=== PATIENT | female | born 1960 | race Caucasian/White ===

== ENCOUNTER 2016-04-24 19:28 | Emergency (ER) | payer OTHER, MEDICAID ==
[2015-12-10 14:14] VITALS: Ht 165.1 cm; Wt 90.7 kg
[~2016-04-24] VITALS: Ht 165.1 cm; Wt 90.7 kg
[~2016-04-24 19:28] MED LIST: BACL10TA GT; BISA10SU65 RC; CHLO118M PO; CHOL2000 GT; FER300L GT; FLEET RC; IBUP-1969 GT; LACTIN GT; LEVO175T7 GT; MAGN400O4 GT; MULT240L GT; OMEP40CA33 GT; POTA40LI14 PO; PRAM28.3 RC; REGL10 GT; TEMA15CA51 GT; TRAM50TA92 GT; TYL160/5 GT; VANORAL GT; XOP.63 INH
--- NOTE | 2016-04-24 19:40 | NUR ---
DR. BLANK AT BEDSIDE EXAMINING THE PT.
--- NOTE | 2016-04-24 19:40 | NUR ---
Patient to ER bed 01 to gown for evaluation. Side rails up. Report given to Ritu.
[2016-04-24 19:42] VITALS: BP 132/81; PULSE 90; RESP 17; TEMP 98.6; O2SAT 99
--- NOTE | 2016-04-24 19:55 | NUR ---
Pt. sent from snf for G tube replacement, as per ems the g tube was placed in on and started leaking this afternoon, leaking perfusly, [address], Hx of terminal ALS, respiratory failure, VENT DEPENDENT, trach in place, alert and awake.
--- NOTE | 2016-04-24 20:30 | NUR ---
Dr. contreras at bedside for g tube replacement, G- tube was replaced with a 30F, wound area cleaned, skin barrier applied, pt. tolerated well, dressing in place, no bleeding or drainage noted at this time
[2016-04-24 20:57] LABS: BASOPHILS % (AUTO) 0.2 % (0.0-2.0); EOSINOPHILS # (AUTO) 0.1 K/uL (0.0-0.4); EOSINOPHILS % (AUTO) 1.3 % (0.0-4.0); HEMATOCRIT 33.7 % (36-48); HEMOGLOBIN 11.4 g/dL (12.0-16.0); LYMPHOCYTES # (AUTO) 2.7 K/uL (1.0-5.5); LYMPHOCYTES % (AUTO) 28.3 % (20.5-51.5); MEAN CORPUSCULAR HEMOGLOBIN 30 pg (27-31); MEAN CORPUSCULAR HGB CONC 34 % (32-36); MEAN CORPUSCULAR VOLUME 90 fL (79.0-98.0); MONOCYTES # (AUTO) 0.7 K/uL (0.0-1.0); MONOCYTES % (AUTO) 7.5 % (1.7-9.3); NEUTROPHILS # (AUTO) 6.1 K/uL (1.8-7.7); NEUTROPHILS % (AUTO) 62.7 % (40.0-70.0); PLATELET COUNT (AUTO) 237 K/uL (130-430); RED BLOOD CELL COUNT(AUTO) 3.77 MIL/uL (4.2-6.2); RED CELL DISTRIBUTION WIDTH 12.4 % (9.0-15.0); WHITE BLOOD COUNT (AUTO) 9.6 K/uL (4.8-10.8)
[2016-04-24 21:09] LABS: CALCIUM 9.4 mg/dL (8.4-11.0); CREATININE 0.47 mg/dL (0.55-1.30); PROTHROMBIN TIME 10.4 SECS (9.5-12.5)
[2016-04-24] MEDS ORDERED: GASTROGRAFIN 120 ML ONE (21:10)
[2016-04-24 21:23] LABS: ALBUMIN 3.5 g/dL (3.4-4.8); TOTAL BILIRUBIN 0.6 mg/dL (0.0-1.0); TOTAL PROTEIN, SERUM 9.8 g/dL (6.4-8.3)
[2016-04-25 00:43] VITALS: BP 133/79; PULSE 122; RESP 18; TEMP 98.2; O2SAT 99
--- NOTE | 2016-04-25 00:43 | NUR ---
Patient to be transferred to [facility], transfering patient now and Report called to Nurse Gonsalves at receiving facility. [facility] ambulance service is taking patient now.
== END 2016-04-25 00:43 | disposition home or self-care (01) ==
LOC: SED 19:28
DX: K94.23 Gastrostomy malfunction (principal); Z86.79 Personal history of other diseases of the circulatory system; Z99.11 Dependence on respirator [ventilator] status; Z79.899 Other long term (current) drug therapy
CPT/HCPCS: 36415; 43760; 74240; 80053; 83605; 85025; 85610; 85730; 87040; 94640; 99285; Q9963

== ENCOUNTER 2016-05-02 08:10 | Inpatient (IN) | payer OTHER, MEDICAID ==
[2016-05-02] VITALS (11 sets, daily range): BP systolic 118–131; BP diastolic 66–79; PULSE 79–95; RESP 16–19; TEMP 97.1–97.9; O2SAT 94–98
[~2016-05-02] VITALS: Ht 160 cm; Wt 68.0 kg
[2016-05-02] MEDS ORDERED: CEFAZOLIN 1 GM IVPB PREMIX 50 ML IV ONE (09:15)
[2016-05-02 09:42] LABS: CALCIUM 9.7 mg/dL (8.4-11.0); CREATININE 0.52 mg/dL (0.55-1.30); POTASSIUM 3.9 mmol/L (3.5-5.1)
[2016-05-02 09:44] LABS: INR 0.9 (0.8-1.2); PROTHROMBIN TIME 10.3 SECS (9.5-12.5)
[2016-05-02 09:47] LABS: ALBUMIN 3.7 g/dL (3.4-4.8); TOTAL BILIRUBIN 0.6 mg/dL (0.0-1.0); TOTAL PROTEIN, SERUM 10.3 g/dL (6.4-8.3)
[2016-05-02 09:53] LABS: BASOPHILS % (AUTO) 0.1 % (0.0-2.0); EOSINOPHILS # (AUTO) 0.1 K/uL (0.0-0.4); EOSINOPHILS % (AUTO) 1.1 % (0.0-4.0); HEMATOCRIT 38.2 % (36-48); HEMOGLOBIN 12.7 g/dL (12.0-16.0); LYMPHOCYTES # (AUTO) 2.6 K/uL (1.0-5.5); LYMPHOCYTES % (AUTO) 25.5 % (20.5-51.5); MEAN CORPUSCULAR HEMOGLOBIN 30 pg (27-31); MEAN CORPUSCULAR HGB CONC 33 % (32-36); MEAN CORPUSCULAR VOLUME 91 fL (79.0-98.0); MONOCYTES # (AUTO) 0.8 K/uL (0.0-1.0); MONOCYTES % (AUTO) 7.8 % (1.7-9.3); NEUTROPHILS # (AUTO) 6.8 K/uL (1.8-7.7); NEUTROPHILS % (AUTO) 65.5 % (40.0-70.0); PLATELET COUNT (AUTO) 293 K/uL (130-430); RED BLOOD CELL COUNT(AUTO) 4.19 MIL/uL (4.2-6.2); RED CELL DISTRIBUTION WIDTH 12.4 % (9.0-15.0); WHITE BLOOD COUNT (AUTO) 10.3 K/uL (4.8-10.8)
[2016-05-02] MEDS ORDERED: VANCOMYCIN HCL 1,000 MG in NS 250 ML IV ONE (11:00)
[2016-05-02] MEDS ORDERED: DILT180C69 PO (11:24)
[2016-05-02] MEDS ORDERED: COR3.125 GT (11:24)
[2016-05-02] MEDS: D5LR 1,000 ML IV SCH ×3 (11:59→22:35)
[2016-05-02] MEDS ORDERED: LEVALBUTEROL HCL 0.63 MG/3 ML VIAL.NEB INH PRN (13:45)
[2016-05-02] MEDS ORDERED: BISACODYL 10 MG/SUPPOSITORY RC PRN (13:45)
[2016-05-02] MEDS ORDERED: ACETAMINOPHEN 650 MG/20.3 ML UDC GT PRN (13:45)
[2016-05-02] MEDS ORDERED: NA PHOS,M-B/NA PHOS,DI-BA 118 ML (FLEET ENEMA) RC PRN (13:45)
[2016-05-02] MEDS ORDERED: traMADol HCL HCL 50 MG TABLET (ULTRAM) GT PRN (13:45)
[2016-05-02] MEDS ORDERED: MILK OF MAGNESIA 30 ML UDC GT PRN (13:45)
[2016-05-02] MEDS ORDERED: ceFAZolin SODIUM 1 GM in D5W 50 ML IV SCH (14:00)
[2016-05-02] MEDS: METOCLOPRAMIDE HCL 10 MG/10 ML UDC GT SCH ×2 (14:00→21:54)
[2016-05-02] MEDS ORDERED: DILTIAZEM HCL 25 MG/5 ML VIAL IVP PRN (14:00)
[2016-05-02] MEDS ORDERED: DILTIAZEM HCL 60 MG TABLET PO ONE (14:15)
[2016-05-02] MEDS ORDERED: FAMOTIDINE PF 20 MG/2 ML VIAL IVP ONE (14:15)
[2016-05-02] MEDS: ceFAZolin SODIUM 1 GM in D5W 50 ML IV SCH ×2 (14:31→22:10)
[2016-05-02] MEDS ORDERED: GOLYTELY / COLYTE SOLUTION 4 LITERS GT ONE (18:00)
[2016-05-02] MEDS: LEVALBUTEROL HCL 0.63 MG/3 ML VIAL.NEB INH SCH (19:28)
[2016-05-02] MEDS ORDERED: DILTIAZEM HCL 180 MG CAP.SR.24H PO SCH (21:00)
[2016-05-02] MEDS ORDERED: TEMAZEPAM 15 MG CAPSULE GT PRN (21:00)
[2016-05-02] MEDS: DILTIAZEM HCL 60 MG TABLET PO SCH ×2 (21:00→22:00)
[2016-05-02] MEDS: FAMOTIDINE PF 20 MG/2 ML VIAL IVP SCH (21:54)
[2016-05-02] MEDS: BACLOFEN 10 MG TABLET GT SCH (21:55)
[2016-05-02] MEDS: CARVEDILOL 3.125 MG TABLET (COREG) GT SCH (21:55)
[2016-05-02] MEDS ORDERED: VANCOMYCIN HCL 1000 MG/VIAL IV ONE (22:08)
[2016-05-02] MEDS ORDERED: ceFAZolin SODIUM 1 GM VIAL ONE (22:09)
[2016-05-02] MEDS: VANCOMYCIN HCL 750 MG in NS 250 ML IV SCH (23:27)
[2016-05-03] VITALS (18 sets, daily range): BP systolic 106–132; BP diastolic 55–81; PULSE 66–103; RESP 18–20; TEMP 96.5–98; O2SAT 96–100
[2016-05-03] MEDS: LEVALBUTEROL HCL 0.63 MG/3 ML VIAL.NEB INH SCH ×4 (01:20→19:40)
[2016-05-03] MEDS: D5LR 1,000 ML IV SCH ×3 (05:27→21:46)
[2016-05-03] MEDS: METOCLOPRAMIDE HCL 10 MG/10 ML UDC GT SCH ×3 (05:28→21:46)
[2016-05-03] MEDS: DILTIAZEM HCL 60 MG TABLET PO SCH ×3 (06:00→22:57)
[2016-05-03 07:34] LABS: BASOPHILS % (AUTO) 0.1 % (0.0-2.0); EOSINOPHILS # (AUTO) 0.1 K/uL (0.0-0.4); EOSINOPHILS % (AUTO) 1.1 % (0.0-4.0); HEMATOCRIT 30.5 % (36-48); HEMOGLOBIN 10.6 g/dL (12.0-16.0); LYMPHOCYTES # (AUTO) 1.7 K/uL (1.0-5.5); LYMPHOCYTES % (AUTO) 23.3 % (20.5-51.5); MEAN CORPUSCULAR HEMOGLOBIN 31 pg (27-31); MEAN CORPUSCULAR HGB CONC 35 % (32-36); MEAN CORPUSCULAR VOLUME 89 fL (79.0-98.0); MONOCYTES # (AUTO) 0.6 K/uL (0.0-1.0); MONOCYTES % (AUTO) 8.5 % (1.7-9.3); NEUTROPHILS # (AUTO) 4.8 K/uL (1.8-7.7); PLATELET COUNT (AUTO) 223 K/uL (130-430); RED BLOOD CELL COUNT(AUTO) 3.42 MIL/uL (4.2-6.2); RED CELL DISTRIBUTION WIDTH 12.4 % (9.0-15.0); WHITE BLOOD COUNT (AUTO) 7.2 K/uL (4.8-10.8)
[2016-05-03] MEDS: ceFAZolin SODIUM 1 GM in D5W 50 ML IV SCH ×3 (07:46→21:50)
[2016-05-03 08:29] LABS: ANION GAP 8 (5-15); CALCIUM 8.9 mg/dL (8.4-11.0); CHLORIDE 105 mmol/L (98-107); CREATININE 0.64 mg/dL (0.55-1.30); GLUCOSE 149 mg/dL (70-99); POTASSIUM 3.3 mmol/L (3.5-5.1); SODIUM SERUM 140 mmol/L (136-145); UREA NITROGEN, BLOOD 17 mg/dL (8-21)
[2016-05-03 08:35] LABS: ALANINE AMINOTRANSFERASE 88 U/L (12-78); ASPARTATE AMINOTRANSFERASE 75 U/L (10-37); TOTAL BILIRUBIN 0.5 mg/dL (0.0-1.0); TOTAL PROTEIN, SERUM 8.3 g/dL (6.4-8.3)
[2016-05-03 08:40] LABS: PROTHROMBIN TIME 10.6 SECS (9.5-12.5)
[2016-05-03] MEDS: CARVEDILOL 3.125 MG TABLET (COREG) GT SCH ×2 (08:52→21:47)
[2016-05-03] MEDS: BACLOFEN 10 MG TABLET GT SCH ×2 (08:52→21:46)
[2016-05-03] MEDS: MULTIVITAMINS,THERAPEUTIC 5 ML UDC GT SCH (08:52)
[2016-05-03] MEDS: FAMOTIDINE PF 20 MG/2 ML VIAL IVP SCH ×2 (08:52→21:46)
[2016-05-03 09:08] LABS: IRON (SERUM) 75 mcg/dL (37-145); TOTAL IRON BIND. CAPACITY 205 ug/dL (250-450)
[2016-05-03 09:14] LABS: ACETAMINOPHEN < 1 ug/mL (1-30); GFR AFRICAN AMERICAN 123 mL/min (>90)
[2016-05-03] MEDS: VANCOMYCIN HCL 750 MG in NS 250 ML IV SCH ×2 (12:10→22:55)
[2016-05-03] MEDS ORDERED: POTASSIUM CHLORIDE 40 MEQ, LIDOCAINE JECT 2% PF 100 MG 50 MG in NS 250 ML IV ONE ×2 (13:30→18:00)
[2016-05-03] MEDS ORDERED: MENTHOL/ZINC OXIDE 113 GM OINT. TP PRN (19:00)
[2016-05-03] MEDS: MENTHOL/ZINC OXIDE 113 GM OINT. TP SCH ×2 (21:00→21:56)
[2016-05-04] VITALS (18 sets, daily range): BP systolic 102–149; BP diastolic 66–81; PULSE 7–87; RESP 17–19; TEMP 97.2–98.8; O2SAT 98–100; Ht 160 cm; Wt 68.0 kg
[2016-05-04] MEDS: D5LR 1,000 ML IV SCH ×3 (01:15→21:06)
[2016-05-04] MEDS: LEVALBUTEROL HCL 0.63 MG/3 ML VIAL.NEB INH SCH ×4 (01:36→19:48)
[2016-05-04] MEDS: DILTIAZEM HCL 60 MG TABLET PO SCH ×3 (05:26→21:09)
[2016-05-04] MEDS: METOCLOPRAMIDE HCL 10 MG/10 ML UDC GT SCH ×3 (05:29→21:07)
[2016-05-04] MEDS: ceFAZolin SODIUM 1 GM in D5W 50 ML IV SCH ×3 (05:30→21:06)
[2016-05-04 07:54] LABS: BASOPHILS % (AUTO) 0.1 % (0.0-2.0); EOSINOPHILS # (AUTO) 0.1 K/uL (0.0-0.4); EOSINOPHILS % (AUTO) 0.9 % (0.0-4.0); HEMATOCRIT 28.6 % (36-48); HEMOGLOBIN 9.7 g/dL (12.0-16.0); LYMPHOCYTES # (AUTO) 1.8 K/uL (1.0-5.5); LYMPHOCYTES % (AUTO) 22.6 % (20.5-51.5); MEAN CORPUSCULAR HEMOGLOBIN 31 pg (27-31); MEAN CORPUSCULAR HGB CONC 34 % (32-36); MEAN CORPUSCULAR VOLUME 91 fL (79.0-98.0); MONOCYTES # (AUTO) 0.5 K/uL (0.0-1.0); MONOCYTES % (AUTO) 6.2 % (1.7-9.3); NEUTROPHILS # (AUTO) 5.7 K/uL (1.8-7.7); NEUTROPHILS % (AUTO) 70.2 % (40.0-70.0); PLATELET COUNT (AUTO) 189 K/uL (130-430); RED BLOOD CELL COUNT(AUTO) 3.15 MIL/uL (4.2-6.2); RED CELL DISTRIBUTION WIDTH 12.4 % (9.0-15.0); WHITE BLOOD COUNT (AUTO) 8.1 K/uL (4.8-10.8)
[2016-05-04 08:16] LABS: ALBUMIN 2.9 g/dL (3.4-4.8); CALCIUM 8.4 mg/dL (8.4-11.0); CREATININE 0.54 mg/dL (0.55-1.30); POTASSIUM 3.3 mmol/L (3.5-5.1); TOTAL BILIRUBIN 0.4 mg/dL (0.0-1.0)
[2016-05-04] MEDS: FAMOTIDINE PF 20 MG/2 ML VIAL IVP SCH ×2 (09:00→21:07)
[2016-05-04] MEDS: MULTIVITAMINS,THERAPEUTIC 5 ML UDC GT SCH (09:00)
[2016-05-04] MEDS: CARVEDILOL 3.125 MG TABLET (COREG) GT SCH ×2 (09:00→21:08)
[2016-05-04] MEDS: BACLOFEN 10 MG TABLET GT SCH ×2 (09:00→21:08)
[2016-05-04] MEDS: MEPERIDINE HCL/PF 50 MG/ML AMP ONE ×2 (09:53→09:59)
[2016-05-04] MEDS: MIDAZOLAM HCL 5 MG/5 ML VIAL ONE ×2 (09:53→09:59)
[2016-05-04] MEDS ORDERED: MIDAZOLAM HCL 5 MG/5 ML VIAL ONE (09:54)
[2016-05-04] MEDS ORDERED: SIMETHICONE 40 MG/0.6 ML ML ONE (09:57)
[2016-05-04 10:09] LABS: HEPATITIS A AB, IgM Negative (Negative); HEPATITIS B CORE AB, IgM Negative (Negative); HEPATITIS B SURFACE AG Negative (Negative)
[2016-05-04] MEDS: VANCOMYCIN HCL 750 MG in NS 250 ML IV SCH ×2 (13:16→21:59)
[2016-05-04 15:28] LABS: ANTI NUCLEAR AB WITH REFLEX Positive (Negative)
[2016-05-04] MEDS ORDERED: POTASSIUM CHLORIDE 40 MEQ, LIDOCAINE JECT 2% PF 100 MG 50 MG in NS 250 ML IV ONE (16:00)
[2016-05-04] MEDS: MENTHOL/ZINC OXIDE 113 GM OINT. TP SCH (21:00)
[2016-05-04] MEDS: MUPIROCIN 2% TOPICAL OINTMENT 22 GM TP SCH (21:07)
[2016-05-05] VITALS (17 sets, daily range): BP systolic 100–136; BP diastolic 67–77; PULSE 61–128; RESP 17–21; TEMP 97.2–98.6; O2SAT 97–100
[2016-05-05] MEDS: LEVALBUTEROL HCL 0.63 MG/3 ML VIAL.NEB INH SCH ×4 (01:30→20:19)
[2016-05-05] MEDS: DILTIAZEM HCL 60 MG TABLET PO SCH ×2 (05:00→14:10)
[2016-05-05] MEDS: ceFAZolin SODIUM 1 GM in D5W 50 ML IV SCH ×2 (05:00→14:09)
[2016-05-05] MEDS: METOCLOPRAMIDE HCL 10 MG/10 ML UDC GT SCH ×2 (05:00→14:09)
[2016-05-05 05:06] LABS: ALPHA-1-ANTITRYPSIN, S 137 mg/dL (90-200)
[2016-05-05] MEDS: FAMOTIDINE PF 20 MG/2 ML VIAL IVP SCH (10:11)
[2016-05-05] MEDS: MUPIROCIN 2% TOPICAL OINTMENT 22 GM TP SCH (10:12)
[2016-05-05] MEDS: CARVEDILOL 3.125 MG TABLET (COREG) GT SCH (10:12)
[2016-05-05] MEDS: BACLOFEN 10 MG TABLET GT SCH (10:12)
[2016-05-05] MEDS: MULTIVITAMINS,THERAPEUTIC 5 ML UDC GT SCH (10:12)
[2016-05-05] MEDS: MENTHOL/ZINC OXIDE 113 GM OINT. TP SCH ×3 (10:13→17:04)
[2016-05-05] MEDS: VANCOMYCIN HCL 750 MG in NS 250 ML IV SCH (10:39)
[2016-05-05 13:07] LABS: AFP, TUMOR MARKER 3.2 ng/mL (0.0-8.3)
[2016-05-05 15:33] LABS: BASOPHILS % (AUTO) 0.1 % (0.0-2.0); EOSINOPHILS # (AUTO) 0.1 K/uL (0.0-0.4); EOSINOPHILS % (AUTO) 0.9 % (0.0-4.0); HEMATOCRIT 32.8 % (36-48); HEMOGLOBIN 11.1 g/dL (12.0-16.0); LYMPHOCYTES # (AUTO) 1.8 K/uL (1.0-5.5); LYMPHOCYTES % (AUTO) 26.5 % (20.5-51.5); MEAN CORPUSCULAR HEMOGLOBIN 31 pg (27-31); MEAN CORPUSCULAR HGB CONC 34 % (32-36); MEAN CORPUSCULAR VOLUME 92 fL (79.0-98.0); MONOCYTES # (AUTO) 0.5 K/uL (0.0-1.0); MONOCYTES % (AUTO) 7.1 % (1.7-9.3); NEUTROPHILS # (AUTO) 4.4 K/uL (1.8-7.7); NEUTROPHILS % (AUTO) 65.4 % (40.0-70.0); PLATELET COUNT (AUTO) 198 K/uL (130-430); RED BLOOD CELL COUNT(AUTO) 3.58 MIL/uL (4.2-6.2); RED CELL DISTRIBUTION WIDTH 12.1 % (9.0-15.0); WHITE BLOOD COUNT (AUTO) 6.8 K/uL (4.8-10.8)
[2016-05-05 15:36] LABS: CALCIUM 8.8 mg/dL (8.4-11.0); CREATININE 0.6 mg/dL (0.55-1.30); POTASSIUM 3.7 mmol/L (3.5-5.1)
[2016-05-05 15:46] LABS: ANTI-SMOOTH MUSCLE AB 37 Units (0-19)
== END 2016-05-05 20:40 | DRG 393 ==
LOC: SED 08:10 → SMU 09:09 → STU 10:54
PROVIDERS: ADMIT Internal Medicine; ATTEND Internal Medicine
PROC: 0D20XUZ Change Feeding Device in Upper Intestinal Tract, External Approach (ICD-10-PCS; principal; 2016-05-02)
PROC: 5A1945Z Respiratory Ventilation, 24-96 Consecutive Hours (ICD-10-PCS; 2016-05-02)
PROC: 0DBM8ZX Excision of Descending Colon, Via Natural or Artificial Opening Endoscopic, Diagnostic (ICD-10-PCS; 2016-05-04)
DX: K94.23 Gastrostomy malfunction (principal); G82.50 Quadriplegia, unspecified; L03.311 Cellulitis of abdominal wall; G12.21 Amyotrophic lateral sclerosis; J96.10 Chronic respiratory failure, unspecified whether with hypoxia or hypercapnia; K62.5 Hemorrhage of anus and rectum; Z99.11 Dependence on respirator [ventilator] status; Y83.3 Surgical operation with formation of external stoma as the cause of abnormal reaction of the patient, or of later complication, without mention of misadventure at the time of the procedure; I10 Essential (primary) hypertension; D64.9 Anemia, unspecified; J47.9 Bronchiectasis, uncomplicated; K80.20 Calculus of gallbladder without cholecystitis without obstruction; R13.10 Dysphagia, unspecified; D12.4 Benign neoplasm of descending colon; E03.9 Hypothyroidism, unspecified; K56.41 Fecal impaction; K64.8 Other hemorrhoids; Z86.19 Personal history of other infectious and parasitic diseases
CPT/HCPCS: 36415; 45380; 76700-TC; 80048; 80053; 80074; 82103; 82105; 82977-TC; 83516; 83540-TC; 83550-TC; 83605; 83735-TC; 85025; 85610-TC; 85730-TC; 86038; 87040-TC; 87070-TC; 87081; 87186-TC; 88305; 94003; 94640; 94760; 96365; 99285; G0480; J0690; J2175; J2250; J3370; J3480; J3490; J7030; J7042; J7050; J7060; J7120; J8597

== ENCOUNTER 2016-05-08 13:42 | Inpatient (IN) | payer OTHER, MEDICAID ==
[2016-05-08] VITALS (8 sets, daily range): BP systolic 119–136; BP diastolic 70–79; PULSE 72–84; RESP 18; TEMP 97.8–98.5; O2SAT 98–99
[~2016-05-08] VITALS: Ht 167.6 cm; Wt 68.5 kg
[~2016-05-08 13:42] MED LIST changes: +COR3.125 GT; +DILT180C69 PO
--- NOTE | 2016-05-08 13:42 | NUR ---
BROUGHT BACK TO BED #1, TRIAGED, REPORT GIVEN TO AMOS
--- NOTE | 2016-05-08 13:45 | NUR ---
Dr Moore at bedside examining patient
--- NOTE | 2016-05-08 13:46 | NUR ---
Pt brought by ambulance, Alert to voice, pain and stimuli,pt here for G-tube replacement, cap refill <3, pt has trach to vent , intact, RT at bedside.
[2016-05-08] MEDS ORDERED: fentaNYL CITRATE/PF 100 MCG/2 ML AMP ONE (14:00)
[2016-05-08] MEDS ORDERED: METOCLOPRAMIDE HCL 10 MG/2 ML VIAL ONE (14:00)
[2016-05-08] MEDS ORDERED: LR 1,000 ML IV.SOLN IV ONE (14:00)
[2016-05-08] MEDS ORDERED: ROCURONIUM BROMIDE 10 MG/ML (ZEMURON) ONE (14:00)
[2016-05-08] MEDS ORDERED: PROPOFOL 200MG/ 20ML VIAL (DIPRIVAN) IV ONE (14:00)
[2016-05-08] MEDS ORDERED: VANCOMYCIN HCL 1000 MG/VIAL IV ONE (14:00)
[2016-05-08] MEDS ORDERED: SEVOFLURANE 15 MIN GAS INH ONE (14:00)
[2016-05-08 14:15] LABS: EOSINOPHILS # (AUTO) 0.1 K/uL (0.0-0.4); EOSINOPHILS % (AUTO) 1.3 % (0.0-4.0)
[2016-05-08 14:26] LABS: BASOPHILS % (AUTO) 0.6 % (0.0-2.0); HEMATOCRIT 36.3 % (36-48); LYMPHOCYTES # (AUTO) 2.7 K/uL (1.0-5.5); LYMPHOCYTES % (AUTO) 35.5 % (20.5-51.5); MEAN CORPUSCULAR HEMOGLOBIN 30 pg (27-31); MEAN CORPUSCULAR HGB CONC 33 % (32-36); MEAN CORPUSCULAR VOLUME 91 fL (79.0-98.0); MONOCYTES # (AUTO) 0.6 K/uL (0.0-1.0); MONOCYTES % (AUTO) 7.2 % (1.7-9.3); NEUTROPHILS # (AUTO) 4.3 K/uL (1.8-7.7); NEUTROPHILS % (AUTO) 55.4 % (40.0-70.0); PLATELET COUNT (AUTO) 272 K/uL (130-430); RED BLOOD CELL COUNT(AUTO) 3.98 MIL/uL (4.2-6.2); WHITE BLOOD COUNT (AUTO) 7.7 K/uL (4.8-10.8)
[2016-05-08 14:31] LABS: PROTHROMBIN TIME 10.4 SECS (9.5-12.5)
[2016-05-08 14:33] LABS: CALCIUM 9.5 mg/dL (8.4-11.0); CREATININE 0.5 mg/dL (0.55-1.30); POTASSIUM 4.1 mmol/L (3.5-5.1)
[2016-05-08 14:38] LABS: ALBUMIN 3.6 g/dL (3.4-4.8); TOTAL BILIRUBIN 0.4 mg/dL (0.0-1.0); TOTAL PROTEIN, SERUM 9.8 g/dL (6.4-8.3)
[2016-05-08] MEDS ORDERED: LR 500 ML IV SCH (14:45)
--- NOTE | 2016-05-08 14:57 | NUR ---
ADMISSION NOTE Received patient from ER via kamila, received report from Gabriela WHITNEY. Patient admitted with diagnosis of G-Tube placement. Patient & patient's sister oriented to hospital routine, call light, toileting and safety-patient nodded her understanding.
--- NOTE | 2016-05-08 15:00 | NUR ---
Initial Note: Received patient, stable condition, alert and oriented x4 but non verbal. Visitor present. Tolerating ventilator settings well. Former Gtube site to abdomen noted, red/purple discoloration noted to salome-site, slight red/pink drainage noted, covered site with gauze for protection. Abdomen soft and non-distended. Fall, safety and aspiration precautions in place, bed in lowest position, call light with patient. Will continue to monitor.
--- NOTE | 2016-05-08 15:47 | NUR ---
CONSULT SURGICAL DISLODGEMENT OF GTUBE DR DELAROSA [phone] DR DELAROSA SPOKE WITH CHELO ASHLEY
--- NOTE | 2016-05-08 17:00 | NUR ---
Note: Patient in stable condition, tolerating ventilator settings well.
[2016-05-08] MEDS ORDERED: NA PHOS,M-B/NA PHOS,DI-BA 118 ML (FLEET ENEMA) RC PRN (18:15)
[2016-05-08] MEDS ORDERED: TEMAZEPAM 15 MG CAPSULE GT PRN (18:15)
[2016-05-08] MEDS ORDERED: MILK OF MAGNESIA 30 ML UDC GT PRN (18:15)
[2016-05-08] MEDS ORDERED: BISACODYL 10 MG/SUPPOSITORY RC PRN (18:15)
[2016-05-08] MEDS ORDERED: DILTIAZEM HCL 25 MG/5 ML VIAL IVP PRN (18:30)
--- NOTE | 2016-05-08 19:27 | NUR ---
Closing Note: Patient in stable condition, no distress noted, tolerating vent settings well. No active drainage from former gtube site. Care endorsed to night RN.
--- NOTE | 2016-05-08 19:34 | NUR ---
Initial Note Patient in bed at this time resting, respirations even and unlabored. No acute distress noted at this time. Respirations even and unlabored. Patient is tolerated vent well. Patient is alert to voice and able to make needs known and follow commands. Call light in reach, patient able to access. IV site patent with no signs or symptoms of infiltration noted at this time. Will continue to monitor.
[2016-05-08] MEDS: LEVALBUTEROL HCL 0.63 MG/3 ML VIAL.NEB INH PRN (19:37)
[2016-05-08] MEDS ORDERED: VANCOMYCIN HCL 1,000 MG in NS 250 ML IV ONE (20:00)
[2016-05-08] MEDS: D5LR 1,000 ML IV SCH (20:36)
[2016-05-08] MEDS: BACLOFEN 10 MG TABLET GT SCH (20:37)
[2016-05-08] MEDS: METOCLOPRAMIDE HCL 10 MG/10 ML UDC GT SCH (20:37)
[2016-05-08] MEDS: CARVEDILOL 3.125 MG TABLET (COREG) GT SCH (20:37)
--- NOTE | 2016-05-08 22:10 | NUR ---
RN ROUNDS/IV INSERTION Patient in bed at this time resting. Gtube dressing became soiled, cleaned and changed dressing, patient tolerated well. IV noted to be infiltrated. Restarted IV on the right forearm 22g, patient tolerated well. resumed IVF as ordered. Call light near foot, patient able to use and demonstrated proper use of call light. Fall and safety precautions in place. Will continue to monitor.
[2016-05-08] MEDS: CEFAZOLIN 1 GM IVPB PREMIX 50 ML IV SCH (22:38)
[2016-05-09] VITALS (16 sets, daily range): BP systolic 123–153; BP diastolic 77–85; PULSE 67–111; RESP 17–19; TEMP 96.7–99.5; O2SAT 99–100
--- NOTE | 2016-05-09 00:04 | NUR ---
RN ROUNDS Patient in bed at this time resting, respirations even and unlabored. Patient continues to tolerate vent settings well. No acute distress noted at this time. Fall and safety precautions in place. Will continue to monitor.
[2016-05-09] MEDS: LEVALBUTEROL HCL 0.63 MG/3 ML VIAL.NEB INH PRN ×2 (00:58→07:54)
--- NOTE | 2016-05-09 02:29 | NUR ---
RN ROUNDS Patient in bed at this time resting, respirations even and unlabored. No acute distress noted at this time. Patient continues to tolerate vent settings well. Patient in no apparent pain or discomfort at this time. Call light in reach. Patient shows proper demonstration of use. Fall and safety precautions in place. Will continue to monitor.
--- NOTE | 2016-05-09 03:40 | NUR ---
Dressing Changed Changed abdominal dressing. Noted to have mucus drainage, no foul odor. Brown discharge noted as well. Applied zguard. Patient tolerated well.
--- NOTE | 2016-05-09 03:58 | NUR ---
CONSULT: CONSULT CALLED FOR DR. COTTO I SPOKE WITH TAMEKA REASON FOR CONSULT: RF NUMBER I CALLED [phone]
[2016-05-09] MEDS: D5LR 1,000 ML IV SCH ×2 (05:00→15:38)
[2016-05-09] MEDS: CEFAZOLIN 1 GM IVPB PREMIX 50 ML IV SCH ×3 (05:58→22:12)
[2016-05-09] MEDS: METOCLOPRAMIDE HCL 10 MG/10 ML UDC GT SCH ×3 (05:58→22:00)
--- NOTE | 2016-05-09 06:38 | NUR ---
Closing Note Patient in bed at this time resting, respirations even and unlabored. No acute distress noted. Patient tolerating vent settings well. Patient able to make needs known. All due meds given, all needs met. Call light in reach. Fall and safety precautions in place. Will endorse to day shift nurse.
[2016-05-09 07:58] LABS: BASOPHILS % (AUTO) 0.2 % (0.0-2.0); EOSINOPHILS # (AUTO) 0.1 K/uL (0.0-0.4); EOSINOPHILS % (AUTO) 1.4 % (0.0-4.0); HEMOGLOBIN 11.6 g/dL (12.0-16.0); LYMPHOCYTES # (AUTO) 2.4 K/uL (1.0-5.5); LYMPHOCYTES % (AUTO) 30.7 % (20.5-51.5); MEAN CORPUSCULAR HEMOGLOBIN 31 pg (27-31); MEAN CORPUSCULAR HGB CONC 34 % (32-36); MEAN CORPUSCULAR VOLUME 90 fL (79.0-98.0); MONOCYTES # (AUTO) 0.8 K/uL (0.0-1.0); MONOCYTES % (AUTO) 10.4 % (1.7-9.3); NEUTROPHILS # (AUTO) 4.6 K/uL (1.8-7.7); NEUTROPHILS % (AUTO) 57.3 % (40.0-70.0); PLATELET COUNT (AUTO) 263 K/uL (130-430); RED BLOOD CELL COUNT(AUTO) 3.79 MIL/uL (4.2-6.2); RED CELL DISTRIBUTION WIDTH 12.3 % (9.0-15.0); WHITE BLOOD COUNT (AUTO) 7.9 K/uL (4.8-10.8)
--- NOTE | 2016-05-09 08:10 | NUR ---
TELEPHONE CONSENT Spoke with patients sister, Aan to verify consent for surgery. Ana agreed to surgery for patient and spoke with MD last night and has no further questions at this time. 2nd RN verified telephone consent.
[2016-05-09 08:23] LABS: CALCIUM 8.6 mg/dL (8.4-11.0); CREATININE 0.59 mg/dL (0.55-1.30); POTASSIUM 3.6 mmol/L (3.5-5.1)
--- NOTE | 2016-05-09 08:24 | NUR ---
AM ROUNDS Patient received, alert awake and oriented x3. VSS. Patient non verbal, able to nod to questions, uses alphabet chart to communicate and can track with eyes. Patient denies pain at this time. Respirations even and unlabored. Patient trach to vent. Ventilator settings noted. IV site patent intact and infusing fluids as ordered. Abdominal dressing noted, CDI. Bowel sounds WNL. Patient has diaper on per request of patient and family. Patient repositioned with pillow support. Heels elevated with pillow support. No further needs at this time. Safety and fall precautions in place, call light within reach. Contact precautions in place, will continue to monitor.
[2016-05-09] MEDS: BACLOFEN 10 MG TABLET GT SCH ×2 (08:29→21:00)
[2016-05-09] MEDS: VANCOMYCIN HCL 750 MG in NS 250 ML IV SCH ×2 (08:29→20:59)
[2016-05-09] MEDS: CARVEDILOL 3.125 MG TABLET (COREG) GT SCH ×2 (09:00→21:00)
[2016-05-09] MEDS: MULTIVITAMINS,THERAPEUTIC 5 ML UDC GT SCH (09:00)
--- NOTE | 2016-05-09 09:11 | NUR ---
Nutrition Update Chad Scale 15 noted. Pt admitted for dislodgement of GT. Diet: NPO BMI: 24.4 kg/m2 RD to follow per nutrition care standards.
--- NOTE | 2016-05-09 09:20 | NUR ---
Patient taken down to surgery, stable condition.
[2016-05-09] MEDS ORDERED: LR 1,000 ML IV ONE (10:27)
[2016-05-09] MEDS ORDERED: ePHEDrine sulfate 50 MG/ML VIAL IVP PRN (10:30)
[2016-05-09] MEDS ORDERED: fentaNYL CITRATE/PF 100 MCG/2 ML AMP IVP PRN (10:30)
[2016-05-09] MEDS ORDERED: NALBUPHINE HCL 10 MG/ML AMP IVP PRN (10:30)
[2016-05-09] MEDS ORDERED: ONDANSETRON HCL 4 MG/2 ML VIAL IVP PRN ×2 (10:30)
[2016-05-09] MEDS ORDERED: NALOXONE HCL 0.4 MG/ML AMP (NARCAN) IVP PRN (10:30)
[2016-05-09] MEDS ORDERED: DIPHENHYDRAMINE INJ 50 MG/ML VIAL IVP PRN (10:30)
[2016-05-09] MEDS ORDERED: fentaNYL CITRATE/PF 100 MCG/2 ML AMP ONE (10:54)
--- NOTE | 2016-05-09 12:10 | NUR ---
ROUNDS Patient returned from surgery. VSS. Patient sleeping, arousable to name and deep stimuli at this time. Abdominal dressing noted, CDI. Gtube dressing CDI. Trach to vent settings noted. No further needs. Will continue to monitor. Safety, fall, and contact precautions in place.
--- NOTE | 2016-05-09 14:09 | NUR ---
ROUNDS Patient cleaned and repositioned with pillow support. IVF infusing as ordered. Patient states she is in pain, Dr. Robertson aware and new orders noted. Oral care and suctioning provided. Thin secretions noted. No further needs at this time. Will continue to monitor. Family at bedside. Contact and safety precautions in place.
[2016-05-09] MEDS: MORPHINE 2 MG/ML INJ. SYRINGE IVP PRN ×2 (14:49→18:47)
--- NOTE | 2016-05-09 14:53 | NUR ---
Patient with facial grimacing and nods yes when asked if she is in pain. Peng scale, 8/10 as well. Administered meds as ordered.
--- NOTE | 2016-05-09 15:33 | NUR ---
MD Per Dr. Weathers, patient to remain NPO and J-tube is not to be used for access.
--- NOTE | 2016-05-09 16:34 | NUR ---
ROUNDS Patient repositioned with pillow support. IVF infusing as ordered. Patient denies pain at this time. No further needs. Safety contact and fall precautions in place. Family at bedside. Will continue to monitor.
--- NOTE | 2016-05-09 18:43 | NUR ---
CLOSING NOTE Patient repositioned with pillow support. Respirations even and unlabored. Trach to vent settings noted. Oral care provided. Patient grimacing, patient nodded when asked if she was in pain, medication given as indicated. IV site patent intact and infusing fluids as ordered. Abdominal dressing CDI. Gtube dressing CDI. Heels elevated with pillow support. No further needs at this time. Safety, contact, and fall precautions in place. Family at bedside. Will endorse to next shift.
[2016-05-09] MEDS: LEVALBUTEROL HCL 0.63 MG/3 ML VIAL.NEB INH SCH (19:39)
--- NOTE | 2016-05-09 19:46 | NUR ---
Initial PM Note Patient was received lying in bed sleeping, but easily arousable. Family members are visiting at the bedside. No acute distress noted. No facial grimacing noted. Pt is non-verbal, but able to nod head to questions asked. Pt is able to use alphabet board to communicate and can track with her eyes. Respirations are even and unlabored. Patient has Portex Cuffed Tracheostomy #7 and connected to Ventilator with Vent settings as follows: AC 17, FIO2 28% and TV 450. Pt is tolerating vent settings well. IV site in RFA is patent with IVF of D5LR infusing well at 100ml/hr. Abdominal dressing noted and it is CDI with GT clamped. Patient has diaper on per request of patient and her family. Fall and safety precautions are in place. Call light is with pt. Bed is in the lowest and locked positions. Will continue to monitor patient.
--- NOTE | 2016-05-09 21:00 | NUR ---
Rounds Pt is resting comfortably in bed and tolerating vent settings well.
--- NOTE | 2016-05-09 23:00 | NUR ---
Rounds Pt is resting comfortably in bed without any distress noted. Fall precautions are in place.
[2016-05-10] VITALS (17 sets, daily range): BP systolic 118–141; BP diastolic 66–80; PULSE 66–105; RESP 16–20; TEMP 97.1–99.6; O2SAT 98–100; Ht 167.6 cm; Wt 68.5 kg
--- NOTE | 2016-05-10 00:30 | NUR ---
Rounds Pt is resting quietly in bed. No acute distress noted. Fall precautions are in place.
[2016-05-10] MEDS: LEVALBUTEROL HCL 0.63 MG/3 ML VIAL.NEB INH SCH ×4 (01:02→19:24)
[2016-05-10] MEDS: MORPHINE 2 MG/ML INJ. SYRINGE IVP PRN ×5 (01:11→20:23)
--- NOTE | 2016-05-10 01:11 | NUR ---
Pain Medication Morphine 2mg was given IV for c/o abdominal incisional pain with relief.
--- NOTE | 2016-05-10 03:00 | NUR ---
Rounds Pt is sleeping comfortably in bed and tolerating vent settings well. IVF is infusing well in RFA.
[2016-05-10] MEDS: D5LR 1,000 ML IV SCH ×2 (04:18→17:21)
--- NOTE | 2016-05-10 05:00 | NUR ---
Rounds Pt is sleeping comfortably in bed at this time. No respiratory distress noted. Fall precautions are in place.
[2016-05-10] MEDS: CEFAZOLIN 1 GM IVPB PREMIX 50 ML IV SCH ×3 (05:46→22:34)
--- NOTE | 2016-05-10 05:46 | NUR ---
Pain Medication Morphine 2mg was given IV for c/o abdominal incisional pain with relief. Abdominal dressing remains CDI with G Tube in place and clamped.
[2016-05-10] MEDS: METOCLOPRAMIDE HCL 10 MG/10 ML UDC GT SCH ×3 (05:49→22:33)
--- NOTE | 2016-05-10 07:00 | NUR ---
Closing Note Pt is resting comfortably in bed. All pt's needs were attended to. No fall or injury noted this shift. Will endorse to day shift nurse.
[2016-05-10 07:29] LABS: BASOPHILS % (AUTO) 0.1 % (0.0-2.0); HEMATOCRIT 30.5 % (36-48); HEMOGLOBIN 10.5 g/dL (12.0-16.0); LYMPHOCYTES % (AUTO) 12.7 % (20.5-51.5); MEAN CORPUSCULAR HEMOGLOBIN 31 pg (27-31); MEAN CORPUSCULAR HGB CONC 34 % (32-36); MEAN CORPUSCULAR VOLUME 91 fL (79.0-98.0); MONOCYTES # (AUTO) 0.8 K/uL (0.0-1.0); NEUTROPHILS # (AUTO) 12.9 K/uL (1.8-7.7); NEUTROPHILS % (AUTO) 82.2 % (40.0-70.0); PLATELET COUNT (AUTO) 236 K/uL (130-430); RED BLOOD CELL COUNT(AUTO) 3.36 MIL/uL (4.2-6.2); RED CELL DISTRIBUTION WIDTH 12.3 % (9.0-15.0); WHITE BLOOD COUNT (AUTO) 15.7 K/uL (4.8-10.8)
[2016-05-10 07:37] LABS: ALBUMIN 2.7 g/dL (3.4-4.8); CALCIUM 8.4 mg/dL (8.4-11.0); CREATININE 0.63 mg/dL (0.55-1.30); TOTAL BILIRUBIN 0.7 mg/dL (0.0-1.0); TOTAL PROTEIN, SERUM 8.1 g/dL (6.4-8.3)
--- NOTE | 2016-05-10 09:20 | NUR ---
Initial notes: pt on bed sleeping on mechanical vent . no distress noted. call light within reach. report given at bedside.
[2016-05-10] MEDS: VANCOMYCIN HCL 750 MG in NS 250 ML IV SCH ×2 (09:25→20:24)
[2016-05-10] MEDS: CARVEDILOL 3.125 MG TABLET (COREG) GT SCH ×2 (09:57→20:24)
[2016-05-10] MEDS: MULTIVITAMINS,THERAPEUTIC 5 ML UDC GT SCH (09:57)
[2016-05-10] MEDS: BACLOFEN 10 MG TABLET GT SCH ×2 (09:57→20:24)
--- NOTE | 2016-05-10 09:58 | NUR ---
Robbi rounds: seen by Dr. Atil. Aj to use the gtube for feeding.
[2016-05-10] MEDS ORDERED: POTASSIUM CHLORIDE 40 MEQ, LIDOCAINE JECT 2% PF 100 MG 50 MG in NS 250 ML IV ONE (10:45)
--- NOTE | 2016-05-10 12:00 | NUR ---
rounds: pt sleeping. no distress noted.
--- NOTE | 2016-05-10 16:30 | NUR ---
Robbi rounds: seen by Dr. Barcenas with new orders.
[2016-05-10] MEDS ORDERED: POTASSIUM CHLORIDE 20 MEQ/PKT PACKET GT ONE (16:45)
--- NOTE | 2016-05-10 18:31 | NUR ---
closing notes: patine on bed awake on [facility] vent same setting. sister at bedside. changed gown and repositioned pt for comfort. call light within reach. report will be given to broadband installer.
--- NOTE | 2016-05-10 19:23 | NUR ---
Initial PM Note Patient was received lying in bed awake and non-verbal. One family member is visiting at the bedside. No acute distress noted. No facial grimacing noted. Pt is able to nod her head to questions asked. Pt is able to use alphabet board to communicate and can track with her eyes. Respirations are even and unlabored. Patient has Portex Cuffed Tracheostomy #7 and connected to Ventilator with Vent settings as follows: AC 17, FIO2 28% and TV 450. Pt is tolerating vent settings well. IV site in RFA is patent with IVF of D5LR infusing well at 50ml/hr. K Apolinar is also infusing well. No signs of infiltration noted at the IV site. Abdominal dressing noted and it is CDI with GT feeding of Isosource 1.5 infusing at 30ml/hr. Pt is tolerating GT feeding well. HOB is elevated 45 degrees to prevent aspiration. Patient has diaper on per request of patient and her family. Fall and safety precautions are in place. Call light is with pt. Bed is in the lowest and locked positions. Will continue to monitor patient.
--- NOTE | 2016-05-10 20:23 | NUR ---
Pain Medication Morphine 2mg given IV for c/o abdominal incisional pain with no relief. Pt's family requested Ultram.
[2016-05-10] MEDS: traMADol HCL HCL 50 MG TABLET (ULTRAM) GT PRN (20:49)
--- NOTE | 2016-05-10 20:49 | NUR ---
Pain Medication Ultram 50mg given per pt's and family's request via GT for c/o abdominal incisional pain with relief.
--- NOTE | 2016-05-10 22:00 | NUR ---
Rounds Pt is resting comfortably in bed and no c/o pain or discomfort. No facial grimacing noted. Pt is tolerating GT Feeding and vent settings well.
[2016-05-11] VITALS (20 sets, daily range): BP systolic 90–137; BP diastolic 56–78; PULSE 85–111; RESP 16–20; TEMP 97.6–99.7; O2SAT 95–99
--- NOTE | 2016-05-11 | NUR ---
Rounds Pt is resting quietly in bed. No acute distress noted. Pt is tolerating GTF and vent settings well. Fall precautions are in place.
[2016-05-11] MEDS: LEVALBUTEROL HCL 0.63 MG/3 ML VIAL.NEB INH SCH ×4 (01:01→19:40)
[2016-05-11] MEDS: D5LR 1,000 ML IV SCH (01:24)
--- NOTE | 2016-05-11 02:00 | NUR ---
Rounds Pt is sleeping comfortably in bed and tolerating vent settings and GTF well. IVF is infusing well in RFA. Fall precautions are in place.
[2016-05-11] MEDS: MORPHINE 2 MG/ML INJ. SYRINGE IVP PRN ×3 (03:36→22:18)
--- NOTE | 2016-05-11 03:36 | NUR ---
Pain Medication Morphine 2mg was given IV for c/o abdominal incisional pain with relief. IVF is infusing well in RFA.
[2016-05-11] MEDS: CEFAZOLIN 1 GM IVPB PREMIX 50 ML IV SCH (05:46)
[2016-05-11] MEDS: METOCLOPRAMIDE HCL 10 MG/10 ML UDC GT SCH ×3 (05:46→21:47)
[2016-05-11] MEDS: traMADol HCL HCL 50 MG TABLET (ULTRAM) GT PRN ×2 (05:47→14:49)
--- NOTE | 2016-05-11 05:47 | NUR ---
Pain Medication Ultram 50mg given via GT for c/o abdominal incisional pain with relief.
--- NOTE | 2016-05-11 06:56 | NUR ---
Closing Note Pt is resting comfortably in bed. All pt's needs were attended to. No fall or injury noted this shift. Pt is tolerating GTF and vent settings well. One family member is visiting at the bedside. Will endorse to day shift nurse.
[2016-05-11 07:21] LABS: CREATININE 0.55 mg/dL (0.55-1.30); POTASSIUM 3.4 mmol/L (3.5-5.1)
--- NOTE | 2016-05-11 07:25 | NUR ---
rn notes: patient is awake alert but non verbal. has mechanical ventilator setting of ac 17, tv 450 Fi02 28% no peep. lungs bilaterally with crackles. diminished at the bases. abdomen soft and non distended but firm. has abdominal dressing intact. no bleeding noted. has g tube with isosource 1.5 at 30cc/hr infusing on well. has iv access on the left forearm #22. with DrLr 50cc/hr infusing on well. call lights within reach. safety measures maintained. informed daughter to call for assistance.
[2016-05-11 07:27] LABS: HEMATOCRIT 28.3 % (36-48); HEMOGLOBIN 9.8 g/dL (12.0-16.0); LYMPHOCYTES # (AUTO) 2.3 K/uL (1.0-5.5); LYMPHOCYTES % (AUTO) 13.6 % (20.5-51.5); MEAN CORPUSCULAR HEMOGLOBIN 31 pg (27-31); MEAN CORPUSCULAR HGB CONC 35 % (32-36); MEAN CORPUSCULAR VOLUME 90 fL (79.0-98.0); MONOCYTES # (AUTO) 0.9 K/uL (0.0-1.0); MONOCYTES % (AUTO) 5.2 % (1.7-9.3); NEUTROPHILS # (AUTO) 13.6 K/uL (1.8-7.7); NEUTROPHILS % (AUTO) 81.2 % (40.0-70.0); PLATELET COUNT (AUTO) 217 K/uL (130-430); RED BLOOD CELL COUNT(AUTO) 3.14 MIL/uL (4.2-6.2); RED CELL DISTRIBUTION WIDTH 12.4 % (9.0-15.0); WHITE BLOOD COUNT (AUTO) 16.8 K/uL (4.8-10.8)
--- NOTE | 2016-05-11 08:30 | NUR ---
turn to sides. pillows on the sides. hob elevated. daughter is at the bedside. will continue to monitor patients status.
[2016-05-11] MEDS: BACLOFEN 10 MG TABLET GT SCH ×2 (09:19→21:47)
[2016-05-11] MEDS: VANCOMYCIN HCL 750 MG in NS 250 ML IV SCH ×2 (09:19→20:01)
[2016-05-11] MEDS: MULTIVITAMINS,THERAPEUTIC 5 ML UDC GT SCH (09:20)
[2016-05-11] MEDS: CARVEDILOL 3.125 MG TABLET (COREG) GT SCH ×2 (09:20→21:47)
--- NOTE | 2016-05-11 09:39 | NUR ---
due medication given at this time.
--- NOTE | 2016-05-11 09:42 | NUR ---
refuses scds, daugther is aware. explained the importance of scds bilaterally
--- NOTE | 2016-05-11 10:00 | NUR ---
Ora the dietitian called regarding an increased of isosource tubefeeding from 30cc to [address] Barcenas, as they agreed yesterday.
--- NOTE | 2016-05-11 10:30 | NUR ---
feeding increase to 45ml. tolerating well.
--- NOTE | 2016-05-11 12:50 | NUR ---
repositioned to sides. daughter still at the bedside. made comfortable.
[2016-05-11] MEDS ORDERED: LACTOBACILLUS RHAMNOSUS GG 1 CAP CAPSULE GT ONE (14:15)
[2016-05-11] MEDS ORDERED: POTASSIUM CHLORIDE 20 MEQ/PKT PACKET GT ONE (14:45)
[2016-05-11] MEDS: LEVOFLOXACIN 500 MG/D5W 100 ML IV SCH (14:47)
--- NOTE | 2016-05-11 15:00 | NUR ---
due medication given as ordered. levaquin iv given at this time.
--- NOTE | 2016-05-11 15:00 | NUR ---
ultram via g tube given. flushed with 50cc of water.
--- NOTE | 2016-05-11 15:21 | NUR ---
Dr Robertson came and evaluate the patient. made orders.
--- NOTE | 2016-05-11 15:22 | NUR ---
Dr Weathers came and see the patient.
--- NOTE | 2016-05-11 15:23 | NUR ---
DISCHARGE PLANNING DC order back to SNF tomorrow. Faxed referral BELLORajan [facility] [phone]. will follow up.
[2016-05-11] MEDS ORDERED: DIATR MEGLU/DIATRIZ SOD 30 ML SOLUTION PO ONE (16:57)
--- NOTE | 2016-05-11 17:30 | NUR ---
PREPARE THE PATIENT TO GO TO CT SCAN THIS AFTERNOON WITH THE RESPIRATORY NELA WHITNEY.
--- NOTE | 2016-05-11 18:00 | NUR ---
CT SCAN OF ABDOMEN/PELVES WITH GASTROGRAFIN DYE GIVEN VIA G TUBE PER DR SORTO/DR BAKER IN RADIOLOGY INSTEAD OF IV CONTRAST. PATIENT IS STABLE AT THIS TIME.
--- NOTE | 2016-05-11 18:20 | NUR ---
complained of abdominal pain. morphine 2 mg iv given as ordered. made comfortable.
--- NOTE | 2016-05-11 18:41 | NUR ---
daughter came back Julia. mom watching tv. hob of elevated.
--- NOTE | 2016-05-11 19:44 | NUR ---
paged for Dr Barcenas, dialed . s/w Wanda
--- NOTE | 2016-05-11 19:45 | NUR ---
INITIAL NOTES: PT A/O X3, ABLE TO COMMUNICATE- PT USES HER LEG TO SHOW LETTERS ON HER PAPER ; DAUGHTER AT BEDSIDE ; VITALS ARE STABLE ; ON VENT VIA TRACH AC 17, FIO2 28%,TV 450, PEEP 0 ,PT IS SAT 99% ; NO S/S OF ANY DISTRESS NOTED ; PT STATED PAIN IS TOLERABLE AT THIS TIME , PT RECEIVED PAIN MEDICATION AN HR BEFORE ; PT REFUSED TO TURN AND REPOSITION AT THIS TIME; IV ON THE R FA NOTED WITH REDNESS , WILL START NEW IV . PT IS USING DIAPER , EDUCATED PT AND DAUGHTER , BUT STILL AR IS REQUESTING FOR IT . ASSESSMENT DONE ; PT IS UNABLE TO USE HER CALL NGO ; WILL CONTINUE TO MONITOR; BED ALARM IS ON , SIDE RAILS ARE UP . Addendum: 05/12/16 at 0059 by Damion Lincoln RN SURYA. ARMS WITH SWELLING (NON PITTING )NOTED ; DRESSING TOT HE ABDOMEN IS DRY CLEAN AND INTACT ; GT SITE IS CLEAN, DRY AND INTACT . GT FLUSHED WELL ; RESIDUAL IS 5 CC ONLY .
--- NOTE | 2016-05-11 19:46 | NUR ---
CALLED BACK : DR MEDELLIN CALLED BACK , INFORMED MD THAT DR SORTO ORDERED CT ABDOMEN AND THE PRELIMINARY RESULT CAME ; MD ORDERED TO CALL DR SORTO TO GIVE THE REPORT .
--- NOTE | 2016-05-11 19:48 | NUR ---
paged for Dr Robertson, dialed . s/w Veronique, Dr Parks is on-call for Dr Robertson.
--- NOTE | 2016-05-11 20:00 | NUR ---
CALLED BACK : DR COTTO VAMPER FOR DR SORTO CALLED BACK ; INFORMED HIM THE RESULT OF THE CT SCAN , MD ORDERED GALLBLADDER US(ABDOMINAL US) IN AM .
--- NOTE | 2016-05-11 20:00 | NUR ---
NEW IV: NEW IV STARTED BY LionelN ; IV ON THE LEFT FA 22 G; GOOD BLOOD RETURN NOTED ; IV FLUSHED WELL ; DCD OLD IV , TIP OF THE IV CATH IS INTACT . DRESSING APPLIED .
--- NOTE | 2016-05-11 20:05 | NUR ---
MEDICATION: DUE VANCOMYCIN STARTED ; WILL CONTINUE TO MONITOR.
--- NOTE | 2016-05-11 20:15 | NUR ---
US DEPARTMENT CALLED: CHESKED WITH THE US DEPARTMENT HOW TO ENTER THE ORDER FOR GALLBLADDER SCAN , [employer] SAID ITS US ABDOMEN COMPLETE, PER THE TECH EXPLAINED ORDER ENTERED , WILL KEEP PT NPO AFTER MID NIGHT Addendum: 05/12/16 at 0048 by Damion Lincoln RN ULTRASOUND DEPARTMENT CALLED
--- NOTE | 2016-05-11 21:45 | NUR ---
MEDICATION: DUE MEDS CRUSHED AND GIVEN THROUGH GT ; GT FLUSHED WELL . WILL CONTINUE TO MONITOR. Addendum: 05/12/16 at 0104 by Damion Lincoln RN ALSO GIVEN PROSOURCE 1 PACKET MIXED WITH WATER .
[2016-05-11] MEDS: LACTOBACILLUS RHAMNOSUS GG 1 CAP CAPSULE GT SCH (21:46)
--- NOTE | 2016-05-11 22:20 | NUR ---
PAIN: PT C/O PAIN; MEDICATED WITH MORPHINE ORDERED ; WILL CONTINUE TO MONITOR.
[2016-05-12] VITALS (18 sets, daily range): BP systolic 104–124; BP diastolic 62–71; PULSE 80–97; RESP 16–18; TEMP 97.6–98.9; O2SAT 95–100
--- NOTE | 2016-05-12 00:05 | NUR ---
RN ROUNDS: PT IS SLEEPING, EASILY AROUSABLE ; PT REFUSED TO TURN AND REPOSITION .WILL CONTINUE TO MONITOR; PLACED PT ON NPO ; GT FLUSHED AND GT FEEDING STOPPED AND REMOVED .
[2016-05-12] MEDS: LEVALBUTEROL HCL 0.63 MG/3 ML VIAL.NEB INH SCH ×2 (01:41→19:58)
--- NOTE | 2016-05-12 02:00 | NUR ---
RN ROUNDS: PT IS SLEEPING COMFORTABLY ; NOT IN ANY DISTRESS; WILL CONTINUE TO MONITOR.
--- NOTE | 2016-05-12 04:00 | NUR ---
RN ROUNDS: PT IS SLEEPING COMFORTABLY; NOT IN ANY ACUTE DISTRESS; WILL CONTINUE TO MONITOR.
[2016-05-12] MEDS: MORPHINE 2 MG/ML INJ. SYRINGE IVP PRN ×3 (04:51→21:06)
--- NOTE | 2016-05-12 05:00 | NUR ---
SPONGE BATH: SPONGE BATH AND PERICARE GIVEN ; APPLIED Z GUARD TO PERIAREA ; PT IS USING DIAPER ;CHG BATH GIVEN ; MOUTH CARE GIVEN SUCTION PROVIDED ORALLY AND TRACHEALLY ; PT IS COMFORTABLE , NOT IN ANY DISTRESS . WILL CONTINUE TO MONITOR.
[2016-05-12] MEDS: METOCLOPRAMIDE HCL 10 MG/10 ML UDC GT SCH ×3 (06:00→21:04)
--- NOTE | 2016-05-12 06:50 | NUR ---
CLOSING NOTES: PT IS NPO FOR US ABDOMEN ; CALLED RADIOLOGY TO CHECK THE TIME AND IS IT OK TO GIVE REGLAN ; PER RADIOLOGY ,PT SHOULD BE NPO FOR 8 HRS SINCE ITS US ABDOMEN AND WILL BE DOING AROUND 8 AM ; SO REGLAN NOT GIVEN ; PT IS COMFORTABLE ; NOT IN ANY ACUTE DISTRESS; TRACH TO VENT WITH AC 17, TV 450, FIO2 28%; WILL CONTINUE TO MONITOR AND WILL ENDORSE TO NEXT SHIFT NURSE.
[2016-05-12 07:17] LABS: BASOPHILS % (AUTO) 0.1 % (0.0-2.0); EOSINOPHILS # (AUTO) 0.1 K/uL (0.0-0.4); EOSINOPHILS % (AUTO) 0.6 % (0.0-4.0); HEMATOCRIT 25.5 % (36-48); HEMOGLOBIN 8.6 g/dL (12.0-16.0); LYMPHOCYTES # (AUTO) 1.9 K/uL (1.0-5.5); LYMPHOCYTES % (AUTO) 16.4 % (20.5-51.5); MEAN CORPUSCULAR HEMOGLOBIN 31 pg (27-31); MEAN CORPUSCULAR HGB CONC 34 % (32-36); MEAN CORPUSCULAR VOLUME 91 fL (79.0-98.0); MONOCYTES # (AUTO) 0.8 K/uL (0.0-1.0); MONOCYTES % (AUTO) 7.1 % (1.7-9.3); NEUTROPHILS % (AUTO) 75.8 % (40.0-70.0); PLATELET COUNT (AUTO) 178 K/uL (130-430); RED BLOOD CELL COUNT(AUTO) 2.81 MIL/uL (4.2-6.2); RED CELL DISTRIBUTION WIDTH 12.4 % (9.0-15.0); WHITE BLOOD COUNT (AUTO) 11.8 K/uL (4.8-10.8)
[2016-05-12 07:24] LABS: CALCIUM 8.1 mg/dL (8.4-11.0); CREATININE 0.48 mg/dL (0.55-1.30); POTASSIUM 3.9 mmol/L (3.5-5.1)
--- NOTE | 2016-05-12 08:00 | NUR ---
INITIAL NOTE PT IS NPO FOR US ABDOMEN, PT IS AWAKE, ALERT, NONVERBAL BUT ABLE TO MAKE NEEDS KNOWN, NO S/S OF DISTRESS, GTUBE FEEDING HELD, IV TO LFA SALINE LOCK, VENT SETTINGS NOTED, DRESSING TO ABDOMEN CLEAN DRY AND INTACT, SAFETY MEASURES IN PLACE, BED IN LOW POSITION AND LOCKED, CALL LIGHT WITHIN REACH, WILL FOLLOW UP.
[2016-05-12] MEDS: CARVEDILOL 3.125 MG TABLET (COREG) GT SCH ×2 (09:00→21:03)
--- NOTE | 2016-05-12 09:00 | NUR ---
DR YADIEL ALLISON, TO FOLLOW UP US ABDOMEN
--- NOTE | 2016-05-12 09:21 | NUR ---
CALLED ATTENDING , DR COTTO, RE: CLARIFICATION OF ORDER FOR US OF ABD. SPOKE TO CHINYERE
[2016-05-12] MEDS: VANCOMYCIN HCL 750 MG in NS 250 ML IV SCH ×2 (09:34→21:00)
--- NOTE | 2016-05-12 10:01 | NUR ---
DISCHARGE PLANNING Called and spoke with Pablo in admitting at [facility] who will return call once referral has been reviewed. DCP will continue to follow up. Addendum: 05/12/16 at 1428 by Nimco ARSHAD Patient assigned to room 44B at [facility] SNF RN to report [phone], bed available anytime. Placed transportation packet in nurse station. Any ambulance can be arranged. Pending discharge order. Addendum: 05/12/16 at 1513 by Imer Moore RN >> Dr. Barcenas made aware via phone that the pt. has bed at [facility]. The md is " not giving the dc order yet dt pending Hida scan." TVRN
--- NOTE | 2016-05-12 10:30 | NUR ---
CHAD SCALE EVALUATION: Patient evaluated for a low Chad score of 14. Patient was awake, alert, oriented, non-verbal (nods yes and no), and received in a Katy bed with an IsoFlex JOCELIN mattress with low air-loss therapy. Patient is unable to turn independently. Skin is poor (+). Recommend reposition patient every 2 hours with pillow support and off-load pressure areas with pillows for pressure re-distribution. Elevate, off-load and float bilateral heels with pillows. Use Calmoseptine cream on buttocks and other moisture susceptible areas QID and as needed for soiling. Perform skin care and monitor skin integrity Q shift. Maintain patient on a low air-loss mattress. Skin assessment: 1) G-Tube salome-site: Moisture-associated redness, present on admission. Recommend: Cleanse sites with normal Saline. Pat dry. Apply Calmoseptine cream to moisture susceptible areas qid and as needed for soling. 2) Abdomen: Surgical incision, dressing clean, dry, and intact. Recommend: Continue to monitor site, reinforce as necessary. Await dressing orders from Dr. Weathers.
--- NOTE | 2016-05-12 10:44 | NUR ---
DR DELAROSA CALLED TO CONFIRM NEED FOR US OF ABDOMEN PER RADIOLOGIST TECH, DR DELAROSA SAID TO CANCEL ULTRASOUND AND HE WILL FOLLOW UP WITH PATIENT .
--- NOTE | 2016-05-12 10:44 | NUR ---
CALLED SURGEON , DR DELAROSA, RE: CLARIFICATION OF THE US OF THE ABDOMEN ORDER.
--- NOTE | 2016-05-12 11:15 | NUR ---
PER CHARGE NURSE, SINCE PATIENT WAS NPO FOR PROCEDURE AND PROCEDURE WAS CANCELLED, MAY NOW RESUME TUBE FEEDING AND PASS MEDICATIONS. TUBE FEEDING RESUMED.
[2016-05-12] MEDS: LACTOBACILLUS RHAMNOSUS GG 1 CAP CAPSULE GT SCH ×2 (11:47→21:03)
[2016-05-12] MEDS: BACLOFEN 10 MG TABLET GT SCH ×2 (11:47→21:01)
[2016-05-12] MEDS: MULTIVITAMINS,THERAPEUTIC 5 ML UDC GT SCH (11:49)
[2016-05-12] MEDS: POTASSIUM CHLORIDE 20 MEQ/PKT PACKET GT SCH (11:49)
--- NOTE | 2016-05-12 12:10 | NUR ---
DR DELAROSA MAKING ROUNDS
--- NOTE | 2016-05-12 12:30 | NUR ---
PT AGREED TO REPOSITIONED PT POSITIONED WITH PILLOW SUPPORT TO LOWER EXTREMITIES AND BILATERAL UPPER ARMS. PATIENT TOLERATED WELL.
[2016-05-12] MEDS: LEVOFLOXACIN 500 MG/D5W 100 ML IV SCH (13:59)
--- NOTE | 2016-05-12 14:00 | NUR ---
FAMILY AT BEDSIDE, PT REFUSED TO BE REPOSITIONED, DESPITE EDUCATION. NEEDS ATTENDED TO, WILL FOLLOW UP.
--- NOTE | 2016-05-12 14:56 | NUR ---
Nutrition F/U Admitting Diagnosis Dislodgement of GT, cellulitis of abdominal wall Past Medical History Chronic respiratory failure, bronchiectasis, ALS, HTN, dysphagia per MD notes Pertinent Medications Morphine, zofran, theragran, vancomycin HCl/NaCl IV, vancomycin per pharmacy, coreg, reglan, fleet enema, MOM, dulcolax suppository, culturelle, levofloxacin Current Diet Order Isosource 1.5 at 45 ml/hr, 50 ml free water flush Q6H via G-tube, Prosource TID Height (Feet) 5 feet Height (Inches) 6.00 inches Weight (Pounds) 151 pounds Weight (Calculated Kilograms) 68.776937 kilograms Patient Weight 68.492 kg Body Mass Index 24.37 kg/m2 (normal) [place]/Adjusted Body Weight IBW: 130 lb (68 kg); 116% of IBW Estimated Needs 5917-3529 kcal/day (25-30 kcal/kg CBW for maintenance) Grams of Protein per Day 68-82 g/day (1-1.2 g/kg CBW for surgical wound healing) Fluid Intake Goal 1.7-2 L/day (25-30 ml/kg CBW for maintenance) Pertinent Labs 05/12/16: WBC 11.8 H (improving), BG 104 H (improving), Hgb 8.6 L, Hct 25.5 L, Na 128 L, K 3.9 WNL (improved), BUN 12 WNL (improved), CRE 0.48 L 05/10/16: AST 39 H, ALP 202 HALB 2.7 L Other Subjective Data Physical Assessment: Pt was seen resting in bed with trach to mechanical vent. Pt is awake and alert, not able to speak, but can nod to answer questions. Bedscale reads 212 lb, likely inaccurate. Tube feedings seen running Isosource HN at 45 ml/hr at time of visit. Formula is not in accordance with the current order. campus recruiting intern notified RN, she is aware. Will finish feeding bag and replace with correct formula. GI Integrity: Per EMR, abdomen is soft, non-distended, and tender with hypoactive bowel sounds. No BMs today. BM x1 05/11. Tube Feeding: Current regimen with protein supplements provides 1800 kcal, 118 gm protein, and 1025 ml of free water each day. This meets 106% of the lower end of estimated calorie needs and 144% of the higher end of estimated protein needs. 5 ml residuals recorded - insignificant. Pt is tolerating the feeding. Integumentary: Chad score 14 (05/12/16), anterior abdomen incision. Plans/Procedures: CT scan 05/11 revealed possible stone in distal CBD per MD notes. Current enteral feeding regimen is appropriate and pt is meeting optimal nutritional needs. Pt is not appropriate for education. Problem, Etiology, Signs/Symptoms Inadequate nutritional intakes related to dislodgement of GT as evidenced by NPO status x2 days. Expected Outcomes or Goals 1. Meet at least 75% of estimated needs with acceptable tolerance 2. Labs trending within normal limits 3. Weight maintenance 4. Wound healing and improved skin integrity 5. Normal GI function Dietitian Recommendations * Continue Isosource 1.5 at 45 ml/hr, 50 ml free water flush Q6H via G-tube, Prosource TID per MD order Follow Up Moderate Risk: F/U in 3-5 days Addendum: 05/12/16 at [address] CORRECTIONS: Current Diet Order Isosource 1.5 at 45 ml/hr, 50 ml free water flush Q6H via G-tube, Prosource TID x3 days Pertinent Labs AST 44 WNL (improved), ALP 188 H, ALB 2.3 L Problem, Etiology, Signs/Symptoms (modified) Inadequate nutritional intakes related to dislodgement of GT as evidenced by NPO status x2 days. *resolved, pt tolerating TF RD reviewed/approved culinary internship's note. LP, RD
[2016-05-12 15:10] LABS: ALBUMIN 2.3 g/dL (3.4-4.8); BILIRUBIN,DIRECT 0.3 mg/dL (0.0-0.3); IRON (SERUM) 31 mcg/dL (37-145); TOTAL BILIRUBIN 0.6 mg/dL (0.0-1.0); TOTAL PROTEIN, SERUM 7.3 g/dL (6.4-8.3)
[2016-05-12 15:11] LABS: TOTAL IRON BIND. CAPACITY 133 ug/dL (250-450)
--- NOTE | 2016-05-12 16:00 | NUR ---
PT AGREED TO BE REPOSITIONED AND CLEANSED. PERINEAL HYGIENE PROVIDED, NO REDNESS NOTED, ZGAURD APPLIED. PT REPOSITIONED WITH PILLOW SUPPORT. TOLERATED MOVEMENT WELL.
--- NOTE | 2016-05-12 19:00 | NUR ---
PT IN BED, FAMILY AT BEDSIDE, NO S/S OF DISTRESS, PT IS COMFORTABLE, REFUSED REPOSITIONING SEVERAL TIMES THROUGH OUT SHIFT DESPITE EDUCATION, GTUBE IN PLACE AND FEEDING TOLERATED WELL, NO RESIDUAL NOTED, IV TO LFA PATENT, NO S/S OF INFILTRATION, VENT SETTING NOTED, SAFETY MEASURES AND ISOLATION PRECAUTIONS INTACT, BED IN LOW POSITION AND LOCKED, WILL GIVE REPORT TO INCOMING SHIFT.
--- NOTE | 2016-05-12 19:30 | NUR ---
initial nursing notes: Patient is awake. Patient is non-verbal but is able to make needs known by pointing on the letters printed on a piece of paper using her toes. Patient has a tracheostomy and is on a ventilator. Patient has an IV access on the left forearm. Patient has a G-tube with feeding. Patient's BUE are flaccid. Patient is incontinent of bowel and bladder.
--- NOTE | 2016-05-12 21:30 | NUR ---
nursing rounds: Patient calmly resting in bed. Patient's eyes are closed. Patient has no respiratory distress.
--- NOTE | 2016-05-12 23:30 | NUR ---
nursing rounds: Patient is watching television. Patient is being repositioned to prevent skin redness and pressure sore formation
[2016-05-13] VITALS (14 sets, daily range): BP systolic 107–135; BP diastolic 57–76; PULSE 73–108; RESP 17–20; TEMP 97.4–99.8; O2SAT 98–100
[2016-05-13] MEDS: LEVALBUTEROL HCL 0.63 MG/3 ML VIAL.NEB INH SCH ×3 (00:34→14:00)
--- NOTE | 2016-05-13 01:30 | NUR ---
nursing rounds: Patient's G-tube feeding was held starting midnight as ordered for a procedure in the morning. Patient had loose brown stool. Patient was cleaned and bed cover was changed.
--- NOTE | 2016-05-13 03:30 | NUR ---
nursing rounds: Patient had loose brown stool for the second time. Patient was cleaned and bed cover was changed.
[2016-05-13] MEDS: MORPHINE 2 MG/ML INJ. SYRINGE IVP PRN ×2 (03:45→11:45)
[2016-05-13] MEDS: METOCLOPRAMIDE HCL 10 MG/10 ML UDC GT SCH ×2 (05:21→14:00)
--- NOTE | 2016-05-13 05:30 | NUR ---
nursing rounds: Patient is asleep. Patient has no shortness of breath.
[2016-05-13 06:56] LABS: BASOPHILS % (AUTO) 0.1 % (0.0-2.0); EOSINOPHILS % (AUTO) 0.3 % (0.0-4.0); HEMOGLOBIN 9.2 g/dL (12.0-16.0); LYMPHOCYTES # (AUTO) 1.8 K/uL (1.0-5.5); LYMPHOCYTES % (AUTO) 18.3 % (20.5-51.5); MEAN CORPUSCULAR HEMOGLOBIN 31 pg (27-31); MEAN CORPUSCULAR HGB CONC 34 % (32-36); MEAN CORPUSCULAR VOLUME 92 fL (79.0-98.0); MONOCYTES # (AUTO) 0.9 K/uL (0.0-1.0); MONOCYTES % (AUTO) 9.4 % (1.7-9.3); NEUTROPHILS # (AUTO) 7.2 K/uL (1.8-7.7); NEUTROPHILS % (AUTO) 71.9 % (40.0-70.0); PLATELET COUNT (AUTO) 211 K/uL (130-430); RED BLOOD CELL COUNT(AUTO) 2.95 MIL/uL (4.2-6.2); RED CELL DISTRIBUTION WIDTH 12.1 % (9.0-15.0); WHITE BLOOD COUNT (AUTO) 9.9 K/uL (4.8-10.8)
[2016-05-13 07:16] LABS: ALBUMIN 2.3 g/dL (3.4-4.8); CALCIUM 8.4 mg/dL (8.4-11.0); CREATININE 0.55 mg/dL (0.55-1.30); POTASSIUM 3.6 mmol/L (3.5-5.1); TOTAL BILIRUBIN 0.6 mg/dL (0.0-1.0); TOTAL PROTEIN, SERUM 7.7 g/dL (6.4-8.3)
--- NOTE | 2016-05-13 07:30 | NUR ---
Initial notes: pt on bed awake and alert on mechanical vent with setting of F102 28% TV 450 Peep 0. Stable. i.V. access patent. Gtube in placed @45 ml/hr. Report given at bedside.
--- NOTE | 2016-05-13 07:32 | NUR ---
closing nursing notes: Patient is awake, alert and oriented X 4. Patient is in no acute respiratory distress. No episodes of fall and no injuries throughout the shift nurse manager. Provided nursing report to incoming morning shift nurse, Brooke Milton RN, at patient's bedside.
--- NOTE | 2016-05-13 08:30 | NUR ---
Hida Scan: Pt. remains NPO. lab staff wheeled the patient to nuclear med room for Hida Scan.
[2016-05-13] MEDS: POTASSIUM CHLORIDE 20 MEQ/PKT PACKET GT SCH (11:14)
[2016-05-13] MEDS: MULTIVITAMINS,THERAPEUTIC 5 ML UDC GT SCH (11:14)
[2016-05-13] MEDS: VANCOMYCIN HCL 750 MG in NS 250 ML IV SCH (11:14)
[2016-05-13] MEDS: BACLOFEN 10 MG TABLET GT SCH (11:16)
[2016-05-13] MEDS: LACTOBACILLUS RHAMNOSUS GG 1 CAP CAPSULE GT SCH (11:16)
[2016-05-13] MEDS: CARVEDILOL 3.125 MG TABLET (COREG) GT SCH (11:16)
--- NOTE | 2016-05-13 11:18 | NUR ---
Rounds: pt back in her room from HIDA scan. Medication given late due to NPO earlier.
--- NOTE | 2016-05-13 13:12 | NUR ---
rounds: pt on bed. no distress noted. family at bedside.
[2016-05-13] MEDS: traMADol HCL HCL 50 MG TABLET (ULTRAM) GT PRN (14:00)
[2016-05-13] MEDS: LEVOFLOXACIN 500 MG/D5W 100 ML IV SCH (14:12)
--- NOTE | 2016-05-13 15:09 | NUR ---
rounds: pt watching t.v. no distress noted.
--- NOTE | 2016-05-13 15:29 | NUR ---
DC PLANNING: DR. DELAROSA-SURGEON, RECOMMENDED CONSERVATIVE TREATMENT INSTEAD OF SURGERY CONCERNING THE RESULT OF THE HIDA SCAN. WAITING FOR DR. MEDELLIN'S EVALUATION. PATIENT IS ACCEPTED BACK TO [facility] ROOM [facility] [address] TEL# [phone] TO GIVE REPORT. ARRANGED AND PLACED TRANSPORTATION ON WILL CALL VIA [facility] TEL# . NOTIFIED FABRIZIO WHITNEY. PACKET AT THE NURSE'S STATION.
--- NOTE | 2016-05-13 17:00 | NUR ---
Robbi rounds: Informed Dr. Barcenas of the recommendation of Dr. Weathers. Discharged the pt back to [facility].
--- NOTE | 2016-05-13 18:17 | NUR ---
CALLED [facility]: TRANSFER TIME Called [phone], roosevelt Nguyen. I let her know patient is ready for transfer and she gave ETA for 1930.
--- NOTE | 2016-05-13 18:45 | NUR ---
rounds: changed patient's dressing at the abdominal incision. no bleeding. gtube in placed. Changed gown and repositioned pt. No distress noted.
--- NOTE | 2016-05-13 19:52 | NUR ---
PT TRANSFERRED Report given to CHELO Daley of [facility]. Transfer packet with Transfer Orders and Medication Reconciliation form given to EMT with report. Exitcare provided. [facility] ID band removed, replaced with ID band with pt's name and . IV catheter in placed for antibiotic treatment. Gtube inplaced. All belongings sent with patient. Patient left floor via gurney escorted by EMT in no distress.
== END 2016-05-13 20:00 | DRG 326 ==
LOC: SED 13:42 → STU 14:33
PROVIDERS: ADMIT Internal Medicine; ATTEND Internal Medicine
PROC: 5A1955Z Respiratory Ventilation, Greater than 96 Consecutive Hours (ICD-10-PCS; 2016-05-08)
PROC: 0D20XUZ Change Feeding Device in Upper Intestinal Tract, External Approach (ICD-10-PCS; 2016-05-09)
PROC: 0DN60ZZ Release Stomach, Open Approach (ICD-10-PCS; principal; 2016-05-09 09:00)
DX: K94.23 Gastrostomy malfunction (principal); G82.50 Quadriplegia, unspecified; E43 Unspecified severe protein-calorie malnutrition; L03.311 Cellulitis of abdominal wall; J96.10 Chronic respiratory failure, unspecified whether with hypoxia or hypercapnia; G12.21 Amyotrophic lateral sclerosis; Z99.11 Dependence on respirator [ventilator] status; J47.9 Bronchiectasis, uncomplicated; I10 Essential (primary) hypertension; K81.1 Chronic cholecystitis; E03.9 Hypothyroidism, unspecified; K66.0 Peritoneal adhesions (postprocedural) (postinfection); D63.8 Anemia in other chronic diseases classified elsewhere; R13.10 Dysphagia, unspecified; Z93.0 Tracheostomy status; Z68.24 Body mass index [BMI] 24.0-24.9, adult
CPT/HCPCS: 36415; 71010; 78226; 80048; 80053; 80076; 80202-TC; 83540-TC; 83550-TC; 83735-TC; 85025; 85610-TC; 85730-TC; 86886; 86900; 86901; 87070-TC; 87081; 87186-TC; 87205-TC; 88305; 93005; 94002; 94003; 94640; 94760; 99285; A9537; J0690; J1956; J2270; J2704; J2765; J3010; J3370; J3480; J7040; J7050; J7120; J8597; L8699; Q9964

== ENCOUNTER 2016-06-11 11:38 | Emergency (ER) | payer OTHER, MEDICAID ==
[~2016-06-11] VITALS: Ht 170.2 cm; Wt 72.6 kg
[2016-06-11 11:38] VITALS: BP_SYST 132
[~2016-06-11 11:38] MED LIST changes: -CHLO118M PO; -CHOL2000 GT; -FER300L GT; -IBUP-1969 GT; -OMEP40CA33 GT; -PRAM28.3 RC; -VANORAL GT
[2016-06-11] MEDS ORDERED: GASTROGRAFIN 120 ML ONE (12:01)
[2016-06-11 12:45] VITALS: BP_SYST 127
== END 2016-06-11 12:45 | disposition home or self-care (01) ==
LOC: SED 11:38
DX: Z46.59 Encounter for fitting and adjustment of other gastrointestinal appliance and device (principal); K21.9 Gastro-esophageal reflux disease without esophagitis; Z86.79 Personal history of other diseases of the circulatory system
CPT/HCPCS: 43760; 74240; 99284; Q9963

== ENCOUNTER 2016-06-28 00:24 | Emergency (ER) | payer OTHER, MEDICAID ==
[~2016-06-28] VITALS: Ht 167.6 cm; Wt 99.8 kg
[2016-06-28 00:25] VITALS: BP_SYST 118
[2016-06-28] MEDS ORDERED: GASTROGRAFIN 120 ML ONE (00:51)
[2016-06-28 01:21] VITALS: BP_SYST 115
== END 2016-06-28 01:21 | disposition home or self-care (01) ==
LOC: SED 00:24
DX: Z43.1 Encounter for attention to gastrostomy (principal); J96.10 Chronic respiratory failure, unspecified whether with hypoxia or hypercapnia; K21.9 Gastro-esophageal reflux disease without esophagitis; Z86.73 Personal history of transient ischemic attack (TIA), and cerebral infarction without residual deficits; Z99.11 Dependence on respirator [ventilator] status; Z79.899 Other long term (current) drug therapy
CPT/HCPCS: 43760; 74240; 99284; Q9963

== ENCOUNTER 2016-12-09 06:18 | Emergency (ER) | payer OTHER, MEDICAID ==
[~2016-12-09] VITALS: Ht 165.1 cm; Wt 81.6 kg
[2016-12-09 06:21] VITALS: BP_SYST 138
[2016-12-09] MEDS ORDERED: DIATR MEGLU/DIATRIZ SOD 30 ML SOLUTION PO ONE (06:46)
[2016-12-09] MEDS ORDERED: GASTROGRAFIN 120 ML ONE (08:23)
[2016-12-09 10:00] VITALS: BP_SYST 114
== END 2016-12-09 10:00 ==
LOC: SED 06:18
DX: Z43.1 Encounter for attention to gastrostomy (principal); K21.9 Gastro-esophageal reflux disease without esophagitis; Z86.73 Personal history of transient ischemic attack (TIA), and cerebral infarction without residual deficits; Z99.11 Dependence on respirator [ventilator] status; Z79.899 Other long term (current) drug therapy
CPT/HCPCS: 43760; 74000; 74240; 99284; Q9964; Q9963

== ENCOUNTER 2016-12-13 10:47 | Outpatient (CLI) | payer OTHER, MEDICAID ==
[2016-12-13] MEDS ORDERED: GASTROGRAFIN 120 ML ONE (11:05)
== END 2016-12-13 20:30 | disposition home or self-care (01) ==
LOC: SRD 10:47
PROVIDERS: ATTEND Internal Medicine
DX: Z43.1 Encounter for attention to gastrostomy (principal)
CPT/HCPCS: 74240; Q9963

== ENCOUNTER 2018-05-14 00:43 | Inpatient (IN) | payer OTHER, MEDICAID ==
[2018-05-14] VITALS (7 sets, daily range): BP systolic 91–133
[~2018-05-14] VITALS: Ht 154.9 cm; Wt 56.2 kg
[~2018-05-14 00:43] MED LIST changes: +DILT180C67 PO; -DILT180C69 PO; -MAGN400O4 GT; +MOM GT; +POTA40LI14 GT; -POTA40LI14 PO; +TEMA15CA5 GT; -TEMA15CA51 GT
--- NOTE | 2018-05-14 00:45 | NUR ---
Patient to ER bed 03 to gown for evaluation. Side rails up.
--- NOTE | 2018-05-14 00:48 | NUR ---
Patient brought to ER via ambulance from [facility] for complaint of GT displacement. Patient has hx of chronic respiratory failure and is ventilator dependent AC 17, VT 450, 3L02. Patient has a Portex [address]. Patient is unable to participate in end of life decisions making at this time. Per copy of POLST provided by facility, patient's code status is FULL CODE, paperwork completed and placed in chart. Patient's previous GT was a size 18Fr.
--- NOTE | 2018-05-14 01:02 | NUR ---
ER MD Bhakta at bedside for medical evaluation.
[2018-05-14] MEDS ORDERED: DILT30TA3 GT (01:10)
[2018-05-14] MEDS ORDERED: LEVO125T8 GT (01:11)
[2018-05-14] MEDS ORDERED: LACT1CAP7 GT (01:14)
[2018-05-14] MEDS ORDERED: MINE25OI3 GT (01:15)
[2018-05-14] MEDS ORDERED: MULT-1100 GT (01:16)
[2018-05-14] MEDS ORDERED: PANT40SU2 GT (01:17)
[2018-05-14] MEDS ORDERED: REGL10 GT (01:20)
[2018-05-14] MEDS ORDERED: XOP.63 INH (01:22)
[2018-05-14] MEDS ORDERED: TYLL650 GT (01:23)
[2018-05-14] MEDS ORDERED: CHLO473M5 MM (01:25)
--- NOTE | 2018-05-14 01:25 | NUR ---
Medication reconciliation completed with information provided by facility. Any prior medication reconciliation on file was reviewed and corrected.
--- NOTE | 2018-05-14 02:05 | NUR ---
Patient suctioned via tracheostomy and mouth. Patient tolerated well.
--- NOTE | 2018-05-14 03:00 | NUR ---
Patient's code status is FULL CODE, copy of POLST placed in chart and paperwork completed and placed in chart.
--- NOTE | 2018-05-14 03:10 | NUR ---
# 22 gauge angiocath placed to left hand. Use of asceptic technique. Opsite placed over site. Blood return noted. Flushed with 10 cc of normal saline. No evidence of infiltration noted. Patient tolerated well.
--- NOTE | 2018-05-14 04:55 | NUR ---
Patient suctioned via tracheostomy and mouth.
--- NOTE | 2018-05-14 05:19 | NUR ---
Patient will be admitted to care of Dr. Barcenas as per Dr. Nichole. Admitted to Med Surg unit. Will go to room 135. Belongings list completed. Summary report printed. Report will be given at bedside.
--- NOTE | 2018-05-14 05:48 | NUR ---
CONSULT: CONSULT CALLED FOR DR. DOLL I SPOKE WITH JENNY ZHOU REASON FOR CONSULT: GT MALFUNCTION REQUESTING CONSULT: DR. MEDELLIN YARDAGE CALLER PHONE NUMBER: [phone]
--- NOTE | 2018-05-14 06:00 | NUR ---
RT NOTES 0600 BROUGHT PT FROM ER 3 TO ROOM 100A. BAGGING PT ON 15LPM 100& BVM, WHILE ON TRANSPORT BY RT YURIY. PT WASNT ON ANY DISTRESS WHILE ON TRANSFER. PT WAS SAFE, SAT 98%. AC 17,470, 0+, 40% PORTEX 7. SPUTUM COLLECTED PER PROTOCOL AND SENT TO LAB.
--- NOTE | 2018-05-14 06:07 | NUR ---
ADMISSION NOTE Received patient from ER via gurney. Patient admitted with diagnosis of gt malfunction. Personal belongings checked and Belongings List documented. Call light within reach.
--- NOTE | 2018-05-14 07:08 | NUR ---
Opening Note patient resting in bed, awake and alert, HOB elevated, no signs of distress, she is able to respond by nodding head yes or no, no other needs at this time, safety precautions remain in place, will continue to monitor patient
--- NOTE | 2018-05-14 08:30 | NUR ---
Dr. Meyer Inserted G-tube at this time, patient tolerated well, denies pain at the site, MD stated to keep patient NPO until tomorrow, will implement and monitor
[2018-05-14] MEDS: D5NS 1,000 ML IV SCH ×3 (09:05→22:30)
--- NOTE | 2018-05-14 10:15 | NUR ---
Patient resting in bed no signs of distress, HOB elevated, safety and aspiration precautions remain in place, will continue to monitor
--- NOTE | 2018-05-14 12:44 | NUR ---
Patient Resting in bed at this time, eyes closed, breathing unlabored and symmetrical, safety and aspiration precautions remain in place, will continue to monitor
[2018-05-14] MEDS ORDERED: ACETAMINOPHEN 650 MG/20.3 ML UDC GT PRN (15:15)
[2018-05-14] MEDS ORDERED: LEVALBUTEROL HCL 0.63 MG/3 ML VIAL.NEB INH PRN (15:15)
[2018-05-14] MEDS ORDERED: IPRATROPIUM/ALBUTEROL SULFATE 3 ML AMPUL.NEB (DUONEB) INH ONE (15:15)
[2018-05-14] MEDS ORDERED: BACLOFEN 10 MG TABLET GT ONE (15:15)
--- NOTE | 2018-05-14 15:18 | NUR ---
Spoke with Amy from [facility] , stated patient is current with flu from 01/31/18. also asked about g-tube feeding, stated patient receives fibrosource 1.2 @ 50 mL/hr for 20 hrs and free water flushes 40 mL/hr x 20 hours for a total of 800 mL.
--- NOTE | 2018-05-14 15:36 | NUR ---
PULMONOLOGY CONSULT RF DR SORTO [phone] S/W [facility]
--- NOTE | 2018-05-14 15:40 | NUR ---
Wound Evaluation: Wound Consult ordered for Low Chad Score. Patient evaluated for a low Chad score of 12. Patient was awake, alert, oriented, nonverbal (secondary to tracheostomy), but attempt to communicate by mouthing words) and received in a Hammon Bed with an Isoflex JOCELIN mattress. Patient needs to be turned in bed. Skin is fair. Recommend reposition patient side to side only every 2 hours with pillow support. Elevate, off-load and float bilateral heels with pillows. Offload pressure areas with pillows for pressure re-distribution. Perform skin care and monitor skin integrity Q shift. Use Calmoseptine cream on moisture susceptible areas QID and PRN for soiling. Add an air pump to mattress and initiate low air-loss therapy. Skin assessment: 1. G-tube exit site: Moisture associated wound from G-tube drainage, present on admission. Wound has 100% red tissue. No odor, small sanguineous drainage. Periwound and surrounding tissue is erythematous. Recommend: Cleanse involved areas with mild soap and water. Apply Calmoseptine cream to involved areas. Apply calcium alginate dressing (with a slit cut into it by using a drain pad as a template) over G-tube exit site. Cover with foam dressing (with a slit cut into it by using a drain pad as a template). Perform wound care daily, and as needed for dressing soiling or dislodgment. 2. Buttocks (Gluteal Sulcus): Intertrigo associated wound, present on admission. Wound bed has 100% red tissue. No odor, no drainage. Periwound intact surrounding tissue is erythematous. Wound measures 1.0 cm x 0.2 cm. Recommend: Cleanse involved area with mild soap and water. Pat dry. Apply Calmoseptine cream to involved area. Apply hydrogel to any portion of wound not covered by Calmoseptine cream. Cover with 4 x 4 foam dressing. Perform wound care daily, and as needed for dressing soiling or dislodgment.
--- NOTE | 2018-05-14 15:50 | NUR ---
Dr. Barcenas Rounds at this time, examined patient, informed him of Dr. Meyer's g-tube insertion, orders to follow
[2018-05-14 15:51] LABS: CALCIUM 8.4 mg/dL (8.4-11.0); CREATININE 0.5 mg/dL (0.55-1.30); HEMATOCRIT 31.9 % (36-48); HEMOGLOBIN 10.7 g/dL (12.0-16.0); MEAN CORPUSCULAR HEMOGLOBIN 30 pg (27-31); MEAN CORPUSCULAR HGB CONC 34 % (32-36); MEAN CORPUSCULAR VOLUME 90 fL (79.0-98.0); POTASSIUM 3.8 mmol/L (3.5-5.1); RED BLOOD CELL COUNT(AUTO) 3.53 MIL/uL (4.2-6.2); WHITE BLOOD COUNT (AUTO) 9.2 K/uL (4.8-10.8)
[2018-05-14 15:52] LABS: BASOPHILS % (AUTO) 0.1 % (0.0-2.0); EOSINOPHILS # (AUTO) 0.1 K/uL (0.0-0.4); EOSINOPHILS % (AUTO) 0.8 % (0.0-4.0); LYMPHOCYTES # (AUTO) 4.3 K/uL (1.0-5.5); LYMPHOCYTES % (AUTO) 46.7 % (20.5-51.5); MONOCYTES # (AUTO) 0.8 K/uL (0.0-1.0); MONOCYTES % (AUTO) 8.7 % (1.7-9.3); NEUTROPHILS % (AUTO) 43.7 % (40.0-70.0); PLATELET COUNT (AUTO) 220 K/uL (130-430); RED CELL DISTRIBUTION WIDTH 13.8 % (9.0-15.0)
[2018-05-14 15:54] LABS: PROTHROMBIN TIME 10.1 SECS (9.5-12.5)
[2018-05-14] MEDS ORDERED: GASTROGRAFIN 120 ML ONE (16:11)
--- NOTE | 2018-05-14 16:37 | NUR ---
KUB performed at this time per MD orders, patient tolerated well
[2018-05-14] MEDS: PIPERACILLIN/TAZO 3.375/DEX-IS 50 ML IV SCH (18:20)
[2018-05-14] MEDS ORDERED: MENTHOL/ZINC OXIDE 113 GM OINT. TP PRN (18:30)
--- NOTE | 2018-05-14 18:30 | NUR ---
Wound Care Consult performed at this time, patient tolerated well
--- NOTE | 2018-05-14 18:59 | NUR ---
Closing Note patient resting in bed, awake and alert, HOB elevated, no signs of distress, symmetrical chest expansion, safety and aspiration precautions remain in place, will endorse to production shift supervisor nurse
[2018-05-14] MEDS ORDERED: IPRATROPIUM/ALBUTEROL SULFATE 3 ML AMPUL.NEB (DUONEB) INH SCH (19:00)
--- NOTE | 2018-05-14 19:05 | NUR ---
P.T. NOTES P.T. EVAL COMPLETED; NURSING TO DO PROM B UE/LE ONCE DAILY.
[2018-05-14] MEDS: IPRATROPIUM/ALBUTEROL SULFATE 3 ML AMPUL.NEB (DUONEB) INH PRN (19:37)
--- NOTE | 2018-05-14 20:00 | NUR ---
received patient resting in bed, awake and alert, HOB elevated, no signs of distress, symmetrical chest expansion, safety and aspiration precautions remain in place, vent setting correct, pt a no s/s of distress
[2018-05-14] MEDS: CHLORHEXIDINE GLUCONATE 15 ML/DOSE, 480 ML MM SCH (22:25)
[2018-05-14] MEDS: MINERAL OIL 30 ML UDC GT SCH (22:27)
[2018-05-14] MEDS: BACLOFEN 10 MG TABLET GT SCH (22:28)
[2018-05-14] MEDS: LACTOBACILLUS RHAMNOSUS GG 1 CAP CAPSULE GT SCH (22:28)
[2018-05-14] MEDS: METOCLOPRAMIDE HCL 10 MG/10 ML UDC GT SCH (22:29)
[2018-05-14] MEDS: CARVEDILOL 3.125 MG TABLET (COREG) GT SCH (22:29)
[2018-05-14] MEDS: DILTIAZEM HCL 30 MG TABLET GT SCH (22:32)
--- NOTE | 2018-05-15 | NUR ---
pt had frown on face neeed suctionpatient resting in bed, awake and alert, HOB elevated, symmetrical chest expansion, safety and aspiration precautions remain in place,
[2018-05-15 00:02] VITALS: BP_SYST 147
[2018-05-15] MEDS: PIPERACILLIN/TAZO 3.375/DEX-IS 50 ML IV SCH ×5 (00:45→23:04)
--- NOTE | 2018-05-15 02:00 | NUR ---
patient resting in bed, with eyes closed HOB elevated, no signs of distress, symmetrical chest expansion, safety and aspiration precautions remain in place, will endorse to manufacturing shift supervisor nurse
[2018-05-15] MEDS ORDERED: PANTOPRAZOLE GRANULES PACKET 40 MG GT SCH (06:00)
[2018-05-15] MEDS: METOCLOPRAMIDE HCL 10 MG/10 ML UDC GT SCH ×3 (06:08→21:42)
[2018-05-15] MEDS: LEVOTHYROXINE SODIUM 0.125 MG TABLET GT SCH (06:08)
--- NOTE | 2018-05-15 06:44 | NUR ---
Nutrition Update Chad Scale 12 noted. Pt admitted for GT malfunction Diet: NPO BMI: 9.4 kg/m2 RD to follow per nutrition care standards.
--- NOTE | 2018-05-15 06:47 | NUR ---
patient resting in bed, with eyes closed HOB elevated, no signs of distress, symmetrical chest expansion, safety and aspiration precautions remain in place, will give report to dayshift nurse
--- NOTE | 2018-05-15 07:38 | NUR ---
Opening Note received report from retail shift leader RN, pt resting in bed, respirations even and unlabored on mechanical ventilator, no acute distress noted, pt educated on use of call light and asked to call for assistance, pt nods head yes for understanding, call light in reach, bed in low and locked position, bed alarm on, fall and aspiration precautions in place.
[2018-05-15 08:00] VITALS: BP_SYST 118
--- NOTE | 2018-05-15 08:04 | NUR ---
MD Rounds Dr. Meyer at bedside examining pt, per MD cruz to use g-tube for medications.
[2018-05-15 08:14] LABS: ALBUMIN 2.2 g/dL (3.4-4.8); CALCIUM 8.3 mg/dL (8.4-11.0); CREATININE 0.53 mg/dL (0.55-1.30); POTASSIUM 3.2 mmol/L (3.5-5.1); THYROID STIMULATING HORMONE 4.68 uIu/mL (0.34-4.82); TOTAL BILIRUBIN 0.7 mg/dL (0.0-1.0)
[2018-05-15 08:23] LABS: HEMATOCRIT 31.7 % (36-48); HEMOGLOBIN 10.4 g/dL (12.0-16.0); MEAN CORPUSCULAR HEMOGLOBIN 30 pg (27-31); MEAN CORPUSCULAR HGB CONC 33 % (32-36); MEAN CORPUSCULAR VOLUME 92 fL (79.0-98.0); RED BLOOD CELL COUNT(AUTO) 3.44 MIL/uL (4.2-6.2); WHITE BLOOD COUNT (AUTO) 9.3 K/uL (4.8-10.8)
[2018-05-15 08:24] LABS: BASOPHILS % (AUTO) 0.3 % (0.0-2.0); EOSINOPHILS % (AUTO) 0.6 % (0.0-4.0); LYMPHOCYTES # (AUTO) 3.6 K/uL (1.0-5.5); LYMPHOCYTES % (AUTO) 38.9 % (20.5-51.5); MONOCYTES % (AUTO) 7.6 % (1.7-9.3); NEUTROPHILS # (AUTO) 4.9 K/uL (1.8-7.7); NEUTROPHILS % (AUTO) 52.6 % (40.0-70.0); PLATELET COUNT (AUTO) 213 K/uL (130-430)
[2018-05-15 08:25] LABS: EOSINOPHILS # (AUTO) 0.1 K/uL (0.0-0.4); MONOCYTES # (AUTO) 0.7 K/uL (0.0-1.0)
[2018-05-15] MEDS ORDERED: GASTROGRAFIN 120 ML ONE (08:30)
[2018-05-15] MEDS ORDERED: POTASSIUM CHLORIDE 20 MEQ TAB.PRT.SR PO SCH (09:00)
--- NOTE | 2018-05-15 09:40 | NUR ---
Oral Care late note due to meditech downtime oral care provided, pt tolerated well, no acute distress noted, pt repositioned, pts daughter at bedside, fall and aspiration precautions in place.
[2018-05-15] MEDS: BACLOFEN 10 MG TABLET GT SCH ×2 (10:03→21:46)
[2018-05-15] MEDS: LACTOBACILLUS RHAMNOSUS GG 1 CAP CAPSULE GT SCH ×3 (10:04→21:44)
[2018-05-15] MEDS: MULTIVITS,CA,MINERALS/IRON/FA 1 TABLET GT SCH (10:04)
[2018-05-15] MEDS: DILTIAZEM HCL 30 MG TABLET GT SCH ×2 (10:04→21:46)
[2018-05-15] MEDS: CARVEDILOL 3.125 MG TABLET (COREG) GT SCH ×2 (10:04→21:43)
[2018-05-15] MEDS: CHLORHEXIDINE GLUCONATE 15 ML/DOSE, 480 ML MM SCH ×2 (10:05→21:50)
--- NOTE | 2018-05-15 11:30 | NUR ---
Wound Care late not due to meditech downtime pt educated on purpose and procedure for wound care, pt nods yes for understanding, tolerated wound care well, pt denies any pain during or after wound care, pt suctioned, pt cleaned and repositioned, linen changed, fall and aspiration precautions in place.
[2018-05-15 12:45] VITALS: BP_SYST 125
--- NOTE | 2018-05-15 12:45 | NUR ---
RN Rounds pt resting in bed, no acute distress noted, respirations even and unlabored on mechanical ventilator, fall and aspiration precautions in place.
--- NOTE | 2018-05-15 14:15 | NUR ---
Dietitian Recommendations *Recommend advancing to TF if/when medically appropriate. Recommend Jevity 1.2 start rate at 30ml/hr continuous feeding w/ 200 ml FWF Q6H with Bam BID and Prosource QD. (TF and supplements provide 1144 kcal, 60 g Pro, and 1.4 L Free water per day) Please see Nutritional Assessment for details. Co-signed by: LUPIS SCHUMACHER
[2018-05-15] MEDS: D5NS 1,000 ML IV SCH ×2 (14:20→22:53)
--- NOTE | 2018-05-15 14:30 | NUR ---
Oral Care oral care provided, pt tolerated well, no acute distress noted, pt repositioned, fall and aspiration precautions in place.
[2018-05-15 15:06] VITALS: BP_SYST 104
--- NOTE | 2018-05-15 16:20 | NUR ---
Incontinent pt incontinent of bowel and bladder, pt cleaned and assisted to reposition, pt tolerated well, no acute distress noted, fall and aspiration precautions in place.
--- NOTE | 2018-05-15 17:11 | NUR ---
MD Rounds Dr. Barcenas at bedside examining pt, no acute distress noted, fall and aspiration precautions in place.
[2018-05-15] MEDS ORDERED: ONDANSETRON HCL 4 MG/2 ML VIAL IVP PRN (17:15)
--- NOTE | 2018-05-15 19:21 | NUR ---
Closing Note bedside SBAR report given to receiving RN, pt resting in bed, respirations even and unlabored on mechanical ventilator, call light in reach, bed in low and locked position, bed alarm on, fall and aspiration precautions in place, care endorsed.
--- NOTE | 2018-05-15 19:35 | NUR ---
ROUNDS PATIENT AWAKE, NON VERBAL, ON MECHANICAL VENT, VITALS STABLE, NO SIGNS OF ANY PAIN AND DISCOMFORT NOTED. ASSESSMENT DONE AND DOCUMENTED. SEE FLOWSHEET. NEEDS ATTENDED TO. SAFETY AND FALL PRECAUTION MEASURES IN PLACED. BED IN LOW AND LOCKED POSITION. CALL LIGHT PLACED WITHIN REACH.
--- NOTE | 2018-05-15 21:15 | NUR ---
MEDICATION DUE MEDICATIONS GIVEN SCHEDULED, TOLERATED WELL. WILL CONTINUE TO MONITOR.
[2018-05-15] MEDS: PANTOPRAZOLE GRANULES PACKET 40 MG GT SCH (21:41)
[2018-05-15] MEDS: POTASSIUM CHLORIDE 20 MEQ TAB.PRT.SR PO SCH (21:42)
[2018-05-15] MEDS: MINERAL OIL 30 ML UDC GT SCH (21:50)
[2018-05-15 23:25] VITALS: BP_SYST 120
--- NOTE | 2018-05-16 00:17 | NUR ---
PATIENT RESTING: Patient resting quietly. No acute distress noted. Vital signs within normal range.
--- NOTE | 2018-05-16 02:13 | NUR ---
ROUNDS PATIENT ASLEEP, NOT IN DISTRESS, VITALS STABLE. WILL CONTINUE TO MONITOR.
--- NOTE | 2018-05-16 04:13 | NUR ---
PATIENT RESTING: Patient resting quietly. No acute distress noted. Vital signs within normal range.
[2018-05-16] MEDS: METOCLOPRAMIDE HCL 10 MG/10 ML UDC GT SCH ×3 (06:20→21:59)
[2018-05-16] MEDS: LEVOTHYROXINE SODIUM 0.125 MG TABLET GT SCH (06:20)
[2018-05-16] MEDS: PIPERACILLIN/TAZO 3.375/DEX-IS 50 ML IV SCH ×3 (06:21→17:26)
--- NOTE | 2018-05-16 06:28 | NUR ---
CLOSING NOTES PATIENT AWAKE, VITALS STABLE, NO SIGNS OF ANY PAIN AND DISCOMFORT NOTED. ALL NEEDS ATTENDED TO. SAFETY AND FALL PRECAUTION MEASURES MAINTAINED. WILL ENDORSE TO INCOMING SHIFT NURSE.
[2018-05-16 06:55] LABS: HEMATOCRIT 30.7 % (36-48); HEMOGLOBIN 10.2 g/dL (12.0-16.0); MEAN CORPUSCULAR HEMOGLOBIN 30 pg (27-31); MEAN CORPUSCULAR HGB CONC 33 % (32-36); MEAN CORPUSCULAR VOLUME 92 fL (79.0-98.0); RED BLOOD CELL COUNT(AUTO) 3.34 MIL/uL (4.2-6.2); RED CELL DISTRIBUTION WIDTH 14.1 % (9.0-15.0); WHITE BLOOD COUNT (AUTO) 6.7 K/uL (4.8-10.8)
[2018-05-16 06:56] LABS: BASOPHILS % (AUTO) 0.7 % (0.0-2.0); EOSINOPHILS # (AUTO) 0.1 K/uL (0.0-0.4); EOSINOPHILS % (AUTO) 1.7 % (0.0-4.0); LYMPHOCYTES # (AUTO) 2.8 K/uL (1.0-5.5); LYMPHOCYTES % (AUTO) 41.4 % (20.5-51.5); MONOCYTES # (AUTO) 0.5 K/uL (0.0-1.0); MONOCYTES % (AUTO) 6.9 % (1.7-9.3); NEUTROPHILS # (AUTO) 3.3 K/uL (1.8-7.7); NEUTROPHILS % (AUTO) 49.3 % (40.0-70.0); PLATELET COUNT (AUTO) 212 K/uL (130-430)
[2018-05-16 07:01] LABS: CREATININE 0.49 mg/dL (0.55-1.30)
[2018-05-16 07:10] LABS: POTASSIUM 2.9 mmol/L (3.5-5.1)
--- NOTE | 2018-05-16 07:26 | NUR ---
Opening Note received report from truck driver helper RN, pt resting in bed, respirations even and unlabored on mechanical ventilator, respiratory therapist at bedside, pt educated on use of call light and asked to call for assistance, pt nods yes for understanding, call light in reach, bed in low and locked position, bed alarm on, fall and aspiration precautions in place.
--- NOTE | 2018-05-16 07:58 | NUR ---
Spoke with spoke with Dr. Barcenas, informed MD of critical lab potassium 2.9, per MD give scheduled potassium this AM, no new orders, verified with read back.
[2018-05-16 08:00] VITALS: BP_SYST 134
[2018-05-16] MEDS: DILTIAZEM HCL 30 MG TABLET GT SCH ×3 (09:00→22:00)
[2018-05-16] MEDS: LACTOBACILLUS RHAMNOSUS GG 1 CAP CAPSULE GT SCH ×4 (09:00→22:01)
[2018-05-16] MEDS: PANTOPRAZOLE GRANULES PACKET 40 MG GT SCH ×3 (09:00→22:01)
[2018-05-16] MEDS: MULTIVITS,CA,MINERALS/IRON/FA 1 TABLET GT SCH ×2 (09:00→09:13)
[2018-05-16] MEDS: BACLOFEN 10 MG TABLET GT SCH ×3 (09:00→21:59)
[2018-05-16] MEDS: POTASSIUM CHLORIDE 20 MEQ TAB.PRT.SR PO SCH ×3 (09:00→22:00)
[2018-05-16] MEDS: CARVEDILOL 3.125 MG TABLET (COREG) GT SCH ×3 (09:00→22:01)
[2018-05-16] MEDS: CHLORHEXIDINE GLUCONATE 15 ML/DOSE, 480 ML MM SCH ×2 (09:14→22:01)
[2018-05-16] MEDS: D5NS 1,000 ML IV SCH (09:43)
--- NOTE | 2018-05-16 09:44 | NUR ---
Oral Care oral care provided, pt tolerated well, no acute distress noted, pt repositioned, fall and aspiration precautions in place.
--- NOTE | 2018-05-16 10:30 | NUR ---
Unable to give AM meds/Spoke with MD spoke with Dr. Barcenas, informed him that morning GT meds were not given due to GT being occluded, MD called Dr. Meyer and notified him, per MD he will enter medication orders.
[2018-05-16] MEDS: IPRATROPIUM/ALBUTEROL SULFATE 3 ML AMPUL.NEB (DUONEB) INH PRN (11:06)
--- NOTE | 2018-05-16 11:54 | NUR ---
Oral care/Incontinent oral care provided, pt tolerated well, pt incontinent of urine, pt cleaned and linen changed, pt tolerated well, pt repositioned, tracheal and oral suctioning provided, no acute distress noted, fall and aspiration precautions in place.
[2018-05-16] MEDS ORDERED: MAGNESIUM SULFATE 50 ML IV ONE (12:00)
[2018-05-16 12:06] VITALS: BP_SYST 133
--- NOTE | 2018-05-16 12:15 | NUR ---
Wound Care pt educated on purpose and procedure for wound care, pt nods head yes for understanding, wound care completed per orders, pt tolerated well, pt denies any pain during or after wound care, no acute distress noted, fall and aspiration precautions in place.
[2018-05-16] MEDS: POTASSIUM CHLORIDE 40 MEQ in 0.45% NS 250 ML IV SCH ×2 (12:16→18:24)
[2018-05-16 12:33] LABS: TOTAL IRON BIND. CAPACITY 221 ug/dL (250-450)
--- NOTE | 2018-05-16 14:10 | NUR ---
Suctioning oral suctioning provided, pt tolerated well, no acute distress noted, fall and aspiration precautions in place.
--- NOTE | 2018-05-16 14:40 | NUR ---
non-admin GT meds unable to give GT meds due to occluded GT, Dr. Barcenas aware.
--- NOTE | 2018-05-16 15:10 | NUR ---
RT NOTES Patient asked for RT to add more pressure/air on cuff. Patient & female visitor was educated on the safety of appropriate cuff pressure must be maintained to avoid tracheal stenosis. Measured cuff pressure is [id number] and pt. is receiving appropriate tidal volume. No respiratory distress, no leak noted. Saturation is 100%. RN was also made aware of pt's request and of education provided. Addendum: 05/16/18 at 1740 by Heather Stokes RT Amended: Links added. Addendum: 05/16/18 at 1741 by Heather Stokes RT correct time is 1710
[2018-05-16 16:00] VITALS: BP_SYST 123
--- NOTE | 2018-05-16 16:17 | NUR ---
Suctioning oral suctioning provided, pt tolerated well, no acute distress noted, fall and aspiration precautions in place.
--- NOTE | 2018-05-16 16:54 | NUR ---
Spoke with GI called GI lab, informed that Dr. Meyer is in a procedure, left message to have Dr. Meyer call RN regarding pts g-tube, understanding verbalized, awaiting call back.
--- NOTE | 2018-05-16 17:31 | NUR ---
New G-tube placed Dr. Meyer at bedside, placed new g-tube, flushed per physicians orders, no acute distress noted, fall and aspiration precautions in place.
--- NOTE | 2018-05-16 19:05 | NUR ---
Closing Note bedside SBAR report given to receiving RN, pt resting in bed, family at bedside, respirations even and unlabored on mechanical ventilator, call light in reach, bed in low and locked position, bed alarm on, fall and aspiration precautions in place.
--- NOTE | 2018-05-16 19:35 | NUR ---
ROUNDS PATIENT AWAKE, NOT IN DISTRESS, ON MECHANICAL VENTILATOR, NON VERBAL, NO SIGNS OF ANY PAIN AND DISCOMFORT AT THIS TIME. ASSESSMENT DONE AND DOCUMENTED. NEEDS ATTENDED TO. TURNED AND REPOSITIONED TO PREVENT SKIN BREAKDOWN. SECRETIONS SUCTIONED. SAFETY AND FALL PRECAUTION MEASURES IN PLACED. WILL CONTINUE TO MONITOR.
[2018-05-16] MEDS ORDERED: GASTROGRAFIN 120 ML ONE (19:38)
--- NOTE | 2018-05-16 20:42 | NUR ---
paged paged for Dr Meyer, dialed . s/w Jennifer, Dr Buchanan is on-call.
--- NOTE | 2018-05-16 21:30 | NUR ---
DR. MARKELL GUILLAUME CALLED BACK WITH NEW ORDERS TO START G TUBE FEEDING WITH JEVITY 1.2 @ 20 ML/HR THEN INCREASE BY 10 ML Q 6 HR WITH A GOAL OF 60 ML/HR. OK ALSO TO USE G TUBE FOR MEDICATION. WILL CONTINUE TO MONITOR.
[2018-05-16] MEDS: MINERAL OIL 30 ML UDC GT SCH (21:59)
--- NOTE | 2018-05-16 22:30 | NUR ---
NOTES G TUBE FEEDING WITH JEVITY 1.2 STARTED @ ORDERED RATE OF 20 ML/HR, TOLERATED WELL. WILL CONTINUE TO MONITOR.
--- NOTE | 2018-05-17 00:13 | NUR ---
PATIENT RESTING: Patient resting quietly. No acute distress noted. Vital signs within normal range.
[2018-05-17 00:33] VITALS: BP_SYST 116
--- NOTE | 2018-05-17 02:12 | NUR ---
ROUNDS PATIENT ASLEEP, NO SOB NOR PAIN AND DISCOMFORT NOTED, WILL CONTINUE TO MONITOR.
[2018-05-17] MEDS: PIPERACILLIN/TAZO 3.375/DEX-IS 50 ML IV SCH ×4 (02:13→18:00)
--- NOTE | 2018-05-17 04:30 | NUR ---
NOTES JEVITY 1.2 TUBE FEEDING INCREASED BY 10 ML ORDERED, NOW AT 30 ML/HR, TOLERATED WELL. WILL CONTINUE TO MONITOR.
[2018-05-17] MEDS: LEVOTHYROXINE SODIUM 0.125 MG TABLET GT SCH (06:04)
[2018-05-17] MEDS: METOCLOPRAMIDE HCL 10 MG/10 ML UDC GT SCH ×2 (06:04→14:10)
[2018-05-17] MEDS: D5NS 1,000 ML IV SCH ×3 (06:05→17:15)
--- NOTE | 2018-05-17 06:30 | NUR ---
CLOSING NOTES PATIENT AWAKE, VITALS STABLE, ALL NEEDS ATTENDED TO. TUBE FEEDING TOLERATED WELL, NO RESIDUAL NOTED. SAFETY MEASURES MAINTAINED. SECRETIONS SUCTIONED. WILL ENDORSE TO INCOMING SHIFT NURSE.
[2018-05-17 07:41] VITALS: BP_SYST 105
--- NOTE | 2018-05-17 08:00 | NUR ---
Note Pt resting in bed with mechanical ventilating. IV in left hand intact and patent infusing IVF's, GT intact and infusing feedings at this time. No SOB/resp distress or pain/discomfort noted at this time. Pt has continuous pulse ox on right finger at this time. No needs noted. Call light within reach.
[2018-05-17] MEDS: PANTOPRAZOLE GRANULES PACKET 40 MG GT SCH (08:37)
[2018-05-17] MEDS: BACLOFEN 10 MG TABLET GT SCH (08:38)
[2018-05-17] MEDS: DILTIAZEM HCL 30 MG TABLET GT SCH (08:38)
[2018-05-17] MEDS: MULTIVITS,CA,MINERALS/IRON/FA 1 TABLET GT SCH (08:38)
[2018-05-17] MEDS: POTASSIUM CHLORIDE 20 MEQ TAB.PRT.SR PO SCH (08:39)
[2018-05-17] MEDS: LACTOBACILLUS RHAMNOSUS GG 1 CAP CAPSULE GT SCH ×2 (08:39→14:10)
[2018-05-17] MEDS: CARVEDILOL 3.125 MG TABLET (COREG) GT SCH (08:39)
[2018-05-17] MEDS: CHLORHEXIDINE GLUCONATE 15 ML/DOSE, 480 ML MM SCH (08:40)
[2018-05-17 10:18] VITALS: BP_SYST 105
--- NOTE | 2018-05-17 10:30 | NUR ---
Note Increased GT feeding by 10cc/hr, now running at 40cc/hr. Pt tolerating feedings at this time. AM medications given via GT. No needs noted. ROUGE MIXER and RN gave pt hygiene and salome care at this time as well. Pt turned q2' for comfort and promotion of circulation. Addendum: 05/17/18 at 1044 by Cristal Antunez RN Dressing change completed on GT site. Skin reddened and dry. No drainage or bleeding noted at site.
[2018-05-17 11:28] VITALS: BP_SYST 111
[2018-05-17] MEDS ORDERED: PIPE3.379 IV ×3 (13:47→13:54)
[2018-05-17] MEDS ORDERED: DOXY100T2 PO (13:52)
[2018-05-17 13:56] VITALS: BP_SYST 110
--- NOTE | 2018-05-17 14:03 | NUR ---
Nutrition F/U Admitting Diagnosis G-Tube Malfunction Reviewed Pertinent Medical/Surgical Hx Medical Record Patient Other Medical History Comment: PMH per MD note: cholecystitis, cholelithiasis, chronic respiratory failure, anemia, prot malnutrition 05/16/18 Per updated MD notes: CRF S/P trach, malfunctioning GT S/P replacement, ALS, HTN Subjective Information Pt seen sleeping in bed on vent w/ TF infusing via GT. TF seen leaking onto pillow on bed and onto the floor. Pt is currently receiving Fibersource 1.2 at 40ml/hr x 20 hrs. Per EMR, I/O: 1370/0 +1370, pt had 1 BM today, and abdomen is soft and distended w/ active bowel sounds. Per RN note, there is no drainage or bleeding from the wound at the GT site. Current Diet Order/Nutrition Support NPO w/ TF via GT Jev 1.2 40 ml/hr Patient/Significant Other Unable To Verbalize Education Provided Not Indicated Pertinent Medications Synthroid, protonix, dextrose/NaCl IV, Zofran, culturelle Pertinent Labs Na 135 L, Alb 2.2 L, Ca 8.0 L Height (Feet) 5 feet Height (Inches) 1.00 inches Weight (Pounds) 124 pounds Weight (Calculated Kilograms) 56.062290 kilograms Patient Weight 56.245 kg Body Mass Index 23.43 kg/m2 %IBW 118 [place]/Adjusted Body Weight IBW 105 lbs, 48 kg Recent Weight Change No Weight Status Overweight Gastrointestinal Symptoms None Last BM May 17, 2018 Food Allergies No Cultural/Ethnic/Anglican Belief N/A Skin Integrity Comment: Chad Scale: 14; Manufacturing Lab Technician note 05/14/18: 1. G-tube exit site: Moisture associated wound from G-tube drainage, present on admission. 2. Buttocks (Gluteal Sulcus): Intertrigo associated wound, present on admission. Per RN notes, no edema noted. Current % PO NPO Estimated Energy Expenditure (kcals/day) 0433-9911 kcal/day (30-35 kcal/kg IBW for vent) Estimated Protein Required (g/day) 48-72 g/day (1-1.5g/kg IBW for vent) Estimated Fluid Required (l/day) 1.4-1.7 L/day (25-30 ml/kg CBW for maintenance) Problem/Etiology/Signs/Symptoms Inadequate nutrient intake R/T GT malfunction AEB GT leak. Expected Outcomes/Goals -Monitor pt toleration of tube feeding as well as functionality of G tube. Dietitian Recommendations *Recommend continuing TF Jev 1.2 at 40 ml/hr with a goal of 60ml/hr w/ 200 ml FWF Q6H. Monitor/Evaluation Comment Co-signed by: Nate Lorenzo MPH, RD Follow Up Moderate Risk: F/U in 3-5 days Signed: 05/17/18 at 1403 by Sun REEDER <Co-Signature Required> Co-Signed: 05/17/18 at [address]
--- NOTE | 2018-05-17 14:07 | NUR ---
Discharge Planning: DCP faxed pt referral to [facility] (f [phone] p [phone]) pt accepted per Kitty back to [facility], transportation arranged with [facility] ) 4:30pm P/U. Patient nurse aware, pt packet taken to nurse station. Addendum: 05/17/18 at 1510 by Mony Gregory DP [facility] ) 4:30pm P/U DCP cancelled, DCP arranged transportation with [facility] ([phone]) 4:30pm P/U ACLS Addendum: 05/17/18 at 1513 by Mony Gregory [facility] ([phone]) 4:30pm p/u
--- NOTE | 2018-05-17 14:20 | NUR ---
Note Dr Barcenas came to floor and after assessment, order for discharge back to nursing facility given. Pt's discharge paperwork being prepared at this time. GT feedings being tolerated well at this time. No SOB/resp distress or pain/discomfort noted at this time. Call light within reach. No needs noted.
[2018-05-17 15:18] VITALS: BP_SYST 116
--- NOTE | 2018-05-17 16:45 | NUR ---
Note [facility] RN called back and report was finished being given to her. Questions/concerns were answered. RN requested that left hand IV be kept in for continuation of Zosyn IVPB for 7 days. Pt dressed in street clothes and there were no belongings. Pt's GT feedings were stopped and clamped for discharge to [facility]. IVF's were stopped and saline locked at this time. No needs noted. Pt was given hygiene care and bed bath again for incontinence. Call light within reach.
--- NOTE | 2018-05-17 18:10 | NUR ---
Note Called [facility] - who had stated that they would be here to pick pt up at 1730. Pt's discharge packet ready and at nurses' station. [facility] stated they are running late and will be here shortly. Pt resting in bed and no needs noted at this time. Call light within reach.
--- NOTE | 2018-05-17 19:35 | NUR ---
Note [facility] arrived on floor and report/discharge packet given to EMT. Pt stable. Pt off the floor at this time.
== END 2018-05-17 18:38 | DRG 919 ==
LOC: SED 00:43 → SMU 05:13
PROVIDERS: ADMIT Internal Medicine; ATTEND Internal Medicine
PROC: 5A1945Z Respiratory Ventilation, 24-96 Consecutive Hours (ICD-10-PCS; 2018-05-14)
PROC: 0D20XUZ Change Feeding Device in Upper Intestinal Tract, External Approach (ICD-10-PCS; principal; 2018-05-16)
DX: T85.528A Displacement of other gastrointestinal prosthetic devices, implants and grafts, initial encounter (principal); G82.50 Quadriplegia, unspecified; E43 Unspecified severe protein-calorie malnutrition; L03.311 Cellulitis of abdominal wall; K31.6 Fistula of stomach and duodenum; G12.21 Amyotrophic lateral sclerosis; J96.10 Chronic respiratory failure, unspecified whether with hypoxia or hypercapnia; K80.10 Calculus of gallbladder with chronic cholecystitis without obstruction; E87.1 Hypo-osmolality and hyponatremia; Z99.11 Dependence on respirator [ventilator] status; T85.79XA Infection and inflammatory reaction due to other internal prosthetic devices, implants and grafts, initial encounter; E03.9 Hypothyroidism, unspecified; R13.12 Dysphagia, oropharyngeal phase; E87.6 Hypokalemia; D64.9 Anemia, unspecified; I10 Essential (primary) hypertension; J47.9 Bronchiectasis, uncomplicated; K21.9 Gastro-esophageal reflux disease without esophagitis; Y83.3 Surgical operation with formation of external stoma as the cause of abnormal reaction of the patient, or of later complication, without mention of misadventure at the time of the procedure; Y92.89 Other specified places as the place of occurrence of the external cause; Z93.0 Tracheostomy status; Z79.899 Other long term (current) drug therapy; Z87.01 Personal history of pneumonia (recurrent); Z86.73 Personal history of transient ischemic attack (TIA), and cerebral infarction without residual deficits; Z68.23 Body mass index [BMI] 23.0-23.9, adult
CPT/HCPCS: 36415; 74018; 74240-TC; 80048; 80053; 80061; 82962; 83540-TC; 83550-TC; 83735-TC; 84132-TC; 84443-TC; 85025; 85610-TC; 87081; 94003; 94640; 94760; 99285; J2543; J3475; J3480; J7042; J7620; J8597; Q9963

== ENCOUNTER 2018-06-04 20:19 | Inpatient (IN) | payer OTHER, MEDICAID ==
[~2018-06-04] VITALS: Ht 160 cm; Wt 74.8 kg
[~2018-06-04 20:19] MED LIST changes: -BISA10SU65 RC; +CHLO473M5 MM; -DILT180C67 PO; +DILT30TA3 GT; +DOXY100T2 PO; -FLEET RC; +LACT1CAP7 GT; -LACTIN GT; +LEVO125T8 GT; -LEVO175T7 GT; +MINE25OI3 GT; -MOM GT; +MULT-1100 GT; -MULT240L GT; +PANT40SU2 GT; +PIPE3.379 IV; -TEMA15CA5 GT; -TRAM50TA92 GT; -TYL160/5 GT; +TYLL650 GT
[2018-06-04 20:20] VITALS: BP_SYST 128
[2018-06-04] MEDS ORDERED: NACL 0.9% 1,000 ML IV ONE (20:45)
[2018-06-04 21:24] LABS: INR 0.9 (0.8-1.2); PROTHROMBIN TIME 9.7 SECS (9.5-12.5)
[2018-06-04 21:25] LABS: CALCIUM 9.1 mg/dL (8.4-11.0); CREATININE 0.41 mg/dL (0.55-1.30); POTASSIUM 4.3 mmol/L (3.5-5.1)
[2018-06-04 21:26] LABS: ALBUMIN 2.7 g/dL (3.4-4.8); TOTAL BILIRUBIN 0.5 mg/dL (0.0-1.0)
[2018-06-04 21:40] LABS: HEMATOCRIT 33.3 % (36-48); HEMOGLOBIN 11.1 g/dL (12.0-16.0); LYMPHOCYTES % (AUTO) 44.1 % (20.5-51.5); MEAN CORPUSCULAR HEMOGLOBIN 30 pg (27-31); MEAN CORPUSCULAR HGB CONC 33 % (32-36); MEAN CORPUSCULAR VOLUME 91 fL (79.0-98.0); MONOCYTES % (AUTO) 8.7 % (1.7-9.3); NEUTROPHILS % (AUTO) 45.8 % (40.0-70.0); PLATELET COUNT (AUTO) 250 K/uL (130-430); RED BLOOD CELL COUNT(AUTO) 3.64 MIL/uL (4.2-6.2); RED CELL DISTRIBUTION WIDTH 14.3 % (9.0-15.0); WHITE BLOOD COUNT (AUTO) 8.8 K/uL (4.8-10.8)
[2018-06-04 21:41] LABS: BASOPHILS % (AUTO) 0.1 % (0.0-2.0); EOSINOPHILS # (AUTO) 0.1 K/uL (0.0-0.4); EOSINOPHILS % (AUTO) 1.3 % (0.0-4.0); LYMPHOCYTES # (AUTO) 3.9 K/uL (1.0-5.5); MONOCYTES # (AUTO) 0.8 K/uL (0.0-1.0)
[2018-06-04 22:38] LABS: BILIRUBIN,URINE NEGATIVE (NEGATIVE); BLOOD, URINE NEGATIVE (NEGATIVE); CLARITY/URINE SL CLOUDY (CLEAR); COLOR,URINE YELLOW (YELLOW); GLUCOSE,URINE NEGATIVE (NEGATIVE); KETONES,URINE TRACE (NEGATIVE); LEUKOCYTE ESTERASE ,URINE TRACE (NEGATIVE); NITRITE, URINE NEGATIVE (NEGATIVE); PH,URINE 7.5 (5.0-8.0); PROTEIN URINE TRACE (NEGATIVE)
[2018-06-04 23:08] LABS: BACTERIA,URINE MANY /HPF (None Seen); MUCUS,URINE 1+ /LPF (None Seen); RBC,URINE 0-3 /HPF (0-3); URINE AMORPHOUS URATE 3+ /HPF (None Seen)
[2018-06-04] MEDS ORDERED: LEVOFLOXACIN 500 MG/D5W 100 ML IV ONE (23:15)
[2018-06-04] MEDS ORDERED: SILV20CR13 TP (23:30)
[2018-06-05 01:09] VITALS: BP_SYST 115
[2018-06-05] MEDS ORDERED: ONDANSETRON HCL 4 MG/2 ML VIAL IVP PRN (03:45)
[2018-06-05] MEDS ORDERED: ROCURONIUM BROMIDE 10 MG/ML (ZEMURON) IV ONE (09:00)
[2018-06-05] MEDS ORDERED: SEVOFLURANE 15 MIN GAS INH ONE (09:00)
[2018-06-05] MEDS ORDERED: MIDAZOLAM HCL 5 MG/5 ML VIAL IVP ONE (09:00)
[2018-06-05] MEDS ORDERED: POTASSIUM CHLORIDE 40 MEQ PO SCH (09:00)
[2018-06-05] MEDS ORDERED: NS IRRIG SOLN 1000 ML IR ONE (09:00)
[2018-06-05] MEDS ORDERED: LR 1,000 ML IV.SOLN IV ONE (09:00)
[2018-06-05] MEDS ORDERED: PROPOFOL 200MG/ 20ML VIAL (DIPRIVAN) IV ONE (09:00)
[2018-06-05] MEDS ORDERED: CHLORHEXIDINE GLUCONATE MM SCH (09:00)
[2018-06-05] MEDS ORDERED: fentaNYL CITRATE/PF 100 MCG/2 ML AMP IVP ONE (09:00)
[2018-06-05] MEDS ORDERED: NON-FORMULARY MEDICATION (Multivitamin with Minerals (Hair, Skin and Nails) 1 EACH) GT SCH (09:00)
[2018-06-05 12:07] VITALS: BP_SYST 120
[2018-06-05] MEDS: METOCLOPRAMIDE HCL 10 MG/10 ML UDC GT SCH ×3 (14:00→21:31)
[2018-06-05] MEDS: LACTOBACILLUS RHAMNOSUS GG 1 CAP CAPSULE GT SCH ×3 (15:00→21:31)
[2018-06-05 16:25] VITALS: BP_SYST 132
[2018-06-05] MEDS: PANTOPRAZOLE GRANULES PACKET 40 MG GT SCH (17:26)
[2018-06-05] MEDS: LEVOTHYROXINE SODIUM 0.125 MG TABLET GT SCH (17:26)
[2018-06-05] MEDS: DILTIAZEM HCL 30 MG TABLET GT SCH ×2 (17:30→21:00)
[2018-06-05] MEDS: CARVEDILOL 3.125 MG TABLET (COREG) GT SCH ×2 (17:31→21:00)
[2018-06-05] MEDS: BACLOFEN 10 MG TABLET GT SCH ×2 (17:31→21:30)
[2018-06-05] MEDS: POTASSIUM CHLORIDE 20 MEQ/PKT PACKET PO SCH (17:43)
[2018-06-05] MEDS: MULTIVITS,CA,MINERALS/IRON/FA 1 TABLET PO SCH (17:43)
[2018-06-05] MEDS: CHLORHEXIDINE GLUCONATE 15 ML/DOSE, 480 ML MM SCH ×2 (17:43→21:31)
[2018-06-05 20:00] VITALS: BP_SYST 97
[2018-06-05] MEDS: MINERAL OIL 30 ML UDC GT SCH (21:31)
[2018-06-06 01:02] VITALS: BP_SYST 97
[2018-06-06] MEDS: METOCLOPRAMIDE HCL 10 MG/10 ML UDC GT SCH ×3 (05:22→21:03)
[2018-06-06 07:57] LABS: CALCIUM 8.8 mg/dL (8.4-11.0); CREATININE 0.56 mg/dL (0.55-1.30); HEMATOCRIT 32.4 % (36-48); HEMOGLOBIN 10.5 g/dL (12.0-16.0); POTASSIUM 4.1 mmol/L (3.5-5.1); RED BLOOD CELL COUNT(AUTO) 3.49 MIL/uL (4.2-6.2); WHITE BLOOD COUNT (AUTO) 7.6 K/uL (4.8-10.8)
[2018-06-06 07:58] LABS: BASOPHILS % (AUTO) 0.1 % (0.0-2.0); EOSINOPHILS # (AUTO) 0.1 K/uL (0.0-0.4); EOSINOPHILS % (AUTO) 1.1 % (0.0-4.0); LYMPHOCYTES # (AUTO) 3.6 K/uL (1.0-5.5); LYMPHOCYTES % (AUTO) 46.7 % (20.5-51.5); MEAN CORPUSCULAR HEMOGLOBIN 30 pg (27-31); MEAN CORPUSCULAR HGB CONC 33 % (32-36); MEAN CORPUSCULAR VOLUME 93 fL (79.0-98.0); MONOCYTES # (AUTO) 0.6 K/uL (0.0-1.0); MONOCYTES % (AUTO) 8.2 % (1.7-9.3); NEUTROPHILS # (AUTO) 3.3 K/uL (1.8-7.7); NEUTROPHILS % (AUTO) 43.9 % (40.0-70.0); PLATELET COUNT (AUTO) 247 K/uL (130-430); RED CELL DISTRIBUTION WIDTH 14.6 % (9.0-15.0)
[2018-06-06 08:01] VITALS: BP_SYST 116
[2018-06-06 08:13] LABS: ALBUMIN 2.5 g/dL (3.4-4.8); TOTAL BILIRUBIN 0.5 mg/dL (0.0-1.0)
[2018-06-06] MEDS: MULTIVITS,CA,MINERALS/IRON/FA 1 TABLET PO SCH (10:38)
[2018-06-06] MEDS: LEVOTHYROXINE SODIUM 0.125 MG TABLET GT SCH (10:38)
[2018-06-06] MEDS: BACLOFEN 10 MG TABLET GT SCH ×2 (10:38→20:40)
[2018-06-06] MEDS: CARVEDILOL 3.125 MG TABLET (COREG) GT SCH ×2 (10:39→20:40)
[2018-06-06] MEDS: LACTOBACILLUS RHAMNOSUS GG 1 CAP CAPSULE GT SCH ×3 (10:39→20:40)
[2018-06-06] MEDS: DILTIAZEM HCL 30 MG TABLET GT SCH ×2 (10:39→20:40)
[2018-06-06] MEDS: PANTOPRAZOLE GRANULES PACKET 40 MG GT SCH (10:40)
[2018-06-06] MEDS: POTASSIUM CHLORIDE 20 MEQ/PKT PACKET PO SCH (10:40)
[2018-06-06] MEDS: CHLORHEXIDINE GLUCONATE 15 ML/DOSE, 480 ML MM SCH ×2 (10:40→20:44)
[2018-06-06 11:03] VITALS: BP_SYST 153
[2018-06-06 12:46] LABS: HEPATITIS A AB, IgM Negative (Negative); HEPATITIS B CORE AB, IgM Negative (Negative); HEPATITIS B SURFACE AG Negative (Negative)
[2018-06-06 12:57] VITALS: BP_SYST 116
[2018-06-06 16:23] VITALS: BP_SYST 123
[2018-06-06] MEDS ORDERED: SILVER SULFADIAZINE 1%, 25 GM TOPICAL CREAM (SSD) TP ONE (17:30)
[2018-06-06 20:00] VITALS: BP_SYST 100
[2018-06-06] MEDS: cefTRIAXone 1 GM in D5W 50 ML IV SCH (20:11)
[2018-06-06] MEDS: MINERAL OIL 30 ML UDC GT SCH (20:44)
[2018-06-06] MEDS: SILVER SULFADIAZINE 1%, 25 GM TOPICAL CREAM (SSD) TP SCH (20:45)
[2018-06-06] MEDS: LEVOFLOXACIN 500 MG/D5W 100 ML IV SCH (21:03)
[2018-06-07] VITALS (15 sets, daily range): BP systolic 86–146
[2018-06-07] MEDS: METOCLOPRAMIDE HCL 10 MG/10 ML UDC GT SCH ×3 (05:23→22:32)
[2018-06-07 07:20] LABS: HEMATOCRIT 33.5 % (36-48); LYMPHOCYTES % (AUTO) 26.7 % (20.5-51.5); MEAN CORPUSCULAR HEMOGLOBIN 30 pg (27-31); MEAN CORPUSCULAR HGB CONC 33 % (32-36); MEAN CORPUSCULAR VOLUME 92 fL (79.0-98.0); NEUTROPHILS % (AUTO) 65.9 % (40.0-70.0); PLATELET COUNT (AUTO) 256 K/uL (130-430); RED BLOOD CELL COUNT(AUTO) 3.63 MIL/uL (4.2-6.2); RED CELL DISTRIBUTION WIDTH 14.5 % (9.0-15.0); WHITE BLOOD COUNT (AUTO) 9.2 K/uL (4.8-10.8)
[2018-06-07 07:21] LABS: BASOPHILS % (AUTO) 0.2 % (0.0-2.0); EOSINOPHILS # (AUTO) 0.1 K/uL (0.0-0.4); LYMPHOCYTES # (AUTO) 2.5 K/uL (1.0-5.5); MONOCYTES # (AUTO) 0.6 K/uL (0.0-1.0); MONOCYTES % (AUTO) 6.2 % (1.7-9.3); NEUTROPHILS # (AUTO) 6.1 K/uL (1.8-7.7)
[2018-06-07 07:38] LABS: CALCIUM 9.1 mg/dL (8.4-11.0); CREATININE 0.48 mg/dL (0.55-1.30); POTASSIUM 3.8 mmol/L (3.5-5.1)
[2018-06-07 07:39] LABS: ALBUMIN 2.6 g/dL (3.4-4.8); TOTAL BILIRUBIN 0.5 mg/dL (0.0-1.0)
[2018-06-07] MEDS: CARVEDILOL 3.125 MG TABLET (COREG) GT SCH ×2 (08:45→20:16)
[2018-06-07] MEDS: BACLOFEN 10 MG TABLET GT SCH ×2 (08:45→20:15)
[2018-06-07] MEDS: DILTIAZEM HCL 30 MG TABLET GT SCH ×2 (08:45→20:16)
[2018-06-07] MEDS: PANTOPRAZOLE GRANULES PACKET 40 MG GT SCH (08:46)
[2018-06-07] MEDS: POTASSIUM CHLORIDE 20 MEQ/PKT PACKET PO SCH (08:46)
[2018-06-07] MEDS: MULTIVITS,CA,MINERALS/IRON/FA 1 TABLET PO SCH (08:46)
[2018-06-07] MEDS: LEVOTHYROXINE SODIUM 0.125 MG TABLET GT SCH (08:46)
[2018-06-07] MEDS: LACTOBACILLUS RHAMNOSUS GG 1 CAP CAPSULE GT SCH ×3 (08:46→20:15)
[2018-06-07] MEDS: SILVER SULFADIAZINE 1%, 25 GM TOPICAL CREAM (SSD) TP SCH ×2 (09:00→21:00)
[2018-06-07] MEDS: CHLORHEXIDINE GLUCONATE 15 ML/DOSE, 480 ML MM SCH ×2 (09:00→21:00)
[2018-06-07] MEDS ORDERED: ONDANSETRON HCL 4 MG/2 ML VIAL IVP PRN (09:45)
[2018-06-07] MEDS ORDERED: fentaNYL CITRATE/PF 100 MCG/2 ML AMP IVP PRN ×2 (09:45)
[2018-06-07] MEDS ORDERED: ACETAMINOPHEN WITH CODEINE 12.5 ML UDC GT PRN (11:15)
[2018-06-07] MEDS: HYDROmorphone 1 MG INJ. 1 MG/ML AMPUL IVP PRN ×3 (13:32→22:46)
[2018-06-07] MEDS ORDERED: NS 250 ML IV ONE (14:30)
[2018-06-07] MEDS ORDERED: NACL 0.9% 1,000 ML IV SCH (14:30)
[2018-06-07] MEDS: ACETAMINOPHEN 650 MG/20.3 ML UDC GT PRN (15:19)
[2018-06-07] MEDS: KCL 20 mEq in D5NS 1000 mL 1,000 ML IV SCH (16:45)
[2018-06-07] MEDS: cefTRIAXone 1 GM in D5W 50 ML IV SCH (17:59)
[2018-06-07] MEDS: LEVOFLOXACIN 500 MG/D5W 100 ML IV SCH (18:48)
[2018-06-07] MEDS: MINERAL OIL 30 ML UDC GT SCH (20:51)
[2018-06-08] VITALS (30 sets, daily range): BP systolic 71–131
[2018-06-08] MEDS: KCL 20 mEq in D5NS 1000 mL 1,000 ML IV SCH ×3 (02:54→21:00)
[2018-06-08] MEDS: HYDROmorphone 1 MG INJ. 1 MG/ML AMPUL IVP PRN ×3 (02:59→23:28)
[2018-06-08] MEDS: METOCLOPRAMIDE HCL 10 MG/10 ML UDC GT SCH ×3 (05:27→21:30)
[2018-06-08 06:32] LABS: CALCIUM 7.9 mg/dL (8.4-11.0); CREATININE 0.58 mg/dL (0.55-1.30); POTASSIUM 3.9 mmol/L (3.5-5.1)
[2018-06-08 06:43] LABS: ALBUMIN 1.9 g/dL (3.4-4.8); TOTAL BILIRUBIN 0.7 mg/dL (0.0-1.0)
[2018-06-08 07:30] LABS: HEMATOCRIT 30.4 % (36-48); HEMOGLOBIN 9.7 g/dL (12.0-16.0); MEAN CORPUSCULAR HEMOGLOBIN 30 pg (27-31); MEAN CORPUSCULAR HGB CONC 32 % (32-36); MEAN CORPUSCULAR VOLUME 93 fL (79.0-98.0); PLATELET COUNT (AUTO) 391 K/uL (130-430); RED BLOOD CELL COUNT(AUTO) 3.28 MIL/uL (4.2-6.2); RED CELL DISTRIBUTION WIDTH 14.5 % (9.0-15.0); WHITE BLOOD COUNT (AUTO) 24.5 K/uL (4.8-10.8)
[2018-06-08 07:31] LABS: BASOPHILS % (AUTO) 0.1 % (0.0-2.0); LYMPHOCYTES # (AUTO) 6.2 K/uL (1.0-5.5); LYMPHOCYTES % (AUTO) 25.2 % (20.5-51.5); MONOCYTES # (AUTO) 1.4 K/uL (0.0-1.0); MONOCYTES % (AUTO) 5.8 % (1.7-9.3); NEUTROPHILS # (AUTO) 16.8 K/uL (1.8-7.7)
[2018-06-08] MEDS: SILVER SULFADIAZINE 1%, 25 GM TOPICAL CREAM (SSD) TP SCH ×2 (09:00→21:00)
[2018-06-08] MEDS: DILTIAZEM HCL 30 MG TABLET GT SCH ×2 (09:00→21:00)
[2018-06-08] MEDS: CARVEDILOL 3.125 MG TABLET (COREG) GT SCH ×2 (09:00→21:00)
[2018-06-08] MEDS: CHLORHEXIDINE GLUCONATE 15 ML/DOSE, 480 ML MM SCH ×2 (09:00→22:05)
[2018-06-08] MEDS ORDERED: NACL 0.9% 1,000 ML IV ONE ×2 (09:00→13:00)
[2018-06-08 09:44] LABS: NEUTROPHILS % (AUTO) 68.9 % (40.0-70.0)
[2018-06-08] MEDS ORDERED: PIPERACILLIN/TAZO 4.5GM/DEX-IS 100 ML IV ONE (09:45)
[2018-06-08] MEDS ORDERED: VANCOMYCIN HCL 1,750 MG in NS 500 ML IV ONE (11:00)
[2018-06-08] MEDS: POTASSIUM CHLORIDE 20 MEQ/PKT PACKET PO SCH (11:22)
[2018-06-08] MEDS: PANTOPRAZOLE GRANULES PACKET 40 MG GT SCH (11:22)
[2018-06-08] MEDS: LEVOTHYROXINE SODIUM 0.125 MG TABLET GT SCH (11:22)
[2018-06-08] MEDS: BACLOFEN 10 MG TABLET GT SCH ×2 (11:22→21:00)
[2018-06-08] MEDS: LACTOBACILLUS RHAMNOSUS GG 1 CAP CAPSULE GT SCH ×3 (11:22→21:00)
[2018-06-08] MEDS: MULTIVITS,CA,MINERALS/IRON/FA 1 TABLET PO SCH (11:22)
[2018-06-08] MEDS: LEVALBUTEROL HCL 0.63 MG/3 ML VIAL.NEB INH PRN (11:57)
[2018-06-08] MEDS ORDERED: SODIUM BICARBONATE 8.4% JECT 50 MEQ/50 ML SYRINGE ONE ×3 (12:05→12:27)
[2018-06-08] MEDS ORDERED: NOREPINEPHRINE 4 MG/4 ML VIAL IV ONE ×3 (12:06→19:50)
[2018-06-08] MEDS ORDERED: SODIUM BICARBONATE 8.4% JECT 50 MEQ/50 ML SYRINGE IVP ONE (12:15)
[2018-06-08] MEDS ORDERED: NS 500 ML IV ONE (13:30)
[2018-06-08] MEDS: PIPERACILLIN/TAZO 4.5GM/DEX-IS 100 ML IV SCH ×2 (14:00→22:04)
[2018-06-08] MEDS ORDERED: LIDOCAINE/EPI 1% 1:100000 20 ML VIAL INJ ONE (14:04)
[2018-06-08 14:15] LABS: CREATININE 1.14 mg/dL (0.55-1.30); POTASSIUM 4.5 mmol/L (3.5-5.1)
[2018-06-08 14:18] LABS: INR 1.8 (0.8-1.2); PROTHROMBIN TIME 17.8 SECS (9.5-12.5)
[2018-06-08 14:21] LABS: ALBUMIN 1.2 g/dL (3.4-4.8); TOTAL BILIRUBIN 0.9 mg/dL (0.0-1.0)
[2018-06-08 14:22] LABS: HEMATOCRIT 16.2 % (36-48); HEMOGLOBIN 5.1 g/dL (12.0-16.0); RED BLOOD CELL COUNT(AUTO) 1.72 MIL/uL (4.2-6.2)
[2018-06-08 14:23] LABS: MEAN CORPUSCULAR HEMOGLOBIN 29 pg (27-31); MEAN CORPUSCULAR HGB CONC 31 % (32-36); MEAN CORPUSCULAR VOLUME 94 fL (79.0-98.0); PLATELET COUNT (AUTO) 151 K/uL (130-430); RED CELL DISTRIBUTION WIDTH 14.4 % (9.0-15.0)
[2018-06-08 14:32] LABS: BAND % (MANUAL) 22 % (0-6); BASOPHILS % (MANUAL) 0 % (0-2); EOSINOPHILS % (MANUAL) 0 % (0-7); LYMPHOCYTES % (MANUAL) 17 % (20-46); MONOCYTES % (MANUAL) 2 % (0-11)
[2018-06-08 14:35] LABS: CALCIUM 6.8 mg/dL (8.4-11.0)
[2018-06-08] MEDS ORDERED: PHYTONADIONE 10 MG in NS 50 ML IV ONE (15:30)
[2018-06-08] MEDS ORDERED: PHYTONADIONE 10 MG/ML AMP ONE (15:37)
[2018-06-08 15:55] LABS: BILIRUBIN,URINE 1+ (NEGATIVE); BLOOD, URINE 3+ (NEGATIVE); CLARITY/URINE CLOUDY (CLEAR); COLOR,URINE YELLOW (YELLOW); GLUCOSE,URINE NEGATIVE (NEGATIVE); KETONES,URINE NEGATIVE (NEGATIVE); LEUKOCYTE ESTERASE ,URINE NEGATIVE (NEGATIVE); NITRITE, URINE NEGATIVE (NEGATIVE); PROTEIN URINE 2+ (NEGATIVE)
[2018-06-08 15:58] LABS: BACTERIA,URINE FEW /HPF (None Seen); RBC,URINE 20-50 /HPF (0-3); WBC,URINE 0-3 /HPF (0-3)
[2018-06-08] MEDS ORDERED: ONDANSETRON HCL 4 MG/2 ML VIAL IVP PRN (16:30)
[2018-06-08] MEDS ORDERED: fentaNYL CITRATE/PF 100 MCG/2 ML AMP IVP PRN ×2 (16:30)
[2018-06-08] MEDS: FLUCONAZOLE 100 mg/ NS 50 ML IV SCH (19:03)
[2018-06-08] MEDS: NOREPINEPHRINE BITARTRATE 4 MG in D5W 246 ML IV PRN (19:50)
[2018-06-08] MEDS: COLISTIMETHATE SODIUM 75 MG in NS 50 ML IV SCH (21:00)
[2018-06-08] MEDS: MINERAL OIL 30 ML UDC GT SCH (21:00)
[2018-06-08 22:07] LABS: HEMATOCRIT 31.2 % (36-48); HEMOGLOBIN 10.1 g/dL (12.0-16.0)
[2018-06-08 22:11] LABS: CREATININE 0.81 mg/dL (0.55-1.30); POTASSIUM 4.3 mmol/L (3.5-5.1)
[2018-06-08 22:14] LABS: CALCIUM 6.8 mg/dL (8.4-11.0); INR 1.3 (0.8-1.2); PROTHROMBIN TIME 13.3 SECS (9.5-12.5)
[2018-06-08] MEDS ORDERED: DIGOXIN 0.5 MG/2 ML AMP IVP ONE (22:45)
[2018-06-08] MEDS ORDERED: VANCOMYCIN HCL 1 GM/NS PREMIX 250 ML IV SCH (23:00)
[2018-06-08 23:48] LABS: BASOPHILS % (AUTO) 0.2 % (0.0-2.0); HEMATOCRIT 31.9 % (36-48); HEMOGLOBIN 10.1 g/dL (12.0-16.0); LYMPHOCYTES % (AUTO) 21.1 % (20.5-51.5); MEAN CORPUSCULAR HEMOGLOBIN 29 pg (27-31); MEAN CORPUSCULAR HGB CONC 32 % (32-36); MEAN CORPUSCULAR VOLUME 91 fL (79.0-98.0); MONOCYTES % (AUTO) 3.9 % (1.7-9.3); NEUTROPHILS % (AUTO) 74.8 % (40.0-70.0); PLATELET COUNT (AUTO) 84 K/uL (130-430); RED BLOOD CELL COUNT(AUTO) 3.51 MIL/uL (4.2-6.2); RED CELL DISTRIBUTION WIDTH 15.4 % (9.0-15.0); WHITE BLOOD COUNT (AUTO) 23.8 K/uL (4.8-10.8)
[2018-06-08 23:49] LABS: MONOCYTES # (AUTO) 0.9 K/uL (0.0-1.0); NEUTROPHILS # (AUTO) 17.8 K/uL (1.8-7.7)
[2018-06-09] VITALS (34 sets, daily range): BP systolic 96–142
[2018-06-09] MEDS: NOREPINEPHRINE BITARTRATE 4 MG in D5W 246 ML IV PRN ×3 (00:15→22:53)
[2018-06-09] MEDS ORDERED: NOREPINEPHRINE 4 MG/4 ML VIAL IV ONE ×3 (00:18→13:48)
[2018-06-09] MEDS ORDERED: DIGOXIN 0.5 MG/2 ML AMP IVP ONE (04:00)
[2018-06-09] MEDS: HYDROmorphone 1 MG INJ. 1 MG/ML AMPUL IVP PRN ×2 (04:21→22:54)
[2018-06-09] MEDS: METOCLOPRAMIDE HCL 10 MG/10 ML UDC GT SCH ×3 (06:00→22:00)
[2018-06-09] MEDS: PIPERACILLIN/TAZO 4.5GM/DEX-IS 100 ML IV SCH ×3 (06:02→22:53)
[2018-06-09 07:20] LABS: CREATININE 0.88 mg/dL (0.55-1.30); POTASSIUM 3.4 mmol/L (3.5-5.1)
[2018-06-09 07:22] LABS: INR 1.3 (0.8-1.2); PROTHROMBIN TIME 13.3 SECS (9.5-12.5)
[2018-06-09 07:32] LABS: ALBUMIN 1.5 g/dL (3.4-4.8); TOTAL BILIRUBIN 1.1 mg/dL (0.0-1.0)
[2018-06-09 07:48] LABS: CALCIUM 6.9 mg/dL (8.4-11.0)
[2018-06-09 07:56] LABS: WHITE BLOOD COUNT (AUTO) 20.5 K/uL (4.8-10.8)
[2018-06-09 07:57] LABS: HEMATOCRIT 27.4 % (36-48); MEAN CORPUSCULAR HEMOGLOBIN 30 pg (27-31); MEAN CORPUSCULAR HGB CONC 33 % (32-36); MEAN CORPUSCULAR VOLUME 90 fL (79.0-98.0); PLATELET COUNT (AUTO) 93 K/uL (130-430); RED BLOOD CELL COUNT(AUTO) 3.04 MIL/uL (4.2-6.2); RED CELL DISTRIBUTION WIDTH 15.8 % (9.0-15.0)
[2018-06-09 07:58] LABS: BASOPHILS % (AUTO) 0.2 % (0.0-2.0); LYMPHOCYTES % (AUTO) 16.4 % (20.5-51.5); MONOCYTES % (AUTO) 3.4 % (1.7-9.3)
[2018-06-09 07:59] LABS: LYMPHOCYTES # (AUTO) 3.4 K/uL (1.0-5.5); MONOCYTES # (AUTO) 0.7 K/uL (0.0-1.0); NEUTROPHILS # (AUTO) 16.4 K/uL (1.8-7.7)
[2018-06-09] MEDS: CHLORHEXIDINE GLUCONATE 15 ML/DOSE, 480 ML MM SCH ×2 (08:23→20:56)
[2018-06-09] MEDS: KCL 20 mEq in D5NS 1000 mL 1,000 ML IV SCH (08:24)
[2018-06-09] MEDS: ERGOCALCIFEROL 8000 UNITS/ML ORAL SOLUTION, 60 ML BOTTLE GT SCH (09:00)
[2018-06-09] MEDS: CARVEDILOL 3.125 MG TABLET (COREG) GT SCH ×2 (09:00→20:56)
[2018-06-09] MEDS: DILTIAZEM HCL 30 MG TABLET GT SCH ×2 (09:00→20:55)
[2018-06-09] MEDS ORDERED: DIGOXIN 0.5 MG/2 ML AMP IVP SCH (09:00)
[2018-06-09] MEDS: BACLOFEN 10 MG TABLET GT SCH ×2 (09:00→20:55)
[2018-06-09] MEDS: LACTOBACILLUS RHAMNOSUS GG 1 CAP CAPSULE GT SCH ×3 (09:08→20:55)
[2018-06-09] MEDS: COLISTIMETHATE SODIUM 75 MG in NS 50 ML IV SCH ×2 (09:08→20:55)
[2018-06-09] MEDS: LEVOTHYROXINE SODIUM 0.125 MG TABLET GT SCH (09:08)
[2018-06-09] MEDS: POTASSIUM CHLORIDE 20 MEQ/PKT PACKET GT SCH (09:09)
[2018-06-09] MEDS: PANTOPRAZOLE GRANULES PACKET 40 MG GT SCH (09:09)
[2018-06-09] MEDS: MULTIVIT-MINERALS/FERROUS GLUC 15 ML UDC GT SCH ×2 (09:15→20:57)
[2018-06-09] MEDS: FAMOTIDINE PF 20 MG/2 ML VIAL IVP SCH ×2 (10:41→20:55)
[2018-06-09] MEDS: SOD FERRIC GLUC COMPLEX/SUC 125 MG in NS 100 ML IV SCH (10:42)
[2018-06-09] MEDS ORDERED: FUROSEMIDE 40 MG/4 ML VIAL IVP ONE (12:45)
[2018-06-09] MEDS: SILVER SULFADIAZINE 1%, 25 GM TOPICAL CREAM (SSD) TP SCH ×2 (12:57→20:57)
[2018-06-09] MEDS: 0.45% NACL 1,000 ML IV SCH (12:59)
[2018-06-09] MEDS: FLUCONAZOLE 100 mg/ NS 50 ML IV SCH (16:23)
[2018-06-09] MEDS ORDERED: GASTROGRAFIN 120 ML ONE (18:00)
[2018-06-09 19:40] LABS: HEMOGLOBIN 9.5 g/dL (12.0-16.0); RED BLOOD CELL COUNT(AUTO) 3.27 MIL/uL (4.2-6.2); WHITE BLOOD COUNT (AUTO) 22.6 K/uL (4.8-10.8)
[2018-06-09 19:41] LABS: BASOPHILS % (AUTO) 0.1 % (0.0-2.0); EOSINOPHILS % (AUTO) 0.1 % (0.0-4.0); HEMATOCRIT 28.9 % (36-48); LYMPHOCYTES # (AUTO) 4.9 K/uL (1.0-5.5); LYMPHOCYTES % (AUTO) 21.8 % (20.5-51.5); MEAN CORPUSCULAR HEMOGLOBIN 29 pg (27-31); MEAN CORPUSCULAR HGB CONC 33 % (32-36); MEAN CORPUSCULAR VOLUME 89 fL (79.0-98.0); MONOCYTES # (AUTO) 0.8 K/uL (0.0-1.0); MONOCYTES % (AUTO) 3.7 % (1.7-9.3); NEUTROPHILS # (AUTO) 16.8 K/uL (1.8-7.7); NEUTROPHILS % (AUTO) 74.4 % (40.0-70.0); PLATELET COUNT (AUTO) 89 K/uL (130-430); RED CELL DISTRIBUTION WIDTH 15.8 % (9.0-15.0)
[2018-06-09] MEDS: MINERAL OIL 30 ML UDC GT SCH (20:58)
[2018-06-10] VITALS (32 sets, daily range): BP systolic 90–130
[2018-06-10] MEDS: PIPERACILLIN/TAZO 4.5GM/DEX-IS 100 ML IV SCH ×2 (05:24→13:23)
[2018-06-10] MEDS: METOCLOPRAMIDE HCL 10 MG/10 ML UDC GT SCH ×3 (05:25→22:00)
[2018-06-10] MEDS: 0.45% NACL 1,000 ML IV SCH (05:25)
[2018-06-10 07:21] LABS: HEMATOCRIT 23.3 % (36-48); HEMOGLOBIN 7.9 g/dL (12.0-16.0); MEAN CORPUSCULAR VOLUME 88 fL (79.0-98.0); RED BLOOD CELL COUNT(AUTO) 2.65 MIL/uL (4.2-6.2); WHITE BLOOD COUNT (AUTO) 17.8 K/uL (4.8-10.8)
[2018-06-10 07:22] LABS: INR 1.1 (0.8-1.2); MEAN CORPUSCULAR HEMOGLOBIN 30 pg (27-31); MEAN CORPUSCULAR HGB CONC 34 % (32-36); PLATELET COUNT (AUTO) 54 K/uL (130-430); PROTHROMBIN TIME 11.1 SECS (9.5-12.5); RED CELL DISTRIBUTION WIDTH 15.6 % (9.0-15.0)
[2018-06-10 07:23] LABS: BASOPHILS % (AUTO) 0.1 % (0.0-2.0); LYMPHOCYTES # (AUTO) 4.1 K/uL (1.0-5.5); LYMPHOCYTES % (AUTO) 23.3 % (20.5-51.5); MONOCYTES # (AUTO) 0.8 K/uL (0.0-1.0); MONOCYTES % (AUTO) 4.5 % (1.7-9.3); NEUTROPHILS # (AUTO) 12.8 K/uL (1.8-7.7)
[2018-06-10 07:26] LABS: ALBUMIN 1.4 g/dL (3.4-4.8); CALCIUM 7.5 mg/dL (8.4-11.0); CREATININE 0.68 mg/dL (0.55-1.30); TOTAL BILIRUBIN 1.4 mg/dL (0.0-1.0)
[2018-06-10 07:32] LABS: POTASSIUM 2.3 mmol/L (3.5-5.1)
[2018-06-10] MEDS: COLISTIMETHATE SODIUM 75 MG in NS 50 ML IV SCH ×2 (10:10→21:50)
[2018-06-10] MEDS: SOD FERRIC GLUC COMPLEX/SUC 125 MG in NS 100 ML IV SCH (10:10)
[2018-06-10] MEDS: CHLORHEXIDINE GLUCONATE 15 ML/DOSE, 480 ML MM SCH ×2 (10:10→22:24)
[2018-06-10] MEDS: NOREPINEPHRINE BITARTRATE 4 MG in D5W 246 ML IV PRN ×2 (10:11→23:44)
[2018-06-10] MEDS: SILVER SULFADIAZINE 1%, 25 GM TOPICAL CREAM (SSD) TP SCH ×2 (10:12→21:03)
[2018-06-10] MEDS: FAMOTIDINE PF 20 MG/2 ML VIAL IVP SCH ×2 (10:13→21:51)
[2018-06-10] MEDS: BACLOFEN 10 MG TABLET GT SCH ×2 (10:25→21:00)
[2018-06-10] MEDS: LEVOTHYROXINE SODIUM 0.125 MG TABLET GT SCH (10:25)
[2018-06-10] MEDS: PANTOPRAZOLE GRANULES PACKET 40 MG GT SCH (10:25)
[2018-06-10] MEDS: POTASSIUM CHLORIDE 20 MEQ/PKT PACKET GT SCH ×2 (10:25→21:00)
[2018-06-10] MEDS: CARVEDILOL 3.125 MG TABLET (COREG) GT SCH ×2 (10:26→21:00)
[2018-06-10] MEDS: MULTIVIT-MINERALS/FERROUS GLUC 15 ML UDC GT SCH ×2 (10:26→21:00)
[2018-06-10] MEDS: LACTOBACILLUS RHAMNOSUS GG 1 CAP CAPSULE GT SCH ×3 (10:26→21:00)
[2018-06-10] MEDS: DILTIAZEM HCL 30 MG TABLET GT SCH ×2 (10:26→21:00)
[2018-06-10] MEDS: ERGOCALCIFEROL 8000 UNITS/ML ORAL SOLUTION, 60 ML BOTTLE GT SCH (10:27)
[2018-06-10] MEDS ORDERED: FUROSEMIDE 20 MG/2 ML VIAL IVP ONE (10:30)
[2018-06-10] MEDS ORDERED: ALBUMIN HUMAN 25% 100 ML IV ONE (10:30)
[2018-06-10 12:47] LABS: HEMATOCRIT 22.5 % (36-48); HEMOGLOBIN 7.5 g/dL (12.0-16.0); RED BLOOD CELL COUNT(AUTO) 2.54 MIL/uL (4.2-6.2)
[2018-06-10 12:48] LABS: BASOPHILS % (AUTO) 0.1 % (0.0-2.0); EOSINOPHILS % (AUTO) 0.1 % (0.0-4.0); LYMPHOCYTES # (AUTO) 4.3 K/uL (1.0-5.5); LYMPHOCYTES % (AUTO) 25.3 % (20.5-51.5); MEAN CORPUSCULAR HEMOGLOBIN 30 pg (27-31); MEAN CORPUSCULAR HGB CONC 33 % (32-36); MEAN CORPUSCULAR VOLUME 89 fL (79.0-98.0); MONOCYTES % (AUTO) 5.1 % (1.7-9.3); NEUTROPHILS # (AUTO) 11.8 K/uL (1.8-7.7); NEUTROPHILS % (AUTO) 69.4 % (40.0-70.0); RED CELL DISTRIBUTION WIDTH 15.3 % (9.0-15.0)
[2018-06-10 12:49] LABS: MONOCYTES # (AUTO) 0.9 K/uL (0.0-1.0)
[2018-06-10 12:50] LABS: PLATELET COUNT (AUTO) 45 K/uL (130-430)
[2018-06-10 12:59] LABS: NEUTROPHILS % (AUTO) 72.1 % (40.0-70.0)
[2018-06-10] MEDS ORDERED: KCL 40 mEq in 100 mL (PREMIX) 100 ML IV ONE ×2 (13:30→18:00)
[2018-06-10] MEDS ORDERED: POTASSIUM CHLORIDE 20 MEQ/PKT PACKET GT ONE (14:15)
[2018-06-10] MEDS: FLUCONAZOLE 100 mg/ NS 50 ML IV SCH (14:24)
[2018-06-10] MEDS ORDERED: ALBUMIN HUMAN 25% 200 ML IV ONE (17:00)
[2018-06-10] MEDS ORDERED: HYDROCORTISONE SOD SUCC 100 MG/2 ML VIAL IVP ONE (17:00)
[2018-06-10] MEDS ORDERED: DOXYCYCLINE HYCLATE 100 MG in D5W 100 ML IV ONE (17:30)
[2018-06-10 17:38] LABS: CALCIUM 7.6 mg/dL (8.4-11.0); CREATININE 0.62 mg/dL (0.55-1.30)
[2018-06-10] MEDS: D5LR 1,000 ML IV SCH (18:06)
[2018-06-10 18:36] LABS: HEMATOCRIT 22.2 % (36-48); HEMOGLOBIN 7.4 g/dL (12.0-16.0); MEAN CORPUSCULAR HEMOGLOBIN 29 pg (27-31); MEAN CORPUSCULAR VOLUME 88 fL (79.0-98.0); RED BLOOD CELL COUNT(AUTO) 2.51 MIL/uL (4.2-6.2); WHITE BLOOD COUNT (AUTO) 15.8 K/uL (4.8-10.8)
[2018-06-10 18:37] LABS: MEAN CORPUSCULAR HGB CONC 33 % (32-36); RED CELL DISTRIBUTION WIDTH 15.5 % (9.0-15.0)
[2018-06-10 18:40] LABS: PLATELET COUNT (AUTO) 36 K/uL (130-430)
[2018-06-10 18:41] LABS: BASOPHILS % (AUTO) 0.1 % (0.0-2.0); EOSINOPHILS % (AUTO) 0.2 % (0.0-4.0); LYMPHOCYTES # (AUTO) 4.4 K/uL (1.0-5.5); LYMPHOCYTES % (AUTO) 27.6 % (20.5-51.5); MONOCYTES % (AUTO) 5.9 % (1.7-9.3); NEUTROPHILS # (AUTO) 10.5 K/uL (1.8-7.7); NEUTROPHILS % (AUTO) 66.2 % (40.0-70.0)
[2018-06-10 18:42] LABS: MONOCYTES # (AUTO) 0.9 K/uL (0.0-1.0)
[2018-06-10] MEDS ORDERED: MAGNESIUM SULFATE 4 GM in D5W 250 ML IV ONE (19:00)
[2018-06-10] MEDS: MINERAL OIL 30 ML UDC GT SCH (21:00)
[2018-06-10] MEDS: HYDROCORTISONE SOD SUCC 100 MG/2 ML VIAL IVP SCH (21:50)
[2018-06-10] MEDS: DOXYCYCLINE HYCLATE 100 MG in D5W 100 ML IV SCH (22:24)
[2018-06-11] VITALS (33 sets, daily range): BP systolic 104–136
[2018-06-11] MEDS: METOCLOPRAMIDE HCL 10 MG/10 ML UDC GT SCH ×3 (06:00→21:12)
[2018-06-11 07:38] LABS: ALBUMIN 2.6 g/dL (3.4-4.8); CALCIUM 8.2 mg/dL (8.4-11.0); CREATININE 0.52 mg/dL (0.55-1.30); HEMATOCRIT 24.5 % (36-48); HEMOGLOBIN 8.6 g/dL (12.0-16.0); MEAN CORPUSCULAR HEMOGLOBIN 31 pg (27-31); MEAN CORPUSCULAR VOLUME 98 fL (79.0-98.0); RED BLOOD CELL COUNT(AUTO) 2.79 MIL/uL (4.2-6.2); TOTAL BILIRUBIN 2.2 mg/dL (0.0-1.0); WHITE BLOOD COUNT (AUTO) 13.4 K/uL (4.8-10.8)
[2018-06-11 07:39] LABS: BASOPHILS % (AUTO) 0.4 % (0.0-2.0); EOSINOPHILS # (AUTO) 0.1 K/uL (0.0-0.4); EOSINOPHILS % (AUTO) 0.4 % (0.0-4.0); LYMPHOCYTES # (AUTO) 2.7 K/uL (1.0-5.5); LYMPHOCYTES % (AUTO) 19.9 % (20.5-51.5); MEAN CORPUSCULAR HGB CONC 35 % (32-36); MONOCYTES # (AUTO) 0.8 K/uL (0.0-1.0); MONOCYTES % (AUTO) 6.2 % (1.7-9.3); NEUTROPHILS # (AUTO) 9.8 K/uL (1.8-7.7); NEUTROPHILS % (AUTO) 73.1 % (40.0-70.0); RED CELL DISTRIBUTION WIDTH 15.3 % (9.0-15.0)
[2018-06-11 07:40] LABS: BASOPHILS # (AUTO) 0.1 K/uL (0.0-0.2)
[2018-06-11 07:41] LABS: PLATELET COUNT (AUTO) 74 K/uL (130-430)
[2018-06-11 07:51] LABS: POTASSIUM 2.7 mmol/L (3.5-5.1)
[2018-06-11] MEDS: HYDROCORTISONE SOD SUCC 100 MG/2 ML VIAL IVP SCH ×2 (08:17→21:11)
[2018-06-11] MEDS: FAMOTIDINE PF 20 MG/2 ML VIAL IVP SCH ×2 (08:17→21:12)
[2018-06-11] MEDS: DOXYCYCLINE HYCLATE 100 MG in D5W 100 ML IV SCH ×2 (08:17→21:10)
[2018-06-11] MEDS: CHLORHEXIDINE GLUCONATE 15 ML/DOSE, 480 ML MM SCH ×2 (08:18→21:13)
[2018-06-11] MEDS: SILVER SULFADIAZINE 1%, 25 GM TOPICAL CREAM (SSD) TP SCH ×2 (08:18→21:14)
[2018-06-11] MEDS ORDERED: DEXTROSE 50% JECT 50 ML DISP.SYRIN IVP PRN (08:45)
[2018-06-11] MEDS ORDERED: *TPN PER PHARMACY XX PRN (08:45)
[2018-06-11] MEDS ORDERED: KCL 40 mEq in 100 mL (PREMIX) 100 ML IV ONE (08:45)
[2018-06-11] MEDS: MULTIVIT-MINERALS/FERROUS GLUC 15 ML UDC GT SCH ×2 (09:00→21:10)
[2018-06-11] MEDS: LACTOBACILLUS RHAMNOSUS GG 1 CAP CAPSULE GT SCH ×3 (09:00→21:13)
[2018-06-11] MEDS: POTASSIUM CHLORIDE 20 MEQ/PKT PACKET GT SCH ×2 (09:00→21:11)
[2018-06-11] MEDS: CARVEDILOL 3.125 MG TABLET (COREG) GT SCH ×2 (09:00→21:12)
[2018-06-11] MEDS: PANTOPRAZOLE GRANULES PACKET 40 MG GT SCH (09:00)
[2018-06-11] MEDS: ERGOCALCIFEROL 8000 UNITS/ML ORAL SOLUTION, 60 ML BOTTLE GT SCH (09:00)
[2018-06-11] MEDS: DILTIAZEM HCL 30 MG TABLET GT SCH ×2 (09:00→21:13)
[2018-06-11] MEDS: BACLOFEN 10 MG TABLET GT SCH ×2 (09:00→21:13)
[2018-06-11] MEDS: LEVOTHYROXINE SODIUM 0.125 MG TABLET GT SCH (09:00)
[2018-06-11 09:12] LABS: PHOSPHORUS 1.7 mg/dL (2.7-4.5)
[2018-06-11] MEDS: COLISTIMETHATE SODIUM 75 MG in NS 50 ML IV SCH ×2 (09:38→21:10)
[2018-06-11] MEDS ORDERED: GASTROGRAFIN 120 ML ONE (10:04)
[2018-06-11] MEDS: SOD FERRIC GLUC COMPLEX/SUC 125 MG in NS 100 ML IV SCH (10:30)
[2018-06-11] MEDS ORDERED: K PHOS 30 MM in NS 250 ML IV ONE (12:00)
[2018-06-11] MEDS: D5LR 1,000 ML IV SCH ×2 (12:50→22:26)
[2018-06-11] MEDS ORDERED: BISACODYL 10 MG/SUPPOSITORY RC PRN (13:30)
[2018-06-11] MEDS ORDERED: BISACODYL 10 MG/SUPPOSITORY RC ONE (13:30)
[2018-06-11] MEDS ORDERED: MENTHOL/ZINC OXIDE 113 GM OINT. TP PRN (13:45)
[2018-06-11] MEDS: FLUCONAZOLE 100 mg/ NS 50 ML IV SCH (14:56)
[2018-06-11] MEDS ORDERED: [UNRECOGNIZED DRUG - OTHER] IV SCH ×8 (18:00)
[2018-06-11] MEDS ORDERED: POTASSIUM CHLORIDE IV SCH ×8 (18:00)
[2018-06-11] MEDS ORDERED: K PHOS IV SCH ×8 (18:00)
[2018-06-11] MEDS ORDERED: SODIUM ACETATE IV SCH ×8 (18:00)
[2018-06-11] MEDS ORDERED: TPN CENTRAL IV SCH ×8 (18:00)
[2018-06-11] MEDS: MINERAL OIL 30 ML UDC GT SCH (21:11)
[2018-06-11] MEDS: INSULIN REGULAR, HUMAN 100 UNITS/ML, 10 ML VIAL (novoLIN R) SUBCUT PRN (23:59)
[2018-06-12] VITALS (35 sets, daily range): BP systolic 104–131
[2018-06-12] MEDS: METOCLOPRAMIDE HCL 10 MG/10 ML UDC GT SCH ×3 (06:05→20:44)
[2018-06-12] MEDS: INSULIN REGULAR, HUMAN 100 UNITS/ML, 10 ML VIAL (novoLIN R) SUBCUT PRN ×4 (06:07→23:52)
[2018-06-12 07:41] LABS: HEMATOCRIT 26.2 % (36-48); HEMOGLOBIN 8.6 g/dL (12.0-16.0); MEAN CORPUSCULAR VOLUME 89 fL (79.0-98.0); RED BLOOD CELL COUNT(AUTO) 2.94 MIL/uL (4.2-6.2); WHITE BLOOD COUNT (AUTO) 13.8 K/uL (4.8-10.8)
[2018-06-12 07:42] LABS: BASOPHILS % (AUTO) 0.1 % (0.0-2.0); LYMPHOCYTES # (AUTO) 2.6 K/uL (1.0-5.5); LYMPHOCYTES % (AUTO) 18.9 % (20.5-51.5); MEAN CORPUSCULAR HEMOGLOBIN 29 pg (27-31); MEAN CORPUSCULAR HGB CONC 33 % (32-36); MONOCYTES # (AUTO) 1.2 K/uL (0.0-1.0); MONOCYTES % (AUTO) 8.9 % (1.7-9.3); RED CELL DISTRIBUTION WIDTH 15.1 % (9.0-15.0); RETICULOCYTE COUNT 3.2 % (0.5-1.5)
[2018-06-12 07:45] LABS: PLATELET COUNT (AUTO) 35 K/uL (130-430)
[2018-06-12 07:47] LABS: CALCIUM 7.9 mg/dL (8.4-11.0); CREATININE 0.53 mg/dL (0.55-1.30); POTASSIUM 3.6 mmol/L (3.5-5.1); PROTHROMBIN TIME 10.3 SECS (9.5-12.5)
[2018-06-12 07:57] LABS: PHOSPHORUS 2.1 mg/dL (2.7-4.5); TOTAL BILIRUBIN 1.1 mg/dL (0.0-1.0)
[2018-06-12] MEDS: SILVER SULFADIAZINE 1%, 25 GM TOPICAL CREAM (SSD) TP SCH ×2 (08:51→20:51)
[2018-06-12] MEDS: DOXYCYCLINE HYCLATE 100 MG in D5W 100 ML IV SCH ×2 (08:52→20:45)
[2018-06-12] MEDS: ERGOCALCIFEROL 8000 UNITS/ML ORAL SOLUTION, 60 ML BOTTLE GT SCH (08:53)
[2018-06-12 08:54] LABS: TOTAL IRON BIND. CAPACITY 117 ug/dL (250-450)
[2018-06-12] MEDS: POTASSIUM CHLORIDE 20 MEQ/PKT PACKET GT SCH ×2 (08:54→20:46)
[2018-06-12] MEDS: HYDROCORTISONE SOD SUCC 100 MG/2 ML VIAL IVP SCH (08:54)
[2018-06-12] MEDS: BACLOFEN 10 MG TABLET GT SCH ×2 (08:54→20:46)
[2018-06-12] MEDS: PANTOPRAZOLE GRANULES PACKET 40 MG GT SCH (08:54)
[2018-06-12] MEDS: DILTIAZEM HCL 30 MG TABLET GT SCH ×2 (08:55→20:47)
[2018-06-12] MEDS: CARVEDILOL 3.125 MG TABLET (COREG) GT SCH ×2 (08:55→20:50)
[2018-06-12] MEDS: LEVOTHYROXINE SODIUM 0.125 MG TABLET GT SCH (08:55)
[2018-06-12] MEDS: FAMOTIDINE PF 20 MG/2 ML VIAL IVP SCH (08:55)
[2018-06-12] MEDS: LACTOBACILLUS RHAMNOSUS GG 1 CAP CAPSULE GT SCH ×3 (08:56→20:46)
[2018-06-12] MEDS: CHLORHEXIDINE GLUCONATE 15 ML/DOSE, 480 ML MM SCH ×2 (08:56→20:44)
[2018-06-12] MEDS: COLISTIMETHATE SODIUM 75 MG in NS 50 ML IV SCH ×2 (09:14→20:44)
[2018-06-12] MEDS: MULTIVIT-MINERALS/FERROUS GLUC 15 ML UDC GT SCH ×2 (09:14→20:48)
[2018-06-12] MEDS ORDERED: IRON SUCROSE COMPLEX 100 MG in NS 50 ML IV ONE (10:30)
[2018-06-12] MEDS: HYDROmorphone 1 MG INJ. 1 MG/ML AMPUL IVP PRN ×2 (10:44→18:41)
[2018-06-12 11:40] LABS: NEUTROPHILS % (AUTO) 72.1 % (40.0-70.0)
[2018-06-12] MEDS: methylPREDNISolone SOD SUCC/PF 62.5 MG/ML VIAL IVP SCH ×3 (11:54→23:47)
[2018-06-12] MEDS: FLUCONAZOLE 100 mg/ NS 50 ML IV SCH (15:05)
[2018-06-12] MEDS ORDERED: POTASSIUM CHLORIDE IV SCH ×8 (18:00)
[2018-06-12] MEDS ORDERED: SODIUM ACETATE IV SCH ×8 (18:00)
[2018-06-12] MEDS ORDERED: TPN CENTRAL IV SCH ×8 (18:00)
[2018-06-12] MEDS ORDERED: K PHOS 15 MM in NS 250 ML IV ONE (18:00)
[2018-06-12] MEDS ORDERED: [UNRECOGNIZED DRUG - OTHER] IV SCH ×8 (18:00)
[2018-06-12] MEDS ORDERED: K PHOS IV SCH ×8 (18:00)
[2018-06-12] MEDS: MINERAL OIL 30 ML UDC GT SCH (20:47)
[2018-06-12] MEDS ORDERED: FAMOTIDINE 20 MG TABLET GT SCH (21:00)
[2018-06-12] MEDS: D5LR 1,000 ML IV SCH (23:47)
[2018-06-13] VITALS (28 sets, daily range): BP systolic 103–127
[2018-06-13 05:00] LABS: HEMATOCRIT 28.2 % (36-48); HEMOGLOBIN 9.3 g/dL (12.0-16.0); MEAN CORPUSCULAR HEMOGLOBIN 30 pg (27-31); MEAN CORPUSCULAR VOLUME 91 fL (79.0-98.0); RED BLOOD CELL COUNT(AUTO) 3.09 MIL/uL (4.2-6.2); WHITE BLOOD COUNT (AUTO) 19.4 K/uL (4.8-10.8)
[2018-06-13 05:01] LABS: MEAN CORPUSCULAR HGB CONC 33 % (32-36); RED CELL DISTRIBUTION WIDTH 15.4 % (9.0-15.0)
[2018-06-13] MEDS: methylPREDNISolone SOD SUCC/PF 62.5 MG/ML VIAL IVP SCH ×2 (05:11→12:22)
[2018-06-13] MEDS: METOCLOPRAMIDE HCL 10 MG/10 ML UDC GT SCH ×3 (05:12→21:44)
[2018-06-13 05:15] LABS: ALBUMIN 2.1 g/dL (3.4-4.8); CALCIUM 8.1 mg/dL (8.4-11.0); CREATININE 0.47 mg/dL (0.55-1.30); POTASSIUM 4.4 mmol/L (3.5-5.1); TOTAL BILIRUBIN 1.2 mg/dL (0.0-1.0)
[2018-06-13] MEDS: INSULIN REGULAR, HUMAN 100 UNITS/ML, 10 ML VIAL (novoLIN R) SUBCUT PRN (05:15)
[2018-06-13 05:26] LABS: ATYPICAL LYMPHOCYTES % 0 % (0-0); BAND % (MANUAL) 4 % (0-6); BASOPHILS % (MANUAL) 0 % (0-2); EOSINOPHILS % (MANUAL) 0 % (0-7); LYMPHOCYTES % (MANUAL) 21 % (20-46); METAMYELOCYTES % 0 % (0-0); MONOCYTES % (MANUAL) 2 % (0-11); MYELOCYTES % 2 % (0-0); PLATELET COUNT (AUTO) 49 K/uL (130-430)
[2018-06-13] MEDS: LEVOTHYROXINE SODIUM 0.125 MG TABLET GT SCH (09:00)
[2018-06-13] MEDS: POTASSIUM CHLORIDE 20 MEQ/PKT PACKET GT SCH ×2 (09:00→21:00)
[2018-06-13] MEDS: ERGOCALCIFEROL 8000 UNITS/ML ORAL SOLUTION, 60 ML BOTTLE GT SCH (09:00)
[2018-06-13] MEDS: BACLOFEN 10 MG TABLET GT SCH ×2 (09:00→21:00)
[2018-06-13] MEDS: SILVER SULFADIAZINE 1%, 25 GM TOPICAL CREAM (SSD) TP SCH ×2 (09:00→21:00)
[2018-06-13] MEDS: CARVEDILOL 3.125 MG TABLET (COREG) GT SCH ×2 (09:00→21:00)
[2018-06-13] MEDS: LACTOBACILLUS RHAMNOSUS GG 1 CAP CAPSULE GT SCH ×3 (09:00→21:00)
[2018-06-13] MEDS: DILTIAZEM HCL 30 MG TABLET GT SCH ×2 (09:00→21:00)
[2018-06-13] MEDS: MULTIVIT-MINERALS/FERROUS GLUC 15 ML UDC GT SCH ×2 (09:00→21:00)
[2018-06-13] MEDS: COLISTIMETHATE SODIUM 75 MG in NS 50 ML IV SCH ×2 (09:14→21:53)
[2018-06-13] MEDS: CHLORHEXIDINE GLUCONATE 15 ML/DOSE, 480 ML MM SCH ×2 (09:14→21:00)
[2018-06-13] MEDS: DOXYCYCLINE HYCLATE 100 MG in D5W 100 ML IV SCH (09:14)
[2018-06-13] MEDS ORDERED: FUROSEMIDE 20 MG/2 ML VIAL IVP ONE (09:45)
[2018-06-13 12:20] LABS: FOLATE (FOLIC ACID) >20.0 ng/mL (>3.0)
[2018-06-13] MEDS: D5LR 1,000 ML IV SCH ×2 (12:23→16:27)
[2018-06-13] MEDS ORDERED: FAMOTIDINE PF 20 MG/2 ML VIAL IVP ONE (13:15)
[2018-06-13] MEDS ORDERED: DEXTROSE 50% JECT 50 ML DISP.SYRIN IVP PRN (13:15)
[2018-06-13] MEDS ORDERED: *TPN PER PHARMACY XX PRN (13:15)
[2018-06-13 15:33] LABS: FERRITIN 24202 ng/mL (15-150)
[2018-06-13] MEDS: FLUCONAZOLE 100 mg/ NS 50 ML IV SCH (16:39)
[2018-06-13] MEDS: methylPREDNISolone SOD SUCC 40 MG/ML VIAL IVP SCH (17:42)
[2018-06-13] MEDS: MINERAL OIL 30 ML UDC GT SCH (21:00)
[2018-06-13] MEDS: DOXYCYCLINE HYCLATE 100 MG CAPSULE PO SCH (21:00)
[2018-06-13] MEDS: FAMOTIDINE PF 20 MG/2 ML VIAL IVP SCH (21:52)
[2018-06-14] VITALS (7 sets, daily range): BP systolic 112–150
[2018-06-14] MEDS: methylPREDNISolone SOD SUCC 40 MG/ML VIAL IVP SCH ×2 (00:24→05:32)
[2018-06-14] MEDS: INSULIN REGULAR, HUMAN 100 UNITS/ML, 10 ML VIAL (novoLIN R) SUBCUT PRN (00:28)
[2018-06-14] MEDS: D5LR 1,000 ML IV SCH ×2 (01:51→17:06)
[2018-06-14] MEDS: METOCLOPRAMIDE HCL 10 MG/10 ML UDC GT SCH ×3 (05:53→21:16)
[2018-06-14 06:41] LABS: ALBUMIN 1.9 g/dL (3.4-4.8); CALCIUM 8.4 mg/dL (8.4-11.0); CREATININE 0.42 mg/dL (0.55-1.30); PHOSPHORUS 4.1 mg/dL (2.7-4.5); POTASSIUM 3.4 mmol/L (3.5-5.1); TOTAL BILIRUBIN 1.3 mg/dL (0.0-1.0)
[2018-06-14 07:06] LABS: HEMATOCRIT 28.4 % (36-48); HEMOGLOBIN 9.1 g/dL (12.0-16.0); RED BLOOD CELL COUNT(AUTO) 3.07 MIL/uL (4.2-6.2); WHITE BLOOD COUNT (AUTO) 16.9 K/uL (4.8-10.8)
[2018-06-14 07:07] LABS: LYMPHOCYTES % (AUTO) 13.4 % (20.5-51.5); MEAN CORPUSCULAR HEMOGLOBIN 30 pg (27-31); MEAN CORPUSCULAR HGB CONC 32 % (32-36); MEAN CORPUSCULAR VOLUME 93 fL (79.0-98.0); PLATELET COUNT (AUTO) 76 K/uL (130-430); RED CELL DISTRIBUTION WIDTH 15.6 % (9.0-15.0)
[2018-06-14 07:08] LABS: BASOPHILS % (AUTO) 0.1 % (0.0-2.0); LYMPHOCYTES # (AUTO) 2.3 K/uL (1.0-5.5); MONOCYTES # (AUTO) 0.9 K/uL (0.0-1.0); MONOCYTES % (AUTO) 5.5 % (1.7-9.3); NEUTROPHILS # (AUTO) 13.7 K/uL (1.8-7.7)
[2018-06-14] MEDS ORDERED: MEPERIDINE HCL/PF 100 MG/ML AMP ONE (07:18)
[2018-06-14] MEDS ORDERED: MIDAZOLAM HCL 5 MG/5 ML VIAL ONE ×2 (07:19)
[2018-06-14] MEDS ORDERED: SIMETHICONE 40 MG/0.6 ML ML ONE (07:19)
[2018-06-14] MEDS: CARVEDILOL 3.125 MG TABLET (COREG) GT SCH ×2 (09:00→20:58)
[2018-06-14] MEDS: BACLOFEN 10 MG TABLET GT SCH ×2 (09:00→20:58)
[2018-06-14] MEDS: MULTIVIT-MINERALS/FERROUS GLUC 15 ML UDC GT SCH ×2 (09:00→20:58)
[2018-06-14] MEDS: SILVER SULFADIAZINE 1%, 25 GM TOPICAL CREAM (SSD) TP SCH ×2 (09:00→21:00)
[2018-06-14] MEDS: ERGOCALCIFEROL 8000 UNITS/ML ORAL SOLUTION, 60 ML BOTTLE GT SCH (09:00)
[2018-06-14] MEDS ORDERED: IRON SUCROSE COMPLEX 100 MG in NS 50 ML IV SCH ×3 (09:00→16:30)
[2018-06-14] MEDS ORDERED: POTASSIUM CHLORIDE 20 MEQ/PKT PACKET PO SCH (09:00)
[2018-06-14] MEDS: POTASSIUM CHLORIDE 20 MEQ/PKT PACKET GT SCH ×2 (09:00→20:58)
[2018-06-14] MEDS: LACTOBACILLUS RHAMNOSUS GG 1 CAP CAPSULE GT SCH ×3 (09:00→20:59)
[2018-06-14] MEDS: DOXYCYCLINE HYCLATE 100 MG CAPSULE PO SCH (09:00)
[2018-06-14] MEDS: LEVOTHYROXINE SODIUM 0.125 MG TABLET GT SCH (09:00)
[2018-06-14] MEDS: DILTIAZEM HCL 30 MG TABLET GT SCH ×2 (09:00→20:58)
[2018-06-14] MEDS: FAMOTIDINE PF 20 MG/2 ML VIAL IVP SCH ×2 (09:51→21:15)
[2018-06-14] MEDS: COLISTIMETHATE SODIUM 75 MG in NS 50 ML IV SCH ×2 (09:51→21:54)
[2018-06-14] MEDS: FUROSEMIDE 20 MG/2 ML VIAL IVP SCH ×2 (09:52→21:15)
[2018-06-14] MEDS: CHLORHEXIDINE GLUCONATE 15 ML/DOSE, 480 ML MM SCH ×2 (09:52→21:15)
[2018-06-14] MEDS ORDERED: methylPREDNISolone SOD SUCC 40 MG/ML VIAL IVP SCH (14:00)
[2018-06-14] MEDS ORDERED: MAGNESIUM SULFATE 50 ML IV ONE (14:30)
[2018-06-14] MEDS ORDERED: POTASSIUM CHLORIDE 40 MEQ in NS 250 ML IV ONE ×2 (14:30→16:15)
[2018-06-14] MEDS ORDERED: EPOETIN ALFA 4,000 UNITS/ML VIAL SUBCUT ONE (14:30)
[2018-06-14] MEDS ORDERED: DOXYCYCLINE HYCLATE 100 MG in D5W 100 ML IV ONE (16:45)
[2018-06-14] MEDS ORDERED: SODIUM ACETATE IV SCH ×7 (18:00)
[2018-06-14] MEDS ORDERED: POTASSIUM ACETATE IV SCH ×7 (18:00)
[2018-06-14] MEDS ORDERED: FAT EMULSIONS 250 ML IV SCH (18:00)
[2018-06-14] MEDS ORDERED: TPN CENTRAL IV SCH ×7 (18:00)
[2018-06-14] MEDS ORDERED: [UNRECOGNIZED DRUG - OTHER] IV SCH ×7 (18:00)
[2018-06-14] MEDS: MINERAL OIL 30 ML UDC GT SCH (20:59)
[2018-06-15 00:24] VITALS: BP_SYST 129
[2018-06-15] MEDS: INSULIN REGULAR, HUMAN 100 UNITS/ML, 10 ML VIAL (novoLIN R) SUBCUT PRN ×2 (00:52→06:51)
[2018-06-15] MEDS: METOCLOPRAMIDE HCL 10 MG/10 ML UDC GT SCH ×3 (06:00→22:00)
[2018-06-15 06:59] LABS: ALBUMIN 1.9 g/dL (3.4-4.8); CALCIUM 8.1 mg/dL (8.4-11.0); CREATININE 0.42 mg/dL (0.55-1.30); TOTAL BILIRUBIN 1.5 mg/dL (0.0-1.0)
[2018-06-15 08:00] VITALS: BP_SYST 127
[2018-06-15 08:01] LABS: POTASSIUM 2.5 mmol/L (3.5-5.1)
[2018-06-15 08:04] LABS: RED BLOOD CELL COUNT(AUTO) 3.03 MIL/uL (4.2-6.2); WHITE BLOOD COUNT (AUTO) 13.6 K/uL (4.8-10.8)
[2018-06-15 08:05] LABS: HEMATOCRIT 28.1 % (36-48); HEMOGLOBIN 9.2 g/dL (12.0-16.0); LYMPHOCYTES % (AUTO) 8.8 % (20.5-51.5); MEAN CORPUSCULAR HEMOGLOBIN 30 pg (27-31); MEAN CORPUSCULAR HGB CONC 33 % (32-36); MEAN CORPUSCULAR VOLUME 93 fL (79.0-98.0); PLATELET COUNT (AUTO) 105 K/uL (130-430); RED CELL DISTRIBUTION WIDTH 15.1 % (9.0-15.0)
[2018-06-15 08:06] LABS: BASOPHILS % (AUTO) 0.1 % (0.0-2.0); LYMPHOCYTES # (AUTO) 1.2 K/uL (1.0-5.5); MONOCYTES # (AUTO) 0.9 K/uL (0.0-1.0); MONOCYTES % (AUTO) 6.3 % (1.7-9.3); NEUTROPHILS # (AUTO) 11.5 K/uL (1.8-7.7)
[2018-06-15 08:07] LABS: NEUTROPHILS % (AUTO) 84.8 % (40.0-70.0)
[2018-06-15] MEDS: DOXYCYCLINE HYCLATE 100 MG in D5W 100 ML IV SCH ×2 (08:17→23:37)
[2018-06-15] MEDS: SILVER SULFADIAZINE 1%, 25 GM TOPICAL CREAM (SSD) TP SCH ×2 (09:00→21:00)
[2018-06-15] MEDS: DILTIAZEM HCL 30 MG TABLET GT SCH ×2 (09:00→21:00)
[2018-06-15] MEDS: BACLOFEN 10 MG TABLET GT SCH ×2 (09:00→21:00)
[2018-06-15] MEDS: LACTOBACILLUS RHAMNOSUS GG 1 CAP CAPSULE GT SCH ×3 (09:00→21:00)
[2018-06-15] MEDS: POTASSIUM CHLORIDE 20 MEQ/PKT PACKET GT SCH ×2 (09:00→21:00)
[2018-06-15] MEDS: MULTIVIT-MINERALS/FERROUS GLUC 15 ML UDC GT SCH ×2 (09:00→21:00)
[2018-06-15] MEDS ORDERED: IRON SUCROSE COMPLEX 100 MG in NS 50 ML IV SCH (09:00)
[2018-06-15] MEDS: CARVEDILOL 3.125 MG TABLET (COREG) GT SCH ×2 (09:00→21:00)
[2018-06-15] MEDS: LEVOTHYROXINE SODIUM 0.125 MG TABLET GT SCH (09:00)
[2018-06-15] MEDS: ERGOCALCIFEROL 8000 UNITS/ML ORAL SOLUTION, 60 ML BOTTLE GT SCH (09:00)
[2018-06-15 09:40] LABS: PHOSPHORUS 3.1 mg/dL (2.7-4.5)
[2018-06-15] MEDS: COLISTIMETHATE SODIUM 75 MG in NS 50 ML IV SCH ×2 (09:46→21:54)
[2018-06-15] MEDS: CHLORHEXIDINE GLUCONATE 15 ML/DOSE, 480 ML MM SCH ×2 (09:51→21:40)
[2018-06-15] MEDS: POTASSIUM CHLORIDE 40 MEQ in NS 250 ML IV SCH ×2 (10:05→14:10)
[2018-06-15] MEDS: FAMOTIDINE PF 20 MG/2 ML VIAL IVP SCH ×2 (10:05→21:40)
[2018-06-15] MEDS ORDERED: *TPN PER PHARMACY XX PRN (10:15)
[2018-06-15] MEDS ORDERED: FAT EMULSIONS 250 ML IV SCH ×2 (10:15→18:00)
[2018-06-15] MEDS: D5LR 1,000 ML IV SCH (10:37)
[2018-06-15 12:36] VITALS: BP_SYST 135
[2018-06-15] MEDS: LR 1,000 ML IV SCH (14:10)
[2018-06-15 15:16] VITALS: BP_SYST 146
[2018-06-15] MEDS ORDERED: FLUCONAZOLE 100 mg/ NS 50 ML IV SCH (15:45)
[2018-06-15] MEDS ORDERED: POTASSIUM CHLORIDE IV SCH ×8 (18:00)
[2018-06-15] MEDS ORDERED: TPN CENTRAL IV SCH ×8 (18:00)
[2018-06-15] MEDS ORDERED: SODIUM CHLORIDE IV SCH ×8 (18:00)
[2018-06-15] MEDS ORDERED: [UNRECOGNIZED DRUG - OTHER] IV SCH ×8 (18:00)
[2018-06-15 20:10] VITALS: BP_SYST 121
[2018-06-15] MEDS: MINERAL OIL 30 ML UDC GT SCH (21:00)
[2018-06-15] MEDS: FUROSEMIDE 20 MG/2 ML VIAL IVP SCH (21:40)
[2018-06-15] MEDS: LEVALBUTEROL HCL 0.63 MG/3 ML VIAL.NEB INH PRN (22:07)
[2018-06-15] MEDS ORDERED: DOXYCYCLINE HYCLATE 100 MG VIAL IV ONE (23:24)
[2018-06-16] VITALS (7 sets, daily range): BP systolic 90–138
[2018-06-16] MEDS: METOCLOPRAMIDE HCL 10 MG/10 ML UDC GT SCH ×3 (06:00→21:22)
[2018-06-16 06:35] LABS: HEMATOCRIT 32.8 % (36-48); HEMOGLOBIN 10.8 g/dL (12.0-16.0); LYMPHOCYTES % (AUTO) 14.1 % (20.5-51.5); MEAN CORPUSCULAR HEMOGLOBIN 30 pg (27-31); MEAN CORPUSCULAR HGB CONC 33 % (32-36); MEAN CORPUSCULAR VOLUME 92 fL (79.0-98.0); MONOCYTES % (AUTO) 3.8 % (1.7-9.3); NEUTROPHILS % (AUTO) 81.7 % (40.0-70.0); PLATELET COUNT (AUTO) 115 K/uL (130-430); RED BLOOD CELL COUNT(AUTO) 3.56 MIL/uL (4.2-6.2); RED CELL DISTRIBUTION WIDTH 15.1 % (9.0-15.0)
[2018-06-16 06:36] LABS: BASOPHILS % (AUTO) 0.1 % (0.0-2.0); EOSINOPHILS % (AUTO) 0.3 % (0.0-4.0); LYMPHOCYTES # (AUTO) 2.1 K/uL (1.0-5.5); MONOCYTES # (AUTO) 0.6 K/uL (0.0-1.0); NEUTROPHILS # (AUTO) 12.2 K/uL (1.8-7.7)
[2018-06-16 06:53] LABS: ALBUMIN 1.7 g/dL (3.4-4.8); CALCIUM 7.8 mg/dL (8.4-11.0); CREATININE 0.41 mg/dL (0.55-1.30); PHOSPHORUS 2.2 mg/dL (2.7-4.5); POTASSIUM 3.7 mmol/L (3.5-5.1); TOTAL BILIRUBIN 2.3 mg/dL (0.0-1.0)
[2018-06-16] MEDS ORDERED: MIDAZOLAM HCL 5 MG/5 ML VIAL ONE (07:11)
[2018-06-16] MEDS: MEPERIDINE HCL/PF 100 MG/ML AMP ONE ×2 (08:15→08:19)
[2018-06-16] MEDS: MIDAZOLAM HCL 5 MG/5 ML VIAL ONE ×2 (08:17→08:21)
[2018-06-16] MEDS: COLISTIMETHATE SODIUM 75 MG in NS 50 ML IV SCH ×2 (09:52→21:22)
[2018-06-16] MEDS: DOXYCYCLINE HYCLATE 100 MG in D5W 100 ML IV SCH ×2 (09:52→20:41)
[2018-06-16] MEDS: BACLOFEN 10 MG TABLET GT SCH ×2 (09:53→20:45)
[2018-06-16] MEDS: LEVOTHYROXINE SODIUM 0.125 MG TABLET GT SCH (09:53)
[2018-06-16] MEDS: POTASSIUM CHLORIDE 20 MEQ/PKT PACKET GT SCH ×2 (09:54→20:41)
[2018-06-16] MEDS: LACTOBACILLUS RHAMNOSUS GG 1 CAP CAPSULE GT SCH ×3 (09:55→20:46)
[2018-06-16] MEDS: DILTIAZEM HCL 30 MG TABLET GT SCH ×2 (09:55→20:45)
[2018-06-16] MEDS: CARVEDILOL 3.125 MG TABLET (COREG) GT SCH ×2 (09:56→20:44)
[2018-06-16] MEDS: FUROSEMIDE 20 MG/2 ML VIAL IVP SCH (09:57)
[2018-06-16] MEDS: CHLORHEXIDINE GLUCONATE 15 ML/DOSE, 480 ML MM SCH ×2 (10:22→20:45)
[2018-06-16] MEDS: FAMOTIDINE PF 20 MG/2 ML VIAL IVP SCH ×2 (10:27→20:41)
[2018-06-16] MEDS: ERGOCALCIFEROL 8000 UNITS/ML ORAL SOLUTION, 60 ML BOTTLE GT SCH (10:31)
[2018-06-16] MEDS: SILVER SULFADIAZINE 1%, 25 GM TOPICAL CREAM (SSD) TP SCH ×2 (10:32→21:23)
[2018-06-16] MEDS: MULTIVIT-MINERALS/FERROUS GLUC 15 ML UDC GT SCH ×2 (10:33→21:16)
[2018-06-16] MEDS ORDERED: POTASSIUM CHLORIDE IV SCH ×9 (18:00)
[2018-06-16] MEDS ORDERED: TPN CENTRAL IV SCH ×9 (18:00)
[2018-06-16] MEDS ORDERED: [UNRECOGNIZED DRUG - OTHER] IV SCH ×9 (18:00)
[2018-06-16] MEDS ORDERED: SODIUM CHLORIDE IV SCH ×9 (18:00)
[2018-06-16] MEDS: CEFTAZIDIME/AVIBACTAM 0.94 GM in NS 100 ML IV SCH (18:31)
[2018-06-16] MEDS: LR 1,000 ML IV SCH (18:32)
[2018-06-16] MEDS: MINERAL OIL 30 ML UDC GT SCH (20:44)
[2018-06-17] VITALS (16 sets, daily range): BP systolic 85–151
[2018-06-17] MEDS: CEFTAZIDIME/AVIBACTAM 0.94 GM in NS 100 ML IV SCH ×2 (05:37→17:59)
[2018-06-17] MEDS: METOCLOPRAMIDE HCL 10 MG/10 ML UDC GT SCH ×3 (05:37→23:08)
[2018-06-17] MEDS: LR 1,000 ML IV SCH ×2 (05:38→23:10)
[2018-06-17 06:34] LABS: ALBUMIN 1.6 g/dL (3.4-4.8); CREATININE 0.46 mg/dL (0.55-1.30); PHOSPHORUS 2.1 mg/dL (2.7-4.5); POTASSIUM 4.2 mmol/L (3.5-5.1); TOTAL BILIRUBIN 2.6 mg/dL (0.0-1.0)
[2018-06-17 07:40] LABS: HEMATOCRIT 29.1 % (36-48); HEMOGLOBIN 9.6 g/dL (12.0-16.0); LYMPHOCYTES % (AUTO) 15.8 % (20.5-51.5); MEAN CORPUSCULAR HEMOGLOBIN 31 pg (27-31); MEAN CORPUSCULAR HGB CONC 33 % (32-36); MEAN CORPUSCULAR VOLUME 94 fL (79.0-98.0); NEUTROPHILS % (AUTO) 80.3 % (40.0-70.0); PLATELET COUNT (AUTO) 135 K/uL (130-430); RED CELL DISTRIBUTION WIDTH 16.6 % (9.0-15.0)
[2018-06-17 07:41] LABS: BASOPHILS % (AUTO) 0.2 % (0.0-2.0); EOSINOPHILS # (AUTO) 0.1 K/uL (0.0-0.4); EOSINOPHILS % (AUTO) 0.4 % (0.0-4.0); LYMPHOCYTES # (AUTO) 2.7 K/uL (1.0-5.5); MONOCYTES # (AUTO) 0.6 K/uL (0.0-1.0); MONOCYTES % (AUTO) 3.3 % (1.7-9.3); NEUTROPHILS # (AUTO) 13.6 K/uL (1.8-7.7)
[2018-06-17] MEDS: POTASSIUM CHLORIDE 20 MEQ/PKT PACKET GT SCH ×2 (08:43→23:10)
[2018-06-17] MEDS: LACTOBACILLUS RHAMNOSUS GG 1 CAP CAPSULE GT SCH ×3 (08:43→23:08)
[2018-06-17] MEDS: BACLOFEN 10 MG TABLET GT SCH ×2 (08:43→23:07)
[2018-06-17] MEDS: LEVOTHYROXINE SODIUM 0.125 MG TABLET GT SCH (08:43)
[2018-06-17] MEDS: DILTIAZEM HCL 30 MG TABLET GT SCH ×2 (08:44→23:08)
[2018-06-17] MEDS: CARVEDILOL 3.125 MG TABLET (COREG) GT SCH ×2 (08:45→23:09)
[2018-06-17] MEDS: ERGOCALCIFEROL 8000 UNITS/ML ORAL SOLUTION, 60 ML BOTTLE GT SCH (08:45)
[2018-06-17] MEDS: MULTIVIT-MINERALS/FERROUS GLUC 15 ML UDC GT SCH ×2 (08:45→23:09)
[2018-06-17] MEDS: FAMOTIDINE PF 20 MG/2 ML VIAL IVP SCH ×2 (08:46→21:07)
[2018-06-17] MEDS: DOXYCYCLINE HYCLATE 100 MG in D5W 100 ML IV SCH (08:46)
[2018-06-17] MEDS ORDERED: NACL 0.9% 1,000 ML IV ONE (10:15)
[2018-06-17] MEDS: COLISTIMETHATE SODIUM 75 MG in NS 50 ML IV SCH (10:29)
[2018-06-17] MEDS: CHLORHEXIDINE GLUCONATE 15 ML/DOSE, 480 ML MM SCH ×2 (10:30→21:08)
[2018-06-17] MEDS: SILVER SULFADIAZINE 1%, 25 GM TOPICAL CREAM (SSD) TP SCH ×2 (10:32→21:09)
[2018-06-17] MEDS ORDERED: VANCOMYCIN HCL 1 GM/NS PREMIX 250 ML IV ONE (10:45)
[2018-06-17] MEDS: FLUCONAZOLE 100 mg/ NS 50 ML IV SCH (12:31)
[2018-06-17] MEDS ORDERED: NAPH,MB-DB/K PH,MBDB 250 MG TAB GT ONE (16:45)
[2018-06-17] MEDS: ACETAMINOPHEN 650 MG/20.3 ML UDC GT PRN (18:40)
[2018-06-17] MEDS: MINERAL OIL 30 ML UDC GT SCH (21:00)
[2018-06-17] MEDS: HEPARIN SODIUM,PORCINE 5000 UNITS/ML VIAL SUBCUT SCH (21:08)
[2018-06-17] MEDS ORDERED: IOHEXOL 100 ML IV ONE (22:15)
[2018-06-17] MEDS: NAPH,MB-DB/K PH,MBDB 250 MG TAB GT SCH (23:09)
[2018-06-18] VITALS (26 sets, daily range): BP systolic 74–108
[2018-06-18] MEDS: CEFTAZIDIME/AVIBACTAM 0.94 GM in NS 100 ML IV SCH ×2 (05:53→18:31)
[2018-06-18] MEDS: METOCLOPRAMIDE HCL 10 MG/10 ML UDC GT SCH ×3 (05:53→21:57)
[2018-06-18 07:01] LABS: ALBUMIN 1.5 g/dL (3.4-4.8); CALCIUM 7.9 mg/dL (8.4-11.0); CREATININE 0.35 mg/dL (0.55-1.30); POTASSIUM 3.7 mmol/L (3.5-5.1); TOTAL BILIRUBIN 2.7 mg/dL (0.0-1.0)
[2018-06-18 08:34] LABS: HEMATOCRIT 27.3 % (36-48); HEMOGLOBIN 8.9 g/dL (12.0-16.0); MEAN CORPUSCULAR HEMOGLOBIN 31 pg (27-31); MEAN CORPUSCULAR HGB CONC 33 % (32-36); MEAN CORPUSCULAR VOLUME 95 fL (79.0-98.0); NEUTROPHILS % (AUTO) 80.1 % (40.0-70.0); PLATELET COUNT (AUTO) 122 K/uL (130-430); RED BLOOD CELL COUNT(AUTO) 2.88 MIL/uL (4.2-6.2); RED CELL DISTRIBUTION WIDTH 19.2 % (9.0-15.0); WHITE BLOOD COUNT (AUTO) 16.9 K/uL (4.8-10.8)
[2018-06-18 08:35] LABS: BASOPHILS % (AUTO) 0.1 % (0.0-2.0); EOSINOPHILS # (AUTO) 0.1 K/uL (0.0-0.4); EOSINOPHILS % (AUTO) 0.8 % (0.0-4.0); LYMPHOCYTES # (AUTO) 2.5 K/uL (1.0-5.5); LYMPHOCYTES % (AUTO) 14.8 % (20.5-51.5); MONOCYTES # (AUTO) 0.7 K/uL (0.0-1.0); MONOCYTES % (AUTO) 4.2 % (1.7-9.3); NEUTROPHILS # (AUTO) 13.5 K/uL (1.8-7.7)
[2018-06-18] MEDS: DILTIAZEM HCL 30 MG TABLET GT SCH ×2 (09:00→20:30)
[2018-06-18] MEDS: CARVEDILOL 3.125 MG TABLET (COREG) GT SCH ×2 (09:00→20:31)
[2018-06-18] MEDS: LACTOBACILLUS RHAMNOSUS GG 1 CAP CAPSULE GT SCH ×3 (09:13→20:30)
[2018-06-18] MEDS: POTASSIUM CHLORIDE 20 MEQ/PKT PACKET GT SCH ×2 (09:13→20:29)
[2018-06-18] MEDS: NAPH,MB-DB/K PH,MBDB 250 MG TAB GT SCH ×3 (09:15→20:30)
[2018-06-18] MEDS: FAMOTIDINE PF 20 MG/2 ML VIAL IVP SCH ×2 (09:17→20:30)
[2018-06-18] MEDS: BACLOFEN 10 MG TABLET GT SCH ×2 (09:17→20:30)
[2018-06-18] MEDS: LEVOTHYROXINE SODIUM 0.125 MG TABLET GT SCH (09:17)
[2018-06-18] MEDS: MULTIVIT-MINERALS/FERROUS GLUC 15 ML UDC GT SCH ×2 (09:17→20:29)
[2018-06-18] MEDS: SILVER SULFADIAZINE 1%, 25 GM TOPICAL CREAM (SSD) TP SCH ×2 (09:18→20:31)
[2018-06-18] MEDS: ERGOCALCIFEROL 8000 UNITS/ML ORAL SOLUTION, 60 ML BOTTLE GT SCH (09:18)
[2018-06-18] MEDS: CHLORHEXIDINE GLUCONATE 15 ML/DOSE, 480 ML MM SCH ×2 (09:18→20:30)
[2018-06-18] MEDS: FLUCONAZOLE 100 mg/ NS 50 ML IV SCH (09:18)
[2018-06-18] MEDS: HEPARIN SODIUM,PORCINE 5000 UNITS/ML VIAL SUBCUT SCH ×2 (09:21→20:34)
[2018-06-18] MEDS: HYDROCORTISONE SOD SUCC 100 MG/2 ML VIAL IVP SCH ×2 (13:22→21:57)
[2018-06-18] MEDS: metroNIDAZOLE 500 mg/NS 100 ML IV SCH ×2 (17:34→21:56)
[2018-06-18] MEDS: LR 1,000 ML IV SCH (18:06)
[2018-06-18] MEDS: MINERAL OIL 30 ML UDC GT SCH (20:31)
[2018-06-19] VITALS (24 sets, daily range): BP systolic 77–117
[2018-06-19] MEDS: HYDROCORTISONE SOD SUCC 100 MG/2 ML VIAL IVP SCH ×3 (05:21→22:11)
[2018-06-19] MEDS: METOCLOPRAMIDE HCL 10 MG/10 ML UDC GT SCH ×3 (05:21→22:12)
[2018-06-19] MEDS: metroNIDAZOLE 500 mg/NS 100 ML IV SCH ×3 (05:22→23:31)
[2018-06-19] MEDS: CEFTAZIDIME/AVIBACTAM 0.94 GM in NS 100 ML IV SCH ×2 (05:42→22:07)
[2018-06-19 06:45] LABS: ALBUMIN 1.7 g/dL (3.4-4.8); CALCIUM 8.3 mg/dL (8.4-11.0); CREATININE 0.39 mg/dL (0.55-1.30); PHOSPHORUS 3.5 mg/dL (2.7-4.5); POTASSIUM 3.5 mmol/L (3.5-5.1); TOTAL BILIRUBIN 1.8 mg/dL (0.0-1.0)
[2018-06-19 06:58] LABS: PROTHROMBIN TIME 9.8 SECS (9.5-12.5)
[2018-06-19 07:21] LABS: WHITE BLOOD COUNT (AUTO) 9.1 K/uL (4.8-10.8)
[2018-06-19 07:22] LABS: HEMATOCRIT 28.3 % (36-48); HEMOGLOBIN 9.2 g/dL (12.0-16.0); LYMPHOCYTES % (AUTO) 16.2 % (20.5-51.5); MEAN CORPUSCULAR HEMOGLOBIN 31 pg (27-31); MEAN CORPUSCULAR HGB CONC 32 % (32-36); MEAN CORPUSCULAR VOLUME 94 fL (79.0-98.0); MONOCYTES % (AUTO) 4.4 % (1.7-9.3); NEUTROPHILS % (AUTO) 79.3 % (40.0-70.0); PLATELET COUNT (AUTO) 148 K/uL (130-430); RED CELL DISTRIBUTION WIDTH 17.9 % (9.0-15.0)
[2018-06-19 07:25] LABS: BASOPHILS % (AUTO) 0.1 % (0.0-2.0); LYMPHOCYTES # (AUTO) 1.5 K/uL (1.0-5.5); MONOCYTES # (AUTO) 0.4 K/uL (0.0-1.0); NEUTROPHILS # (AUTO) 7.2 K/uL (1.8-7.7)
[2018-06-19] MEDS ORDERED: ALBUMIN HUMAN 5% 250 ML IV ONE (07:45)
[2018-06-19] MEDS ORDERED: ALBUMIN HUMAN 25% 50 ML IV ONE (08:05)
[2018-06-19] MEDS: POTASSIUM CHLORIDE 20 MEQ/PKT PACKET GT SCH ×2 (08:56→22:22)
[2018-06-19] MEDS: LEVOTHYROXINE SODIUM 0.125 MG TABLET GT SCH (08:57)
[2018-06-19] MEDS: NAPH,MB-DB/K PH,MBDB 250 MG TAB GT SCH ×3 (08:57→23:32)
[2018-06-19] MEDS: LACTOBACILLUS RHAMNOSUS GG 1 CAP CAPSULE GT SCH ×3 (08:57→22:12)
[2018-06-19] MEDS: BACLOFEN 10 MG TABLET GT SCH ×2 (08:57→22:12)
[2018-06-19] MEDS: SILVER SULFADIAZINE 1%, 25 GM TOPICAL CREAM (SSD) TP SCH ×2 (08:59→22:23)
[2018-06-19] MEDS: CHLORHEXIDINE GLUCONATE 15 ML/DOSE, 480 ML MM SCH ×2 (08:59→22:22)
[2018-06-19] MEDS: FAMOTIDINE PF 20 MG/2 ML VIAL IVP SCH ×2 (08:59→22:11)
[2018-06-19] MEDS: CARVEDILOL 3.125 MG TABLET (COREG) GT SCH (09:00)
[2018-06-19] MEDS: ERGOCALCIFEROL 8000 UNITS/ML ORAL SOLUTION, 60 ML BOTTLE GT SCH (09:00)
[2018-06-19] MEDS: MULTIVIT-MINERALS/FERROUS GLUC 15 ML UDC GT SCH ×2 (09:00→22:11)
[2018-06-19] MEDS: DILTIAZEM HCL 30 MG TABLET GT SCH ×2 (09:00→22:20)
[2018-06-19] MEDS: FLUCONAZOLE 100 mg/ NS 50 ML IV SCH (09:01)
[2018-06-19] MEDS: HEPARIN SODIUM,PORCINE 5000 UNITS/ML VIAL SUBCUT SCH ×2 (09:03→22:21)
[2018-06-19] MEDS: LR 1,000 ML IV SCH (14:12)
[2018-06-19] MEDS: EPOETIN ALFA 4,000 UNITS/ML VIAL SUBCUT SCH (16:57)
[2018-06-19] MEDS: MINERAL OIL 30 ML UDC GT SCH (22:12)
[2018-06-20] VITALS (7 sets, daily range): BP systolic 99–133
[2018-06-20] MEDS: METOCLOPRAMIDE HCL 10 MG/10 ML UDC GT SCH ×3 (05:52→21:01)
[2018-06-20] MEDS: metroNIDAZOLE 500 mg/NS 100 ML IV SCH ×2 (05:52→13:29)
[2018-06-20] MEDS: HYDROCORTISONE SOD SUCC 100 MG/2 ML VIAL IVP SCH ×2 (05:52→13:29)
[2018-06-20 06:54] LABS: CALCIUM 8.1 mg/dL (8.4-11.0); CREATININE 0.4 mg/dL (0.55-1.30); POTASSIUM 3.5 mmol/L (3.5-5.1)
[2018-06-20] MEDS: CEFTAZIDIME/AVIBACTAM 0.94 GM in NS 100 ML IV SCH ×2 (06:56→17:33)
[2018-06-20 07:00] LABS: ALBUMIN 1.9 g/dL (3.4-4.8); PHOSPHORUS 3.2 mg/dL (2.7-4.5); TOTAL BILIRUBIN 1.2 mg/dL (0.0-1.0)
[2018-06-20 07:37] LABS: HEMATOCRIT 27.4 % (36-48); HEMOGLOBIN 8.9 g/dL (12.0-16.0); LYMPHOCYTES % (AUTO) 12.8 % (20.5-51.5); MEAN CORPUSCULAR HEMOGLOBIN 31 pg (27-31); MEAN CORPUSCULAR HGB CONC 33 % (32-36); MEAN CORPUSCULAR VOLUME 95 fL (79.0-98.0); NEUTROPHILS % (AUTO) 79.8 % (40.0-70.0); PLATELET COUNT (AUTO) 179 K/uL (130-430); RED BLOOD CELL COUNT(AUTO) 2.88 MIL/uL (4.2-6.2); RED CELL DISTRIBUTION WIDTH 18.7 % (9.0-15.0); WHITE BLOOD COUNT (AUTO) 8.9 K/uL (4.8-10.8)
[2018-06-20 07:38] LABS: BASOPHILS # (AUTO) 0.1 K/uL (0.0-0.2); BASOPHILS % (AUTO) 0.1 % (0.0-2.0); LYMPHOCYTES # (AUTO) 1.1 K/uL (1.0-5.5); MONOCYTES # (AUTO) 0.6 K/uL (0.0-1.0); MONOCYTES % (AUTO) 7.3 % (1.7-9.3); NEUTROPHILS # (AUTO) 7.1 K/uL (1.8-7.7)
[2018-06-20] MEDS: MULTIVIT-MINERALS/FERROUS GLUC 15 ML UDC GT SCH ×2 (09:00→20:59)
[2018-06-20] MEDS: LEVOTHYROXINE SODIUM 0.125 MG TABLET GT SCH (09:43)
[2018-06-20] MEDS: BACLOFEN 10 MG TABLET GT SCH ×2 (09:43→20:46)
[2018-06-20] MEDS: POTASSIUM CHLORIDE 20 MEQ/PKT PACKET GT SCH ×2 (09:43→20:46)
[2018-06-20] MEDS: LACTOBACILLUS RHAMNOSUS GG 1 CAP CAPSULE GT SCH ×3 (09:43→20:48)
[2018-06-20] MEDS: NAPH,MB-DB/K PH,MBDB 250 MG TAB GT SCH ×3 (09:44→20:45)
[2018-06-20] MEDS: DILTIAZEM HCL 30 MG TABLET GT SCH ×2 (09:44→20:48)
[2018-06-20] MEDS: HEPARIN SODIUM,PORCINE 5000 UNITS/ML VIAL SUBCUT SCH (09:45)
[2018-06-20] MEDS: ERGOCALCIFEROL 8000 UNITS/ML ORAL SOLUTION, 60 ML BOTTLE GT SCH (09:47)
[2018-06-20] MEDS: FLUCONAZOLE 100 mg/ NS 50 ML IV SCH (09:47)
[2018-06-20] MEDS: FAMOTIDINE PF 20 MG/2 ML VIAL IVP SCH (10:09)
[2018-06-20] MEDS: SILVER SULFADIAZINE 1%, 25 GM TOPICAL CREAM (SSD) TP SCH ×2 (10:10→20:49)
[2018-06-20] MEDS: CHLORHEXIDINE GLUCONATE 15 ML/DOSE, 480 ML MM SCH ×2 (10:10→20:48)
[2018-06-20] MEDS ORDERED: FUROSEMIDE 20 MG/2 ML VIAL IVP ONE (12:15)
[2018-06-20] MEDS: LR 1,000 ML IV SCH (17:34)
[2018-06-20] MEDS: MINERAL OIL 30 ML UDC GT SCH (20:45)
[2018-06-20] MEDS: HYDROCORTISONE 10 MG TABLET (CORTEF) GT SCH (20:45)
[2018-06-20] MEDS: FAMOTIDINE 20 MG TABLET GT SCH (20:46)
[2018-06-20] MEDS: metroNIDAZOLE 250 MG TABLET GT SCH (20:52)
[2018-06-21] MEDS: METOCLOPRAMIDE HCL 10 MG/10 ML UDC GT SCH ×3 (05:08→21:34)
[2018-06-21] MEDS: metroNIDAZOLE 250 MG TABLET GT SCH ×3 (05:08→21:34)
[2018-06-21] MEDS: CEFTAZIDIME/AVIBACTAM 0.94 GM in NS 100 ML IV SCH ×2 (05:09→19:00)
[2018-06-21 08:00] VITALS: BP_SYST 119
[2018-06-21] MEDS: DILTIAZEM HCL 30 MG TABLET GT SCH ×2 (09:32→21:38)
[2018-06-21] MEDS: BACLOFEN 10 MG TABLET GT SCH ×2 (09:32→21:31)
[2018-06-21] MEDS: LACTOBACILLUS RHAMNOSUS GG 1 CAP CAPSULE GT SCH ×3 (09:33→21:33)
[2018-06-21] MEDS: FLUCONAZOLE 200 MG TABLET (DIFLUCAN) GT SCH (09:33)
[2018-06-21] MEDS: HYDROCORTISONE 10 MG TABLET (CORTEF) GT SCH ×2 (09:33→21:33)
[2018-06-21] MEDS: FAMOTIDINE 20 MG TABLET GT SCH ×2 (09:34→21:34)
[2018-06-21] MEDS: LEVOTHYROXINE SODIUM 0.125 MG TABLET GT SCH (09:34)
[2018-06-21] MEDS: POTASSIUM CHLORIDE 20 MEQ/PKT PACKET GT SCH ×2 (09:34→21:33)
[2018-06-21] MEDS: ERGOCALCIFEROL 8000 UNITS/ML ORAL SOLUTION, 60 ML BOTTLE GT SCH (09:34)
[2018-06-21] MEDS: CHLORHEXIDINE GLUCONATE 15 ML/DOSE, 480 ML MM SCH ×2 (09:35→21:34)
[2018-06-21] MEDS: MULTIVIT-MINERALS/FERROUS GLUC 15 ML UDC GT SCH ×2 (10:29→21:31)
[2018-06-21] MEDS: NAPH,MB-DB/K PH,MBDB 250 MG TAB GT SCH ×3 (10:29→21:33)
[2018-06-21 12:22] VITALS: BP_SYST 129
[2018-06-21] MEDS: SILVER SULFADIAZINE 1%, 25 GM TOPICAL CREAM (SSD) TP SCH ×2 (14:30→21:37)
[2018-06-21 15:29] LABS: BILIRUBIN,URINE NEGATIVE (NEGATIVE); BLOOD, URINE NEGATIVE (NEGATIVE); CLARITY/URINE CLEAR (CLEAR); COLOR,URINE YELLOW (YELLOW); GLUCOSE,URINE NEGATIVE (NEGATIVE); KETONES,URINE NEGATIVE (NEGATIVE); LEUKOCYTE ESTERASE ,URINE NEGATIVE (NEGATIVE); NITRITE, URINE NEGATIVE (NEGATIVE); PROTEIN URINE NEGATIVE (NEGATIVE); UROBILINOGEN,URINE 0.2 (0.2-1.0)
[2018-06-21 16:15] VITALS: BP_SYST 126
[2018-06-21 19:00] VITALS: BP_SYST 118
[2018-06-21 20:00] VITALS: BP_SYST 118
[2018-06-21] MEDS: HEPARIN SODIUM,PORCINE 5000 UNITS/ML VIAL SUBCUT SCH (21:30)
[2018-06-21] MEDS: MINERAL OIL 30 ML UDC GT SCH (21:37)
[2018-06-21] MEDS: EPOETIN ALFA 4,000 UNITS/ML VIAL SUBCUT SCH (23:27)
[2018-06-21 23:44] VITALS: BP_SYST 124
[2018-06-22] MEDS: metroNIDAZOLE 250 MG TABLET GT SCH ×3 (05:13→22:00)
[2018-06-22] MEDS: METOCLOPRAMIDE HCL 10 MG/10 ML UDC GT SCH ×3 (05:13→22:01)
[2018-06-22] MEDS: CEFTAZIDIME/AVIBACTAM 0.94 GM in NS 100 ML IV SCH ×2 (05:14→17:47)
[2018-06-22 08:11] LABS: BASOPHILS % (AUTO) 0.1 % (0.0-2.0); EOSINOPHILS % (AUTO) 0.1 % (0.0-4.0); HEMATOCRIT 31.3 % (36-48); HEMOGLOBIN 10.1 g/dL (12.0-16.0); LYMPHOCYTES % (AUTO) 15.7 % (20.5-51.5); MEAN CORPUSCULAR HEMOGLOBIN 30 pg (27-31); MEAN CORPUSCULAR HGB CONC 32 % (32-36); MEAN CORPUSCULAR VOLUME 94 fL (79.0-98.0); MONOCYTES % (AUTO) 10.1 % (1.7-9.3); NEUTROPHILS # (AUTO) 7.7 K/uL (1.8-7.7); PLATELET COUNT (AUTO) 248 K/uL (130-430); RED BLOOD CELL COUNT(AUTO) 3.32 MIL/uL (4.2-6.2); RED CELL DISTRIBUTION WIDTH 17.8 % (9.0-15.0); WHITE BLOOD COUNT (AUTO) 10.5 K/uL (4.8-10.8)
[2018-06-22 08:12] LABS: LYMPHOCYTES # (AUTO) 1.6 K/uL (1.0-5.5); MONOCYTES # (AUTO) 1.1 K/uL (0.0-1.0)
[2018-06-22] MEDS: HYDROCORTISONE 10 MG TABLET (CORTEF) GT SCH ×2 (08:42→22:01)
[2018-06-22] MEDS: BACLOFEN 10 MG TABLET GT SCH ×2 (08:43→22:01)
[2018-06-22] MEDS: POTASSIUM CHLORIDE 20 MEQ/PKT PACKET GT SCH ×2 (08:43→22:00)
[2018-06-22] MEDS: LACTOBACILLUS RHAMNOSUS GG 1 CAP CAPSULE GT SCH ×3 (08:43→22:01)
[2018-06-22] MEDS: LEVOTHYROXINE SODIUM 0.125 MG TABLET GT SCH (08:43)
[2018-06-22] MEDS: FLUCONAZOLE 200 MG TABLET (DIFLUCAN) GT SCH (08:43)
[2018-06-22] MEDS: FAMOTIDINE 20 MG TABLET GT SCH ×2 (08:43→22:02)
[2018-06-22] MEDS: DILTIAZEM HCL 30 MG TABLET GT SCH ×2 (08:44→22:02)
[2018-06-22] MEDS: HEPARIN SODIUM,PORCINE 5000 UNITS/ML VIAL SUBCUT SCH ×2 (08:45→22:00)
[2018-06-22] MEDS: SILVER SULFADIAZINE 1%, 25 GM TOPICAL CREAM (SSD) TP SCH ×2 (08:46→22:03)
[2018-06-22] MEDS: MULTIVIT-MINERALS/FERROUS GLUC 15 ML UDC GT SCH ×2 (08:47→22:03)
[2018-06-22] MEDS: ERGOCALCIFEROL 8000 UNITS/ML ORAL SOLUTION, 60 ML BOTTLE GT SCH (08:48)
[2018-06-22] MEDS: NAPH,MB-DB/K PH,MBDB 250 MG TAB GT SCH ×3 (08:50→22:01)
[2018-06-22 13:06] VITALS: BP_SYST 108
[2018-06-22] MEDS: CHLORHEXIDINE GLUCONATE 15 ML/DOSE, 480 ML MM SCH ×2 (14:30→22:04)
[2018-06-22 16:52] VITALS: BP_SYST 112
[2018-06-22 20:58] VITALS: BP_SYST 124
[2018-06-22] MEDS: MINERAL OIL 30 ML UDC GT SCH (22:02)
[2018-06-23 00:04] VITALS: BP_SYST 125
[2018-06-23] MEDS: metroNIDAZOLE 250 MG TABLET GT SCH ×3 (05:31→21:37)
[2018-06-23] MEDS: METOCLOPRAMIDE HCL 10 MG/10 ML UDC GT SCH ×3 (05:31→21:36)
[2018-06-23] MEDS: CEFTAZIDIME/AVIBACTAM 0.94 GM in NS 100 ML IV SCH (05:32)
[2018-06-23 08:00] VITALS: BP_SYST 132
[2018-06-23 08:31] LABS: CREATININE 0.29 mg/dL (0.55-1.30); POTASSIUM 3.2 mmol/L (3.5-5.1); TOTAL BILIRUBIN 0.8 mg/dL (0.0-1.0)
[2018-06-23 08:52] VITALS: BP_SYST 125
[2018-06-23 09:04] LABS: BASOPHILS % (AUTO) 0.2 % (0.0-2.0); EOSINOPHILS % (AUTO) 0.2 % (0.0-4.0); HEMATOCRIT 29.3 % (36-48); HEMOGLOBIN 9.4 g/dL (12.0-16.0); LYMPHOCYTES % (AUTO) 19.5 % (20.5-51.5); MEAN CORPUSCULAR HEMOGLOBIN 31 pg (27-31); MEAN CORPUSCULAR HGB CONC 32 % (32-36); MEAN CORPUSCULAR VOLUME 95 fL (79.0-98.0); MONOCYTES % (AUTO) 6.1 % (1.7-9.3); PLATELET COUNT (AUTO) 248 K/uL (130-430); RED CELL DISTRIBUTION WIDTH 18.1 % (9.0-15.0); WHITE BLOOD COUNT (AUTO) 9.1 K/uL (4.8-10.8)
[2018-06-23 09:05] LABS: LYMPHOCYTES # (AUTO) 1.8 K/uL (1.0-5.5); MONOCYTES # (AUTO) 0.6 K/uL (0.0-1.0); NEUTROPHILS # (AUTO) 6.7 K/uL (1.8-7.7)
[2018-06-23] MEDS: CHLORHEXIDINE GLUCONATE 15 ML/DOSE, 480 ML MM SCH ×2 (09:55→21:42)
[2018-06-23] MEDS: SILVER SULFADIAZINE 1%, 25 GM TOPICAL CREAM (SSD) TP SCH ×2 (09:56→21:42)
[2018-06-23] MEDS: HEPARIN SODIUM,PORCINE 5000 UNITS/ML VIAL SUBCUT SCH ×2 (09:58→21:41)
[2018-06-23] MEDS: FAMOTIDINE 20 MG TABLET GT SCH ×2 (10:02→21:36)
[2018-06-23] MEDS: NAPH,MB-DB/K PH,MBDB 250 MG TAB GT SCH ×3 (10:02→21:37)
[2018-06-23] MEDS: BACLOFEN 10 MG TABLET GT SCH ×2 (10:02→21:37)
[2018-06-23] MEDS: LACTOBACILLUS RHAMNOSUS GG 1 CAP CAPSULE GT SCH ×3 (10:02→21:37)
[2018-06-23] MEDS: LEVOTHYROXINE SODIUM 0.125 MG TABLET GT SCH (10:02)
[2018-06-23] MEDS: HYDROCORTISONE 10 MG TABLET (CORTEF) GT SCH ×2 (10:03→21:36)
[2018-06-23] MEDS: DILTIAZEM HCL 30 MG TABLET GT SCH ×2 (10:03→21:37)
[2018-06-23] MEDS: ERGOCALCIFEROL 8000 UNITS/ML ORAL SOLUTION, 60 ML BOTTLE GT SCH (10:03)
[2018-06-23] MEDS: FLUCONAZOLE 200 MG TABLET (DIFLUCAN) GT SCH (10:04)
[2018-06-23] MEDS: MULTIVIT-MINERALS/FERROUS GLUC 15 ML UDC GT SCH ×2 (10:04→21:36)
[2018-06-23] MEDS: POTASSIUM CHLORIDE 20 MEQ/PKT PACKET GT SCH ×2 (10:07→21:36)
[2018-06-23 12:21] VITALS: BP_SYST 124
[2018-06-23 16:29] VITALS: BP_SYST 125
[2018-06-23 19:18] LABS: CALCIUM 8.2 mg/dL (8.4-11.0)
[2018-06-23 20:55] VITALS: BP_SYST 128
[2018-06-23] MEDS: MINERAL OIL 30 ML UDC GT SCH (21:36)
[2018-06-24 00:49] VITALS: BP_SYST 108
[2018-06-24] MEDS: metroNIDAZOLE 250 MG TABLET GT SCH (06:32)
[2018-06-24] MEDS: METOCLOPRAMIDE HCL 10 MG/10 ML UDC GT SCH ×2 (06:32→15:01)
[2018-06-24 08:05] VITALS: BP_SYST 137
[2018-06-24] MEDS: FLUCONAZOLE 200 MG TABLET (DIFLUCAN) GT SCH (09:57)
[2018-06-24] MEDS: BACLOFEN 10 MG TABLET GT SCH (09:57)
[2018-06-24] MEDS: FAMOTIDINE 20 MG TABLET GT SCH (09:57)
[2018-06-24] MEDS: LEVOTHYROXINE SODIUM 0.125 MG TABLET GT SCH (09:58)
[2018-06-24] MEDS: HYDROCORTISONE 10 MG TABLET (CORTEF) GT SCH (09:58)
[2018-06-24] MEDS: NAPH,MB-DB/K PH,MBDB 250 MG TAB GT SCH ×2 (09:58→15:01)
[2018-06-24] MEDS: LACTOBACILLUS RHAMNOSUS GG 1 CAP CAPSULE GT SCH ×2 (09:58→15:01)
[2018-06-24] MEDS: POTASSIUM CHLORIDE 20 MEQ/PKT PACKET GT SCH (09:58)
[2018-06-24] MEDS: MULTIVIT-MINERALS/FERROUS GLUC 15 ML UDC GT SCH (09:59)
[2018-06-24] MEDS: SILVER SULFADIAZINE 1%, 25 GM TOPICAL CREAM (SSD) TP SCH (10:00)
[2018-06-24] MEDS: ERGOCALCIFEROL 8000 UNITS/ML ORAL SOLUTION, 60 ML BOTTLE GT SCH (10:00)
[2018-06-24] MEDS: CHLORHEXIDINE GLUCONATE 15 ML/DOSE, 480 ML MM SCH (10:01)
[2018-06-24] MEDS: DILTIAZEM HCL 30 MG TABLET GT SCH (10:05)
[2018-06-24] MEDS: HEPARIN SODIUM,PORCINE 5000 UNITS/ML VIAL SUBCUT SCH (10:07)
[2018-06-24 12:41] VITALS: BP_SYST 147
[2018-06-24 14:21] VITALS: BP_SYST 147
== END 2018-06-24 15:55 | DRG 853 ==
LOC: SED 20:19 → STU 06-05 00:11 → SIC 06-07 11:53 → STU 06-13 18:00 → SIC 06-17 12:54 → STU 06-19 18:24 → SMU 06-22 11:33
PROVIDERS: ADMIT Internal Medicine; ATTEND Internal Medicine
PROC: 5A1955Z Respiratory Ventilation, Greater than 96 Consecutive Hours (ICD-10-PCS; principal; 2018-06-04)
PROC: 0FT44ZZ Resection of Gallbladder, Percutaneous Endoscopic Approach (ICD-10-PCS; 2018-06-08)
PROC: 30233K1 Transfusion of Nonautologous Frozen Plasma into Peripheral Vein, Percutaneous Approach (ICD-10-PCS; 2018-06-08)
PROC: 30233N1 Transfusion of Nonautologous Red Blood Cells into Peripheral Vein, Percutaneous Approach (ICD-10-PCS; 2018-06-08)
PROC: 30233R1 Transfusion of Nonautologous Platelets into Peripheral Vein, Percutaneous Approach (ICD-10-PCS; 2018-06-08)
PROC: 02HV33Z Insertion of Infusion Device into Superior Vena Cava, Percutaneous Approach (ICD-10-PCS; 2018-06-08)
PROC: B548ZZA Ultrasonography of Superior Vena Cava, Guidance (ICD-10-PCS; 2018-06-08)
PROC: 0D20XUZ Change Feeding Device in Upper Intestinal Tract, External Approach (ICD-10-PCS; 2018-06-09)
PROC: 0FC40ZZ Extirpation of Matter from Gallbladder, Open Approach (ICD-10-PCS; 2018-06-13)
PROC: 0DHA3UZ Insertion of Feeding Device into Jejunum, Percutaneous Approach (ICD-10-PCS; 2018-06-16)
DX: A41.9 Sepsis, unspecified organism (principal); G82.50 Quadriplegia, unspecified; R65.21 Severe sepsis with septic shock; J96.20 Acute and chronic respiratory failure, unspecified whether with hypoxia or hypercapnia; E43 Unspecified severe protein-calorie malnutrition; J18.9 Pneumonia, unspecified organism; D68.9 Coagulation defect, unspecified; G12.21 Amyotrophic lateral sclerosis; J98.11 Atelectasis; K31.6 Fistula of stomach and duodenum; Z99.11 Dependence on respirator [ventilator] status; K82.1 Hydrops of gallbladder; K94.23 Gastrostomy malfunction; N39.0 Urinary tract infection, site not specified; K80.12 Calculus of gallbladder with acute and chronic cholecystitis without obstruction; D62 Acute posthemorrhagic anemia; L03.311 Cellulitis of abdominal wall; B96.1 Klebsiella pneumoniae [K. pneumoniae] as the cause of diseases classified elsewhere; D69.59 Other secondary thrombocytopenia; E03.9 Hypothyroidism, unspecified; I10 Essential (primary) hypertension; K29.70 Gastritis, unspecified, without bleeding; K66.0 Peritoneal adhesions (postprocedural) (postinfection); K76.0 Fatty (change of) liver, not elsewhere classified; Z16.19 Resistance to other specified beta lactam antibiotics; R13.10 Dysphagia, unspecified; Z16.24 Resistance to multiple antibiotics; D63.8 Anemia in other chronic diseases classified elsewhere; E83.51 Hypocalcemia; E83.39 Other disorders of phosphorus metabolism; E87.6 Hypokalemia; Z79.899 Other long term (current) drug therapy; Z68.29 Body mass index [BMI] 29.0-29.9, adult
CPT/HCPCS: 36415; 36600; 43246; 71045; 74240-TC; 76700-TC; 78226; 80048; 80053; 80074; 80202-TC; 81000-TC; 81003; 82533; 82607; 82728; 82746; 82803-TC; 82962; 83051; 83540-TC; 83550-TC; 83605; 83690-TC; 83735-TC; 84100-TC; 84132-TC; 84478-TC; 84484; 84702-TC; 85007; 85018-TC; 85025; 85027; 85044-TC; 85379; 85384-TC; 85610-TC; 85730-TC; 86886; 86900; 86901; 86920; 87040-TC; 87081; 87086; 87186-TC; 88304; 93005; 93970; 94002; 94003; 94640; 94668; 94760; 96361; 96365; 99285; A5061; A9537; C1727; C1751; G0378; J0610; J0696; J0713; J0770; J0885; J1030; J1170; J1450; J1644; J1720; J1756; J1815; J1940; J1956; J2175; J2250; J2543; J2704; J2916; J2930; J3010; J3370; J3430; J3475; J3480; J3490; J7030; J7040; J7050; J7060; J7120; J7131; J7614; J8597; P9021; P9034; P9041; P9046; P9059; Q9963; Q9967

== ENCOUNTER 2018-06-24 23:34 | Inpatient (IN) | payer OTHER, MEDICAID ==
[~2018-06-24] VITALS: Ht 167.6 cm; Wt 67.3 kg
[~2018-06-24 23:34] MED LIST changes: -DOXY100T2 PO; -PIPE3.379 IV; +SILV20CR13 TP
[2018-06-24 23:36] VITALS: BP_SYST 141
[2018-06-25] VITALS (9 sets, daily range): BP systolic 100–122
[2018-06-25] MEDS ORDERED: NACL 0.9% 1,000 ML IV ONE (00:22)
[2018-06-25 01:23] LABS: BASOPHILS % (AUTO) 0.3 % (0.0-2.0); EOSINOPHILS % (AUTO) 0.6 % (0.0-4.0); HEMATOCRIT 30.6 % (36-48); HEMOGLOBIN 10.2 g/dL (12.0-16.0); LYMPHOCYTES % (AUTO) 16.3 % (20.5-51.5); MEAN CORPUSCULAR HEMOGLOBIN 31 pg (27-31); MEAN CORPUSCULAR HGB CONC 33 % (32-36); MEAN CORPUSCULAR VOLUME 94 fL (79.0-98.0); MONOCYTES % (AUTO) 4.8 % (1.7-9.3); PLATELET COUNT (AUTO) 297 K/uL (130-430); RED BLOOD CELL COUNT(AUTO) 3.27 MIL/uL (4.2-6.2); RED CELL DISTRIBUTION WIDTH 19.4 % (9.0-15.0); WHITE BLOOD COUNT (AUTO) 8.3 K/uL (4.8-10.8)
[2018-06-25 01:24] LABS: EOSINOPHILS # (AUTO) 0.1 K/uL (0.0-0.4); LYMPHOCYTES # (AUTO) 1.4 K/uL (1.0-5.5); MONOCYTES # (AUTO) 0.4 K/uL (0.0-1.0); NEUTROPHILS # (AUTO) 6.5 K/uL (1.8-7.7)
[2018-06-25 01:28] LABS: CALCIUM 8.4 mg/dL (8.4-11.0); CREATININE 0.34 mg/dL (0.55-1.30); POTASSIUM 3.7 mmol/L (3.5-5.1)
[2018-06-25 01:33] LABS: ALBUMIN 2.3 g/dL (3.4-4.8); TOTAL BILIRUBIN 0.8 mg/dL (0.0-1.0)
[2018-06-25] MEDS: D5LR 1,000 ML IV SCH ×2 (03:51→14:35)
[2018-06-25] MEDS: fentaNYL CITRATE/PF 100 MCG/2 ML AMP ONE ×3 (08:05→08:36)
[2018-06-25] MEDS: MIDAZOLAM HCL 5 MG/5 ML VIAL ONE ×3 (08:05→08:36)
[2018-06-25] MEDS ORDERED: ACETAMINOPHEN 650 MG/20.3 ML UDC GT PRN (12:15)
[2018-06-25] MEDS ORDERED: LEVALBUTEROL HCL 0.63 MG/3 ML VIAL.NEB INH PRN (12:15)
[2018-06-25] MEDS ORDERED: METOCLOPRAMIDE HCL 10 MG/10 ML UDC GT SCH (14:00)
[2018-06-25] MEDS ORDERED: LACTOBACILLUS RHAMNOSUS GG 1 CAP CAPSULE GT SCH (15:00)
[2018-06-25] MEDS ORDERED: DILTIAZEM HCL 30 MG TABLET GT SCH (21:00)
[2018-06-25] MEDS ORDERED: CHLORHEXIDINE GLUCONATE 15 ML/DOSE, 480 ML MM SCH (21:00)
[2018-06-25] MEDS ORDERED: BACLOFEN 10 MG TABLET GT SCH (21:00)
[2018-06-25] MEDS ORDERED: MINERAL OIL 30 ML UDC GT SCH (21:00)
[2018-06-26] MEDS ORDERED: SILVER SULFADIAZINE 1%, 25 GM TOPICAL CREAM (SSD) TP SCH (09:00)
[2018-06-26] MEDS ORDERED: POTASSIUM CHLORIDE 20 MEQ/PKT PACKET GT SCH (09:00)
[2018-06-26] MEDS ORDERED: LANSOPRAZOLE 30 MG CAPSULE.DR GT SCH (09:00)
[2018-06-26] MEDS ORDERED: LEVOTHYROXINE SODIUM 0.125 MG TABLET GT SCH (09:00)
[2018-06-26] MEDS ORDERED: MULTIVITS,CA,MINERALS/IRON/FA 1 TABLET GT SCH (09:00)
== END 2018-06-25 21:03 | DRG 919 ==
LOC: SED 23:34 → STU 06-25 02:38
PROVIDERS: ADMIT Internal Medicine; ATTEND Internal Medicine
PROC: 5A1935Z Respiratory Ventilation, Less than 24 Consecutive Hours (ICD-10-PCS; 2018-06-25)
PROC: 0D20XUZ Change Feeding Device in Upper Intestinal Tract, External Approach (ICD-10-PCS; principal; 2018-06-25 07:30)
DX: T85.528A Displacement of other gastrointestinal prosthetic devices, implants and grafts, initial encounter (principal); E43 Unspecified severe protein-calorie malnutrition; G82.50 Quadriplegia, unspecified; J96.10 Chronic respiratory failure, unspecified whether with hypoxia or hypercapnia; D62 Acute posthemorrhagic anemia; L03.311 Cellulitis of abdominal wall; D63.8 Anemia in other chronic diseases classified elsewhere; K21.9 Gastro-esophageal reflux disease without esophagitis; R13.10 Dysphagia, unspecified; J44.9 Chronic obstructive pulmonary disease, unspecified; E07.9 Disorder of thyroid, unspecified; Y83.3 Surgical operation with formation of external stoma as the cause of abnormal reaction of the patient, or of later complication, without mention of misadventure at the time of the procedure; Y92.89 Other specified places as the place of occurrence of the external cause; Z79.899 Other long term (current) drug therapy; Z86.73 Personal history of transient ischemic attack (TIA), and cerebral infarction without residual deficits; Z90.49 Acquired absence of other specified parts of digestive tract; Z87.440 Personal history of urinary (tract) infections; Z93.0 Tracheostomy status; Z68.23 Body mass index [BMI] 23.0-23.9, adult
CPT/HCPCS: 36415; 43246; 71045; 80053; 83690-TC; 85025; 87081; 93005; 94003; 94760; 96360; 99285; G0378; J2250; J3010; J7030; J7120; J8597

== ENCOUNTER 2018-07-13 19:12 | Inpatient (IN) | payer OTHER, MEDICAID ==
[~2018-07-13] VITALS: Ht 167.6 cm; Wt 61.2 kg
[2018-07-13 19:12] VITALS: BP_SYST 137
--- NOTE | 2018-07-13 19:12 | NUR ---
Placed in room 1 . Placed on satellite project site monitor, blood pressure machine and pulse oximeter. To gown for exam. Side rails up. Report given to
--- NOTE | 2018-07-13 19:30 | NUR ---
Pt BIBA from [facility] to ED C/O G-J tube malfunction today. No pain reported. Patient was seen multiple times for similar episodes. No associated symptoms reported. Patient has a history of ALS, and is trach dependant. Pt is Vent dependent with settings at AC 16, vT 450, Peep of 5, and Fio2 40%. Moderately tachycardic with 12 lead EKG done and Dr. Nicole aware. Otherwise VSS, No s/s of acute distress. Resting on gurney with rails up
--- NOTE | 2018-07-13 19:45 | NUR ---
Dr. Nicole bedside for pt eval
[2018-07-13 19:57] LABS: HEMATOCRIT 31.5 % (36-48); HEMOGLOBIN 10.2 g/dL (12.0-16.0); MEAN CORPUSCULAR HEMOGLOBIN 30 pg (27-31); MEAN CORPUSCULAR HGB CONC 32 % (32-36); MEAN CORPUSCULAR VOLUME 93 fL (79.0-98.0); PLATELET COUNT (AUTO) 388 K/uL (130-430); RED BLOOD CELL COUNT(AUTO) 3.38 MIL/uL (4.2-6.2); RED CELL DISTRIBUTION WIDTH 18.2 % (9.0-15.0); WHITE BLOOD COUNT (AUTO) 13.3 K/uL (4.8-10.8)
[2018-07-13] MEDS ORDERED: NS 500 ML IV ONE (20:00)
[2018-07-13 20:40] LABS: CALCIUM 9.3 mg/dL (8.4-11.0); CREATININE 0.24 mg/dL (0.55-1.30)
[2018-07-13 20:45] LABS: ALBUMIN 2.4 g/dL (3.4-4.8); POTASSIUM 4.4 mmol/L (3.5-5.1)
[2018-07-13 20:56] LABS: BAND % (MANUAL) 8 % (0-6); BASOPHILS % (MANUAL) 0 % (0-2); EOSINOPHILS % (MANUAL) 1 % (0-7); INR 0.9 (0.8-1.2); LYMPHOCYTES % (MANUAL) 48 % (20-46); MONOCYTES % (MANUAL) 5 % (0-11); PROTHROMBIN TIME 9.4 SECS (9.5-12.5)
[2018-07-13] MEDS ORDERED: PIPERACILLIN/TAZO 3.375 GM in NS 50 ML IV ONE (21:15)
--- NOTE | 2018-07-13 21:20 | NUR ---
Pt taken to Radiology for X Ray studies. Well tolerated
[2018-07-13] MEDS ORDERED: PIPERACILLIN/TAZOBACTAM 3.375 GM/VIAL (ZOSYN) IV ONE (21:29)
--- NOTE | 2018-07-13 21:35 | NUR ---
Pt back from Radiology well tolerated
[2018-07-13] MEDS ORDERED: D5LR 1,000 ML IV ONE (21:45)
--- NOTE | 2018-07-13 21:45 | NUR ---
MRSA, Sputum Cx, and follow up blood work sent
--- NOTE | 2018-07-13 21:52 | NUR ---
Patient will be admitted to care of Dr. Barcenas. Admitted to Telemetry unit. Will go to room 114. Belongings list completed. Summary report printed. Report will be given at bedside.
--- NOTE | 2018-07-13 21:52 | NUR ---
Transfer to Telemetry via ACLS protocol. Licensed nurse present. IV present no signs or symptoms of infiltration.
--- NOTE | 2018-07-13 22:30 | NUR ---
ADMISSION NOTE Received patient from ER via kamila, received report from David WHITNEY. Patient admitted with diagnosis of G/J tube Malfunction. Patient oriented to hospital routine, call light, toileting and safety-patient verbalized understanding.
--- NOTE | 2018-07-13 22:35 | NUR ---
Opening notes Patient resting comfortably in bed. Patient able to answer questions by nodding head. No signs of distress noted. Patient tolerating current vent settings. AC 16 Tidal Volume 450 ml FiO2 40 % Peep 5. Patient has low grade fever, placed ice pack on patient. IV patent and intact, no signs of infiltration noted. Turned TV on per patient request. No other needs. Call light with the patient. Safety precautions in place.
[2018-07-13 22:36] VITALS: BP_SYST 151
[2018-07-13 22:37] LABS: BILIRUBIN,URINE NEGATIVE (NEGATIVE); CLARITY/URINE CLEAR (CLEAR); COLOR,URINE YELLOW (YELLOW); GLUCOSE,URINE NEGATIVE (NEGATIVE); KETONES,URINE NEGATIVE (NEGATIVE); LEUKOCYTE ESTERASE ,URINE NEGATIVE (NEGATIVE); NITRITE, URINE NEGATIVE (NEGATIVE); PH,URINE 7.5 (5.0-8.0); PROTEIN URINE 1+ (NEGATIVE); UROBILINOGEN,URINE 0.2 (0.2-1.0)
[2018-07-13 22:39] LABS: BLOOD, URINE TRACE (NEGATIVE)
--- NOTE | 2018-07-13 23:00 | NUR ---
Photographs of wounds taken
[2018-07-13 23:03] LABS: BACTERIA,URINE FEW /HPF (None Seen); URINE AMORPHOUS PHOSPHATES 1+ /HPF (None Seen); WBC,URINE 0-3 /HPF (0-3)
--- NOTE | 2018-07-13 23:52 | NUR ---
CONSULTATION PAGED/CALLED Reason for Consultation: PNA Person Who was Notified: JENNY Consulting Physician: [employer] Technology Manager Specialty: PULMONARY Ordering Physician: VIGNESH
[2018-07-13 23:57] VITALS: BP_SYST 152
--- NOTE | 2018-07-14 | NUR ---
CONSULTATION PAGED/CALLED Reason for Consultation:J/G TUBE MALFUNCTION Person Who was Notified: JENNY Consulting Physician: (SKILLED HELPER DOCTOR-DR. ARCHULETA) [employer] M[employer] Developer Specialty: GI Ordering Physician: VIGNESH
--- NOTE | 2018-07-14 | NUR ---
Resting Patient resting in bed, watching TV. No signs of distress noted. No needs at this time. Call light with the patient. Safety precautions in place.
[2018-07-14 01:05] VITALS: BP_SYST 127
--- NOTE | 2018-07-14 02:30 | NUR ---
Sleeping No signs of distress noted. Call light with the patient. Safety precautions in place.
--- NOTE | 2018-07-14 04:11 | NUR ---
Resting No signs of distress noted. IV patent and intact, infusing fluids. Call light with the patient. Safety precautions in place.
[2018-07-14 06:12] LABS: CALCIUM 8.8 mg/dL (8.4-11.0); CREATININE 0.39 mg/dL (0.55-1.30); POTASSIUM 3.6 mmol/L (3.5-5.1)
[2018-07-14 06:23] LABS: BASOPHILS % (AUTO) 0.2 % (0.0-2.0); EOSINOPHILS # (AUTO) 0.1 K/uL (0.0-0.4); EOSINOPHILS % (AUTO) 0.5 % (0.0-4.0); HEMATOCRIT 27.5 % (36-48); LYMPHOCYTES # (AUTO) 6.3 K/uL (1.0-5.5); LYMPHOCYTES % (AUTO) 48.4 % (20.5-51.5); MEAN CORPUSCULAR HEMOGLOBIN 30 pg (27-31); MEAN CORPUSCULAR HGB CONC 33 % (32-36); MEAN CORPUSCULAR VOLUME 93 fL (79.0-98.0); MONOCYTES # (AUTO) 0.6 K/uL (0.0-1.0); MONOCYTES % (AUTO) 4.7 % (1.7-9.3); NEUTROPHILS # (AUTO) 6.1 K/uL (1.8-7.7); NEUTROPHILS % (AUTO) 46.2 % (40.0-70.0); PLATELET COUNT (AUTO) 358 K/uL (130-430); RED BLOOD CELL COUNT(AUTO) 2.96 MIL/uL (4.2-6.2); RED CELL DISTRIBUTION WIDTH 17.8 % (9.0-15.0); WHITE BLOOD COUNT (AUTO) 13.1 K/uL (4.8-10.8)
--- NOTE | 2018-07-14 06:49 | NUR ---
Closing notes Patient is asleep in bed. No signs of distress noted. Patient tolerating current vent setting. IV patent and intact infusing fluids. All needs met throughout the shift. Call light with the patient. Safety precautions in place. Will endorse care to day shift RN.
[2018-07-14 07:48] VITALS: BP_SYST 118
[2018-07-14] MEDS ORDERED: D5/0.45 NS 1,000 ML IV SCH (09:30)
--- NOTE | 2018-07-14 09:35 | NUR ---
Skin care Gtube feeding dressing removed, right/left buttock skin care given as recorded in the flow sheet, oral care given ,.repositioned.
--- NOTE | 2018-07-14 10:38 | NUR ---
Nutrition Update Chad Scale 11 noted. Pt admitted for J/G tube malfunction. Diet: NPO BMI: 21.8 kg/m2 RD to follow per nutrition care standards.
[2018-07-14 12:02] VITALS: BP_SYST 118
--- NOTE | 2018-07-14 12:40 | NUR ---
Patient repositioned by staff every 2 hours with pillow support.,Perineal care given., Addendum: 07/14/18 at 1245 by Priscilla aMrsh RN suctioned oral white thin secretion , oral care given.
[2018-07-14] MEDS ORDERED: PIPERACILLIN/TAZO 3.375/DEX-IS 50 ML IV ONE (14:00)
[2018-07-14] MEDS ORDERED: ACETAMINOPHEN 650 MG/20.3 ML UDC GT PRN (14:00)
[2018-07-14] MEDS: METOCLOPRAMIDE HCL 10 MG/10 ML UDC GT SCH ×2 (14:00→20:52)
[2018-07-14] MEDS ORDERED: FAMOTIDINE PF 20 MG/2 ML VIAL IVP ONE (14:15)
[2018-07-14] MEDS: LACTOBACILLUS RHAMNOSUS GG 1 CAP CAPSULE GT SCH ×2 (14:34→20:35)
--- NOTE | 2018-07-14 14:50 | NUR ---
Tsai catheter insertion No urine output since morning bladder distended , bladder scanning completed 526 ml in the bladder , tsai catheter ordered , explained procedure to patient and agreed ,inserted under aseptic technique, tolerates well with out resistance drain dark yellow urine , specimen sent for analysis.
[2018-07-14] MEDS: FLUCONAZOLE 200 mg/ NS 100 ML IV SCH (15:08)
[2018-07-14] MEDS: PIPERACILLIN/TAZO 3.375/DEX-IS 50 ML IV SCH (15:08)
[2018-07-14 15:12] LABS: TOTAL IRON BIND. CAPACITY 204 ug/dL (250-450)
[2018-07-14 15:23] LABS: BILIRUBIN,URINE NEGATIVE (NEGATIVE); BLOOD, URINE NEGATIVE (NEGATIVE); CLARITY/URINE CLEAR (CLEAR); COLOR,URINE YELLOW (YELLOW); GLUCOSE,URINE NEGATIVE (NEGATIVE); KETONES,URINE NEGATIVE (NEGATIVE); LEUKOCYTE ESTERASE ,URINE TRACE (NEGATIVE); NITRITE, URINE NEGATIVE (NEGATIVE); PH,URINE 7.5 (5.0-8.0); PROTEIN URINE TRACE (NEGATIVE)
[2018-07-14 15:35] LABS: BACTERIA,URINE FEW /HPF (None Seen); MUCUS,URINE None Seen /LPF (None Seen); RBC,URINE 0-3 /HPF (0-3)
--- NOTE | 2018-07-14 15:45 | NUR ---
RECEIVED PATIENT Report received from CHELO Wells. Patient made aware, will continue with the plan of care.
[2018-07-14 16:02] VITALS: BP_SYST 121
--- NOTE | 2018-07-14 16:50 | NUR ---
ROUNDS Patient is resting, awake, no s/s of acute distress. Oral suction provided, tolerating vent settings, AC 16, TV 450, FiO2 40%, PEEP 5. No respiratory distress noted. IVF infusing as ordered. Safety precautions observed, call light within reach, will continue to monitor.
--- NOTE | 2018-07-14 18:26 | NUR ---
CLOSING NOTE Patient is resting, awake, in stable condition, breathing even and unlabored, tolerating vent settings. IVF infusing as ordered. Safety precautions observed, bed low and locked, side rails up x3, call light within reach. All needs met and anticipated, will endorse plan of care.
--- NOTE | 2018-07-14 19:30 | NUR ---
OPENING NOTE RECEIVED CARE OF PT. PT IS RESTING IN BED, NO S/S OF ACUTE DISTRESS, PT IS TOLERATING VENT SETTINGS AT AC 16, TV 450, FIO2 40%, PEEP 5. LOCKWOOD CATHETER IS INTACT AND DRAINING WELL TO GRAVITY. IVF ARE INFUSING AT ORDERED RATE WITH NO SIGN OF INFILTRATION AT IV SITE. SAFETY PRECAUTIONS ARE IN PLACE. WILL CONTINUE TO MONITOR.
[2018-07-14] MEDS: ACETYLCYSTEINE 20% 4 ML VIAL (RT) INH SCH (19:43)
[2018-07-14] MEDS: LEVALBUTEROL HCL 0.63 MG/3 ML VIAL.NEB INH PRN (19:44)
[2018-07-14 20:00] VITALS: BP_SYST 137
[2018-07-14] MEDS: BACLOFEN 10 MG TABLET GT SCH (20:34)
[2018-07-14] MEDS: D5LR 1,000 ML IV SCH (20:34)
[2018-07-14] MEDS: MINERAL OIL 30 ML UDC GT SCH (20:35)
[2018-07-14] MEDS: SILVER SULFADIAZINE 1%, 25 GM TOPICAL CREAM (SSD) TP SCH (20:43)
[2018-07-14] MEDS: CHLORHEXIDINE GLUCONATE 15 ML/DOSE, 480 ML MM SCH (20:43)
[2018-07-14] MEDS: FAMOTIDINE PF 20 MG/2 ML VIAL IVP SCH (20:43)
--- NOTE | 2018-07-14 20:43 | NUR ---
SCHEDULED MED PASS SCHEDULED MEDICATIONS ADMINISTERED. MEDICATIONS AND POTENTIAL SIDE EFFECTS EXPLAINED. GTUBE MEDS HELD DUE TO PT'S NPO STATUS. NO S/S OF ACUTE DISTRESS. BREATHING IS UNLABORED TO VENT SETTINGS. SAFETY MAINTAINED. WILL CONTINUE TO MONITOR.
[2018-07-14] MEDS ORDERED: DILTIAZEM HCL 30 MG TABLET GT SCH (21:00)
[2018-07-14] MEDS ORDERED: CARVEDILOL 3.125 MG TABLET (COREG) GT SCH (21:00)
--- NOTE | 2018-07-14 23:04 | NUR ---
SUCTION/ORAL CARE PROVIDED SUCTIONING FOR PT PER REQUEST. THIN WHITE SECRETIONS NOTED. ORAL CARE ALSO PROVIDED. PT REPOSITIONED FOR COMFORT. NO S/S OF ACUTE DISTRESS. SAFETY MAINTAINED. WILL MONITOR.
[2018-07-15 00:13] VITALS: BP_SYST 159
--- NOTE | 2018-07-15 01:12 | NUR ---
COUGH/SUCTION PT HAVING INEFFECTIVE COUGH. ORAL AND TRACHEAL SUCTION PROVIDED. THIN WHITE SECRETIONS NOTED. PT NOW AWAKE AND RESTING IN BED, WATCHING TELEVISION. NO S/S OF ACUTE DISTRESS. PT IS TOLERATING VENT SETTINGS WELL. IVF INFUSING AT ORDERED RATE, NO SIGN OF INFILTRATION AT IV SITE. LOCKWOOD CATHETER IS DRAINING TO GRAVITY. SAFETY MAINTAINED. WILL MONITOR.
--- NOTE | 2018-07-15 02:37 | NUR ---
REPOSITIONED/SUCTIONED PT REPOSITIONED IN BED FOR COMFORT. PILLOW SUPPORT PROVIDED. PT GIVEN ORAL AND TRACHEAL SUCTION UPON REQUEST. RT AT BEDSIDE PERFORMING TRACH CARE. NO S/S OF ACUTE DISTRESS. PT BREATHING IS UNLABORED TO TRACH SETTINGS. SAFETY MAINTAINED. WILL MONITOR.
[2018-07-15] MEDS: PIPERACILLIN/TAZO 3.375/DEX-IS 50 ML IV SCH ×4 (04:59→23:22)
[2018-07-15] MEDS: D5LR 1,000 ML IV SCH ×3 (04:59→23:23)
[2018-07-15] MEDS: METOCLOPRAMIDE HCL 10 MG/10 ML UDC GT SCH ×3 (04:59→22:02)
--- NOTE | 2018-07-15 05:00 | NUR ---
SCHEDULED ZOSYN PT GIVEN SCHEDULED ZOSYN. MEDICATION ACTION AND POTENTIAL SIDE EFFECTS EXPLAINED. PT RESTING IN BED WITH NO S/S OF ACUTE DISTRESS. BREATHING IS UNLABORED TO VENT SETTINGS. SAFETY PRECAUTIONS IN PLACE. WILL MONITOR.
[2018-07-15] MEDS: LEVOTHYROXINE SODIUM 0.125 MG TABLET GT SCH (06:04)
--- NOTE | 2018-07-15 06:20 | NUR ---
CLOSING NOTE PT RESTING IN BED WATCHING TELEVISION. BREATHING IS UNLABORED TO VENT SETTINGS: AC 16, FIO2 40%, TV 450, PEEP 5. TRACHEAL AND ORAL SUCTION PERFORMED PER PT PREFERENCE. LOCKWOOD CATHETER IS INTACT AND DRAINING WELL TO GRAVITY. PT SHOWS NO S/S OF ACUTE DISTRESS. IVF INFUSING AT ORDERED RATE, NO SIGN OF INFILTRATION AT IV SITE. SAFETY MAINTAINED. ALL NEEDS MET DURING SHIFT. WILL CONTINUE TO MONITOR AND PROVIDE CARE UNTIL PT CARE IS ENDORSED TO DAY SHIFT RN.
[2018-07-15 06:35] LABS: PROTHROMBIN TIME 9.9 SECS (9.5-12.5)
[2018-07-15 06:52] LABS: BASOPHILS % (AUTO) 0.2 % (0.0-2.0); EOSINOPHILS % (AUTO) 0.3 % (0.0-4.0); HEMATOCRIT 31.7 % (36-48); HEMOGLOBIN 10.1 g/dL (12.0-16.0); LYMPHOCYTES % (AUTO) 36.6 % (20.5-51.5); MEAN CORPUSCULAR HEMOGLOBIN 30 pg (27-31); MEAN CORPUSCULAR HGB CONC 32 % (32-36); MEAN CORPUSCULAR VOLUME 93 fL (79.0-98.0); MONOCYTES # (AUTO) 0.7 K/uL (0.0-1.0); MONOCYTES % (AUTO) 4.1 % (1.7-9.3); NEUTROPHILS # (AUTO) 9.6 K/uL (1.8-7.7); PLATELET COUNT (AUTO) 377 K/uL (130-430); RED CELL DISTRIBUTION WIDTH 17.7 % (9.0-15.0); WHITE BLOOD COUNT (AUTO) 16.4 K/uL (4.8-10.8)
[2018-07-15 07:06] LABS: ALBUMIN 2.4 g/dL (3.4-4.8); CALCIUM 8.9 mg/dL (8.4-11.0); CREATININE 0.44 mg/dL (0.55-1.30); POTASSIUM 3.2 mmol/L (3.5-5.1); TOTAL BILIRUBIN 1.2 mg/dL (0.0-1.0)
[2018-07-15] MEDS: ACETYLCYSTEINE 20% 4 ML VIAL (RT) INH SCH ×4 (07:46→19:44)
[2018-07-15] MEDS: LEVALBUTEROL HCL 0.63 MG/3 ML VIAL.NEB INH PRN ×4 (07:46→19:44)
[2018-07-15 08:00] VITALS: BP_SYST 126
--- NOTE | 2018-07-15 08:00 | NUR ---
initial notes rec patient awake alert with ivf infusing well on the r hand. no ifniltration oted. bed to the lowest position and diamond saw operator ails up and locked. resp easy unlabored. pt on a mechanical ventilator. suctioned and with small amount of whitish phlegm.. turned repositioned for comfort.
[2018-07-15 08:51] LABS: NEUTROPHILS % (AUTO) 58.8 % (40.0-70.0)
[2018-07-15] MEDS: LACTOBACILLUS RHAMNOSUS GG 1 CAP CAPSULE GT SCH ×3 (09:00→22:00)
[2018-07-15] MEDS: MULTIVITS,CA,MINERALS/IRON/FA 1 TABLET GT SCH (09:00)
[2018-07-15] MEDS ORDERED: SILVER SULFADIAZINE 1%, 25 GM TOPICAL CREAM (SSD) TP SCH (09:00)
[2018-07-15] MEDS: BACLOFEN 10 MG TABLET GT SCH ×2 (09:00→21:59)
[2018-07-15] MEDS: LANSOPRAZOLE 30 MG CAPSULE.DR GT SCH (09:00)
[2018-07-15] MEDS ORDERED: POTASSIUM CHLORIDE 20 MEQ/PKT PACKET GT SCH (09:00)
[2018-07-15] MEDS ORDERED: POTASSIUM CHLORIDE 40 MEQ in 0.45% NS 250 ML IV ONE (09:30)
--- NOTE | 2018-07-15 10:00 | NUR ---
rounds seen by dr kerr and with order. turned repositioned for comfort.
[2018-07-15 12:18] VITALS: BP_SYST 149
[2018-07-15] MEDS: FAMOTIDINE PF 20 MG/2 ML VIAL IVP SCH ×2 (12:46→22:02)
[2018-07-15] MEDS: CHLORHEXIDINE GLUCONATE 15 ML/DOSE, 480 ML MM SCH ×2 (12:48→22:02)
--- NOTE | 2018-07-15 13:03 | NUR ---
Dietitian Recommendations *If/when medically appropriate, recommend Jevity 1.2 at 50ml/hr (goal rate x 24 hrs), Bam BID, FWF 150ml Q6H via JT. (EN regimen will provide additional 1600 kcal, 72 gm protein and 1568ml free water daily, which meets 103% of upper end of estimated calories and 81% of upper end of estimated protein needs) Please see Nutritional Assessment for details. ASSISTED, RD
--- NOTE | 2018-07-15 14:41 | NUR ---
DC Planning: Per CHELO Wells : the new peg placement is scheduled at 3-3:30 pm.
[2018-07-15] MEDS: FLUCONAZOLE 200 mg/ NS 100 ML IV SCH (14:56)
[2018-07-15] MEDS ORDERED: fentaNYL CITRATE/PF 100 MCG/2 ML AMP ONE (15:07)
[2018-07-15] MEDS ORDERED: SIMETHICONE 40 MG/0.6 ML ML ONE (15:21)
[2018-07-15] MEDS ORDERED: BENZOCAINE 20% 0.5mL UD SPRAY MM ONE (15:21)
[2018-07-15 16:02] VITALS: BP_SYST 129
[2018-07-15] MEDS: MIDAZOLAM HCL 5 MG/5 ML VIAL ONE ×2 (16:41→16:43)
--- NOTE | 2018-07-15 17:00 | NUR ---
Wound Evaluation: Wound Consult ordered for Low Chad Score. Patient evaluated for a low Chad score of 9. Patient was awake, alert, oriented, nonverbal (secondary to tracheostomy), but communicates by mouthing words) and received in a Alfredito Bed with an Isoflex JOCELIN mattress with low air loss therapy initiated. Patient needs to be turned in bed. Skin is fair. Recommend reposition patient side to side only every 2 hours with pillow support. Elevate, offload and float bilateral heels with one pillow lengthwise under each extremity at all times. Offload pressure areas with pillows for pressure re-distribution. Perform skin care and monitor skin integrity Q shift. Use Calmoseptine cream on moisture susceptible areas QID and PRN for soiling. Skin assessment: 1. Left Buttock: Wound, present on admission. Wound bed has 100% red tissue. No odor, no drainage. Periwound intact. Surrounding tissue has blanchable erythema, scar tissue, and dark discolored skin. Measures 0.7 cm x 0.6 cm. 2. Left Buttock: Wound, present on admission. Wound bed has 100% pink tissue. No odor, no drainage. Periwound intact. Surrounding tissue has blanchable erythema, scar tissue, and dark discolored skin. Measures 0.4 cm x 0.5 cm. Recommend: Cleanse involved area with mild soap and water. Pat dry. Apply Calmoseptine cream to involved area. Apply hydrogel to any portion of wound not covered by Calmoseptine cream. Cover with Sacral foam dressing. Perform skin tear care daily, and as needed for dressing soiling or dislodgment. 3. Bilateral Heels: Blanchable erythema, present on admission. Recommend: Elevate, offload and float bilateral heels with one pillow lengthwise under each extremity at all times.
[2018-07-15] MEDS: SILVER SULFADIAZINE 1%, 25 GM TOPICAL CREAM (SSD) TP SCH ×2 (17:34→22:02)
[2018-07-15] MEDS ORDERED: GASTROGRAFIN 120 ML ONE (17:45)
--- NOTE | 2018-07-15 19:20 | NUR ---
OPENING NOTE RECEIVED CARE OF PT AND BEDSIDE REPORT. PT AAOX4, RESTING IN BED WITH FAMILY AT BEDSIDE. PT TOLERATING VENT SETTINGS WELL. VENT SETTINGS FOLLOWS: AC 16, TV 450, FIO2: 40%, PEEP 5. IVF INFUSING AT ORDERED RATE. IV POTASSIUM RUNNING AT ORDERED RATE. NO SIGN OF INFILTRATION AT IV SITE. LOCKWOOD CATHETER IS INTACT AND DRAINING WELL TO GRAVITY. NO S/S OF ACUTE DISTRESS. SAFETY PRECAUTIONS IN PLACE. WILL MONITOR.
[2018-07-15 20:00] VITALS: BP_SYST 138
--- NOTE | 2018-07-15 20:05 | NUR ---
CLEANED/COMPLETE LINEN CHANGE PT CLEANED AND PROVIDED COMPLETE LINEN AND GOWN CHANGE. PT TOLERATED WELL. PT'S FAMILY IS AT BEDSIDE. PT TOLERATING VENT SETTINGS WELL. NO S/S OF ACUTE DISTRESS. SAFETY MAINTAINED. WILL MONITOR.
--- NOTE | 2018-07-15 20:28 | NUR ---
SPOKE TO DR. MEDELLIN REGARDING PT'S SUSTAINED HIGH HEART RATE. NEW ORDERS RECEIVED. WILL CARRY OUT.
[2018-07-15] MEDS ORDERED: METOPROLOL TARTRATE 50 MG TABLET GT SCH (21:00)
--- NOTE | 2018-07-15 21:50 | NUR ---
SPOKE TO DR. DOLL TO REPORT THE RESULTS OF THE UPPER GI SERIES. DR. DOLL STATED TO START JEVITY 1.2 THROUGH JTUBE AT 10 CC PER HOUR AND INCREASE 10 CC EVERY TWO HOURS, NOT TO EXCEED 40 CC/HR TONIGHT. DR. DOLL STATED IT IS OKAY TO GIVE MEDICATIONS THROUGH THE GTUBE. WILL CARRY OUT.
[2018-07-15] MEDS: MINERAL OIL 30 ML UDC GT SCH (21:59)
[2018-07-15] MEDS: POTASSIUM CHLORIDE 20 MEQ/PKT PACKET GT SCH (22:02)
--- NOTE | 2018-07-15 22:02 | NUR ---
SCHEDULED MEDICATION PASS SCHEDULED MEDICATIONS ADMINISTERED. 0 CC RESIDUAL NOTED. GTUBE IS PATENT AND FLUSHING WELL. MEDICATION ACTIONS AND POTENTIAL SIDE EFFECTS EXPLAINED TO PT. PT SHOWING NO S/S OF ACUTE DISTRESS. PT IS TOLERATING VENT SETTINGS WELL. SAFETY MAINTAINED. WILL MONITOR.
--- NOTE | 2018-07-15 23:10 | NUR ---
CLEANED/LINEN CHANGE/SUCTIONED PT CLEANED AND PROVIDED COMPLETE LINEN AND GOWN CHANGE. PT GIVEN TRACHEAL AND ORAL SUCTIONING PER REQUEST. GTUBE DRESSING CHANGED DUE TO SOILING. PT'S DRESSING FOR WOUNDS ON THE BUTTOCKS ALSO CHANGED DUE TO SOILING. PT REPOSITIONED FOR COMFORT. SAFETY PRECAUTIONS ARE IN PLACE. WILL MONITOR.
[2018-07-16] VITALS: BP_SYST 132
[2018-07-16 01:00] VITALS: BP_SYST 136
--- NOTE | 2018-07-16 01:15 | NUR ---
SLEEPING PT RESTING IN BED WITH EYES CLOSED. VISIBLE SYMMETRICAL RISE AND FALL OF CHEST, BREATHING IS UNLABORED TO VENT SETTINGS. IVF INFUSING AT ORDERED RATE. TUBE FEEDING IS RUNNING ORDERED. NO S/S OF DISTRESS. SAFETY AND ASPIRATION PRECAUTIONS MAINTAINED. WILL MONITOR.
--- NOTE | 2018-07-16 03:05 | NUR ---
COUGHING/SUCTION/ORAL CARE PT COUGHING, ORAL AND TRACHEAL SUCTIONING PROVIDED. THIN WHITE SECRETIONS NOTED. ORAL CARE PERFORMED. NO S/S OF DISTRESS. SAFETY AND ASPIRATION PRECAUTIONS IN PLACE. WILL MONITRO.
[2018-07-16] MEDS: PIPERACILLIN/TAZO 3.375/DEX-IS 50 ML IV SCH ×4 (05:01→23:44)
[2018-07-16] MEDS: METOCLOPRAMIDE HCL 10 MG/10 ML UDC GT SCH ×3 (05:01→22:37)
--- NOTE | 2018-07-16 05:01 | NUR ---
SCHEDULED REGLAN AND WARNER PT GIVEN SCHEDULED MEDICATIONS. MEDICATIONS AND POTENTIAL SIDE EFFECTS EXPLAINED. PT TOLERATED WELL. NO S/S OF DISTRESS. WILL MONITOR.
--- NOTE | 2018-07-16 05:19 | NUR ---
Consultation Paged Reason for Consultation: Leukocytosis Was consult called: Y Consulting Physician: Dr. Fontenot Saturation Diver Ordering Physician: Dr. Barcensa
[2018-07-16] MEDS: MENTHOL/ZINC OXIDE 113 GM OINT. TP PRN (05:21)
--- NOTE | 2018-07-16 05:42 | NUR ---
CLEANED/WOUND CARE/LINEN CHANGE PT CLEANED AND PROVIDED WITH LINEN CHANGE. WOUND CARE GIVEN. PT'S WOUNDS CLEANED WITH SOAP AND WATER. PATTED DRY. CALMOSEPTINE APPLIED. HYDROGEL ALSO APPLIED. SACRAL FOAM DRESSING APPLIED. PT TOLERATED WELL. PILLOW SUPPORT UNDER HEELS. SKIN CARE PROVIDED. PT REPOSITIONED. ORAL AND TRACHEAL SUCTION PROVIDED PER PT REQUEST. BREATHING IS UNLABORED TO VENT SETTINGS. NO S/S OF DISTRESS. SAFETY AND ASPIRATION PRECAUTIONS MAINTAINED. WILL MONITOR.
[2018-07-16] MEDS: LEVOTHYROXINE SODIUM 0.125 MG TABLET GT SCH (05:55)
--- NOTE | 2018-07-16 06:25 | NUR ---
CLOSING NOTE PT RESTING IN BED, TOLERATING VENT SETTINGS WELL. VENT SETTINGS FOLLOWS: AC 16, TV 450, FIO2 40%, PEEP 5. LOCKWOOD CATHETER IS INTACT AND DRAINING WELL TO GRAVITY. GTUBE DRESSING HAS BEEN CHANGED AND IS CLEAN, DRY, AND INTACT. IVF ARE INFUSING AT ORDERED RATE, NO SIGN OF INFILTRATION AT IV SITE. ORAL CARE PERFORMED. GTUBE AND JTUBE ARE PATENT AND FLUSHING WELL. TUBE FEEDING IS RUNNING AT ORDERED RATE. 0 RESIDUAL NOTED UPON ASPIRATION. PT DENIES PAIN OR DISCOMFORT AT THIS TIME. ALL NEEDS MET DURING SHIFT. SAFETY AND ASPIRATION PRECAUTIONS IN PLACE. WILL CONTINUE TO MONITOR AND PROVIDE CARE UNTIL PT CARE IS ENDORSED TO DAY SHIFT RN.
[2018-07-16 06:49] LABS: BASOPHILS # (AUTO) 0.1 K/uL (0.0-0.2); BASOPHILS % (AUTO) 0.5 % (0.0-2.0); EOSINOPHILS % (AUTO) 0.3 % (0.0-4.0); HEMATOCRIT 28.5 % (36-48); HEMOGLOBIN 9.2 g/dL (12.0-16.0); LYMPHOCYTES # (AUTO) 7.1 K/uL (1.0-5.5); LYMPHOCYTES % (AUTO) 44.4 % (20.5-51.5); MEAN CORPUSCULAR HEMOGLOBIN 30 pg (27-31); MEAN CORPUSCULAR HGB CONC 32 % (32-36); MEAN CORPUSCULAR VOLUME 94 fL (79.0-98.0); MONOCYTES % (AUTO) 6.3 % (1.7-9.3); NEUTROPHILS # (AUTO) 7.7 K/uL (1.8-7.7); NEUTROPHILS % (AUTO) 48.5 % (40.0-70.0); PLATELET COUNT (AUTO) 341 K/uL (130-430); RED BLOOD CELL COUNT(AUTO) 3.03 MIL/uL (4.2-6.2); RED CELL DISTRIBUTION WIDTH 18.2 % (9.0-15.0); WHITE BLOOD COUNT (AUTO) 15.9 K/uL (4.8-10.8)
[2018-07-16 07:10] LABS: ALBUMIN 2.1 g/dL (3.4-4.8); CALCIUM 8.8 mg/dL (8.4-11.0); CREATININE 0.53 mg/dL (0.55-1.30); POTASSIUM 3.4 mmol/L (3.5-5.1); TOTAL BILIRUBIN 0.8 mg/dL (0.0-1.0)
--- NOTE | 2018-07-16 07:29 | NUR ---
Nutrition Note Nutrition Consult received for Buttocks Wounds, Chad Score 9 on 07/15/18 4774. Pt was seen by RD yesterday. Please refer to Nutrition Assessment 07/15/[address] to continue to follow as per nutrition care standards.
[2018-07-16] MEDS: LEVALBUTEROL HCL 0.63 MG/3 ML VIAL.NEB INH PRN ×4 (07:30→19:32)
--- NOTE | 2018-07-16 07:30 | NUR ---
OPENING NOTE: RECEIVED REPORT FROM NIGHT NURSE. PATIENT IS RESTING COMFORTABLY IN BED. NO S/S OF DISTRESS OR SOB. PATIENT IS AWAKE AND ALERT. PATIENT IS NONVERBAL BUT IS ABLE TO NOD. IVF INFUSING. SCD'S IN PLACE. TUBE-FEEDING INFUSING AT RATE OF 40CC/HR. PATIENT TOLERATING WELL. PATIENT ON MECHANICAL VENTILATOR. CALL LIGHT IN REACH, BED IN LOWEST POSITION, AND WILL CONTINUE TO MONITOR.
[2018-07-16] MEDS: ACETYLCYSTEINE 20% 4 ML VIAL (RT) INH SCH ×4 (07:31→19:32)
[2018-07-16 08:00] VITALS: BP_SYST 120
[2018-07-16] MEDS: FAMOTIDINE PF 20 MG/2 ML VIAL IVP SCH ×2 (08:57→22:36)
[2018-07-16] MEDS: LACTOBACILLUS RHAMNOSUS GG 1 CAP CAPSULE GT SCH ×3 (08:57→22:42)
[2018-07-16] MEDS: LANSOPRAZOLE 30 MG CAPSULE.DR GT SCH (08:57)
[2018-07-16] MEDS: POTASSIUM CHLORIDE 20 MEQ/PKT PACKET GT SCH ×2 (08:57→22:38)
[2018-07-16] MEDS: MULTIVITS,CA,MINERALS/IRON/FA 1 TABLET GT SCH (08:57)
[2018-07-16] MEDS: BACLOFEN 10 MG TABLET GT SCH ×2 (08:57→22:37)
[2018-07-16] MEDS: METOPROLOL TARTRATE 50 MG TABLET GT SCH ×2 (08:58→22:36)
[2018-07-16] MEDS: CHLORHEXIDINE GLUCONATE 15 ML/DOSE, 480 ML MM SCH ×2 (08:58→22:38)
[2018-07-16] MEDS: SILVER SULFADIAZINE 1%, 25 GM TOPICAL CREAM (SSD) TP SCH ×2 (08:58→22:39)
[2018-07-16] MEDS: D5LR 1,000 ML IV SCH ×2 (10:30→20:01)
--- NOTE | 2018-07-16 11:09 | NUR ---
NEW IV STARTED ON LEFT FOREARM #22. IVF RECONNECTED AND INFUSING.
[2018-07-16 11:38] VITALS: BP_SYST 125
--- NOTE | 2018-07-16 14:00 | NUR ---
RN ROUNDS PATIENT IS RESTING COMFORTABLY IN BED. NO S/S OF DISTRESS OR SOB. PATIENT IS SLEEPING COMFORTABLY. PATIENT REPOSITIONED. CALL LIGHT IN REACH, BED IN LOWEST POSITION ,AND WILL CONTINUE TO MONITOR.
[2018-07-16] MEDS: FLUCONAZOLE 200 mg/ NS 100 ML IV SCH (14:36)
[2018-07-16 15:08] VITALS: BP_SYST 126
--- NOTE | 2018-07-16 18:16 | NUR ---
CLOSING NOTE: PATIENT IS RESTING COMFORTABLY IN BED. NO S/S OF DISTRESS OR SOB. PATIENT IS AWAKE AND ALERT. TUBE-FEEDING RUNNING AT RATE OF 50 CC/HR. IVPB ANTIBIOTIC CURRENTLY INFUSING. PATIENT ON VENTILATOR, NO CHANGE TO SETTINGS. PATIENT PLACED ON CONTACT ISOLATION. ALL NEEDS MET DURING SHIFT. CALL LIGHT IN REACH, BED IN LOWEST POSITION, AND WILL GIVE REPORT TO NIGHT NURSE.
[2018-07-16] MEDS ORDERED: COLISTIMETHATE SODIUM 150 MG VIAL INH ONE (19:30)
[2018-07-16 19:45] VITALS: BP_SYST 122
--- NOTE | 2018-07-16 20:00 | NUR ---
INITIAL NOTES: PATIENT IN BED AWAKE ,NON VERBAL, BLINKS EYES AND NOD HEAD TO ANSWER QUESTIONS.ON VENTILATOR DEPENDENT. SEE ASSESSMENT FOR MORE DETAILS. ORAL AND SUCTIONING ,TURNED TO SIDES. NO BM THIS TIME. LOCKWOOD DRAINING WELL.
--- NOTE | 2018-07-16 22:20 | NUR ---
ALL MEDS GIVEN.
[2018-07-16] MEDS: MINERAL OIL 30 ML UDC GT SCH (22:37)
--- NOTE | 2018-07-16 22:45 | NUR ---
BOWEL MOVEMENT: HAS LARGE VERY LOOSE STOOL. SKIN CARE AND ORAL CARE DONE.
[2018-07-17] VITALS (7 sets, daily range): BP systolic 106–140
--- NOTE | 2018-07-17 00:30 | NUR ---
TURNED TO SIDES. ORAL SUCTIONING AND CARE DONE.
--- NOTE | 2018-07-17 05:05 | NUR ---
BOWEL MOVEMENT: HAD SEMI WATERY STOOL. SKIN AND ORAL CARE DONE.
[2018-07-17] MEDS: PIPERACILLIN/TAZO 3.375/DEX-IS 50 ML IV SCH ×4 (05:56→23:37)
[2018-07-17] MEDS: D5LR 1,000 ML IV SCH ×2 (05:56→18:02)
[2018-07-17] MEDS: LEVOTHYROXINE SODIUM 0.125 MG TABLET GT SCH (05:57)
[2018-07-17] MEDS: METOCLOPRAMIDE HCL 10 MG/10 ML UDC GT SCH ×3 (05:59→20:44)
--- NOTE | 2018-07-17 06:45 | NUR ---
CLOSING: ALL NEEDS WERE DONE. NO ACUTE CARDIOPULMONARY DISTRESS . ON SAME VENT SETTINGS. CALL LIGHT WITHIN REACH. SAFETY MEASURES WERE IMPLEMENTED. WILL ENDORSE CARE TO AM RN.
[2018-07-17] MEDS: COLISTIMETHATE SODIUM 150 MG VIAL INH SCH ×2 (07:00→19:00)
[2018-07-17] MEDS: ACETYLCYSTEINE 20% 4 ML VIAL (RT) INH SCH ×4 (07:24→19:59)
[2018-07-17] MEDS: LEVALBUTEROL HCL 0.63 MG/3 ML VIAL.NEB INH PRN ×4 (07:24→19:59)
--- NOTE | 2018-07-17 07:42 | NUR ---
OPENING NOTE Patient resting in the bed comfortable. No acute distress. Trach intact to vent. Denied of pain at this time. HOB elevated. GT/JT intact, patent. On Jevity 1.2 at 50ml/hr. Skin warm and dry to touch. IV intact to LFA, no redness, no swelling, no drainage. On D6 LR at 100ml/hr, infusing well. F/C intact, drain gravity with yellow urine. On contact isolation. Safety measure maintained. Bed locked in low position, side rails up. Call light within reached. Will continue to monitor.
--- NOTE | 2018-07-17 09:38 | NUR ---
SEEN AND EXAMINED BY KURTIS CARSON.
[2018-07-17] MEDS: POTASSIUM CHLORIDE 20 MEQ/PKT PACKET GT SCH ×2 (09:50→20:22)
[2018-07-17] MEDS: LANSOPRAZOLE 30 MG CAPSULE.DR GT SCH (09:51)
[2018-07-17] MEDS: LACTOBACILLUS RHAMNOSUS GG 1 CAP CAPSULE GT SCH ×3 (09:51→21:35)
[2018-07-17] MEDS: BACLOFEN 10 MG TABLET GT SCH ×2 (09:51→20:22)
[2018-07-17] MEDS: MULTIVITS,CA,MINERALS/IRON/FA 1 TABLET GT SCH (09:51)
[2018-07-17] MEDS: FAMOTIDINE PF 20 MG/2 ML VIAL IVP SCH ×2 (09:55→20:28)
[2018-07-17] MEDS: METOPROLOL TARTRATE 50 MG TABLET GT SCH ×2 (09:55→20:29)
[2018-07-17] MEDS: CHLORHEXIDINE GLUCONATE 15 ML/DOSE, 480 ML MM SCH ×2 (09:56→20:29)
[2018-07-17] MEDS: SILVER SULFADIAZINE 1%, 25 GM TOPICAL CREAM (SSD) TP SCH ×2 (09:56→20:30)
--- NOTE | 2018-07-17 10:30 | NUR ---
Discharge Planning: DCP faxed pt referral to [facility] (f [phone] p [phone]) DCP to follow up. Addendum: 07/17/18 at 1216 by Mony Gregory [facility] (f [phone] p [phone]) lm for DCP pt will go back to room 43. DCP made nurse aware.
--- NOTE | 2018-07-17 11:55 | NUR ---
SEEN AND EXAMINED BY MAUREEN ZARATE.
--- NOTE | 2018-07-17 14:10 | NUR ---
TURNED AND REPOSITIONED Patient no acute distress. Trach intact to vent. IV intact, IVF infusing well. G-tube intact. F/C intact, drain gravity. Safety measure maintained. Call light within reached. Continue to monitor.
[2018-07-17] MEDS: FLUCONAZOLE 200 mg/ NS 100 ML IV SCH (14:38)
[2018-07-17] MEDS: MENTHOL/ZINC OXIDE 113 GM OINT. TP PRN (15:07)
--- NOTE | 2018-07-17 15:20 | NUR ---
LEFT AND RIGHT BUTTOCK WOUND DRESSING CHANGED Wound care done to left and right wound dressing. Procedure tolerated well. No acute distress. Trach intact to vent. F/C intact, drain gravity. SCD in placed. Safety measure maintained. Call light within reached. Continue to monitor.
--- NOTE | 2018-07-17 18:51 | NUR ---
CLOSING NOTE Patient resting in the bed comfortable. No acute distress. Trach intact to vent. HOB elevated. GT/JT intact, patent. On Jevity 1.2 at 50ml/hr, tolerated well. No N/V or s/s of aspiration noted. Skin warm and dry to touch. IV intact to LFA, no redness, no swelling, no drainage. On D5 LR at 100ml/hr, infusing well. F/C intact, drain gravity with yellow urine. On contact isolation. SCD in placed. All needs met. Hourly rounding during shift. Safety measure maintained. Bed locked in low position, side rails up, bed alarm on. Call light within reached. Will endorse to night nurse.
[2018-07-17] MEDS: MINERAL OIL 30 ML UDC GT SCH (20:28)
--- NOTE | 2018-07-17 20:30 | NUR ---
RN Note No residual noted. Due meds given via GT. Flushed free water. No leaking on GT site, will continue to monitor. Oral care done. Repositioned. Heels off bed. Skin care done. No sputum suctioned via trach. Dry Cough noted. Kept clean, dry and comfortable. Patient wants her pulse ox removed from her finger. Educated patient that we are checking her Oxygen in a monitor and it has to stay in her finger, patient understood.
--- NOTE | 2018-07-17 22:30 | NUR ---
RN Note Awake and alert, watching TV, coughs occasionally but not congested. Repositioned. Kept warm and comfortable.
--- NOTE | 2018-07-18 00:40 | NUR ---
RN Note Arousable. No SOB or grimacing noted. Repositioned. Vent settings checked. Oral care done. Not congested. Kept warm and comfortable.
[2018-07-18 01:52] VITALS: BP_SYST 118
[2018-07-18] MEDS: D5LR 1,000 ML IV SCH ×3 (03:05→16:53)
--- NOTE | 2018-07-18 03:30 | NUR ---
RN Note Patient awake and alert. Suctioned mouth. Had loose brown stool. Incontinence and skin care provided. Barrier cream applied. Changed linens and gown. Repositioned. Heels off bed. No residual noted. Flushed free water. Kept clean, dry and comfortable.
[2018-07-18] MEDS: LEVOTHYROXINE SODIUM 0.125 MG TABLET GT SCH (05:12)
[2018-07-18] MEDS: METOCLOPRAMIDE HCL 10 MG/10 ML UDC GT SCH ×3 (05:12→21:03)
[2018-07-18] MEDS: PIPERACILLIN/TAZO 3.375/DEX-IS 50 ML IV SCH ×4 (05:12→23:37)
--- NOTE | 2018-07-18 06:28 | NUR ---
End Note Afebrile. VS stable. No complain of pain, SOB or n/v throughout the night. Vent settings checked. Not congested. Suctioned mouth for saliva and oral care done. GT moderately leaking, changed GT dressing and applied cream as ordered. Had loose BM. Barrier cream applied. GT and IVF infusing. No residual noted all night and water flushes given. Dressing on buttocks CDI. Repositioned. SCDs. Care and monitoring provided per protocol. Call light within reach. Bed alarm on and at lowest position at all times. Needs attended. Kept clean, dry and comfortable. NSR on monitor.
[2018-07-18] MEDS: ACETYLCYSTEINE 20% 4 ML VIAL (RT) INH SCH ×2 (07:00→15:37)
[2018-07-18 08:00] VITALS: BP_SYST 124
--- NOTE | 2018-07-18 08:00 | NUR ---
Opening Note Report received from [facility] shift nurse. Aspiration and contact precautions are in place. Patient is able to open her eyes only. Trach is to vent with the following setting: AC 16, TV 450, FiO 40%, peep 5. G-tube and J-tube continue to drain around the insertion site. Campbell cath is draining cloudy, yellow urine. IV is on the LFA g running D5LR@100. Call light is within reach and bed is in low position. Will continue to monitor.
[2018-07-18] MEDS: LANSOPRAZOLE 30 MG CAPSULE.DR GT SCH (09:47)
[2018-07-18] MEDS: MULTIVITS,CA,MINERALS/IRON/FA 1 TABLET GT SCH (09:47)
[2018-07-18] MEDS: BACLOFEN 10 MG TABLET GT SCH ×2 (09:47→20:57)
[2018-07-18] MEDS: LACTOBACILLUS RHAMNOSUS GG 1 CAP CAPSULE GT SCH ×3 (09:47→20:57)
[2018-07-18] MEDS: FAMOTIDINE PF 20 MG/2 ML VIAL IVP SCH ×2 (09:47→20:58)
[2018-07-18] MEDS: POTASSIUM CHLORIDE 20 MEQ/PKT PACKET GT SCH ×2 (09:47→20:57)
[2018-07-18] MEDS: CHLORHEXIDINE GLUCONATE 15 ML/DOSE, 480 ML MM SCH ×2 (09:48→20:59)
[2018-07-18] MEDS: METOPROLOL TARTRATE 50 MG TABLET GT SCH ×2 (09:48→20:58)
[2018-07-18] MEDS: SILVER SULFADIAZINE 1%, 25 GM TOPICAL CREAM (SSD) TP SCH ×2 (09:49→20:59)
--- NOTE | 2018-07-18 10:00 | NUR ---
RN Note Placed patient on a low-airloss mattress.
--- NOTE | 2018-07-18 10:15 | NUR ---
Rounds Patient was cleaned and turned tolerated well.
[2018-07-18 12:40] VITALS: BP_SYST 126
--- NOTE | 2018-07-18 12:42 | NUR ---
Rounds patient is currently resting in bed. No current change in condition,
--- NOTE | 2018-07-18 13:05 | NUR ---
Nutrition F/U RD reviewed EMR including physician notes, nursing notes, pertinent labs/meds, care trends, and care activity. Pt seen resting in bed w/ TF infusing as per MD order. Current TF order: Jevity 1.2 at 50 ml/hr, Bam BID, Free Water Flush: 150 Q6h via JT. Per RN, pt has been tolerating TF well, no residuals, and no s/s of intolerance. RD inquired about Bam modular -- RN stated she is aware of order and would administer. Bedscale wt taken: 132 lb -- wt appears stable when compared to admission wt. NEW ESTIMATED NUTRITIONAL NEEDS Estimated Caloric Needs: 8172-4899 kcal/day (30-35 kcal/kg Adj IBW for wound healing) Estimated Protein Needs: 52-78 gm/day (1-1.2 gm/kg Adj IBW for wound healing) Estimated Fluid Needs: 1.6-1.8 L/day (1 ml/kcal/day for wound healing) Current TF regimen is adequate/appropriate. Current TF regimen reflect's RD recommendation from Nutrition Assessment competed 07/15/18. Nutrition prescription provides 1600 kcal/day, 72 gm protein/day, and 1568 ml free water/day. This meets 103% of lower end of estimated caloric needs and 92% of upper end of estimated protein needs. RD to follow-up moderate risk in 3-5 days.
--- NOTE | 2018-07-18 13:46 | NUR ---
DC Planning: transfer pt back to [place] [facility] is pending GT reevaluation. Per RN Haylee, GT is still leaking. She will notify as well (bond underwriter for dr Barcenas).
--- NOTE | 2018-07-18 14:20 | NUR ---
RN Note Tube feeding changed. No residuals at the moment.
[2018-07-18] MEDS: FLUCONAZOLE 200 mg/ NS 100 ML IV SCH (14:36)
[2018-07-18] MEDS: LEVALBUTEROL HCL 0.63 MG/3 ML VIAL.NEB INH PRN ×2 (15:38→15:40)
[2018-07-18 16:44] VITALS: BP_SYST 114
--- NOTE | 2018-07-18 16:45 | NUR ---
Wound Care Changed cleansed sacral wound with NS, z-gaurd applied, covered with foam dressing. Patient tolerated well.
[2018-07-18] MEDS ORDERED: DOCUSATE SODIUM 100 MG CAPSULE PO PRN (17:15)
[2018-07-18] MEDS ORDERED: MILK OF MAGNESIA 30 ML UDC PO PRN (17:15)
[2018-07-18] MEDS ORDERED: HYDROcodone/ACETAMIN 5-325 MG TAB (NORCO/ VICODIN) PO PRN (17:15)
--- NOTE | 2018-07-18 18:50 | NUR ---
Closing Note Patient is on aspiration and isolation seizure precautions. Trach is to vent with the following setting: AC 16, TV 450, Fio2 40%, peep 5. IV is on the LFA 22g running D5LR@100. Campbell cath is draining cloudy, yellow urine. G and J tube is in place running Jevity 1.2 @50. Bed is locked and in the lowest position. Will endorse care to the oncoming nurse.
--- NOTE | 2018-07-18 19:55 | NUR ---
Initial note: Received report from remy RN. Patient is resting in bed, not showing any acute distress. On [id number] with settings of AC 16, TV 450, FiO2 40%, PEEP 5.0. IV site to left forearm receiving fluids well. GJ-tube in place. J-tube receiving tubefeeding as ordered, G-tube for medications and water flushes is clamped. Dressing covering insertion site is clean, dry, intact. Campbell catheter draining well to gravity. Call light with patient. Safety, fall precautions in place. Will continue with plan of care.
[2018-07-18 20:45] VITALS: BP_SYST 130
[2018-07-18] MEDS: MINERAL OIL 30 ML UDC GT SCH (20:57)
--- NOTE | 2018-07-18 21:05 | NUR ---
Med pass: Medications administered via G-tube. 5 ML gastric residual prior to administration. Patient tolerated well, dressing covering GJ-tube insertion site remains clean, dry, intact. Will continue monitoring.
--- NOTE | 2018-07-18 23:25 | NUR ---
Endorsement of care: Care endorsed to CHELO Mckeon.
--- NOTE | 2018-07-18 23:30 | NUR ---
report given by nurse Piper for continuity of care.
--- NOTE | 2018-07-18 23:45 | NUR ---
NOTES: checked pt. awake, non verbal on trach with portex # 7 vent settings FIO2 40% TV 450 Peep 5 and AC rate 16. pt. was drooling orally, suctioned via mouth and trach with thick secretions. oral care done and moistened mouth and lips. pt. extremities flaccid . IV on left forearm, appears slightly reddened, but still patent, IVF infusing @ 100 cc/hr. G-J tube feeding with Jevity 1.2, checked site pretty saturated, appears leaking, nurse Feliz said it has been leaking as endorsed, dressing changed and kept dry. tsai cath to OSD. observed contact isolation for MDRO urine. opens eyes when name called, seems to understand a little bit when you tell her something.
[2018-07-19 00:20] VITALS: BP_SYST 139
--- NOTE | 2018-07-19 02:13 | NUR ---
NOTES: pt. pretty awake, been coughing, lots of mucus orally, been drooling , noted bit her tongue , slight bleeding. oral care done.
--- NOTE | 2018-07-19 03:30 | NUR ---
NOTES: complete am and salome care done, had a big brownish stool. kept clean and dry. sacral foam dressing intact. repositioned . oral care and suctioned orally and via trach. RT to follow for trach care. condition guarded. cardiac pattern on sinus rhythm.
[2018-07-19] MEDS: D5LR 1,000 ML IV SCH ×2 (06:01→17:26)
[2018-07-19] MEDS: METOCLOPRAMIDE HCL 10 MG/10 ML UDC GT SCH (06:03)
[2018-07-19] MEDS: LEVOTHYROXINE SODIUM 0.125 MG TABLET GT SCH (06:03)
[2018-07-19] MEDS: PIPERACILLIN/TAZO 3.375/DEX-IS 50 ML IV SCH ×3 (06:04→17:27)
[2018-07-19] MEDS: COLISTIMETHATE SODIUM 150 MG VIAL INH SCH ×4 (06:23→19:00)
[2018-07-19 06:53] LABS: BASOPHILS % (AUTO) 0.3 % (0.0-2.0); EOSINOPHILS # (AUTO) 0.1 K/uL (0.0-0.4); EOSINOPHILS % (AUTO) 1.1 % (0.0-4.0); HEMOGLOBIN 9.3 g/dL (12.0-16.0); LYMPHOCYTES # (AUTO) 5.2 K/uL (1.0-5.5); LYMPHOCYTES % (AUTO) 43.9 % (20.5-51.5); MEAN CORPUSCULAR HEMOGLOBIN 30 pg (27-31); MEAN CORPUSCULAR HGB CONC 32 % (32-36); MEAN CORPUSCULAR VOLUME 93 fL (79.0-98.0); MONOCYTES % (AUTO) 8.3 % (1.7-9.3); NEUTROPHILS # (AUTO) 5.5 K/uL (1.8-7.7); NEUTROPHILS % (AUTO) 46.4 % (40.0-70.0); PLATELET COUNT (AUTO) 244 K/uL (130-430); RED BLOOD CELL COUNT(AUTO) 3.12 MIL/uL (4.2-6.2); RED CELL DISTRIBUTION WIDTH 17.5 % (9.0-15.0); WHITE BLOOD COUNT (AUTO) 11.9 K/uL (4.8-10.8)
[2018-07-19] MEDS: ACETYLCYSTEINE 20% 4 ML VIAL (RT) INH SCH ×4 (07:09→20:44)
[2018-07-19] MEDS: LEVALBUTEROL HCL 0.63 MG/3 ML VIAL.NEB INH PRN ×3 (07:10→20:43)
[2018-07-19 07:25] LABS: CALCIUM 8.6 mg/dL (8.4-11.0); CREATININE 0.42 mg/dL (0.55-1.30); POTASSIUM 3.8 mmol/L (3.5-5.1)
--- NOTE | 2018-07-19 07:50 | NUR ---
Opening note Patient resting in bed at this time, Non verbal, opens eyes to name, NO SOB, No facial grimacing. Lung sounds clear, Trach site intact, no drainage noted. Oral care provided. G/J tube in place, dressing changed as ordered, Jevity 1.2 infusing as ordered, tolerating well, no residual noted, no aspiration noted. Bowel sounds hypoactive. IV site on Left forearm, patent, and infusing as ordered. No edema noted, Campbell catheter in place, draining yellow urine with sediments. SCD in place. On contact isolation,aspiration, and fall precautions, reinforced. Bed kept in lowest position, bed alarm on, HOB kept elevated, 3 side rails up.
[2018-07-19 08:00] VITALS: BP_SYST 124
--- NOTE | 2018-07-19 08:30 | NUR ---
GT site care: GT dressing is saturated with light yellow fluid, site and skin surrounding with minimal redness, cleansed with normal saline, silvadene cream applied onto the skin, dry drain sponge applied, covered with abdominal pad.
[2018-07-19] MEDS: MULTIVITS,CA,MINERALS/IRON/FA 1 TABLET GT SCH (09:55)
[2018-07-19] MEDS: LACTOBACILLUS RHAMNOSUS GG 1 CAP CAPSULE GT SCH ×3 (09:55→21:35)
[2018-07-19] MEDS: POTASSIUM CHLORIDE 20 MEQ/PKT PACKET GT SCH ×2 (09:56→21:34)
[2018-07-19] MEDS: BACLOFEN 10 MG TABLET GT SCH ×2 (09:56→21:35)
[2018-07-19] MEDS: FAMOTIDINE PF 20 MG/2 ML VIAL IVP SCH ×2 (09:56→21:35)
[2018-07-19] MEDS: METOPROLOL TARTRATE 50 MG TABLET GT SCH ×2 (09:57→21:51)
[2018-07-19] MEDS: SILVER SULFADIAZINE 1%, 25 GM TOPICAL CREAM (SSD) TP SCH ×2 (09:58→21:36)
[2018-07-19] MEDS: CHLORHEXIDINE GLUCONATE 15 ML/DOSE, 480 ML MM SCH ×2 (09:58→21:35)
[2018-07-19] MEDS ORDERED: LANSOPRAZOLE 30 MG CAPSULE.DR GT ONE (10:15)
[2018-07-19] MEDS ORDERED: METOCLOPRAMIDE HCL 10 MG/2 ML VIAL IVP SCH (10:30)
--- NOTE | 2018-07-19 10:30 | NUR ---
MD rounds: Dr. Beard is aware that GT site is still leaking.
[2018-07-19] MEDS ORDERED: METOCLOPRAMIDE HCL 10 MG/2 ML VIAL IVP ONE (10:45)
--- NOTE | 2018-07-19 12:30 | NUR ---
Rn rounds Patient resting in bed at this time, GT leaking, dressing changed, and abdominal pad applied. Antibiotics given as ordered. IV site intact. Patient turned and repositioned, skin care provided, oral care provided. Patient resting comfortably at this time.
[2018-07-19 12:36] VITALS: BP_SYST 136
--- NOTE | 2018-07-19 14:00 | NUR ---
IV START: Started gauge 22 on the left hand, blood return noted on first attempt. Secured with clear dressing and tape. Removed old IV on the left forearm, no bleeding noted. Covered with 2x2 dressing.
[2018-07-19] MEDS: FLUCONAZOLE 200 mg/ NS 100 ML IV SCH (14:44)
[2018-07-19] MEDS: MENTHOL/ZINC OXIDE 113 GM OINT. TP PRN (15:14)
[2018-07-19 16:39] VITALS: BP_SYST 133
[2018-07-19] MEDS: METOCLOPRAMIDE HCL 10 MG/2 ML VIAL IVP SCH (17:27)
--- NOTE | 2018-07-19 18:09 | NUR ---
Closing note Patient resting in bed at this time, visitor at bedside, NO SOB, No facial grimacing. Lung sounds clear, Trach site intact, no drainage noted. Oral care provided. G/J tube in place, dressing changed and reinforced, skin care provided. Patient turned and repositioned, IV site on Left hand, patent, and infusing fluids and antibiotics as ordered. Campbell catheter in place, draining yellow urine with sediments. SCD in place. On contact isolation,aspiration, and fall precautions, reinforced. Bed kept in lowest position, bed alarm on, HOB kept elevated, 3 side rails up. Educated visitor on isolation precautions, visitor verbalized understanding and returned demonstration. All needs met at this time.
--- NOTE | 2018-07-19 19:47 | NUR ---
INITIAL NOTE AT INITIAL ASSESSMENT, PATIENT IS RESTING IN BED, STABLE, NO SIGNS OF RESPIRATORY DISTRESS. PATIENT SHAKES HER HEAD "NO" WHEN ASKED IF SHE IS EXPERIENCING PAIN. PLAN OF CARE FOR THE EVENING IS COMMUNICATED TO THE PATIENT. BED IS LOCKED, ALARMED, AND AT THE LOWEST LEVEL. FALL, SAFETY, AND ISOLATION PRECAUTIONS WILL BE IN PLACE THROUGHOUT THE SHIFT. PATIENT WILL BE TURNED [id number] THROUGHOUT THE SHIFT.
[2018-07-19 19:49] VITALS: BP_SYST 109
[2018-07-19] MEDS: MINERAL OIL 30 ML UDC GT SCH (21:35)
--- NOTE | 2018-07-19 21:45 | NUR ---
NOTE WATER FLUSH GIVEN AT THIS TIME. PATIENT IS RESTING IN BED, STABLE, NO SIGNS OF RESPIRATORY DISTRESS. CALL LIGHT IS WITHIN REACH. BED IS LOCKED, ALARMED, AND AT THE LOWEST LEVEL.
--- NOTE | 2018-07-19 23:43 | NUR ---
NOTE PATIENT IS SLEEPING, STABLE, NO SIGNS OF RESPIRATORY DISTRESS. CALL LIGHT IS WITHIN REACH. BED IS LOCKED, ALARMED, AND AT THE LOWEST LEVEL.
--- NOTE | 2018-07-20 00:45 | NUR ---
NOTE SCHEDULED MEDICATION GIVEN AT THIS TIME. ORAL CARE PROVIDED. PATIENT IS SLEEPING, STABLE, NO SIGNS OF RESPIRATORY DISTRESS. CALL LIGHT IS WITHIN REACH. BED IS LOCKED, ALARMED, AND AT THE LOWEST LEVEL.
[2018-07-20] MEDS: PIPERACILLIN/TAZO 3.375/DEX-IS 50 ML IV SCH ×5 (00:50→23:35)
[2018-07-20] MEDS: METOCLOPRAMIDE HCL 10 MG/2 ML VIAL IVP SCH ×5 (00:51→23:36)
[2018-07-20 01:57] VITALS: BP_SYST 124
--- NOTE | 2018-07-20 02:41 | NUR ---
NOTE PATIENT IS SLEEPING, STABLE, NO SIGNS OF RESPIRATORY DISTRESS. CALL LIGHT IS WITHIN REACH. BED IS LOCKED, ALARMED, AND AT THE LOWEST LEVEL.
--- NOTE | 2018-07-20 03:56 | NUR ---
NOTE PATIENT IS SLEEPING, STABLE, NO SIGNS OF RESPIRATORY DISTRESS. CALL LIGHT IS WITHIN REACH. BED IS LOCKED, ALARMED, AND AT THE LOWEST LEVEL.
--- NOTE | 2018-07-20 05:19 | NUR ---
ORAL CARE PROVIDED ORAL CARE PROVIDED AT THIS TIME. PATIENT IS RESTING IN BED, STABLE, NO SIGNS OF RESPIRATORY DISTRESS. BED IS LOCKED, ALARMED, AND AT THE LOWEST LEVEL.
[2018-07-20] MEDS: D5LR 1,000 ML IV SCH ×3 (05:38→23:41)
[2018-07-20] MEDS: LEVOTHYROXINE SODIUM 0.125 MG TABLET GT SCH (06:36)
--- NOTE | 2018-07-20 06:50 | NUR ---
CLOSING NOTE J-G TUBE HAD SOME LEAKAGE DURING THE SHIFT, DRESSING NEEDED TO BE CHANGED TWICE FOR SOILAGE. AT THIS TIME, PATIENT IS RESTING IN BED, STABLE, NO SIGNS OF RESPIRATORY DISTRESS. CALL LIGHT IS WITHIN REACH. BED IS LOCKED, ALARMED, AND AT THE LOWEST LEVEL. FALL, SAFETY, AND ISOLATION PRECAUTIONS HAVE BEEN IN PLACE THROUGHOUT THE SHIFT. WILL CONTINUE TO MONITOR UNTIL SHIFT REPORT IS GIVEN AT BEDSIDE TO AM NURSE.
[2018-07-20] MEDS: COLISTIMETHATE SODIUM 150 MG VIAL INH SCH ×2 (07:00→20:36)
--- NOTE | 2018-07-20 07:30 | NUR ---
AM ROUNDS: BEDSIDE REPORT GIVEN BY NIGHT NURSE LAMAR.ON CONTACT ISOLATION FOR MDRO IN SPUTUM. J-TUBE FEEDS ON GOING. LOCKWOOD IN SITU. VENT DEPENDENT,NO DISTRESS . PARALYZED UPPER EXTREMITIES.BED LOCKED AT LOWEST POSITION. BED ALARM ON. CONTINUE TO MONITOR.
[2018-07-20 08:05] VITALS: BP_SYST 112
[2018-07-20] MEDS: LEVALBUTEROL HCL 0.63 MG/3 ML VIAL.NEB INH PRN ×4 (08:26→20:08)
[2018-07-20] MEDS: ACETYLCYSTEINE 20% 4 ML VIAL (RT) INH SCH ×4 (08:26→20:08)
[2018-07-20] MEDS ORDERED: LANSOPRAZOLE 30 MG CAPSULE.DR GT SCH (09:00)
[2018-07-20] MEDS: LACTOBACILLUS RHAMNOSUS GG 1 CAP CAPSULE GT SCH ×3 (09:13→23:44)
[2018-07-20] MEDS: BACLOFEN 10 MG TABLET GT SCH ×2 (09:14→23:37)
[2018-07-20] MEDS: MULTIVITS,CA,MINERALS/IRON/FA 1 TABLET GT SCH (09:14)
[2018-07-20] MEDS: FAMOTIDINE PF 20 MG/2 ML VIAL IVP SCH ×2 (09:14→23:36)
[2018-07-20] MEDS: LANSOPRAZOLE 30 MG CAPSULE.DR GT SCH (09:14)
[2018-07-20] MEDS: METOPROLOL TARTRATE 50 MG TABLET GT SCH ×2 (09:14→23:44)
[2018-07-20] MEDS: SILVER SULFADIAZINE 1%, 25 GM TOPICAL CREAM (SSD) TP SCH ×2 (09:15→23:36)
[2018-07-20] MEDS: CHLORHEXIDINE GLUCONATE 15 ML/DOSE, 480 ML MM SCH ×2 (09:15→23:37)
--- NOTE | 2018-07-20 09:15 | NUR ---
G TUBE/CRUSHED MEDS: NO RESIDUALS PRIOR TO GIVING MEDS.DUE CRUSHED MEDS GIVEN.FLUSHED WITH WATER AFTER GIVING MEDS. NO PROBLEM.
[2018-07-20] MEDS: POTASSIUM CHLORIDE 20 MEQ/PKT PACKET GT SCH ×2 (09:16→23:37)
[2018-07-20 11:15] VITALS: BP_SYST 125
[2018-07-20 12:02] VITALS: BP_SYST 125
--- NOTE | 2018-07-20 12:30 | NUR ---
RN ROUNDS: NO DISTRESS. WITH SAME VENT SETTINGS. CONTINUE TO MONITOR.
[2018-07-20] MEDS: FLUCONAZOLE 200 mg/ NS 100 ML IV SCH (14:08)
--- NOTE | 2018-07-20 15:00 | NUR ---
TUBE SITES: CLEANSE WITH NS TUBE SITE,APPLIED SILVADENE CREAM ORDERED THEN COVERED WITH FREDERIC DRESSING.
[2018-07-20 16:02] VITALS: BP_SYST 138
--- NOTE | 2018-07-20 18:28 | NUR ---
END OF SHIFT: TUBE FEEDS ON GOING. LOCKWOOD IN SITU. WITH SAME VENT SETTINGS,GOOD SATURATION. WITH BILATERAL SCD'S ON LE.BED LOCKED AT LOWEST POSITION. CONDITION GUARDED.
[2018-07-20 19:47] VITALS: BP_SYST 130
--- NOTE | 2018-07-20 19:47 | NUR ---
INITIAL NOTE AT INITIAL ASSESSMENT, PATIENT IS RESTING IN BED, STABLE, NO SIGNS OF RESPIRATORY DISTRESS. PATIENT SHAKES HER HEAD "NO" WHEN ASKED IF SHE IS COMFORTABLE, PATIENT IS REPOSITIONED IMMEDIATELY AND NODS HER HEAD "YES" WHEN ASKED IF SHE IS COMFORTABLE. PLAN OF CARE FOR THE EVENING IS COMMUNICATED TO THE PATIENT. BED IS LOCKED, ALARMED, AND AT THE LOWEST LEVEL. FALL, SAFETY, AND ISOLATION PRECAUTIONS WILL BE IN PLACE THROUGHOUT THE SHIFT. PATIENT WILL BE TURNED [id number] THROUGHOUT THE SHIFT.
--- NOTE | 2018-07-20 21:45 | NUR ---
NOTE ORAL CARE PROVIDED AT THIS TIME. PATIENT IS RESTING IN BED, STABLE, NO SIGNS OF RESPIRATORY DISTRESS. BED IS LOCKED, ALARMED, AND AT THE LOWEST LEVEL.
[2018-07-20] MEDS: MINERAL OIL 30 ML UDC GT SCH (23:37)
--- NOTE | 2018-07-20 23:42 | NUR ---
NOTE PATIENT IS SLEEPING, STABLE, NO SIGNS OF RESPIRATORY DISTRESS. BED IS LOCKED, ALARMED, AND AT THE LOWEST LEVEL.
[2018-07-21 00:47] VITALS: BP_SYST 136
--- NOTE | 2018-07-21 01:40 | NUR ---
ORAL CARE PROVIDED ORAL CARE PROVIDED AT THIS TIME. PATIENT TOLERATED WELL. PATIENT IS REPOSITIONED FOR COMFORT, SHE IS STABLE, NO SIGNS OF RESPIRATORY DISTRESS. BED IS LOCKED, ALARMED, AND AT THE LOWEST LEVEL.
--- NOTE | 2018-07-21 03:35 | NUR ---
NOTE PATIENT IS SLEEPING, STABLE, NO SIGNS OF RESPIRATORY DISTRESS. BED IS LOCKED, ALARMED, AND AT THE LOWEST LEVEL.
--- NOTE | 2018-07-21 05:20 | NUR ---
HYGIENE CARE HYGIENE CARE PROVIDED AT THIS TIME, PATIENT IS CLEANED AND PROVIDED FRESH LINEN. PATIENT TOLERATED WELL. PATIENT IS REPOSITIONED FOR COMFORT. SHE IS STABLE, NO SIGNS OF RESPIRATORY DISTRESS. BED IS LOCKED, ALARMED, AND AT THE LOWEST LEVEL.
[2018-07-21] MEDS: METOCLOPRAMIDE HCL 10 MG/2 ML VIAL IVP SCH ×4 (05:42→23:39)
[2018-07-21] MEDS: PIPERACILLIN/TAZO 3.375/DEX-IS 50 ML IV SCH ×4 (05:42→23:38)
[2018-07-21] MEDS: LEVOTHYROXINE SODIUM 0.125 MG TABLET GT SCH (06:01)
--- NOTE | 2018-07-21 06:25 | NUR ---
CLOSING NOTE J-G TUBE MINIMAL LEAKAGE DURING THE SHIFT, DRESSING NEEDED TO BE CHANGED ONLY ONCE FOR SOILAGE. AT THIS TIME, PATIENT IS RESTING IN BED, STABLE, NO SIGNS OF RESPIRATORY DISTRESS. CALL LIGHT IS WITHIN REACH. BED IS LOCKED, ALARMED, AND AT THE LOWEST LEVEL. FALL, SAFETY, AND ISOLATION PRECAUTIONS HAVE BEEN IN PLACE THROUGHOUT THE SHIFT. PATIENT HAS BEEN TURNED [id number] THROUGHOUT THE SHIFT. WILL CONTINUE TO MONITOR UNTIL SHIFT REPORT IS GIVEN AT BEDSIDE TO AM NURSE.
--- NOTE | 2018-07-21 07:19 | NUR ---
AM ROUNDS: PATIENT SLEEPING DURING ROUNDS. CHRONIC TRACH VENT. BEDSIDE REPORT GIVEN BY NIGHT NURSE LAMAR. TUBE FEEDS ON GOING. LOCKWOOD IN SITU. BED LOCKED AT LOWEST POSITION. CONTINUE TO MONITOR.
[2018-07-21] MEDS: COLISTIMETHATE SODIUM 150 MG VIAL INH SCH ×2 (07:49→20:22)
[2018-07-21] MEDS: LEVALBUTEROL HCL 0.63 MG/3 ML VIAL.NEB INH PRN ×4 (07:49→20:08)
[2018-07-21] MEDS: ACETYLCYSTEINE 20% 4 ML VIAL (RT) INH SCH ×4 (07:50→20:08)
--- NOTE | 2018-07-21 09:35 | NUR ---
MEDS/G-TUBE: NO RESIDUALS PRIOR TO GIVING MEDS.DUE PO CRUSHED MEDS GIVEN.FLUSHED WITH WATER.STILL WITH MODERATE AMOUNT OF LEAKAGE NOTED.
[2018-07-21] MEDS: LACTOBACILLUS RHAMNOSUS GG 1 CAP CAPSULE GT SCH ×3 (09:37→21:39)
[2018-07-21] MEDS: LANSOPRAZOLE 30 MG CAPSULE.DR GT SCH (09:37)
[2018-07-21] MEDS: POTASSIUM CHLORIDE 20 MEQ/PKT PACKET GT SCH ×2 (09:37→21:40)
[2018-07-21] MEDS: FAMOTIDINE PF 20 MG/2 ML VIAL IVP SCH ×2 (09:38→21:40)
[2018-07-21] MEDS: METOPROLOL TARTRATE 50 MG TABLET GT SCH ×2 (09:47→21:40)
[2018-07-21] MEDS: BACLOFEN 10 MG TABLET GT SCH ×2 (09:47→21:39)
[2018-07-21] MEDS: MULTIVITS,CA,MINERALS/IRON/FA 1 TABLET GT SCH (09:47)
[2018-07-21] MEDS: CHLORHEXIDINE GLUCONATE 15 ML/DOSE, 480 ML MM SCH ×2 (09:48→21:42)
[2018-07-21] MEDS: SILVER SULFADIAZINE 1%, 25 GM TOPICAL CREAM (SSD) TP SCH ×2 (09:49→21:41)
[2018-07-21 10:18] VITALS: BP_SYST 137
[2018-07-21 11:20] VITALS: BP_SYST 136
--- NOTE | 2018-07-21 11:30 | NUR ---
RN ROUNDS: CONDITION STABLE. WITH SAME VENT SETTINGS. WITH GOOD SATURATION.
[2018-07-21 12:02] VITALS: BP_SYST 136
--- NOTE | 2018-07-21 14:35 | NUR ---
G-TUBE SITE CARE: CLEANSE WITH NS G-TUBE SITE,PAT DRY. APPLIED SILVADENE CREAM TO SITE AND BARRIER CREAM TO MARIA INES WOUND AREA.FREDERIC DRESSING TO G-TUBE SITE.CHANGED DRESSING PRN FOR SOILAGE.
[2018-07-21] MEDS: D5LR 1,000 ML IV SCH (15:19)
[2018-07-21 16:02] VITALS: BP_SYST 140
[2018-07-21] MEDS ORDERED: NACL 0.9% 1,000 ML IV SCH (16:15)
--- NOTE | 2018-07-21 16:32 | NUR ---
WOUND CARE: CLEANSE NS BUTTOCKS AREA,PAT DRY,APPLIED SILVADENE CREAM TO WOUND BED,BARRIER CREAM APPLIED TO MARIA INES WOUND AREA,COVERED WITH SACRAL OPTI FOAM GENTLE. Addendum: 07/21/18 at 1635 by Vita Pringle RN CORRECTED ABOVE NOTES: APPLIED HYDROGEL TO WOUND BED AND BARRIER CREAM TO MARIA INES WOUND AREA.COVERED WITH SACRAL OPTI FOAM GENTLE.
--- NOTE | 2018-07-21 18:45 | NUR ---
Closing Notes: Patient with same vent settings,tolerated well. With good oxygen saturation. J-g tube still leaking -Gi md aware.Campbell in situ.Bilateral scd's on lower extremities. Bed locked at lowest position. Bed alarm on. Condition guarded.
--- NOTE | 2018-07-21 20:00 | NUR ---
Initial note: Received report from remy RN. Patient is awake in bed watching TV. Tolerating [id number] with settings of AC 16, TV 450, FiO2 40%, PEEP 5.0. IV site to right hand receiving fluids well. GJ-tube in place. J-tube receiving tubefeeding as ordered, G-tube for medications and water flushes is clamped. Dressing covering insertion site is clean, dry, intact. Campbell catheter draining well to gravity. Safety and fall precautions in place. Call light is with patient, will continue with plan of care.
[2018-07-21 20:59] VITALS: BP_SYST 134
--- NOTE | 2018-07-21 21:03 | NUR ---
Dr. Temple: Spoke with Dr. Temple over phone to clarify order put in by today for Zosyn 3.375 GM Q6; order had stop date of 07/22/18 at 00:00, and MD's progress note says to continue with Zosyn for another 7 days. Received order to change stop date and time to 07/28/18 at 12:00. Order verified by read-back, RN will input order.
[2018-07-21] MEDS: MINERAL OIL 30 ML UDC GT SCH (21:40)
--- NOTE | 2018-07-21 22:05 | NUR ---
GJ-tube dressing: Dressing at insertion site of GJ-tube is moderately saturated with yellow drainage. Dressing change and site care performed at this time, patient tolerated well. Will continue to monitor.
--- NOTE | 2018-07-22 01:25 | NUR ---
Rounds: Patient is resting in bed, no distress. Respirations are even and unlabored on trach to vent. IV fluids infusing well. GJ-tube dressing is clean, dry, intact. Call light with patient, will continue monitoring.
[2018-07-22 01:56] VITALS: BP_SYST 123
--- NOTE | 2018-07-22 03:46 | NUR ---
Rounds: Patient is sleeping, no distress. Tolerating trach to vent. Call light with patient. Safety, fall precautions in place. Will continue to monitor.
[2018-07-22] MEDS ORDERED: PIPERACILLIN/TAZOBACTAM 3.375 GM/VIAL (ZOSYN) IV ONE (04:36)
[2018-07-22] MEDS: METOCLOPRAMIDE HCL 10 MG/2 ML VIAL IVP SCH ×2 (05:42→11:59)
[2018-07-22] MEDS: PIPERACILLIN/TAZO 3.375/DEX-IS 50 ML IV SCH ×2 (05:42→11:59)
--- NOTE | 2018-07-22 06:03 | NUR ---
Closing note: Patient is watching TV in bed, no distress. Tolerating trach to vent. GJ-tube still leaking a moderate amount of yellow drainage from insertion site, dressing change done at this time. Campbell catheter draining to gravity. All needs met. Will endorse to remy WHITNEY.
[2018-07-22] MEDS: LEVOTHYROXINE SODIUM 0.125 MG TABLET GT SCH (06:06)
[2018-07-22 06:39] LABS: BASOPHILS % (AUTO) 0.3 % (0.0-2.0); EOSINOPHILS # (AUTO) 0.2 K/uL (0.0-0.4); EOSINOPHILS % (AUTO) 2.2 % (0.0-4.0); HEMOGLOBIN 9.8 g/dL (12.0-16.0); LYMPHOCYTES # (AUTO) 4.4 K/uL (1.0-5.5); MEAN CORPUSCULAR HEMOGLOBIN 30 pg (27-31); MEAN CORPUSCULAR HGB CONC 33 % (32-36); MEAN CORPUSCULAR VOLUME 93 fL (79.0-98.0); MONOCYTES # (AUTO) 0.7 K/uL (0.0-1.0); MONOCYTES % (AUTO) 6.4 % (1.7-9.3); NEUTROPHILS # (AUTO) 5.7 K/uL (1.8-7.7); NEUTROPHILS % (AUTO) 51.1 % (40.0-70.0); PLATELET COUNT (AUTO) 319 K/uL (130-430); RED BLOOD CELL COUNT(AUTO) 3.22 MIL/uL (4.2-6.2); RED CELL DISTRIBUTION WIDTH 17.3 % (9.0-15.0); WHITE BLOOD COUNT (AUTO) 11.1 K/uL (4.8-10.8)
[2018-07-22 06:56] LABS: CALCIUM 8.8 mg/dL (8.4-11.0); CREATININE 0.52 mg/dL (0.55-1.30); POTASSIUM 3.8 mmol/L (3.5-5.1)
[2018-07-22 07:07] LABS: TOTAL BILIRUBIN 0.5 mg/dL (0.0-1.0)
[2018-07-22 07:34] VITALS: BP_SYST 112
[2018-07-22] MEDS: COLISTIMETHATE SODIUM 150 MG VIAL INH SCH (07:44)
[2018-07-22] MEDS: LEVALBUTEROL HCL 0.63 MG/3 ML VIAL.NEB INH PRN (07:45)
[2018-07-22] MEDS: ACETYLCYSTEINE 20% 4 ML VIAL (RT) INH SCH (07:45)
--- NOTE | 2018-07-22 08:00 | NUR ---
Note Pt resting in bed with HOB at 45'. No SOB/resp distress or pain/discomfort noted at this time. Pt on mechanical ventilator at this time. Tele unit attached and intact. GT feedings infusing well - dressing CDI at this time. IV in left hand intact and patent infusing IVF's well. Campbell catheter intact and draining well. Pt maintained with contact precautions for MDRO in sputum. No needs noted. Call light within reach.
[2018-07-22] MEDS: POTASSIUM CHLORIDE 20 MEQ/PKT PACKET GT SCH (08:56)
[2018-07-22] MEDS: LANSOPRAZOLE 30 MG CAPSULE.DR GT SCH (08:56)
[2018-07-22] MEDS: LACTOBACILLUS RHAMNOSUS GG 1 CAP CAPSULE GT SCH (08:56)
[2018-07-22] MEDS: BACLOFEN 10 MG TABLET GT SCH (08:57)
[2018-07-22] MEDS: FAMOTIDINE PF 20 MG/2 ML VIAL IVP SCH (08:57)
[2018-07-22] MEDS: MULTIVITS,CA,MINERALS/IRON/FA 1 TABLET GT SCH (08:57)
[2018-07-22] MEDS: METOPROLOL TARTRATE 50 MG TABLET GT SCH (08:57)
[2018-07-22] MEDS: MENTHOL/ZINC OXIDE 113 GM OINT. TP PRN (08:58)
[2018-07-22] MEDS: CHLORHEXIDINE GLUCONATE 15 ML/DOSE, 480 ML MM SCH (08:59)
[2018-07-22] MEDS: SILVER SULFADIAZINE 1%, 25 GM TOPICAL CREAM (SSD) TP SCH (08:59)
--- NOTE | 2018-07-22 10:54 | NUR ---
Discharge Planning: DCP faxed pt referral to return to [facility] ([phone] p [phone]) DCP to follow up Addendum: 07/22/18 at 1133 by Mony Gregory DP [facility] ([phone] p [phone]) accepted pt back to [facility] a private room. DCP made nurse aware. Addendum: 07/22/18 at 1238 by Mony Gregory DP DCP arranged transportation with [facility] ([phone]) 3:00pm P/U, [facility] ([phone] p [phone]) [facility]. Nurse made aware packet taken to nurse station.
[2018-07-22 11:35] VITALS: BP_SYST 132
--- NOTE | 2018-07-22 11:59 | NUR ---
DC PLANNING Order to dc back to [facility], per [facility] sweet pickled fruit maker @ 3pm. Called & notified sister, Ana ph [phone], agreeable w dc back to [facility] today @ 3pm.
--- NOTE | 2018-07-22 12:00 | NUR ---
Note Pt was seen and assessed by Dr Robertson and Dr Beard this am. Dr Barcenas was called and order for discharge to [facility] received. Pt was given hygiene and bed bath at this time. New dressing on GT site was applied as well at this time. Pt resting at this time. No needs noted. Call light within reach.
[2018-07-22] MEDS ORDERED: PIPE3.379 IV (12:45)
[2018-07-22 13:33] VITALS: BP_SYST 110
--- NOTE | 2018-07-22 15:00 | NUR ---
Note Pt's tele unit was dc'd and returned to compliance monitor. Left IVF's were saline locked and IV was Kerlix wrapped for [facility] RN's request. Campbell catheter was dc'd and adult brief applied. GT feedings were stopped and GT/JT tubing was clamped for transfer. Dressing cleaned and changed on sacrum and GT site. Stone gown and sheet applied at this time. Discharge packet ready at nurses' station. Report was given to Aline WHITNEY at 1330 - from [facility]. No needs noted. Pt had no belongings with him. No SOB/resp distress or pain/discomfort noted at this time. Pt was checked on q1' and PRN all shift for needs and care. Call light within reach.
--- NOTE | 2018-07-22 15:30 | NUR ---
NOTE [facility] EMT on the floor via [place]. Report given and discharge packet given to [facility] EMT to give staff at [facility] for continuation of care. Pt stable.
== END 2018-07-22 15:30 | DRG 393 ==
LOC: SED 19:12 → STU 21:39
PROVIDERS: ADMIT Internal Medicine; ATTEND Internal Medicine
PROC: 5A1955Z Respiratory Ventilation, Greater than 96 Consecutive Hours (ICD-10-PCS; 2018-07-14)
PROC: 0D2DXUZ Change Feeding Device in Lower Intestinal Tract, External Approach (ICD-10-PCS; principal; 2018-07-15 15:30)
DX: K94.13 Enterostomy malfunction (principal); J15.1 Pneumonia due to Pseudomonas; E43 Unspecified severe protein-calorie malnutrition; J15.6 Pneumonia due to other Gram-negative bacteria; K94.23 Gastrostomy malfunction; J96.10 Chronic respiratory failure, unspecified whether with hypoxia or hypercapnia; G12.21 Amyotrophic lateral sclerosis; Z99.11 Dependence on respirator [ventilator] status; L03.311 Cellulitis of abdominal wall; G93.40 Encephalopathy, unspecified; E03.9 Hypothyroidism, unspecified; I10 Essential (primary) hypertension; K21.9 Gastro-esophageal reflux disease without esophagitis; K31.84 Gastroparesis; Z16.24 Resistance to multiple antibiotics; R33.9 Retention of urine, unspecified; D63.8 Anemia in other chronic diseases classified elsewhere; Y83.3 Surgical operation with formation of external stoma as the cause of abnormal reaction of the patient, or of later complication, without mention of misadventure at the time of the procedure; Y92.89 Other specified places as the place of occurrence of the external cause; Z87.440 Personal history of urinary (tract) infections; Z90.49 Acquired absence of other specified parts of digestive tract; Z93.0 Tracheostomy status; Z78.9 Other specified health status; Z68.21 Body mass index [BMI] 21.0-21.9, adult; Z86.73 Personal history of transient ischemic attack (TIA), and cerebral infarction without residual deficits; Z79.899 Other long term (current) drug therapy
CPT/HCPCS: 36415; 43760; 71045; 74021; 74240-TC; 80048; 80053; 81000-TC; 83540-TC; 83550-TC; 83605; 83615-TC; 84484; 85007; 85025; 85027; 85610-TC; 85730-TC; 87040-TC; 87070-TC; 87081; 87086; 87186-TC; 87205-TC; 87230-TC; 93005; 94003; 94640; 94760; 96361; 96365; 99285; G0378; J0770; J1450; J2250; J2543; J2765; J3010; J3480; J3490; J7030; J7060; J7120; J7608; J7614; J8597; Q9963

== ENCOUNTER 2018-08-05 09:20 | Inpatient (IN) | payer OTHER, MEDICAID ==
[~2018-08-05] VITALS: Ht 162.6 cm; Wt 60.8 kg
[~2018-08-05 09:20] MED LIST changes: +PIPE3.379 IV
[2018-08-05 09:30] VITALS: BP_SYST 124
[2018-08-05 09:52] LABS: BASOPHILS % (AUTO) 0.3 % (0.0-2.0); EOSINOPHILS # (AUTO) 0.2 K/uL (0.0-0.4); EOSINOPHILS % (AUTO) 1.5 % (0.0-4.0); HEMATOCRIT 36.2 % (36-48); HEMOGLOBIN 11.8 g/dL (12.0-16.0); LYMPHOCYTES # (AUTO) 5.5 K/uL (1.0-5.5); LYMPHOCYTES % (AUTO) 49.7 % (20.5-51.5); MEAN CORPUSCULAR HEMOGLOBIN 30 pg (27-31); MEAN CORPUSCULAR HGB CONC 33 % (32-36); MEAN CORPUSCULAR VOLUME 93 fL (79.0-98.0); MONOCYTES # (AUTO) 0.7 K/uL (0.0-1.0); MONOCYTES % (AUTO) 6.4 % (1.7-9.3); NEUTROPHILS # (AUTO) 4.7 K/uL (1.8-7.7); NEUTROPHILS % (AUTO) 42.1 % (40.0-70.0); PLATELET COUNT (AUTO) 348 K/uL (130-430); RED BLOOD CELL COUNT(AUTO) 3.89 MIL/uL (4.2-6.2); WHITE BLOOD COUNT (AUTO) 11.1 K/uL (4.8-10.8)
[2018-08-05] MEDS ORDERED: ZINC220T GT (10:03)
[2018-08-05] MEDS ORDERED: LACT1CAP7 GT (10:03)
[2018-08-05] MEDS ORDERED: ASCO500T20 GT (10:03)
[2018-08-05 10:05] LABS: CALCIUM 9.8 mg/dL (8.4-11.0); CREATININE 0.42 mg/dL (0.55-1.30); POTASSIUM 4.3 mmol/L (3.5-5.1)
[2018-08-05 10:11] LABS: ALBUMIN 2.8 g/dL (3.4-4.8); TOTAL BILIRUBIN 0.4 mg/dL (0.0-1.0)
[2018-08-05] MEDS ORDERED: NACL 0.9% 1,000 ML IV ONE (11:00)
[2018-08-05 12:20] VITALS: BP_SYST 117
[2018-08-05] MEDS: D5LR 1,000 ML IV SCH ×2 (12:36→22:38)
[2018-08-05 12:53] VITALS: BP_SYST 117
[2018-08-05 16:45] VITALS: BP_SYST 115
[2018-08-05] MEDS ORDERED: ACETAMINOPHEN 650 MG/20.3 ML UDC GT PRN (19:00)
[2018-08-05 20:00] VITALS: BP_SYST 122
[2018-08-05] MEDS: MINERAL OIL 30 ML UDC GT SCH (21:00)
[2018-08-05] MEDS: LACTOBACILLUS RHAMNOSUS GG 1 CAP CAPSULE GT SCH (21:00)
[2018-08-05] MEDS: DILTIAZEM HCL 30 MG TABLET GT SCH (21:00)
[2018-08-05] MEDS: BACLOFEN 10 MG TABLET GT SCH (21:00)
[2018-08-05] MEDS: ASCORBIC ACID 500 MG TABLET PO SCH (21:00)
[2018-08-05] MEDS: METOCLOPRAMIDE HCL 10 MG/10 ML UDC GT SCH (22:00)
[2018-08-06 00:48] VITALS: BP_SYST 123
[2018-08-06 05:42] LABS: PROTHROMBIN TIME 10.1 SECS (9.5-12.5)
[2018-08-06] MEDS: METOCLOPRAMIDE HCL 10 MG/10 ML UDC GT SCH ×3 (06:00→21:56)
[2018-08-06 06:10] LABS: BASOPHILS % (AUTO) 0.2 % (0.0-2.0); EOSINOPHILS # (AUTO) 0.1 K/uL (0.0-0.4); EOSINOPHILS % (AUTO) 1.4 % (0.0-4.0); HEMATOCRIT 32.3 % (36-48); HEMOGLOBIN 10.7 g/dL (12.0-16.0); LYMPHOCYTES # (AUTO) 5.2 K/uL (1.0-5.5); LYMPHOCYTES % (AUTO) 55.7 % (20.5-51.5); MEAN CORPUSCULAR HEMOGLOBIN 31 pg (27-31); MEAN CORPUSCULAR HGB CONC 33 % (32-36); MEAN CORPUSCULAR VOLUME 94 fL (79.0-98.0); MONOCYTES # (AUTO) 0.7 K/uL (0.0-1.0); NEUTROPHILS # (AUTO) 3.3 K/uL (1.8-7.7); PLATELET COUNT (AUTO) 288 K/uL (130-430); RED BLOOD CELL COUNT(AUTO) 3.45 MIL/uL (4.2-6.2); WHITE BLOOD COUNT (AUTO) 9.3 K/uL (4.8-10.8)
[2018-08-06 06:25] LABS: CALCIUM 9.3 mg/dL (8.4-11.0); CREATININE 0.42 mg/dL (0.55-1.30); POTASSIUM 3.8 mmol/L (3.5-5.1)
[2018-08-06] MEDS ORDERED: MIDAZOLAM HCL 5 MG/5 ML VIAL ONE (07:09)
[2018-08-06] MEDS ORDERED: MEPERIDINE HCL/PF 25 MG/ML DISP.SYRIN ONE ×2 (07:10)
[2018-08-06 08:50] VITALS: BP_SYST 120
[2018-08-06] MEDS: ASCORBIC ACID 500 MG TABLET PO SCH ×2 (09:00→21:47)
[2018-08-06] MEDS: MULTIVIT-MINERALS/FERROUS GLUC 15 ML UDC GT SCH (09:00)
[2018-08-06] MEDS: BACLOFEN 10 MG TABLET GT SCH ×2 (09:00→21:47)
[2018-08-06] MEDS: DILTIAZEM HCL 30 MG TABLET GT SCH ×2 (09:00→21:48)
[2018-08-06] MEDS: POTASSIUM CHLORIDE 20 MEQ/PKT PACKET GT SCH (09:00)
[2018-08-06] MEDS: LANSOPRAZOLE 30 MG CAPSULE.DR GT SCH (09:00)
[2018-08-06] MEDS: LEVOTHYROXINE SODIUM 0.125 MG TABLET GT SCH (09:00)
[2018-08-06] MEDS: LACTOBACILLUS RHAMNOSUS GG 1 CAP CAPSULE GT SCH ×3 (09:00→21:47)
[2018-08-06 09:46] LABS: NEUTROPHILS % (AUTO) 35.7 % (40.0-70.0)
[2018-08-06] MEDS: SILVER SULFADIAZINE 1%, 25 GM TOPICAL CREAM (SSD) TP SCH (10:56)
[2018-08-06] MEDS: D5LR 1,000 ML IV SCH ×2 (10:56→17:30)
[2018-08-06 12:34] VITALS: BP_SYST 145
[2018-08-06 16:59] VITALS: BP_SYST 139
[2018-08-06 20:00] VITALS: BP_SYST 127
[2018-08-06] MEDS: MINERAL OIL 30 ML UDC GT SCH (21:00)
[2018-08-07] MEDS: D5LR 1,000 ML IV SCH ×2 (01:03→11:33)
[2018-08-07 02:41] VITALS: BP_SYST 125
[2018-08-07] MEDS: METOCLOPRAMIDE HCL 10 MG/10 ML UDC GT SCH ×2 (06:00→21:21)
[2018-08-07 08:30] VITALS: BP_SYST 133
[2018-08-07] MEDS ORDERED: MIDAZOLAM HCL 5 MG/5 ML VIAL ONE (12:14)
[2018-08-07] MEDS ORDERED: MEPERIDINE HCL/PF 100 MG/ML AMP ONE (12:14)
[2018-08-07] MEDS ORDERED: SIMETHICONE 40 MG/0.6 ML ML ONE (12:15)
[2018-08-07] MEDS: SILVER SULFADIAZINE 1%, 25 GM TOPICAL CREAM (SSD) TP SCH (12:36)
[2018-08-07 12:50] VITALS: BP_SYST 134
[2018-08-07] MEDS ORDERED: GASTROGRAFIN 120 ML ONE (16:10)
[2018-08-07 17:48] VITALS: BP_SYST 130
[2018-08-07 20:00] VITALS: BP_SYST 136
[2018-08-07] MEDS: MINERAL OIL 30 ML UDC GT SCH ×2 (21:00→21:19)
[2018-08-07] MEDS: ASCORBIC ACID 500 MG TABLET PO SCH (21:19)
[2018-08-07] MEDS: LACTOBACILLUS RHAMNOSUS GG 1 CAP CAPSULE GT SCH (21:19)
[2018-08-07] MEDS: DILTIAZEM HCL 30 MG TABLET GT SCH (21:20)
[2018-08-07] MEDS: BACLOFEN 10 MG TABLET GT SCH (21:20)
[2018-08-08 01:23] VITALS: BP_SYST 126
[2018-08-08] MEDS: D5LR 1,000 ML IV SCH (02:16)
[2018-08-08] MEDS: METOCLOPRAMIDE HCL 10 MG/10 ML UDC GT SCH ×2 (05:50→14:00)
[2018-08-08 06:33] LABS: BASOPHILS % (AUTO) 0.2 % (0.0-2.0); EOSINOPHILS # (AUTO) 0.2 K/uL (0.0-0.4); HEMATOCRIT 31.6 % (36-48); HEMOGLOBIN 10.5 g/dL (12.0-16.0); LYMPHOCYTES # (AUTO) 4.1 K/uL (1.0-5.5); LYMPHOCYTES % (AUTO) 52.2 % (20.5-51.5); MEAN CORPUSCULAR HEMOGLOBIN 31 pg (27-31); MEAN CORPUSCULAR HGB CONC 33 % (32-36); MEAN CORPUSCULAR VOLUME 93 fL (79.0-98.0); MONOCYTES # (AUTO) 0.6 K/uL (0.0-1.0); MONOCYTES % (AUTO) 8.1 % (1.7-9.3); NEUTROPHILS % (AUTO) 37.5 % (40.0-70.0); PLATELET COUNT (AUTO) 280 K/uL (130-430); RED CELL DISTRIBUTION WIDTH 16.3 % (9.0-15.0); WHITE BLOOD COUNT (AUTO) 7.9 K/uL (4.8-10.8)
[2018-08-08 06:41] LABS: CALCIUM 8.9 mg/dL (8.4-11.0); CREATININE 0.4 mg/dL (0.55-1.30); POTASSIUM 3.1 mmol/L (3.5-5.1)
[2018-08-08 08:00] VITALS: BP_SYST 120
[2018-08-08] MEDS ORDERED: POTASSIUM CHLORIDE 20 MEQ/PKT PACKET PO ONE (09:00)
[2018-08-08] MEDS: MULTIVIT-MINERALS/FERROUS GLUC 15 ML UDC GT SCH ×2 (10:29→10:34)
[2018-08-08] MEDS: LANSOPRAZOLE 30 MG CAPSULE.DR GT SCH ×2 (10:30→10:33)
[2018-08-08] MEDS: POTASSIUM CHLORIDE 20 MEQ/PKT PACKET GT SCH ×2 (10:30→10:34)
[2018-08-08] MEDS: LEVOTHYROXINE SODIUM 0.125 MG TABLET GT SCH ×2 (10:31→10:33)
[2018-08-08] MEDS: ASCORBIC ACID 500 MG TABLET PO SCH (10:33)
[2018-08-08] MEDS: BACLOFEN 10 MG TABLET GT SCH (10:33)
[2018-08-08] MEDS: LACTOBACILLUS RHAMNOSUS GG 1 CAP CAPSULE GT SCH ×2 (10:33→15:00)
[2018-08-08] MEDS: DILTIAZEM HCL 30 MG TABLET GT SCH (10:34)
[2018-08-08] MEDS: SILVER SULFADIAZINE 1%, 25 GM TOPICAL CREAM (SSD) TP SCH (11:16)
[2018-08-08 12:00] VITALS: BP_SYST 130
[2018-08-08 14:20] VITALS: BP_SYST 121
[2018-08-08 16:00] VITALS: BP_SYST 131
== END 2018-08-08 20:00 | DRG 393 ==
LOC: SED 09:20 → STU 11:00
PROVIDERS: ADMIT Internal Medicine; ATTEND Internal Medicine
PROC: 5A1945Z Respiratory Ventilation, 24-96 Consecutive Hours (ICD-10-PCS; 2018-08-05)
PROC: 0DJ08ZZ Inspection of Upper Intestinal Tract, Via Natural or Artificial Opening Endoscopic (ICD-10-PCS; principal; 2018-08-06 09:35)
PROC: 0D2DXUZ Change Feeding Device in Lower Intestinal Tract, External Approach (ICD-10-PCS; 2018-08-07)
DX: K94.13 Enterostomy malfunction (principal); E43 Unspecified severe protein-calorie malnutrition; J96.10 Chronic respiratory failure, unspecified whether with hypoxia or hypercapnia; Z99.11 Dependence on respirator [ventilator] status; G12.21 Amyotrophic lateral sclerosis; L03.311 Cellulitis of abdominal wall; K56.7 Ileus, unspecified; K29.70 Gastritis, unspecified, without bleeding; Y83.8 Other surgical procedures as the cause of abnormal reaction of the patient, or of later complication, without mention of misadventure at the time of the procedure; Y73.8 Miscellaneous gastroenterology and urology devices associated with adverse incidents, not elsewhere classified; K21.9 Gastro-esophageal reflux disease without esophagitis; D63.8 Anemia in other chronic diseases classified elsewhere; J47.9 Bronchiectasis, uncomplicated; E87.6 Hypokalemia; E03.9 Hypothyroidism, unspecified; I10 Essential (primary) hypertension; K31.84 Gastroparesis; K94.29 Other complications of gastrostomy; R13.10 Dysphagia, unspecified; Z87.440 Personal history of urinary (tract) infections; Z91.041 Radiographic dye allergy status; Y92.89 Other specified places as the place of occurrence of the external cause; Z79.899 Other long term (current) drug therapy; Z86.73 Personal history of transient ischemic attack (TIA), and cerebral infarction without residual deficits; Z90.49 Acquired absence of other specified parts of digestive tract; Z68.23 Body mass index [BMI] 23.0-23.9, adult
CPT/HCPCS: 36415; 43235; 43760; 71045; 74240-TC; 80048; 80053; 82550-TC; 85025; 85610-TC; 85730-TC; 87070-TC; 87081; 87186-TC; 87205-TC; 93005; 94002; 94003; 94640; 94760; 96360; 99285; G0378; J2175; J2250; J7030; J7120; J8597; L8699; Q9963

== ENCOUNTER 2018-10-08 20:45 | Inpatient (IN) | payer OTHER, MEDICAID ==
[~2018-10-08] VITALS: Ht 162.6 cm; Wt 59.0 kg
[~2018-10-08 20:45] MED LIST changes: +ASCO500T20 GT; -CHLO473M5 MM; -PIPE3.379 IV; -XOP.63 INH; +ZINC220T GT
[2018-10-08 20:56] VITALS: BP_SYST 117
[2018-10-08] MEDS ORDERED: DOCU-144 GT (22:44)
[2018-10-08] MEDS ORDERED: OMEP20CA10 GT (22:50)
[2018-10-08] MEDS ORDERED: XOP.63 INH ×2 (22:56→22:59)
[2018-10-08] MEDS ORDERED: CHLO237L3 TP (23:05)
[2018-10-08] MEDS ORDERED: GASTROGRAFIN 120 ML ONE (23:24)
[2018-10-09] MEDS ORDERED: cefTRIAXone 1 GM IVPB PREMIX 50 ML IV ONE (00:30)
[2018-10-09 02:35] VITALS: BP_SYST 143
[2018-10-09 03:48] LABS: BASOPHILS % (AUTO) 0.2 % (0.0-2.0); EOSINOPHILS # (AUTO) 0.1 K/uL (0.0-0.4); EOSINOPHILS % (AUTO) 1.2 % (0.0-4.0); HEMATOCRIT 33.1 % (36-48); HEMOGLOBIN 11.2 g/dL (12.0-16.0); LYMPHOCYTES # (AUTO) 3.4 K/uL (1.0-5.5); LYMPHOCYTES % (AUTO) 40.6 % (20.5-51.5); MEAN CORPUSCULAR HEMOGLOBIN 31 pg (27-31); MEAN CORPUSCULAR HGB CONC 34 % (32-36); MEAN CORPUSCULAR VOLUME 92 fL (79.0-98.0); MONOCYTES # (AUTO) 0.5 K/uL (0.0-1.0); MONOCYTES % (AUTO) 6.5 % (1.7-9.3); NEUTROPHILS # (AUTO) 4.3 K/uL (1.8-7.7); NEUTROPHILS % (AUTO) 51.5 % (40.0-70.0); PLATELET COUNT (AUTO) 244 K/uL (130-430); RED BLOOD CELL COUNT(AUTO) 3.61 MIL/uL (4.2-6.2); RED CELL DISTRIBUTION WIDTH 14.9 % (9.0-15.0); WHITE BLOOD COUNT (AUTO) 8.4 K/uL (4.8-10.8)
[2018-10-09] MEDS ORDERED: D5LR 1,000 ML IV ONE (04:00)
[2018-10-09 04:08] LABS: ALBUMIN 2.7 g/dL (3.4-4.8); CALCIUM 9.3 mg/dL (8.4-11.0); CREATININE 0.44 mg/dL (0.55-1.30); POTASSIUM 3.9 mmol/L (3.5-5.1); TOTAL BILIRUBIN 0.6 mg/dL (0.0-1.0)
[2018-10-09 04:49] VITALS: BP_SYST 143
[2018-10-09 08:00] VITALS: BP_SYST 108
[2018-10-09] MEDS ORDERED: LEVALBUTEROL HCL 0.63 MG/3 ML VIAL.NEB INH SCH (13:00)
[2018-10-09] MEDS ORDERED: LIPASE/PROTEASE/AMYLASE 1 CAP PO ONE (13:00)
[2018-10-09 13:01] VITALS: BP_SYST 102
[2018-10-09] MEDS: IPRATROPIUM BROM 0.5 MG/2.5 ML VIAL.NEB (ATROVENT) INH SCH ×2 (13:18→20:02)
[2018-10-09] MEDS: LIPASE/PROTEASE/AMYLASE 1 CAP GT ONE ×2 (13:45→13:47)
[2018-10-09] MEDS ORDERED: GASTROGRAFIN 120 ML ONE (15:33)
[2018-10-09 16:11] VITALS: BP_SYST 117
[2018-10-09] MEDS ORDERED: ACETAMINOPHEN 650 MG/20.3 ML UDC GT PRN (16:15)
[2018-10-09] MEDS ORDERED: MENTHOL/ZINC OXIDE 113 GM OINT. TP PRN (16:15)
[2018-10-09] MEDS ORDERED: LEVALBUTEROL HCL 0.63 MG/3 ML VIAL.NEB INH PRN (16:15)
[2018-10-09] MEDS: D5LR 1,000 ML IV SCH (16:20)
[2018-10-09] MEDS ORDERED: LIPASE/PROTEASE/AMYLASE 1 CAP PO SCH (18:00)
[2018-10-09] MEDS: LIPASE/PROTEASE/AMYLASE 1 CAP GT SCH (18:41)
[2018-10-09] MEDS: CHLORHEXIDINE GLUCONATE 15 ML/DOSE, 480 ML MM SCH (18:43)
[2018-10-09] MEDS: LEVALBUTEROL HCL 0.63 MG/3 ML VIAL.NEB INH SCH (20:02)
[2018-10-09 21:30] VITALS: BP_SYST 118
[2018-10-09] MEDS: LACTOBACILLUS RHAMNOSUS GG 1 CAP CAPSULE GT SCH (23:00)
[2018-10-09] MEDS: DILTIAZEM HCL 30 MG TABLET GT SCH (23:01)
[2018-10-09] MEDS: ASCORBIC ACID 500 MG TABLET GT SCH (23:02)
[2018-10-09] MEDS: CARVEDILOL 3.125 MG TABLET (COREG) GT SCH (23:02)
[2018-10-09] MEDS: BACLOFEN 10 MG TABLET GT SCH (23:02)
[2018-10-10 00:34] VITALS: BP_SYST 104
[2018-10-10] MEDS: IPRATROPIUM BROM 0.5 MG/2.5 ML VIAL.NEB (ATROVENT) INH SCH ×4 (01:09→20:05)
[2018-10-10] MEDS: LEVALBUTEROL HCL 0.63 MG/3 ML VIAL.NEB INH SCH ×4 (01:09→20:05)
[2018-10-10] MEDS: D5LR 1,000 ML IV SCH ×2 (04:50→14:53)
[2018-10-10] MEDS: LEVOTHYROXINE SODIUM 0.125 MG TABLET GT SCH (06:08)
[2018-10-10 08:00] VITALS: BP_SYST 113
[2018-10-10] MEDS: LIPASE/PROTEASE/AMYLASE 1 CAP GT SCH ×3 (09:30→17:34)
[2018-10-10] MEDS: ASCORBIC ACID 500 MG TABLET GT SCH ×2 (09:34→20:55)
[2018-10-10] MEDS: BACLOFEN 10 MG TABLET GT SCH ×2 (09:34→20:55)
[2018-10-10] MEDS: OMEPRAZOLE Non-Formulary 20 MG CAPSULE.DR GT SCH (09:34)
[2018-10-10] MEDS: POTASSIUM CHLORIDE 20 MEQ/PKT PACKET GT SCH (09:34)
[2018-10-10] MEDS: LACTOBACILLUS RHAMNOSUS GG 1 CAP CAPSULE GT SCH ×3 (09:34→20:55)
[2018-10-10] MEDS: DILTIAZEM HCL 30 MG TABLET GT SCH ×2 (09:34→20:55)
[2018-10-10] MEDS: CARVEDILOL 3.125 MG TABLET (COREG) GT SCH ×2 (09:35→20:54)
[2018-10-10] MEDS: MULTIVIT-MINERALS/FERROUS GLUC 15 ML UDC GT SCH (09:40)
[2018-10-10] MEDS ORDERED: SILVER SULFADIAZINE 1%, 25 GM TOPICAL CREAM (SSD) TP ONE (12:15)
[2018-10-10 12:20] LABS: BASOPHILS % (AUTO) 0.1 % (0.0-2.0); EOSINOPHILS # (AUTO) 0.1 K/uL (0.0-0.4); EOSINOPHILS % (AUTO) 1.8 % (0.0-4.0); HEMATOCRIT 32.7 % (36-48); HEMOGLOBIN 10.9 g/dL (12.0-16.0); LYMPHOCYTES # (AUTO) 3.2 K/uL (1.0-5.5); LYMPHOCYTES % (AUTO) 40.5 % (20.5-51.5); MEAN CORPUSCULAR HEMOGLOBIN 31 pg (27-31); MEAN CORPUSCULAR HGB CONC 33 % (32-36); MEAN CORPUSCULAR VOLUME 92 fL (79.0-98.0); MONOCYTES # (AUTO) 0.6 K/uL (0.0-1.0); MONOCYTES % (AUTO) 7.2 % (1.7-9.3); NEUTROPHILS % (AUTO) 50.4 % (40.0-70.0); PLATELET COUNT (AUTO) 212 K/uL (130-430); RED BLOOD CELL COUNT(AUTO) 3.54 MIL/uL (4.2-6.2); RED CELL DISTRIBUTION WIDTH 15.1 % (9.0-15.0)
[2018-10-10 12:35] VITALS: BP_SYST 92
[2018-10-10 12:36] LABS: CALCIUM 8.9 mg/dL (8.4-11.0); CREATININE 0.42 mg/dL (0.55-1.30); POTASSIUM 4.5 mmol/L (3.5-5.1)
[2018-10-10 12:40] LABS: ALBUMIN 2.3 g/dL (3.4-4.8); TOTAL BILIRUBIN 0.4 mg/dL (0.0-1.0)
[2018-10-10 17:23] VITALS: BP_SYST 113
[2018-10-10] MEDS: CHLORHEXIDINE GLUCONATE 15 ML/DOSE, 480 ML MM SCH (17:34)
[2018-10-10] MEDS ORDERED: DIATR MEGLU/DIATRIZ SOD 30 ML SOLUTION PO ONE (18:29)
[2018-10-10 20:00] VITALS: BP_SYST 138
[2018-10-10] MEDS: SILVER SULFADIAZINE 1%, 25 GM TOPICAL CREAM (SSD) TP SCH (21:00)
[2018-10-11 00:34] VITALS: BP_SYST 109
[2018-10-11] MEDS: D5LR 1,000 ML IV SCH ×3 (00:53→23:38)
[2018-10-11] MEDS: LEVALBUTEROL HCL 0.63 MG/3 ML VIAL.NEB INH SCH ×4 (01:39→20:10)
[2018-10-11] MEDS: IPRATROPIUM BROM 0.5 MG/2.5 ML VIAL.NEB (ATROVENT) INH SCH ×4 (01:40→20:10)
[2018-10-11] MEDS: LEVOTHYROXINE SODIUM 0.125 MG TABLET GT SCH (06:04)
[2018-10-11] MEDS: LIPASE/PROTEASE/AMYLASE 1 CAP GT SCH ×3 (08:12→16:59)
[2018-10-11 08:15] VITALS: BP_SYST 119
[2018-10-11] MEDS: MULTIVIT-MINERALS/FERROUS GLUC 15 ML UDC GT SCH (09:46)
[2018-10-11] MEDS: LACTOBACILLUS RHAMNOSUS GG 1 CAP CAPSULE GT SCH ×3 (09:46→20:51)
[2018-10-11] MEDS: POTASSIUM CHLORIDE 20 MEQ/PKT PACKET GT SCH (09:46)
[2018-10-11] MEDS: BACLOFEN 10 MG TABLET GT SCH ×2 (09:47→20:52)
[2018-10-11] MEDS: ASCORBIC ACID 500 MG TABLET GT SCH ×2 (09:47→20:53)
[2018-10-11] MEDS: OMEPRAZOLE Non-Formulary 20 MG CAPSULE.DR GT SCH (09:47)
[2018-10-11] MEDS: DILTIAZEM HCL 30 MG TABLET GT SCH ×2 (09:50→20:55)
[2018-10-11] MEDS: CARVEDILOL 3.125 MG TABLET (COREG) GT SCH ×2 (09:50→20:53)
[2018-10-11 12:41] VITALS: BP_SYST 109
[2018-10-11] MEDS: CHLORHEXIDINE GLUCONATE 15 ML/DOSE, 480 ML MM SCH (17:01)
[2018-10-11 17:30] VITALS: BP_SYST 137
[2018-10-11 20:00] VITALS: BP_SYST 132
[2018-10-11] MEDS: SILVER SULFADIAZINE 1%, 25 GM TOPICAL CREAM (SSD) TP SCH (23:43)
[2018-10-12 00:20] VITALS: BP_SYST 101
[2018-10-12] MEDS: LEVALBUTEROL HCL 0.63 MG/3 ML VIAL.NEB INH SCH ×4 (02:00→20:32)
[2018-10-12] MEDS: IPRATROPIUM BROM 0.5 MG/2.5 ML VIAL.NEB (ATROVENT) INH SCH ×4 (02:01→20:32)
[2018-10-12] MEDS: D5LR 1,000 ML IV SCH (04:05)
[2018-10-12] MEDS: LEVOTHYROXINE SODIUM 0.15 MG TABLET GT SCH (06:10)
[2018-10-12 08:30] VITALS: BP_SYST 112
[2018-10-12] MEDS: LACTOBACILLUS RHAMNOSUS GG 1 CAP CAPSULE GT SCH ×3 (09:06→20:29)
[2018-10-12] MEDS: ASCORBIC ACID 500 MG TABLET GT SCH ×2 (09:06→20:29)
[2018-10-12] MEDS: POTASSIUM CHLORIDE 20 MEQ/PKT PACKET GT SCH (09:06)
[2018-10-12] MEDS: MULTIVIT-MINERALS/FERROUS GLUC 15 ML UDC GT SCH (09:06)
[2018-10-12] MEDS: LIPASE/PROTEASE/AMYLASE 1 CAP GT SCH ×3 (09:06→18:25)
[2018-10-12] MEDS: OMEPRAZOLE Non-Formulary 20 MG CAPSULE.DR GT SCH (09:06)
[2018-10-12] MEDS: BACLOFEN 10 MG TABLET GT SCH ×2 (09:06→20:30)
[2018-10-12] MEDS: CARVEDILOL 3.125 MG TABLET (COREG) GT SCH ×2 (09:09→20:31)
[2018-10-12] MEDS: DILTIAZEM HCL 30 MG TABLET GT SCH ×2 (09:20→20:30)
[2018-10-12 11:55] VITALS: BP_SYST 114
[2018-10-12 12:01] VITALS: BP_SYST 114
[2018-10-12 15:48] VITALS: BP_SYST 120
[2018-10-12] MEDS: CHLORHEXIDINE GLUCONATE 15 ML/DOSE, 480 ML MM SCH (18:24)
[2018-10-12] MEDS: SILVER SULFADIAZINE 1%, 25 GM TOPICAL CREAM (SSD) TP SCH ×2 (18:25→22:56)
[2018-10-13 00:16] VITALS: BP_SYST 116
[2018-10-13] MEDS: IPRATROPIUM BROM 0.5 MG/2.5 ML VIAL.NEB (ATROVENT) INH SCH ×4 (01:53→19:39)
[2018-10-13] MEDS: LEVALBUTEROL HCL 0.63 MG/3 ML VIAL.NEB INH SCH ×4 (01:53→19:39)
[2018-10-13] MEDS: POTASSIUM CHLORIDE 20 MEQ/PKT PACKET GT SCH (08:23)
[2018-10-13] MEDS: ASCORBIC ACID 500 MG TABLET GT SCH ×2 (08:24→20:35)
[2018-10-13] MEDS: LACTOBACILLUS RHAMNOSUS GG 1 CAP CAPSULE GT SCH ×3 (08:24→20:37)
[2018-10-13] MEDS: BACLOFEN 10 MG TABLET GT SCH ×2 (08:24→20:36)
[2018-10-13] MEDS: DILTIAZEM HCL 30 MG TABLET GT SCH ×2 (08:25→20:36)
[2018-10-13] MEDS: LIPASE/PROTEASE/AMYLASE 1 CAP GT SCH ×3 (08:26→17:21)
[2018-10-13] MEDS: MULTIVIT-MINERALS/FERROUS GLUC 15 ML UDC GT SCH (08:26)
[2018-10-13] MEDS: SILVER SULFADIAZINE 1%, 25 GM TOPICAL CREAM (SSD) TP SCH ×2 (08:27→21:00)
[2018-10-13] MEDS: CARVEDILOL 3.125 MG TABLET (COREG) GT SCH ×2 (08:33→20:37)
[2018-10-13] MEDS: OMEPRAZOLE Non-Formulary 20 MG CAPSULE.DR GT SCH (08:33)
[2018-10-13] MEDS: LEVOTHYROXINE SODIUM 0.15 MG TABLET GT SCH (08:34)
[2018-10-13 08:50] VITALS: BP_SYST 111
[2018-10-13 13:11] VITALS: BP_SYST 109
[2018-10-13] MEDS ORDERED: DEXTROSE 50% JECT 50 ML DISP.SYRIN IVP PRN (13:45)
[2018-10-13] MEDS ORDERED: *TPN PER PHARMACY XX PRN (13:45)
[2018-10-13 15:05] LABS: PROTHROMBIN TIME 9.8 SECS (9.5-12.5)
[2018-10-13 17:00] VITALS: BP_SYST 141
[2018-10-13] MEDS: CHLORHEXIDINE GLUCONATE 15 ML/DOSE, 480 ML MM SCH (17:21)
[2018-10-14 00:33] VITALS: BP_SYST 131
[2018-10-14] MEDS: IPRATROPIUM BROM 0.5 MG/2.5 ML VIAL.NEB (ATROVENT) INH SCH ×4 (01:14→19:31)
[2018-10-14] MEDS: LEVALBUTEROL HCL 0.63 MG/3 ML VIAL.NEB INH SCH ×4 (01:15→19:31)
[2018-10-14] MEDS: LEVOTHYROXINE SODIUM 0.15 MG TABLET GT SCH (06:07)
[2018-10-14 06:18] LABS: ALBUMIN 2.5 g/dL (3.4-4.8); CALCIUM 8.8 mg/dL (8.4-11.0); CREATININE 0.45 mg/dL (0.55-1.30); PHOSPHORUS 3.9 mg/dL (2.7-4.5); POTASSIUM 4.4 mmol/L (3.5-5.1); TOTAL BILIRUBIN 0.4 mg/dL (0.0-1.0)
[2018-10-14 08:04] VITALS: BP_SYST 135
[2018-10-14] MEDS: LIPASE/PROTEASE/AMYLASE 1 CAP GT SCH ×3 (08:13→17:39)
[2018-10-14] MEDS: ASCORBIC ACID 500 MG TABLET GT SCH ×2 (08:13→21:00)
[2018-10-14] MEDS: LACTOBACILLUS RHAMNOSUS GG 1 CAP CAPSULE GT SCH ×3 (08:13→21:00)
[2018-10-14] MEDS: CARVEDILOL 3.125 MG TABLET (COREG) GT SCH ×2 (08:13→21:00)
[2018-10-14] MEDS: MULTIVIT-MINERALS/FERROUS GLUC 15 ML UDC GT SCH (08:14)
[2018-10-14] MEDS: DILTIAZEM HCL 30 MG TABLET GT SCH ×2 (08:14→21:00)
[2018-10-14] MEDS: POTASSIUM CHLORIDE 20 MEQ/PKT PACKET GT SCH (08:14)
[2018-10-14] MEDS: SILVER SULFADIAZINE 1%, 25 GM TOPICAL CREAM (SSD) TP SCH ×2 (08:15→22:19)
[2018-10-14] MEDS: BACLOFEN 10 MG TABLET GT SCH ×2 (08:19→21:00)
[2018-10-14] MEDS: OMEPRAZOLE Non-Formulary 20 MG CAPSULE.DR GT SCH (09:00)
[2018-10-14] MEDS ORDERED: NACL 0.9% 1,000 ML IV SCH (10:30)
[2018-10-14 12:25] VITALS: BP_SYST 101
[2018-10-14 16:28] VITALS: BP_SYST 104
[2018-10-14] MEDS: CHLORHEXIDINE GLUCONATE 15 ML/DOSE, 480 ML MM SCH (17:39)
[2018-10-14] MEDS: FAT EMULSIONS 250 ML IV SCH (17:40)
[2018-10-14] MEDS ORDERED: MVI IV SCH ×7 (18:00)
[2018-10-14] MEDS ORDERED: SODIUM ACETATE IV SCH ×7 (18:00)
[2018-10-14] MEDS ORDERED: [UNRECOGNIZED DRUG - OTHER] IV SCH ×7 (18:00)
[2018-10-14] MEDS ORDERED: POTASSIUM CHLORIDE IV SCH ×7 (18:00)
[2018-10-14] MEDS ORDERED: TPN PERIPHERAL IV SCH ×7 (18:00)
[2018-10-15] MEDS: IPRATROPIUM BROM 0.5 MG/2.5 ML VIAL.NEB (ATROVENT) INH SCH ×4 (01:10→21:22)
[2018-10-15] MEDS: LEVALBUTEROL HCL 0.63 MG/3 ML VIAL.NEB INH SCH ×4 (01:11→21:22)
[2018-10-15 01:57] VITALS: BP_SYST 115
[2018-10-15] MEDS: LEVOTHYROXINE SODIUM 0.15 MG TABLET GT SCH (05:57)
[2018-10-15] MEDS: FAT EMULSIONS 250 ML IV SCH ×2 (05:57→17:50)
[2018-10-15] MEDS: LIPASE/PROTEASE/AMYLASE 1 CAP GT SCH ×3 (08:00→17:46)
[2018-10-15 08:23] VITALS: BP_SYST 129
[2018-10-15] MEDS: BACLOFEN 10 MG TABLET GT SCH ×2 (08:24→20:42)
[2018-10-15] MEDS: LACTOBACILLUS RHAMNOSUS GG 1 CAP CAPSULE GT SCH ×3 (08:24→20:42)
[2018-10-15] MEDS: CARVEDILOL 3.125 MG TABLET (COREG) GT SCH ×2 (08:24→20:42)
[2018-10-15] MEDS: DILTIAZEM HCL 30 MG TABLET GT SCH ×2 (08:24→20:42)
[2018-10-15] MEDS: OMEPRAZOLE Non-Formulary 20 MG CAPSULE.DR GT SCH (08:24)
[2018-10-15] MEDS: ASCORBIC ACID 500 MG TABLET GT SCH ×2 (08:24→20:42)
[2018-10-15] MEDS: SILVER SULFADIAZINE 1%, 25 GM TOPICAL CREAM (SSD) TP SCH ×2 (08:30→20:44)
[2018-10-15 09:38] LABS: BILIRUBIN,URINE NEGATIVE (NEGATIVE); BLOOD, URINE NEGATIVE (NEGATIVE); CLARITY/URINE CLEAR (CLEAR); COLOR,URINE YELLOW (YELLOW); GLUCOSE,URINE NEGATIVE (NEGATIVE); KETONES,URINE NEGATIVE (NEGATIVE); LEUKOCYTE ESTERASE ,URINE NEGATIVE (NEGATIVE); NITRITE, URINE NEGATIVE (NEGATIVE); PROTEIN URINE NEGATIVE (NEGATIVE)
[2018-10-15 10:00] LABS: ALBUMIN 2.5 g/dL (3.4-4.8); CALCIUM 8.8 mg/dL (8.4-11.0); CREATININE 0.46 mg/dL (0.55-1.30); PHOSPHORUS 3.7 mg/dL (2.7-4.5); POTASSIUM 3.7 mmol/L (3.5-5.1); TOTAL BILIRUBIN 0.4 mg/dL (0.0-1.0)
[2018-10-15 12:43] VITALS: BP_SYST 121
[2018-10-15 16:10] VITALS: BP_SYST 129
[2018-10-15 17:40] VITALS: BP_SYST 129
[2018-10-15] MEDS: CHLORHEXIDINE GLUCONATE 15 ML/DOSE, 480 ML MM SCH (17:49)
[2018-10-15] MEDS ORDERED: POTASSIUM ACETATE IV SCH ×7 (18:00)
[2018-10-15] MEDS ORDERED: MVI IV SCH ×7 (18:00)
[2018-10-15] MEDS ORDERED: SODIUM CHLORIDE IV SCH ×7 (18:00)
[2018-10-15] MEDS ORDERED: [UNRECOGNIZED DRUG - OTHER] IV SCH ×7 (18:00)
[2018-10-15] MEDS ORDERED: TPN PERIPHERAL IV SCH ×7 (18:00)
[2018-10-15 20:00] VITALS: BP_SYST 126
[2018-10-16] VITALS (7 sets, daily range): BP systolic 108–183
[2018-10-16] MEDS: LEVALBUTEROL HCL 0.63 MG/3 ML VIAL.NEB INH SCH ×4 (01:02→19:00)
[2018-10-16] MEDS: IPRATROPIUM BROM 0.5 MG/2.5 ML VIAL.NEB (ATROVENT) INH SCH ×4 (01:02→19:00)
[2018-10-16 06:04] LABS: ALBUMIN 2.5 g/dL (3.4-4.8); CALCIUM 8.6 mg/dL (8.4-11.0); CREATININE 0.51 mg/dL (0.55-1.30); PHOSPHORUS 3.1 mg/dL (2.7-4.5); POTASSIUM 3.9 mmol/L (3.5-5.1); TOTAL BILIRUBIN 0.5 mg/dL (0.0-1.0)
[2018-10-16] MEDS: LEVOTHYROXINE SODIUM 0.15 MG TABLET GT SCH (06:27)
[2018-10-16] MEDS: FAT EMULSIONS 250 ML IV SCH ×2 (06:27→20:00)
[2018-10-16 06:33] LABS: BASOPHILS % (AUTO) 0.3 % (0.0-2.0); EOSINOPHILS # (AUTO) 0.2 K/uL (0.0-0.4); EOSINOPHILS % (AUTO) 1.3 % (0.0-4.0); HEMOGLOBIN 11.2 g/dL (12.0-16.0); LYMPHOCYTES # (AUTO) 4.1 K/uL (1.0-5.5); LYMPHOCYTES % (AUTO) 30.8 % (20.5-51.5); MEAN CORPUSCULAR HEMOGLOBIN 31 pg (27-31); MEAN CORPUSCULAR HGB CONC 34 % (32-36); MEAN CORPUSCULAR VOLUME 91 fL (79.0-98.0); MONOCYTES # (AUTO) 0.8 K/uL (0.0-1.0); MONOCYTES % (AUTO) 5.9 % (1.7-9.3); NEUTROPHILS # (AUTO) 8.1 K/uL (1.8-7.7); NEUTROPHILS % (AUTO) 61.7 % (40.0-70.0); PLATELET COUNT (AUTO) 266 K/uL (130-430); RED BLOOD CELL COUNT(AUTO) 3.61 MIL/uL (4.2-6.2); RED CELL DISTRIBUTION WIDTH 14.2 % (9.0-15.0); WHITE BLOOD COUNT (AUTO) 13.1 K/uL (4.8-10.8)
[2018-10-16] MEDS: LIPASE/PROTEASE/AMYLASE 1 CAP GT SCH ×3 (08:00→17:58)
[2018-10-16] MEDS: DILTIAZEM HCL 30 MG TABLET GT SCH ×2 (08:47→21:00)
[2018-10-16] MEDS: BACLOFEN 10 MG TABLET GT SCH ×2 (08:47→21:00)
[2018-10-16] MEDS: LACTOBACILLUS RHAMNOSUS GG 1 CAP CAPSULE GT SCH ×3 (08:47→21:00)
[2018-10-16] MEDS: OMEPRAZOLE Non-Formulary 20 MG CAPSULE.DR GT SCH (08:47)
[2018-10-16] MEDS: ASCORBIC ACID 500 MG TABLET GT SCH ×2 (08:47→21:00)
[2018-10-16] MEDS: CARVEDILOL 3.125 MG TABLET (COREG) GT SCH ×2 (08:47→21:00)
[2018-10-16] MEDS: SILVER SULFADIAZINE 1%, 25 GM TOPICAL CREAM (SSD) TP SCH ×2 (09:15→22:20)
[2018-10-16] MEDS ORDERED: MIDAZOLAM HCL 5 MG/5 ML VIAL IVP ONE (09:45)
[2018-10-16] MEDS ORDERED: NORMAL SALINE 10 ML VIAL IVP ONE (09:45)
[2018-10-16] MEDS ORDERED: ROCURONIUM BROMIDE 10 MG/ML (ZEMURON) IV ONE (09:45)
[2018-10-16] MEDS ORDERED: fentaNYL CITRATE 250 MCG/5 ML AMP IV ONE (09:45)
[2018-10-16] MEDS ORDERED: BUPIVACAINE LIPOSOME/PF 266 MG/20 ML VIAL INFIL ONE ×2 (09:45→11:47)
[2018-10-16] MEDS ORDERED: SEVOFLURANE 15 MIN GAS INH ONE (09:45)
[2018-10-16] MEDS ORDERED: LR 1,000 ML IV.SOLN IV ONE (09:45)
[2018-10-16] MEDS ORDERED: NS IRRIG SOLN 1000 ML IR ONE (09:45)
[2018-10-16] MEDS ORDERED: LR 1,000 ML IV SCH (12:15)
[2018-10-16] MEDS ORDERED: METOCLOPRAMIDE HCL 10 MG/2 ML VIAL IVP PRN (12:15)
[2018-10-16] MEDS ORDERED: MORPHINE 4 MG/ML INJ. SYRINGE IVP PRN ×3 (12:15)
[2018-10-16] MEDS ORDERED: MORPHINE 4 MG/ML INJ. SYRINGE ONE (13:15)
[2018-10-16] MEDS: INSULIN REGULAR, HUMAN 100 UNITS/ML, 10 ML VIAL (humuLIN R) SUBCUT PRN ×2 (15:25→22:41)
[2018-10-16] MEDS ORDERED: [UNRECOGNIZED DRUG - OTHER] IV SCH ×9 (18:00)
[2018-10-16] MEDS ORDERED: POTASSIUM ACETATE IV SCH ×9 (18:00)
[2018-10-16] MEDS ORDERED: SODIUM CHLORIDE IV SCH ×9 (18:00)
[2018-10-16] MEDS ORDERED: TPN PERIPHERAL IV SCH ×9 (18:00)
[2018-10-16] MEDS: CHLORHEXIDINE GLUCONATE 15 ML/DOSE, 480 ML MM SCH (18:14)
[2018-10-16] MEDS: DIPHENHYDRAMINE INJ 50 MG/ML VIAL IVP SCH (22:42)
[2018-10-16] MEDS: MORPHINE 4 MG/ML INJ. SYRINGE IVP SCH (22:44)
[2018-10-17] MEDS: IPRATROPIUM BROM 0.5 MG/2.5 ML VIAL.NEB (ATROVENT) INH SCH ×4 (01:00→19:00)
[2018-10-17] MEDS: LEVALBUTEROL HCL 0.63 MG/3 ML VIAL.NEB INH SCH ×4 (01:00→19:00)
[2018-10-17 01:03] VITALS: BP_SYST 120
[2018-10-17] MEDS: MORPHINE 4 MG/ML INJ. SYRINGE IVP SCH ×6 (02:23→20:59)
[2018-10-17] MEDS: DIPHENHYDRAMINE INJ 50 MG/ML VIAL IVP SCH ×6 (02:23→20:58)
[2018-10-17] MEDS: FAT EMULSIONS 250 ML IV SCH ×2 (02:33→15:05)
[2018-10-17] MEDS: LEVOTHYROXINE SODIUM 0.15 MG TABLET GT SCH (06:30)
[2018-10-17 06:58] LABS: CALCIUM 8.3 mg/dL (8.4-11.0); CREATININE 0.51 mg/dL (0.55-1.30); PHOSPHORUS 2.5 mg/dL (2.7-4.5); POTASSIUM 3.3 mmol/L (3.5-5.1); TOTAL BILIRUBIN 0.6 mg/dL (0.0-1.0)
[2018-10-17] MEDS: LIPASE/PROTEASE/AMYLASE 1 CAP GT SCH ×3 (08:00→17:38)
[2018-10-17 08:12] VITALS: BP_SYST 109
[2018-10-17] MEDS: LACTOBACILLUS RHAMNOSUS GG 1 CAP CAPSULE GT SCH ×3 (08:17→21:00)
[2018-10-17] MEDS: DILTIAZEM HCL 30 MG TABLET GT SCH ×2 (08:17→21:00)
[2018-10-17] MEDS: CARVEDILOL 3.125 MG TABLET (COREG) GT SCH ×2 (08:17→21:00)
[2018-10-17] MEDS: BACLOFEN 10 MG TABLET GT SCH ×2 (08:17→21:00)
[2018-10-17] MEDS: ASCORBIC ACID 500 MG TABLET GT SCH ×2 (08:18→21:00)
[2018-10-17] MEDS: OMEPRAZOLE Non-Formulary 20 MG CAPSULE.DR GT SCH (08:18)
[2018-10-17] MEDS: INSULIN REGULAR, HUMAN 100 UNITS/ML, 10 ML VIAL (humuLIN R) SUBCUT PRN (08:23)
[2018-10-17] MEDS: SILVER SULFADIAZINE 1%, 25 GM TOPICAL CREAM (SSD) TP SCH ×2 (09:00→21:02)
[2018-10-17] MEDS ORDERED: K PHOS 15 MM in NS 250 ML IV ONE (10:30)
[2018-10-17 11:54] VITALS: BP_SYST 109
[2018-10-17] MEDS ORDERED: MORPHINE 4 MG/ML INJ. SYRINGE IVP ONE (12:15)
[2018-10-17] MEDS ORDERED: PIPERACILLIN/TAZO 3.375/DEX-IS 50 ML IV ONE (12:45)
[2018-10-17] MEDS ORDERED: MORPHINE 2 MG/ML INJ. SYRINGE IVP ONE (15:45)
[2018-10-17 16:05] VITALS: BP_SYST 116
[2018-10-17] MEDS: CHLORHEXIDINE GLUCONATE 15 ML/DOSE, 480 ML MM SCH (17:36)
[2018-10-17] MEDS: PIPERACILLIN/TAZO 3.375/DEX-IS 50 ML IV SCH ×2 (17:36→23:58)
[2018-10-17] MEDS ORDERED: SODIUM CHLORIDE IV SCH ×10 (18:00)
[2018-10-17] MEDS ORDERED: TPN PERIPHERAL IV SCH ×10 (18:00)
[2018-10-17] MEDS ORDERED: [UNRECOGNIZED DRUG - OTHER] IV SCH ×10 (18:00)
[2018-10-17] MEDS ORDERED: POTASSIUM ACETATE IV SCH ×10 (18:00)
[2018-10-17 19:05] VITALS: BP_SYST 127
[2018-10-18] VITALS (7 sets, daily range): BP systolic 98–111
[2018-10-18] MEDS: IPRATROPIUM BROM 0.5 MG/2.5 ML VIAL.NEB (ATROVENT) INH SCH ×4 (01:06→20:22)
[2018-10-18] MEDS: LEVALBUTEROL HCL 0.63 MG/3 ML VIAL.NEB INH SCH ×4 (01:06→20:22)
[2018-10-18] MEDS: INSULIN REGULAR, HUMAN 100 UNITS/ML, 10 ML VIAL (humuLIN R) SUBCUT PRN (02:35)
[2018-10-18] MEDS: FAT EMULSIONS 250 ML IV SCH ×2 (03:25→15:30)
[2018-10-18] MEDS: DIPHENHYDRAMINE INJ 50 MG/ML VIAL IVP SCH ×8 (03:26→23:09)
[2018-10-18] MEDS: MORPHINE 4 MG/ML INJ. SYRINGE IVP SCH ×8 (03:26→23:14)
[2018-10-18 04:59] LABS: ALBUMIN 1.7 g/dL (3.4-4.8); CALCIUM 7.8 mg/dL (8.4-11.0); CREATININE 0.43 mg/dL (0.55-1.30); POTASSIUM 3.2 mmol/L (3.5-5.1); TOTAL BILIRUBIN 0.8 mg/dL (0.0-1.0)
[2018-10-18] MEDS: LEVOTHYROXINE SODIUM 0.15 MG TABLET GT SCH (05:24)
[2018-10-18 06:16] LABS: BASOPHILS % (AUTO) 0.1 % (0.0-2.0); EOSINOPHILS # (AUTO) 0.1 K/uL (0.0-0.4); EOSINOPHILS % (AUTO) 0.6 % (0.0-4.0); HEMATOCRIT 28.3 % (36-48); HEMOGLOBIN 9.5 g/dL (12.0-16.0); LYMPHOCYTES # (AUTO) 2.4 K/uL (1.0-5.5); MEAN CORPUSCULAR HEMOGLOBIN 31 pg (27-31); MEAN CORPUSCULAR HGB CONC 34 % (32-36); MEAN CORPUSCULAR VOLUME 92 fL (79.0-98.0); MONOCYTES # (AUTO) 0.7 K/uL (0.0-1.0); MONOCYTES % (AUTO) 5.7 % (1.7-9.3); NEUTROPHILS # (AUTO) 9.5 K/uL (1.8-7.7); NEUTROPHILS % (AUTO) 74.6 % (40.0-70.0); PLATELET COUNT (AUTO) 214 K/uL (130-430); RED BLOOD CELL COUNT(AUTO) 3.08 MIL/uL (4.2-6.2); RED CELL DISTRIBUTION WIDTH 14.4 % (9.0-15.0); WHITE BLOOD COUNT (AUTO) 12.8 K/uL (4.8-10.8)
[2018-10-18] MEDS: PIPERACILLIN/TAZO 3.375/DEX-IS 50 ML IV SCH ×4 (06:20→23:25)
[2018-10-18] MEDS: LIPASE/PROTEASE/AMYLASE 1 CAP GT SCH ×3 (08:00→17:37)
[2018-10-18] MEDS: CARVEDILOL 3.125 MG TABLET (COREG) GT SCH ×2 (09:00→23:16)
[2018-10-18] MEDS: LACTOBACILLUS RHAMNOSUS GG 1 CAP CAPSULE GT SCH ×3 (09:00→23:14)
[2018-10-18] MEDS: DILTIAZEM HCL 30 MG TABLET GT SCH ×2 (09:00→23:15)
[2018-10-18] MEDS: BACLOFEN 10 MG TABLET GT SCH ×2 (09:00→23:14)
[2018-10-18] MEDS: ASCORBIC ACID 500 MG TABLET GT SCH ×2 (09:00→23:14)
[2018-10-18] MEDS: OMEPRAZOLE Non-Formulary 20 MG CAPSULE.DR GT SCH (09:00)
[2018-10-18] MEDS ORDERED: NACL 0.9% 1,000 ML IV SCH (10:00)
[2018-10-18] MEDS ORDERED: K PHOS 30 MM in NS 250 ML IV ONE (10:00)
[2018-10-18] MEDS ORDERED: MAGNESIUM SULFATE 4 GM in D5W 250 ML IV ONE (10:00)
[2018-10-18] MEDS: SILVER SULFADIAZINE 1%, 25 GM TOPICAL CREAM (SSD) TP SCH ×2 (11:34→23:25)
[2018-10-18] MEDS ORDERED: METOCLOPRAMIDE HCL 10 MG/2 ML VIAL IVP ONE (14:00)
[2018-10-18] MEDS: METOCLOPRAMIDE HCL 10 MG/2 ML VIAL IVP SCH ×2 (17:40→23:24)
[2018-10-18] MEDS: CHLORHEXIDINE GLUCONATE 15 ML/DOSE, 480 ML MM SCH (17:41)
[2018-10-18] MEDS ORDERED: POTASSIUM ACETATE IV SCH ×10 (18:00)
[2018-10-18] MEDS ORDERED: FAT EMULSIONS 250 ML IV SCH (18:00)
[2018-10-18] MEDS ORDERED: [UNRECOGNIZED DRUG - OTHER] IV SCH ×10 (18:00)
[2018-10-18] MEDS ORDERED: SODIUM CHLORIDE IV SCH ×10 (18:00)
[2018-10-18] MEDS ORDERED: TPN PERIPHERAL IV SCH ×10 (18:00)
[2018-10-19 00:39] VITALS: BP_SYST 119
[2018-10-19] MEDS: MORPHINE 4 MG/ML INJ. SYRINGE IVP SCH ×6 (02:56→17:19)
[2018-10-19] MEDS: DIPHENHYDRAMINE INJ 50 MG/ML VIAL IVP SCH ×7 (02:56→20:00)
[2018-10-19] MEDS: METOCLOPRAMIDE HCL 10 MG/2 ML VIAL IVP SCH ×3 (05:54→17:19)
[2018-10-19] MEDS: LEVOTHYROXINE SODIUM 0.15 MG TABLET GT SCH (05:54)
[2018-10-19] MEDS: PIPERACILLIN/TAZO 3.375/DEX-IS 50 ML IV SCH ×3 (05:57→17:19)
[2018-10-19] MEDS: INSULIN REGULAR, HUMAN 100 UNITS/ML, 10 ML VIAL (humuLIN R) SUBCUT PRN (07:03)
[2018-10-19 07:19] LABS: ALBUMIN 1.5 g/dL (3.4-4.8); CALCIUM 7.3 mg/dL (8.4-11.0); CREATININE 0.47 mg/dL (0.55-1.30); PHOSPHORUS 2.3 mg/dL (2.7-4.5); POTASSIUM 3.5 mmol/L (3.5-5.1); TOTAL BILIRUBIN 0.6 mg/dL (0.0-1.0)
[2018-10-19 07:26] LABS: BASOPHILS % (AUTO) 0.2 % (0.0-2.0); EOSINOPHILS # (AUTO) 0.2 K/uL (0.0-0.4); EOSINOPHILS % (AUTO) 1.8 % (0.0-4.0); HEMATOCRIT 25.4 % (36-48); HEMOGLOBIN 8.6 g/dL (12.0-16.0); LYMPHOCYTES # (AUTO) 2.2 K/uL (1.0-5.5); LYMPHOCYTES % (AUTO) 25.3 % (20.5-51.5); MEAN CORPUSCULAR HEMOGLOBIN 31 pg (27-31); MEAN CORPUSCULAR HGB CONC 34 % (32-36); MEAN CORPUSCULAR VOLUME 92 fL (79.0-98.0); MONOCYTES # (AUTO) 0.6 K/uL (0.0-1.0); MONOCYTES % (AUTO) 7.2 % (1.7-9.3); NEUTROPHILS # (AUTO) 5.7 K/uL (1.8-7.7); NEUTROPHILS % (AUTO) 65.5 % (40.0-70.0); PLATELET COUNT (AUTO) 188 K/uL (130-430); RED BLOOD CELL COUNT(AUTO) 2.78 MIL/uL (4.2-6.2); RED CELL DISTRIBUTION WIDTH 14.4 % (9.0-15.0); WHITE BLOOD COUNT (AUTO) 8.8 K/uL (4.8-10.8)
[2018-10-19] MEDS: IPRATROPIUM BROM 0.5 MG/2.5 ML VIAL.NEB (ATROVENT) INH SCH ×3 (07:52→20:07)
[2018-10-19] MEDS: LEVALBUTEROL HCL 0.63 MG/3 ML VIAL.NEB INH SCH ×3 (07:53→20:07)
[2018-10-19 08:00] VITALS: BP_SYST 112
[2018-10-19] MEDS: LACTOBACILLUS RHAMNOSUS GG 1 CAP CAPSULE GT SCH ×3 (09:28→20:58)
[2018-10-19] MEDS: ASCORBIC ACID 500 MG TABLET GT SCH ×2 (09:28→20:59)
[2018-10-19] MEDS: LIPASE/PROTEASE/AMYLASE 1 CAP GT SCH ×3 (09:28→17:20)
[2018-10-19] MEDS: BACLOFEN 10 MG TABLET GT SCH ×2 (09:28→20:59)
[2018-10-19] MEDS: DILTIAZEM HCL 30 MG TABLET GT SCH ×2 (09:29→20:59)
[2018-10-19] MEDS: LANSOPRAZOLE 30 MG CAPSULE.DR GT SCH (09:29)
[2018-10-19] MEDS: CARVEDILOL 3.125 MG TABLET (COREG) GT SCH ×2 (09:29→21:00)
[2018-10-19] MEDS: SILVER SULFADIAZINE 1%, 25 GM TOPICAL CREAM (SSD) TP SCH ×2 (09:30→21:00)
[2018-10-19] MEDS ORDERED: TPN PERIPHERAL IV SCH ×20 (10:00→10:03)
[2018-10-19] MEDS ORDERED: SODIUM CHLORIDE IV SCH ×20 (10:00→10:03)
[2018-10-19] MEDS ORDERED: [UNRECOGNIZED DRUG - OTHER] IV SCH ×20 (10:00→10:03)
[2018-10-19] MEDS ORDERED: POTASSIUM ACETATE IV SCH ×20 (10:00→10:03)
[2018-10-19 11:47] VITALS: BP_SYST 109
[2018-10-19] MEDS ORDERED: MORPHINE 2 MG/ML INJ. SYRINGE IVP PRN (13:00)
[2018-10-19 15:11] VITALS: BP_SYST 119
[2018-10-19] MEDS: CHLORHEXIDINE GLUCONATE 15 ML/DOSE, 480 ML MM SCH (17:20)
[2018-10-19 20:00] VITALS: BP_SYST 104
[2018-10-20] MEDS: DIPHENHYDRAMINE INJ 50 MG/ML VIAL IVP SCH ×6 (00:11→14:00)
[2018-10-20] MEDS: MORPHINE 4 MG/ML INJ. SYRINGE IVP SCH ×3 (00:12→11:49)
[2018-10-20] MEDS: LEVALBUTEROL HCL 0.63 MG/3 ML VIAL.NEB INH SCH ×3 (00:42→14:03)
[2018-10-20] MEDS: IPRATROPIUM BROM 0.5 MG/2.5 ML VIAL.NEB (ATROVENT) INH SCH ×3 (00:42→14:03)
[2018-10-20] MEDS: PIPERACILLIN/TAZO 3.375/DEX-IS 50 ML IV SCH ×3 (00:58→11:47)
[2018-10-20] MEDS: METOCLOPRAMIDE HCL 10 MG/2 ML VIAL IVP SCH ×3 (00:58→11:48)
[2018-10-20 01:58] VITALS: BP_SYST 108
[2018-10-20] MEDS: LEVOTHYROXINE SODIUM 0.15 MG TABLET GT SCH (06:48)
[2018-10-20 07:09] LABS: BASOPHILS % (AUTO) 0.2 % (0.0-2.0); EOSINOPHILS # (AUTO) 0.2 K/uL (0.0-0.4); HEMATOCRIT 28.5 % (36-48); HEMOGLOBIN 9.5 g/dL (12.0-16.0); LYMPHOCYTES # (AUTO) 3.2 K/uL (1.0-5.5); LYMPHOCYTES % (AUTO) 30.4 % (20.5-51.5); MEAN CORPUSCULAR HEMOGLOBIN 31 pg (27-31); MEAN CORPUSCULAR HGB CONC 33 % (32-36); MEAN CORPUSCULAR VOLUME 92 fL (79.0-98.0); MONOCYTES % (AUTO) 9.2 % (1.7-9.3); NEUTROPHILS # (AUTO) 6.1 K/uL (1.8-7.7); NEUTROPHILS % (AUTO) 58.2 % (40.0-70.0); PLATELET COUNT (AUTO) 213 K/uL (130-430); RED BLOOD CELL COUNT(AUTO) 3.11 MIL/uL (4.2-6.2); WHITE BLOOD COUNT (AUTO) 10.4 K/uL (4.8-10.8)
[2018-10-20 07:40] LABS: ALBUMIN 1.7 g/dL (3.4-4.8); CALCIUM 8.3 mg/dL (8.4-11.0); CREATININE 0.43 mg/dL (0.55-1.30); PHOSPHORUS 2.3 mg/dL (2.7-4.5); POTASSIUM 4.1 mmol/L (3.5-5.1); TOTAL BILIRUBIN 0.9 mg/dL (0.0-1.0)
[2018-10-20 08:00] VITALS: BP_SYST 102
[2018-10-20] MEDS: ASCORBIC ACID 500 MG TABLET GT SCH (08:08)
[2018-10-20] MEDS: BACLOFEN 10 MG TABLET GT SCH (08:08)
[2018-10-20] MEDS: LACTOBACILLUS RHAMNOSUS GG 1 CAP CAPSULE GT SCH ×2 (08:08→14:29)
[2018-10-20] MEDS: LANSOPRAZOLE 30 MG CAPSULE.DR GT SCH (08:08)
[2018-10-20] MEDS: CARVEDILOL 3.125 MG TABLET (COREG) GT SCH (08:09)
[2018-10-20] MEDS: LIPASE/PROTEASE/AMYLASE 1 CAP GT SCH ×2 (08:09→11:48)
[2018-10-20] MEDS: SILVER SULFADIAZINE 1%, 25 GM TOPICAL CREAM (SSD) TP SCH (08:09)
[2018-10-20] MEDS: DILTIAZEM HCL 30 MG TABLET GT SCH (08:09)
[2018-10-20 13:11] VITALS: BP_SYST 112
[2018-10-20 13:59] VITALS: BP_SYST 112
== END 2018-10-20 15:20 | DRG 356 ==
LOC: SED 20:45 → STU 10-09 02:04
PROVIDERS: ADMIT Internal Medicine; ATTEND Internal Medicine
PROC: 5A1955Z Respiratory Ventilation, Greater than 96 Consecutive Hours (ICD-10-PCS; principal; 2018-10-09)
PROC: 0D20XUZ Change Feeding Device in Upper Intestinal Tract, External Approach (ICD-10-PCS; 2018-10-09)
PROC: 0D20XUZ Change Feeding Device in Upper Intestinal Tract, External Approach (ICD-10-PCS; 2018-10-10)
PROC: 02HV33Z Insertion of Infusion Device into Superior Vena Cava, Percutaneous Approach (ICD-10-PCS; 2018-10-13)
PROC: B548ZZA Ultrasonography of Superior Vena Cava, Guidance (ICD-10-PCS; 2018-10-13)
PROC: 0WBF0ZZ Excision of Abdominal Wall, Open Approach (ICD-10-PCS; 2018-10-16)
PROC: 0DHA3UZ Insertion of Feeding Device into Jejunum, Percutaneous Approach (ICD-10-PCS; 2018-10-16)
DX: K94.23 Gastrostomy malfunction (principal); E43 Unspecified severe protein-calorie malnutrition; J18.9 Pneumonia, unspecified organism; E87.1 Hypo-osmolality and hyponatremia; G12.21 Amyotrophic lateral sclerosis; J44.0 Chronic obstructive pulmonary disease with (acute) lower respiratory infection; J96.10 Chronic respiratory failure, unspecified whether with hypoxia or hypercapnia; K31.6 Fistula of stomach and duodenum; K80.10 Calculus of gallbladder with chronic cholecystitis without obstruction; L03.311 Cellulitis of abdominal wall; Z99.11 Dependence on respirator [ventilator] status; K56.7 Ileus, unspecified; K94.13 Enterostomy malfunction; Y83.8 Other surgical procedures as the cause of abnormal reaction of the patient, or of later complication, without mention of misadventure at the time of the procedure; Y73.8 Miscellaneous gastroenterology and urology devices associated with adverse incidents, not elsewhere classified; E03.9 Hypothyroidism, unspecified; I10 Essential (primary) hypertension; D63.8 Anemia in other chronic diseases classified elsewhere; R13.10 Dysphagia, unspecified; R16.0 Hepatomegaly, not elsewhere classified; Z91.041 Radiographic dye allergy status; Z79.899 Other long term (current) drug therapy; Z93.0 Tracheostomy status; Y92.89 Other specified places as the place of occurrence of the external cause
CPT/HCPCS: 36415; 71045; 74018; 74240-TC; 76700-TC; 80048; 80053; 81003; 82105; 82962; 83735-TC; 84100-TC; 84443-TC; 84478-TC; 85025; 85610-TC; 85730-TC; 86886; 86900; 86901; 87081; 88304; 88305; 93005; 94003; 94640; 94760; 96365; 99285; C1751; C1769; C9290; G0378; J0696; J1200; J1815; J2250; J2270; J2543; J2765; J3010; J3475; J3480; J7030; J7050; J7060; J7120; J7131; J7614; Q9963; Q9964

== ENCOUNTER 2018-12-03 13:52 | Inpatient (IN) | payer OTHER, MEDICAID ==
[~2018-12-03] VITALS: Ht 160 cm; Wt 55.8 kg
[~2018-12-03 13:52] MED LIST changes: +CHLO237L3 TP; +DOCU-144 GT; -MINE25OI3 GT; +OMEP20CA11 GT; -PANT40SU2 GT; -REGL10 GT; -SILV20CR13 TP; +XOP.63 INH; -ZINC220T GT
--- NOTE | 2018-12-03 13:52 | NUR ---
ER Dr. Chirinos at bedside examining patient.
--- NOTE | 2018-12-03 13:52 | NUR ---
Placed in room 01 . Placed on cardiac monitor technician, blood pressure machine and pulse oximeter. To gown for exam. Side rails up. Report given to Ayan WHITNEY.
--- NOTE | 2018-12-03 13:53 | NUR ---
Pt is here from [facility] for J tube placement, vent dependent : TV 450, R 14, peep 5 40 % O2 setting. Per pt, J tube fell, no tubing present. VSS, no acute distress noted.
[2018-12-03 13:58] VITALS: BP_SYST 115
[2018-12-03] MEDS ORDERED: VANCOMYCIN HCL 1,000 MG in NS 250 ML IV ONE (14:45)
[2018-12-03] MEDS ORDERED: PIPERACILLIN/TAZO 3.375 GM in NS 50 ML IV ONE (14:45)
[2018-12-03 15:05] LABS: BASOPHILS % (AUTO) 0.3 % (0.0-2.0); EOSINOPHILS # (AUTO) 0.1 K/uL (0.0-0.4); EOSINOPHILS % (AUTO) 1.2 % (0.0-4.0); HEMATOCRIT 34.5 % (36-48); HEMOGLOBIN 11.5 g/dL (12.0-16.0); LYMPHOCYTES # (AUTO) 3.7 K/uL (1.0-5.5); LYMPHOCYTES % (AUTO) 31.1 % (20.5-51.5); MEAN CORPUSCULAR HEMOGLOBIN 31 pg (27-31); MEAN CORPUSCULAR HGB CONC 33 % (32-36); MEAN CORPUSCULAR VOLUME 94 fL (79.0-98.0); MONOCYTES # (AUTO) 0.7 K/uL (0.0-1.0); MONOCYTES % (AUTO) 5.6 % (1.7-9.3); NEUTROPHILS # (AUTO) 7.4 K/uL (1.8-7.7); NEUTROPHILS % (AUTO) 61.8 % (40.0-70.0); PLATELET COUNT (AUTO) 269 K/uL (130-430); RED BLOOD CELL COUNT(AUTO) 3.68 MIL/uL (4.2-6.2); RED CELL DISTRIBUTION WIDTH 15.2 % (9.0-15.0)
[2018-12-03 15:20] LABS: CALCIUM 9.2 mg/dL (8.4-11.0); CREATININE 0.38 mg/dL (0.55-1.30)
[2018-12-03 15:25] LABS: PROTHROMBIN TIME 9.9 SECS (9.5-12.5)
[2018-12-03] MEDS ORDERED: VANCOMYCIN HCL 1000 MG/VIAL IV ONE ×2 (15:53→16:42)
[2018-12-03] MEDS ORDERED: PIPERACILLIN/TAZOBACTAM 3.375 GM/VIAL (ZOSYN) IV ONE (15:53)
--- NOTE | 2018-12-03 16:30 | NUR ---
Dr. Barcenas is at pt's bedside for assessment.
--- NOTE | 2018-12-03 16:40 | NUR ---
Pt is repositioned to her right side.
[2018-12-03] MEDS ORDERED: LEVALBUTEROL HCL 0.63 MG/3 ML VIAL.NEB INH PRN (17:00)
--- NOTE | 2018-12-03 17:26 | NUR ---
Pt has rroon 101, but no RN available at moment, pt will remain in ED for now. VSS, Vancomycin per ER order is still infusing. Will continue to monitor.
[2018-12-03] MEDS ORDERED: CHLORHEXIDINE GLUCONATE TP SCH (18:00)
--- NOTE | 2018-12-03 18:40 | NUR ---
Pt is turned to left side, bed uribe placed for urine sample.
[2018-12-03] MEDS: D5NS 1,000 ML IV SCH (18:50)
--- NOTE | 2018-12-03 19:01 | NUR ---
Pt resting in bed comfortably, D5NS infusing per MD order, no inflitration, no redness, or swelling noted to IV site.
[2018-12-03 19:03] LABS: BILIRUBIN,URINE 1+ (NEGATIVE); BLOOD, URINE 2+ (NEGATIVE); CLARITY/URINE SL CLOUDY (CLEAR); COLOR,URINE YELLOW (YELLOW); GLUCOSE,URINE NEGATIVE (NEGATIVE); KETONES,URINE NEGATIVE (NEGATIVE); LEUKOCYTE ESTERASE ,URINE 2+ (NEGATIVE); NITRITE, URINE POSITIVE (NEGATIVE); PROTEIN URINE NEGATIVE (NEGATIVE)
--- NOTE | 2018-12-03 19:10 | NUR ---
RT was called to inform she has breathing txt order.
--- NOTE | 2018-12-03 19:14 | NUR ---
Pt is transferred to room 101 A, no acute distress noted. Addendum: 12/03/18 at 1935 by ERWIN Pt is also transferred with RT and ventilator, 2 RNS to telemetry room 101 A.
--- NOTE | 2018-12-03 19:15 | NUR ---
MRSA swab performed to nares.
[2018-12-03 19:20] LABS: BACTERIA,URINE MANY /HPF (None Seen); MUCUS,URINE 1+ /LPF (None Seen); WBC,URINE 20-50 /HPF (0-3)
--- NOTE | 2018-12-03 19:23 | NUR ---
ADMISSION: The patient, LEXUS JAIMES, 58 y/o, F admitted by JOSEF MEDELLIN MD, with the diagnosis of j tube dislodgement and PNEUMONIA to room 101 A , PLACED PT ON ISOLATION PER [facility] DOCUMENTS, TELE MONITOR AND PULSE OX INPLACE, RT AT BEDSIDE ADJUSTING THE VENT SETTINGS
[2018-12-03 19:48] VITALS: BP_SYST 106
[2018-12-03] MEDS: LEVALBUTEROL HCL 0.63 MG/3 ML VIAL.NEB INH SCH (19:51)
--- NOTE | 2018-12-03 20:00 | NUR ---
hs care/ wound pictures ADMISSION CARE DONE. PICTURES TAKEN OF LEFT BUTTOCK WOUND/SURYA GROIN/PERINEAL REDNESS AND OLD GT STOMA. IVF INFUSING ORDERED WITH IV LINE INTACT. VITAL SIGNS STABLE.
[2018-12-03] MEDS: CEFEPIME 1 GM in D5W 50 ML IV SCH (20:43)
[2018-12-03] MEDS: DILTIAZEM HCL 30 MG TABLET GT SCH (21:00)
[2018-12-03] MEDS: ASCORBIC ACID 500 MG TABLET GT SCH (21:00)
[2018-12-03] MEDS: LACTOBACILLUS RHAMNOSUS GG 1 CAP CAPSULE GT SCH (21:00)
[2018-12-03] MEDS: BACLOFEN 10 MG TABLET GT SCH (21:00)
[2018-12-03] MEDS: metroNIDAZOLE 500 mg/NS 100 ML IV SCH (21:27)
--- NOTE | 2018-12-03 21:47 | NUR ---
ATB PATIENT STARTED ON CEFEPIME AND FLAGYL ANTIBIOTIC ORDERED.
--- NOTE | 2018-12-03 23:00 | NUR ---
ROUNDS PATIENT AWAKE WATCHING TV. SUCTIONED VIA TRACH WITH PRODUCTIVE SPUTUM PALE YELLOW IN COLOR. TOLERATING VENT SETTINGS.
[2018-12-04] MEDS: LEVALBUTEROL HCL 0.63 MG/3 ML VIAL.NEB INH SCH ×4 (00:53→19:05)
--- NOTE | 2018-12-04 00:55 | NUR ---
ROUNDS PATIENT RESTING. NO DISTRESS NOTED. VITAL SIGNS STABLE.
--- NOTE | 2018-12-04 00:55 | NUR ---
CONSULT: CONSULT CALLED FOR DR. LOPEZ I SPOKE WITH JENNY ZHOU REASON FOR CONSULT: PNA REQUESTING CONSULT: DR. MEDELLIN QUALITY ASSURANCE REPRESENTATIVE PHONE NUMBER: [phone]
--- NOTE | 2018-12-04 00:57 | NUR ---
CONSULT: CONSULT CALLED FOR DR. SORTO I SPOKE WITH JENNY ZHUO REASON FOR CONSULT: RF REQUESTING CONSULT: DR. MEDELLIN SKIVER COUNTER PHONE NUMBER: [phone]
--- NOTE | 2018-12-04 00:59 | NUR ---
CONSULT: CONSULT CALLED FOR DR. FLEMING I SPOKE WITH PIA ZHOU REASON FOR CONSULT: JT DISLODGMENT REQUESTING CONSULT: DR. MEDELLIN WHITE WASHER PHONE NUMBER: [phone]
[2018-12-04 01:10] VITALS: BP_SYST 99
[2018-12-04 01:13] VITALS: BP_SYST 95
--- NOTE | 2018-12-04 03:08 | NUR ---
ROUNDS PATIENT AWAKE WATCHING TV. NO DISTRESS NOTED.
--- NOTE | 2018-12-04 05:29 | NUR ---
NOTES INCONTINENCE CARE DONE. PATIENT CHUX CHANGED.
--- NOTE | 2018-12-04 06:25 | NUR ---
CLOSING NOTES PATIENT RESTING IN BED. CURRENT VENT SETTINGS TOLERATED. PATIENT NEEDS ATTENDED. NO CHANGE IN CONDITION.
[2018-12-04 06:27] LABS: BASOPHILS % (AUTO) 0.2 % (0.0-2.0); EOSINOPHILS # (AUTO) 0.1 K/uL (0.0-0.4); EOSINOPHILS % (AUTO) 1.4 % (0.0-4.0); HEMATOCRIT 30.4 % (36-48); HEMOGLOBIN 10.3 g/dL (12.0-16.0); LYMPHOCYTES # (AUTO) 1.9 K/uL (1.0-5.5); LYMPHOCYTES % (AUTO) 26.2 % (20.5-51.5); MEAN CORPUSCULAR HEMOGLOBIN 32 pg (27-31); MEAN CORPUSCULAR HGB CONC 34 % (32-36); MEAN CORPUSCULAR VOLUME 94 fL (79.0-98.0); MONOCYTES # (AUTO) 0.5 K/uL (0.0-1.0); MONOCYTES % (AUTO) 6.6 % (1.7-9.3); NEUTROPHILS # (AUTO) 4.8 K/uL (1.8-7.7); NEUTROPHILS % (AUTO) 65.6 % (40.0-70.0); PLATELET COUNT (AUTO) 226 K/uL (130-430); RED BLOOD CELL COUNT(AUTO) 3.22 MIL/uL (4.2-6.2); RED CELL DISTRIBUTION WIDTH 14.5 % (9.0-15.0)
[2018-12-04] MEDS: LEVOTHYROXINE SODIUM 0.125 MG TABLET GT SCH (07:00)
[2018-12-04] MEDS: LANSOPRAZOLE 30 MG CAPSULE.DR GT SCH (07:00)
[2018-12-04 07:13] LABS: ALBUMIN 2.5 g/dL (3.4-4.8); CALCIUM 8.6 mg/dL (8.4-11.0); CREATININE 0.44 mg/dL (0.55-1.30); FREE T4 (FREE THYROXINE) 2.3 ng/dl (0.8-1.5); PHOSPHORUS 3.7 mg/dL (2.7-4.5); POTASSIUM 3.7 mmol/L (3.5-5.1); THYROID STIMULATING HORMONE 27.38 uIu/mL (0.36-3.74); TOTAL BILIRUBIN 0.6 mg/dL (0.0-1.0)
--- NOTE | 2018-12-04 07:15 | NUR ---
sbar report received from xuane nurse. patient awake and alert x 2. non verbal, just nod. breathing even and unlabored. has productive cough clear thin thru suctioning the mouth and via the trach. has mechanical ventilator of ac 14, tv 450 and fi02 of 50%. lungs bilaterally with crackles and diminished at the bases. has iv access on the left wrist #20. with D5NS at 80cc/hr infusing on well. bilateral arms edematous plus 1-2 non pitting. has g tube old site. bed low position, alarmed and locked. call lights within reach. will continue to monitor patients status.
[2018-12-04 07:30] LABS: WHITE BLOOD COUNT (AUTO) 7.3 K/uL (4.8-10.8)
[2018-12-04 08:00] VITALS: BP_SYST 135
[2018-12-04] MEDS: BACLOFEN 10 MG TABLET GT SCH ×2 (09:00→20:43)
[2018-12-04] MEDS: DILTIAZEM HCL 30 MG TABLET GT SCH ×2 (09:00→20:43)
[2018-12-04] MEDS: ASCORBIC ACID 500 MG TABLET GT SCH ×2 (09:00→20:43)
[2018-12-04] MEDS: LACTOBACILLUS RHAMNOSUS GG 1 CAP CAPSULE GT SCH ×2 (09:00→20:43)
--- NOTE | 2018-12-04 09:00 | NUR ---
due medication given via iv for antibiotics.
[2018-12-04] MEDS: CEFEPIME 1 GM in D5W 50 ML IV SCH ×2 (09:07→20:34)
[2018-12-04] MEDS: D5NS 1,000 ML IV SCH ×2 (09:07→21:49)
--- NOTE | 2018-12-04 09:45 | NUR ---
Nutrition Update Chad Scale 13 noted. Pt admitted for gastrostomy-jejunostomy tube dislodgement, pneumonia. Diet: N/A BMI: 21.7 kg/m2 RD to follow per nutrition care standards.
--- NOTE | 2018-12-04 10:52 | NUR ---
TURN TO SIDES. CONSTANTLY SUCTIONING THE PATIENT. MADE COMFORTABLE. HOB ELEVATED.
--- NOTE | 2018-12-04 10:53 | NUR ---
awaiting for dr carrasquillo to come. for order
[2018-12-04 11:21] VITALS: BP_SYST 135
[2018-12-04] MEDS: metroNIDAZOLE 500 mg/NS 100 ML IV SCH ×2 (11:30→21:50)
--- NOTE | 2018-12-04 12:00 | NUR ---
turn to sides and repositioned.
--- NOTE | 2018-12-04 14:37 | NUR ---
WOUND EVALUATION: Wound Consult received from []. Thank you, [], for the consult. Patient received in a Alfredito Bed with a mattress, awake, alert, and oriented. Patient is unable to turn independently. Chad Score is a []. Past Medical History: Recent Labs: Intrinsic factors that delay wound healing: Extrinsic factors that delay wound healing: Decreased mobility. Microbiology:. Patient was awake, alert, oriented, nonverbal (secondary to tracheostomy), but communicates by mouthing words) and received in a Alfredito Bed with an Isoflex JOCELIN mattress with low air loss therapy initiated. Patient needs to be turned in bed. Skin is fair. Recommend reposition patient side to side only every 2 hours with pillow support. Elevate, offload and float bilateral heels with one pillow lengthwise under each extremity at all times. Offload pressure areas with pillows for pressure re-distribution. Perform skin care and monitor skin integrity Q shift. Use Calmoseptine cream on moisture susceptible areas QID and PRN for soiling. 58-year-old Female with a history of dysphagia and respiratory failure, on vent, brought in by EMS for evaluation of J-tube placement today. Per EMS, patient's J-tube fell out at 0900 today. no sob. no vomiting. no fv. no cough. no other change of behavior. pt can nod her head for communication. In the ER , she is also found to have HCAP and pleural effusion on CXR. Past Medical History CHRONIC RESP FAILURE RECENT HCAP /MDRO H/O CHOLELITHIASIS AND ACUTE CHOLECYSTITIS S/P LAP MIKA ON 06/07/18 ALS W /QP DYSPHAGIA ON JT FEEDING BRONCHIECTASIS ANEMIA OF CHRONIC ILLNESS SEVER PROTEIN MALNUTRITION H/O COMPLICATED UTI W /MDRO CHRONIC CELLULITIS OF ABDOMINAL WALL RESECTION OF G-C FISTULA AND JT PLACEMENT ON 10/16/18 Past Surgical History: Cholecystectomy, Other (EXP LAP) Skin assessment: 1. Left Buttock: Wound, present on admission. Wound bed has 100% red tissue. No odor, no drainage. Periwound intact. Surrounding tissue has blanchable erythema, scar tissue, and dark discolored skin. Measures 0.7 cm x 0.6 cm. 2. 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 Wound, present on admission. Wound bed has 100% pink tissue. No odor, no drainage. Periwound intact. Surrounding tissue has blanchable erythema, scar tissue, and dark discolored skin. Measures 0.4 cm x 0.5 cm. Recommend: Cleanse involved area with mild soap and water. Pat dry. Apply Calmoseptine cream to involved area. Apply hydrogel to any portion of wound not covered by Calmoseptine cream. Cover with Sacral foam dressing. Perform skin tear care daily, and as needed for dressing soiling or dislodgment. 3. Bilateral Heels: Blanchable erythema, present on admission. Recommend: Elevate, offload and float bilateral heels with one pillow lengthwise under each extremity at all times. Wound Assessment: [], present on admission. Wound bed is []. No odor, no drainage. salome-wound intact. Measures []. Recommend: Cleanse wound with normal saline. Place moisture barrier cream onto salome-wound. Cover with foam dressing. Perform wound care daily, and as needed for dressing soiling or dislodgement.
--- NOTE | 2018-12-04 14:38 | NUR ---
WOUND EVALUATION: Late note for 1438 secondary to patient care. Wound Consult received from Dr. Barcenas. Thank you, Dr. Barcenas, for the consult. Patient was awake, alert, oriented, nonverbal (secondary to tracheostomy), but communicates by mouthing words) and received in a [place] Bed with an Isoflex JOCELIN mattress with low air loss therapy initiated. Patient is unable to turn in bed independently. Chad Score is a 13. Past Medical History: Dysphagia, Chronic Respiratory Failure, ventilator dependent, recent Healthcare Associated Pneumonia/MDRO, Cholelithiasis, Acute Cholecystitis, Laparoscopic Cholecystectomy on 06/07/18, ALS, Bronchiectasis, Anemia of Chronic Illness, Severe Protein Malnutrition, history of complicated UTI with MDRO, Chronic Cellulitis of the Abdominal Wall, Resection of Gastro-Cutaneous Fistula with Jejunostomy Tube placement on 10/16/18. Recent Labs: WBC 7.3, RBC 3.22, hemoglobin 10.3, hematocrit 30.4, BUN 14, creatinine 0.44, glucose 107, alkaline phosphatase 432, albumin 2.5. PTT 25.6. Microbiology: Blood culture results 2 in progress. Urine culture results in progress. MRSA screen results in progress. Endotracheal Sputum culture results in progress. Intrinsic factors that delay wound healing: Chronic Respiratory Failure, Anemia of Chronic Illness, Severe Protein Malnutrition, Hypoalbuminemia. Extrinsic factors that delay wound healing: Immobility. Skin assessment: 1. Left Buttock: Reopened scar tissue from a wound of prior unknown etiology, present on admission. Wound bed has 100% dark red tissue. No odor, no drainage. Periwound intact. Surrounding tissue has scar tissue and dark discolored skin. Measures 0.7 cm x 0.4 cm. Recommend: Cleanse involved area with normal Saline. Pat dry. Apply Calmoseptine cream to involved area. Apply hydrogel to any portion of site not covered by Calmoseptine cream. Cover with Sacral foam dressing. Perform site care daily, and as needed for dressing soiling or dislodgment. 2. 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 Wound bed has 80% red tissue, 10% dark discolored tissue, 10% black scab. No odor, scant sanguineous drainage. Periwound intact. Surrounding tissue has blanchable erythema, scar tissue, and dark discolored skin. Measures 0.5 cm x 0.4 cm x 0.3 cm. Recommend: Cleanse involved area with mild soap and water. Pat dry. Apply SurePrep to salome-wound. Apply Hydrogel to site. Cover with foam dressing. Perform site care daily, and as needed for dressing soiling or dislodgment. Plan: Per Dr. Barcenas, Keep site moist until new J-Tube can be inserted. 3. Bilateral Heels: Blanchable erythema, present on admission. Recommend: Elevate, offload and float bilateral heels with one pillow lengthwise under each extremity at all times. 4. Philtrum, Bilateral Angles of the Mouth, and Bilateral Upper Lip Areas: Moisture associated erythema and dry skin, present on admission. Recommend: Cleanse involved areas with normal Saline. Pat dry. Apply Hydraguard Barrier Cream to erythematous and dry skin areas on the Philtrum, Bilateral Angles of the Mouth, and Bilateral Upper Lip Areas BID. Recommend: Recommend reposition patient side to side only every 2 hours with pillow support. Elevate, offload and float bilateral heels with one pillow lengthwise under each extremity at all times. Offload pressure areas with pillows for pressure re-distribution. Perform skin care and monitor skin integrity Q shift. Use Calmoseptine cream on moisture susceptible areas QID and PRN for soiling. Maintain patient on a low air-loss mattress.
--- NOTE | 2018-12-04 15:01 | NUR ---
patient suctioned on the mouth and trach too. made comfortable.hob elevated. mouth care done.
[2018-12-04 15:59] VITALS: BP_SYST 151
[2018-12-04] MEDS ORDERED: DEXTROSE 50% JECT 50 ML DISP.SYRIN IVP PRN (16:00)
[2018-12-04] MEDS ORDERED: *PPN PER PHARMACY XX PRN (16:00)
--- NOTE | 2018-12-04 16:26 | NUR ---
FOLLOW UP CONS. SPOKE TO THE EXCHANGE FROM OFFICE.
--- NOTE | 2018-12-04 17:00 | NUR ---
dressing changed left abdomen and buttocks area.
--- NOTE | 2018-12-04 17:30 | NUR ---
tsai catheter #16 inserted with slight resistance, but successful. output clear maira urine.
--- NOTE | 2018-12-04 18:50 | NUR ---
consent signed via telephone daughter Ana agreed to have midline picc
--- NOTE | 2018-12-04 18:57 | NUR ---
patient quite and resting. no changed of status for now.
--- NOTE | 2018-12-04 19:15 | NUR ---
please follow up Nathan picc line nurse to be called, so that he can start the procedure.
--- NOTE | 2018-12-04 19:22 | NUR ---
endorsed to incoming nurse Vivian WHITNEY
--- NOTE | 2018-12-04 19:43 | NUR ---
Called and spoke with Nathan PICC line nurse regarding PICC line placement. Per nurse he will be here in 2 hours.
[2018-12-04 20:40] VITALS: BP_SYST 126
--- NOTE | 2018-12-04 20:40 | NUR ---
Opening notes Pt alert, awake, vent-dependent. AC 14, TV 450, Peep 5, FiO2 50% saturating at 100%. Oral/suction care provided. HOB maintained elevated. IVF infusing at ordered rate on L wrist 20G clear and patent. L. abd dressing C/D/I. Campbell cath draining to gravity with clear dark yellow urine. Pt on KNIGHT. Chai SCDs in place. Contact isolation in place. To monitor.
--- NOTE | 2018-12-04 21:55 | NUR ---
Nathan RN PICC line nurse at bedside for Midline placement.
--- NOTE | 2018-12-04 22:24 | NUR ---
Midline placement finished Per PICC nurse, anival iniguez to use. Dressing c/d/i. To monitor.
[2018-12-05 00:13] VITALS: BP_SYST 120
[2018-12-05] MEDS: LEVALBUTEROL HCL 0.63 MG/3 ML VIAL.NEB INH SCH ×4 (01:14→19:40)
--- NOTE | 2018-12-05 02:45 | NUR ---
Rounds Pt asleep, no s/s distress noted. No change in vent settings. IVF infusing at ordered rate L. wrist no s/s infiltration. Campbell cath draining to gravity. To monitor.
--- NOTE | 2018-12-05 05:15 | NUR ---
Rounds Pt awake, oral care and suction provided noted with small thin beige secretion. HOB maintained elevated. Lip care provided. Call light within reach. Pt HR 125. To monitor.
--- NOTE | 2018-12-05 06:15 | NUR ---
Closing notes Pt alert, awake, [facility] LYRIC Midline double lumen, dressing C/D/I. IVF infusing at ordered rate L. wrist 20G clear and patent. Campbell catheter draining to gravity with good urine output. Abd dressing intact. Pt had a mod amount of soft stool, pericare provided with PEST CONTROL SPECIALIST assist and Z guard applied to periarea. Pt on KNIGHT and neena heels floated on pillow and repositioned. Contact isolation maintained. Bed low, locked, siderails up. To endorse to AM nurse.
[2018-12-05] MEDS: D5NS 1,000 ML IV SCH (06:30)
[2018-12-05] MEDS: LANSOPRAZOLE 30 MG CAPSULE.DR GT SCH (06:49)
[2018-12-05] MEDS: LEVOTHYROXINE SODIUM 0.125 MG TABLET GT SCH (06:49)
--- NOTE | 2018-12-05 07:10 | NUR ---
sbar report received at the bedside. patient alert awake but non verbal. breathing even and unlabored. lungs bilaterally with crackles. on mechanical ventilator ac 14, fio2 of 40% and tv of 450 and peep of 5. has picc midline left upper arm 2 lumen. and has iv access on the left forearm #20. with iv fluids on infusing on well. bed low position, alarmed and locked. call lights within reach. has tsai catheter in placed draining well. hourly rounding needed.
[2018-12-05 07:46] LABS: BASOPHILS % (AUTO) 0.1 % (0.0-2.0); EOSINOPHILS % (AUTO) 0.3 % (0.0-4.0); HEMATOCRIT 32.5 % (36-48); HEMOGLOBIN 10.7 g/dL (12.0-16.0); LYMPHOCYTES # (AUTO) 1.9 K/uL (1.0-5.5); LYMPHOCYTES % (AUTO) 16.1 % (20.5-51.5); MEAN CORPUSCULAR HEMOGLOBIN 31 pg (27-31); MEAN CORPUSCULAR HGB CONC 33 % (32-36); MEAN CORPUSCULAR VOLUME 94 fL (79.0-98.0); MONOCYTES # (AUTO) 0.5 K/uL (0.0-1.0); MONOCYTES % (AUTO) 4.1 % (1.7-9.3); NEUTROPHILS # (AUTO) 9.2 K/uL (1.8-7.7); NEUTROPHILS % (AUTO) 79.4 % (40.0-70.0); PLATELET COUNT (AUTO) 223 K/uL (130-430); RED BLOOD CELL COUNT(AUTO) 3.46 MIL/uL (4.2-6.2); RED CELL DISTRIBUTION WIDTH 14.9 % (9.0-15.0); WHITE BLOOD COUNT (AUTO) 11.6 K/uL (4.8-10.8)
[2018-12-05 07:53] VITALS: BP_SYST 120
[2018-12-05 08:31] LABS: CALCIUM 7.8 mg/dL (8.4-11.0); CREATININE 0.45 mg/dL (0.55-1.30); POTASSIUM 3.4 mmol/L (3.5-5.1); TOTAL BILIRUBIN 0.7 mg/dL (0.0-1.0)
[2018-12-05 08:32] LABS: ALBUMIN 2.5 g/dL (3.4-4.8); PHOSPHORUS 2.8 mg/dL (2.7-4.5)
[2018-12-05] MEDS: LACTOBACILLUS RHAMNOSUS GG 1 CAP CAPSULE GT SCH ×2 (09:00→21:00)
[2018-12-05] MEDS: ASCORBIC ACID 500 MG TABLET GT SCH ×2 (09:00→21:00)
[2018-12-05] MEDS: BACLOFEN 10 MG TABLET GT SCH ×2 (09:00→21:00)
[2018-12-05] MEDS: DILTIAZEM HCL 30 MG TABLET GT SCH (09:00)
--- NOTE | 2018-12-05 09:00 | NUR ---
iv antibiotic due given.
--- NOTE | 2018-12-05 09:18 | NUR ---
PAGED PAGED JOSEF GREENE AT [phone] SPOKE WITH CHADWICK.
--- NOTE | 2018-12-05 09:22 | NUR ---
dr carrasquillo called for orders a cardio consult for hr 125
[2018-12-05] MEDS: metroNIDAZOLE 500 mg/NS 100 ML IV SCH ×2 (09:32→21:24)
[2018-12-05] MEDS ORDERED: KCL 40 mEq in 100 mL (PREMIX) 100 ML IV ONE (10:00)
[2018-12-05] MEDS ORDERED: DILTIAZEM HCL 25 MG/5 ML VIAL IVP ONE (10:00)
--- NOTE | 2018-12-05 10:00 | NUR ---
dr carrasquillo called back and made orders. for k rider 40 meq iv in 250ml bag gave now. and cardizem 10 mg iv x 1 now.
[2018-12-05] MEDS ORDERED: POTASSIUM CHLORIDE 40 MEQ in NS 250 ML IV ONE (10:15)
[2018-12-05] MEDS: CEFEPIME 1 GM in D5W 50 ML IV SCH ×2 (10:39→21:24)
[2018-12-05] MEDS ORDERED: ENOXAPARIN SODIUM 40 MG/0.4 ML SYRINGE SUBCUT ONE (12:30)
[2018-12-05] MEDS ORDERED: LEVOTHYROXINE SODIUM 0.1 MG VIAL IVP ONE (12:45)
--- NOTE | 2018-12-05 13:18 | NUR ---
dr Yeager called regarding the status of the patient for possible surgery. and please asked dr Barcenas to call him. ok to give lovenox subcutaneously.
[2018-12-05] MEDS: D5LR 1,000 ML IV SCH (13:30)
[2018-12-05 13:32] VITALS: BP_SYST 135
[2018-12-05] MEDS: VANCOMYCIN HCL 750 MG in NS 250 ML IV SCH ×2 (14:02→22:34)
--- NOTE | 2018-12-05 14:29 | NUR ---
dr carrasquillo called for orders and to call dr merrill cell phone for the status of the patient.
[2018-12-05] MEDS: DILTIAZEM HCL 125 MG in D5W 100 ML IV SCH (14:57)
--- NOTE | 2018-12-05 14:57 | NUR ---
Cardizem 5 mg iv started at this time. with the heart rate of 126 tachy.
[2018-12-05] MEDS ORDERED: DILTIAZEM HCL 25 MG/5 ML VIAL IVP SCH (15:00)
--- NOTE | 2018-12-05 15:10 | NUR ---
Dietitian Recommendations * Recommend continuing PPN D20%, AA8.5% at 42 ml/hr, IL20% at 10 ml/hr via GT Provides: 994 kcal/day, 43 gm protein/day, 1248 ml free water/day, and GIR: 1.25 gm CHO/kg/min Meets: 59% of lower end of estimated caloric needs and 61% of lower end of estimated protein needs LP, RD Please refer to Nutrition Assessment for details. Addendum: 12/05/18 at [address] Amended: Links added. Addendum: 12/05/18 at [address] CORRECTION: Dietitian Recommendations * Recommend continuing PPN D20%, AA8.5% at 42 ml/hr, IL20% at 10 ml/hr via peripheral line Provides: 994 kcal/day, 43 gm protein/day, 1248 ml free water/day, and GIR: 1.25 gm CHO/kg/min Meets: 59% of lower end of estimated caloric needs and 61% of lower end of estimated protein needs LP, RD Please refer to Nutrition Assessment for details.
--- NOTE | 2018-12-05 16:00 | NUR ---
Elaine charge nurse insert new iv access on the left wrist #22.
[2018-12-05 17:02] VITALS: BP_SYST 104
--- NOTE | 2018-12-05 17:30 | NUR ---
latest bs 128mg/dl. no coverage given.
[2018-12-05] MEDS: FAT EMULSIONS 250 ML IV SCH (17:43)
--- NOTE | 2018-12-05 17:43 | NUR ---
lipids at 10cc/hr infusing on well and tpn at 42cc/hr infusing.
[2018-12-05] MEDS ORDERED: [UNRECOGNIZED DRUG - OTHER] IV SCH ×8 (18:00)
[2018-12-05] MEDS ORDERED: POTASSIUM CHLORIDE IV SCH ×8 (18:00)
[2018-12-05] MEDS ORDERED: TPN PERIPHERAL IV SCH ×8 (18:00)
[2018-12-05] MEDS ORDERED: MAGNESIUM SULFATE IV SCH ×8 (18:00)
--- NOTE | 2018-12-05 18:30 | NUR ---
repositioned to sides. with pillows on it. oral propylaxis done.
--- NOTE | 2018-12-05 19:00 | NUR ---
dr merrill came and evaluate the patient.
--- NOTE | 2018-12-05 19:25 | NUR ---
sbar report given to Ghazal WHITNEY.
[2018-12-05 20:00] VITALS: BP_SYST 100
--- NOTE | 2018-12-05 20:05 | NUR ---
PM SHIFT ASSESSMENT Received patient lying in bed, aox1, trach with vent settings of AC 14, Fio2 40%, TV 450 and peep of 5. No distress noted, no facial grimacing noted for pain, vital signs stable. Left upper midline in place, no signs of infiltration noted, TPN infusing at 42 ml/hr and lipids at 10 ml/hr, IVF infusing IV line to right wrist. Patient on cardizem drip at 5 ml/hr, HR 95 to 100. Campbell catheter secure and to gravity, draining yellow urine, patient repositioned with pillow support, fall and isolation precautions in place, will closely monitor.
--- NOTE | 2018-12-05 21:45 | NUR ---
RN ROUNDS/MED PASS Patient awake, no sob noted, due antibiotics administered, iv line to right wrist intact and patent, no signs of infiltration noted, family at bedside, updated them on patient's status, all questions answered.
--- NOTE | 2018-12-05 22:49 | NUR ---
RN ROUNDS Patient awake, in no distress, due antibiotics administered to right wrist iv line, blood sugar check this pm of 129, no insulin coverage needed, patient had a bm, incontinence care provided, z guard applied to buttocks and sacral dressing applied. Patient repositioned and turned with pillow support.
[2018-12-05 23:54] VITALS: BP_SYST 106
[2018-12-06] VITALS (13 sets, daily range): BP systolic 83–134
--- NOTE | 2018-12-06 00:10 | NUR ---
RN ROUNDS Patient asleep, respirations even and unlabored, vital signs stable, IVF and TPN infusing, patient repositioned and turned with pillow support. Safety measures in place, will monitor.
--- NOTE | 2018-12-06 00:55 | NUR ---
PAGED PAGING DR. FERMIN REGARDING CRITICAL LAB RESULTS
[2018-12-06] MEDS: D5LR 1,000 ML IV SCH ×3 (01:17→23:29)
--- NOTE | 2018-12-06 02:25 | NUR ---
RN ROUNDS Patient continues to sleep, respirations even and unlabored, IVF and TPN infusing, patient repositioned and turned with pillow support. Safety measures in place, will monitor.
--- NOTE | 2018-12-06 04:13 | NUR ---
RN ROUNDS Patient awake, respirations even and unlabored, no facial grimacing noted for pain, blood sugar check this am of 142, no insulin coverage needed, repositioned and turned with pillow support. Isolation and safety measures in place, will monitor.
[2018-12-06] MEDS: VANCOMYCIN HCL 750 MG in NS 250 ML IV SCH (05:23)
[2018-12-06] MEDS: LANSOPRAZOLE 30 MG CAPSULE.DR GT SCH (05:23)
--- NOTE | 2018-12-06 06:04 | NUR ---
RN ROUNDS Patient resting quietly, in no distress, remains on vent, no facial grimacing noted for pain, due antibiotics administered, IV line to right wrist intact and patent, no signs of infiltration, left upper midline intact and patent, TPN and lipids infusing, patient repositioned and turned with pillow support. Isolation and safety measures maintained throughout the shift, will continue to monitor until report given to am nurse.
--- NOTE | 2018-12-06 07:15 | NUR ---
sbar report received at the bedside. patient alert awake but non verbal. just nod blink both eyes for a response. no acute distress noted. no pain noted. still on mechanical ventilator ac 14, fio2 40%, tv 450 and peep of 5. breathing even and unlabored. lungs bilaterally crackles. abdomen soft and non distended but firm. still old scar on the abdomen. with midline picc on the left upper arm bed low position, alarmed and locked. call lights within reach. tsai catheter in placed draining clear yellow urine. has bilateral scds on. both feet on pillows. hourly rounding.
[2018-12-06] MEDS: LEVALBUTEROL HCL 0.63 MG/3 ML VIAL.NEB INH SCH ×3 (07:29→20:18)
[2018-12-06 08:21] LABS: BASOPHILS % (AUTO) 0.1 % (0.0-2.0); EOSINOPHILS # (AUTO) 0.1 K/uL (0.0-0.4); EOSINOPHILS % (AUTO) 0.6 % (0.0-4.0); HEMATOCRIT 30.1 % (36-48); HEMOGLOBIN 10.1 g/dL (12.0-16.0); LYMPHOCYTES # (AUTO) 2.8 K/uL (1.0-5.5); LYMPHOCYTES % (AUTO) 26.9 % (20.5-51.5); MEAN CORPUSCULAR HEMOGLOBIN 32 pg (27-31); MEAN CORPUSCULAR HGB CONC 34 % (32-36); MEAN CORPUSCULAR VOLUME 94 fL (79.0-98.0); MONOCYTES # (AUTO) 0.7 K/uL (0.0-1.0); MONOCYTES % (AUTO) 6.5 % (1.7-9.3); NEUTROPHILS # (AUTO) 6.9 K/uL (1.8-7.7); NEUTROPHILS % (AUTO) 65.9 % (40.0-70.0); PLATELET COUNT (AUTO) 212 K/uL (130-430); RED CELL DISTRIBUTION WIDTH 14.9 % (9.0-15.0); WHITE BLOOD COUNT (AUTO) 10.5 K/uL (4.8-10.8)
[2018-12-06 08:43] LABS: ALBUMIN 2.2 g/dL (3.4-4.8); CALCIUM 7.9 mg/dL (8.4-11.0); CREATININE 0.43 mg/dL (0.55-1.30); PHOSPHORUS 1.6 mg/dL (2.7-4.5); TOTAL BILIRUBIN 0.5 mg/dL (0.0-1.0)
[2018-12-06] MEDS: BACLOFEN 10 MG TABLET GT SCH ×2 (09:00→22:20)
[2018-12-06] MEDS ORDERED: ENOXAPARIN SODIUM 40 MG/0.4 ML SYRINGE SUBCUT SCH (09:00)
[2018-12-06] MEDS: ASCORBIC ACID 500 MG TABLET GT SCH ×2 (09:00→22:21)
[2018-12-06] MEDS: metroNIDAZOLE 500 mg/NS 100 ML IV SCH ×2 (09:00→22:21)
[2018-12-06] MEDS: LACTOBACILLUS RHAMNOSUS GG 1 CAP CAPSULE GT SCH ×2 (09:00→22:21)
--- NOTE | 2018-12-06 09:00 | NUR ---
iv antibiotic given at this time.
[2018-12-06] MEDS: CEFEPIME 1 GM in D5W 50 ML IV SCH (09:36)
[2018-12-06] MEDS: LEVOTHYROXINE SODIUM 0.1 MG VIAL IVP SCH (09:36)
--- NOTE | 2018-12-06 09:36 | NUR ---
maxipime iv antibiotic hanged at this time.
--- NOTE | 2018-12-06 09:56 | NUR ---
PAGED PAGED JOSEF GREENE AT [phone] SPOKE WITH AKIL.
--- NOTE | 2018-12-06 10:00 | NUR ---
turn to sides with pillows. both feet elevated with pillows.
[2018-12-06] MEDS ORDERED: K PHOS 30 MM in NS 250 ML IV ONE (11:00)
--- NOTE | 2018-12-06 12:30 | NUR ---
repositioned to sides with pillows. suction x 2 thru mouth and trach. oral care done.
[2018-12-06] MEDS ORDERED: PIPERACILLIN/TAZO 3.375/DEX-IS 50 ML IV ONE (14:00)
--- NOTE | 2018-12-06 15:00 | NUR ---
vancomycin iv given as this time.
[2018-12-06] MEDS: VANCOMYCIN HCL 1,000 MG in NS 250 ML IV SCH ×2 (15:13→23:28)
--- NOTE | 2018-12-06 15:15 | NUR ---
has a new skin tear noted left wrist. cleanse normal saline and place optifoam dressing on it.
--- NOTE | 2018-12-06 15:30 | NUR ---
patient was vegetable picker by Christina WHITNEY and OR crew with Jillian Respiratory therapist at this time.
[2018-12-06] MEDS ORDERED: BUPIVACAINE LIPOSOME/PF 266 MG/20 ML VIAL INFIL ONE (15:47)
[2018-12-06] MEDS ORDERED: LR 1,000 ML IV SCH (16:27)
[2018-12-06] MEDS ORDERED: MEPERIDINE HCL/PF 25 MG/ML DISP.SYRIN IVP PRN (16:30)
[2018-12-06] MEDS ORDERED: HYDROmorphone 2 MG/ML VIAL IVP PRN ×2 (16:30)
--- NOTE | 2018-12-06 17:14 | NUR ---
patient still in operating room.
--- NOTE | 2018-12-06 17:41 | NUR ---
Zelalem clinical secretary notify Catherine WHITNEY, that patient will be going to ICU unit.
[2018-12-06] MEDS ORDERED: POTASSIUM CHLORIDE IV SCH ×8 (18:00)
[2018-12-06] MEDS ORDERED: [UNRECOGNIZED DRUG - OTHER] IV SCH ×8 (18:00)
[2018-12-06] MEDS ORDERED: MAGNESIUM SULFATE IV SCH ×8 (18:00)
[2018-12-06] MEDS ORDERED: TPN PERIPHERAL IV SCH ×8 (18:00)
[2018-12-06] MEDS ORDERED: ONDANSETRON HCL 4 MG/2 ML VIAL ONE (18:20)
[2018-12-06] MEDS ORDERED: KETOROLAC TROMETHAMINE 30 MG VIAL ONE (18:20)
[2018-12-06] MEDS ORDERED: SEVOFLURANE 15 MIN GAS INH ONE (18:20)
[2018-12-06] MEDS ORDERED: NS IRRIG SOLN 1000 ML IR ONE (18:20)
[2018-12-06] MEDS: DILTIAZEM HCL 125 MG in D5W 100 ML IV SCH ×2 (18:20→19:22)
[2018-12-06] MEDS ORDERED: ROCURONIUM BROMIDE 10 MG/ML (ZEMURON) ONE (18:20)
[2018-12-06] MEDS ORDERED: LR 1,000 ML IV.SOLN IV ONE (18:20)
[2018-12-06] MEDS ORDERED: PROPOFOL 200MG/ 20ML VIAL (DIPRIVAN) IV ONE (18:20)
[2018-12-06] MEDS ORDERED: DEXAMETHASONE SOD PHOSPHATE 4 MG/ML VIAL ONE (18:20)
[2018-12-06] MEDS ORDERED: fentaNYL CITRATE 250 MCG/5 ML AMP ONE (18:20)
[2018-12-06] MEDS ORDERED: MIDAZOLAM HCL 5 MG/ML VIAL (VERSED) IV ONE (18:20)
--- NOTE | 2018-12-06 18:39 | NUR ---
Elaine charge nurse informed jim hernandez that patient will go to ICU unit
--- NOTE | 2018-12-06 18:39 | NUR ---
all medication brought to ICU Sapna
--- NOTE | 2018-12-06 18:50 | NUR ---
Received patient from PACU Carissa WHITNEY with ventilator via trach AC 14 TV 450 Peep 5 Fio2 40% Oral care done CHG bath done with bilateral SCD done With left arm PICC line intact with biopatch With ongoing TPN 43ml/hr, LR at 80 ml/hr and cardizem drip at 5mg/hr with tsai catheter to gravity drainage with clear yellow output with securement device with left buttock wound with foam dressing in place with skin mositure barrier cream to perisacral/groin excoriation Contact isolation done Dr Fontenot was paged regarding CArbapenemn Resistant Organism at 1850 that was reported by lab to Sapna WHITNEY at 1840 Report given at the bedside to Jeffry WHITNEY
[2018-12-06] MEDS: PIPERACILLIN/TAZO 3.375/DEX-IS 50 ML IV SCH (18:56)
[2018-12-06] MEDS: INSULIN REGULAR, HUMAN 100 UNITS/ML, 10 ML VIAL (humuLIN R) SUBCUT PRN ×3 (19:00→23:53)
--- NOTE | 2018-12-06 20:00 | NUR ---
PT.ASSESSED.PT.PRESENTS ADMINISTRATION;CARDIZEM-DRIP:ADMINISTERED @5MG/HR. PT.PRESET HX;ALS;PT.PRESENTS FLACCID/PARAPLEGIA;X4 EXTREMITIES.PT.PRESENTS VENTILATOR:SETTINGS;TV;450,FIO-2%=40%,A/C:12,PEEP;5.PT.PRESENT LOCKWOOD CATHETER INTACT;PATENT.URINE CONTENT PRESENT.PT.PRESENTS LT.BICEPT;MID-LINE;TPN INFUSING:@43ML/HR.IV FLUIDS;LR INFUSING@80ML/HR.PT.PRESENTS ISOLATION; CONTACT:ESBL;U/CX,MANAGER APPLICATION;SPUTUM.PT.ASSESSED FOR CLEANLINESS.PT.REPOSITIONED.CALL LIGHT/TELEPHONE PLACED W/IN REACH OF THE PT. Addendum: 12/07/18 at 0752 by Jeffry Valiente RN abdomen dsg assessed;intact;absent drainage.
[2018-12-06] MEDS: FAT EMULSIONS 250 ML IV SCH (22:09)
[2018-12-06] MEDS: ACETAMINOPHEN 650 MG/20.3 ML UDC GT PRN (22:54)
--- NOTE | 2018-12-06 23:30 | NUR ---
b/p remained low value.cardizem-drip stopped:b/p VALUE;88/53.to continue to monitor.
[2018-12-07] VITALS (37 sets, daily range): BP systolic 82–155
--- NOTE | 2018-12-07 | NUR ---
PT.ASSESSED.VENT ASSESSED;PT.TOLERATING VENT SETTINGS.I HAVE ATTENDED TO THE ORAL/TRACH CARE.I HAVE ATTENDED TO THE ORAL/TRACH SUCTION.B/P REMAINS LOW VALUES.TO CONTINUE TO MONITOR.TPN/LIPIDS.INFUSING.VIA THE MIDLINE:LT.BICEPT;INTACT;PATENT.IV FLUIDS INFUSING.G/J-TUBE;DSG ASSESSED;INTACT;ABSENT DRAINAGE.LOCKWOOD CATHETER ASSESSED;INTACT;PATENT;URINE CONTENT PRESENT.PT.ASSESSED FOR CLEANLINESS.PT.REPOSITIONED.CALL LIGHT/TELEPHONE PLACED W/IN REACH OF THE PT.
[2018-12-07] MEDS: LEVALBUTEROL HCL 0.63 MG/3 ML VIAL.NEB INH SCH ×4 (01:45→19:40)
--- NOTE | 2018-12-07 04:00 | NUR ---
pt.assessed.awaiting the return paged per .b/p values remains low;hypotensive. pt.asymtomatic.vent setings assessed.pt tolerating the vent settings.i have attended to the oral trach care.i have attended to the oral /trach suction.mid-line assessed;intact;patent: tpn/lipids infusing.iv fluids infusing.abdomen dsg intact;absent drainage.tsai catheter intact;patent:urine content present.pt.assessed for cleanliness.pt.repositioned.[facility] placed w/in the reach of the pt.
[2018-12-07] MEDS ORDERED: NOREPINEPHRINE BITARTRATE 4 MG in NS 246 ML IV PRN (04:28)
--- NOTE | 2018-12-07 04:28 | NUR ---
DR VIGNESH Barcenas notified regarding low systolic BP (70's), orders received. 1. Start pt on Levophed drip to maintain SBP greater than 90. 2. Cardizem drip has been turned off since 2299, for SBP less than 100.
[2018-12-07] MEDS ORDERED: NOREPINEPHRINE 4 MG/4 ML VIAL IV ONE (04:45)
--- NOTE | 2018-12-07 04:45 | NUR ---
returned page.re;b/p values;hypotension. had ordered levophed-drip;b/p. the levophed -drip initiate administration:@5mcq/min.to continue to monitor the b/p values.
[2018-12-07] MEDS: PIPERACILLIN/TAZO 3.375/DEX-IS 50 ML IV SCH ×5 (05:22→23:30)
[2018-12-07] MEDS: ACETAMINOPHEN 650 MG/20.3 ML UDC GT PRN (05:25)
[2018-12-07] MEDS: INSULIN REGULAR, HUMAN 100 UNITS/ML, 10 ML VIAL (humuLIN R) SUBCUT PRN ×4 (05:28→21:34)
--- NOTE | 2018-12-07 05:30 | NUR ---
the levophed-drip rate has been increased:7mcq/min.b/p values had remained low. to continue to monitor the b/p status.
[2018-12-07 05:46] LABS: BASOPHILS % (AUTO) 0.1 % (0.0-2.0); LYMPHOCYTES # (AUTO) 2.4 K/uL (1.0-5.5); LYMPHOCYTES % (AUTO) 9.7 % (20.5-51.5); MEAN CORPUSCULAR HEMOGLOBIN 31 pg (27-31); MEAN CORPUSCULAR HGB CONC 32 % (32-36); MEAN CORPUSCULAR VOLUME 95 fL (79.0-98.0); MONOCYTES # (AUTO) 0.9 K/uL (0.0-1.0); MONOCYTES % (AUTO) 3.5 % (1.7-9.3); NEUTROPHILS # (AUTO) 21.6 K/uL (1.8-7.7); NEUTROPHILS % (AUTO) 86.7 % (40.0-70.0); PLATELET COUNT (AUTO) 339 K/uL (130-430); RED BLOOD CELL COUNT(AUTO) 2.16 MIL/uL (4.2-6.2); RED CELL DISTRIBUTION WIDTH 14.9 % (9.0-15.0); WHITE BLOOD COUNT (AUTO) 24.9 K/uL (4.8-10.8)
[2018-12-07 05:53] LABS: HEMATOCRIT 20.6 % (36-48); HEMOGLOBIN 6.6 g/dL (12.0-16.0)
[2018-12-07] MEDS: VANCOMYCIN HCL 1,000 MG in NS 250 ML IV SCH ×3 (06:00→23:29)
[2018-12-07] MEDS: LANSOPRAZOLE 30 MG CAPSULE.DR GT SCH (06:00)
--- NOTE | 2018-12-07 06:02 | NUR ---
DR LONNIE Yeager notified regarding AM H/H of 6.6 & 20.6. Orders received. 1. Hold Lovenox 2. Give 2 units of PRBC now.
--- NOTE | 2018-12-07 06:30 | NUR ---
pt.assessed.b/p presents values w/in normal limits.levophed-drip infusing@7mcq/min. dental lab technician conveyed th h/h:low values;ramila;rn/chg has conveyed to dweayne raya the h/h level. has ordered:2-units/prbc's.consent has been provided per family: 12/06/18.
[2018-12-07 06:46] LABS: ALBUMIN 1.6 g/dL (3.4-4.8); CALCIUM 7.1 mg/dL (8.4-11.0); CREATININE 0.68 mg/dL (0.55-1.30); PHOSPHORUS 2.8 mg/dL (2.7-4.5); POTASSIUM 3.6 mmol/L (3.5-5.1); TOTAL BILIRUBIN 0.5 mg/dL (0.0-1.0)
--- NOTE | 2018-12-07 07:50 | NUR ---
AM ASSESSMENT. PT AWAKE, ON TRACH VENT, ON AC MODE, SECURITIES ANALYST SINUS TACHYCARDIA, LEVOPHED DRIP AT 7 MCG/MIN, TPN AT 44 ML PER HR, LIPIDS AT 10 ML PER HR, IVF D5LR AT 60 ML PER HR. MIDLINE INTACT IN LEFT UPPER ARM, IV IN RIGHT WRIST PATENT, LOCKWOOD CATHETER DRAINING AMBERISH COLOR, PUS NOTED FROM BETWEEN HER THIGHS, PERINEAL HYGIENE PROVIDED USING LUKE WARM WATER MIXED WITH SOAP FOR CLEANING, RINSED AND CAREFULLY PAT TO DRY THE GENITAL AREA.
[2018-12-07] MEDS: ASCORBIC ACID 500 MG TABLET GT SCH ×2 (08:38→21:00)
[2018-12-07] MEDS: BACLOFEN 10 MG TABLET GT SCH ×2 (08:38→21:00)
[2018-12-07] MEDS: LACTOBACILLUS RHAMNOSUS GG 1 CAP CAPSULE GT SCH ×2 (08:38→21:00)
[2018-12-07] MEDS: metroNIDAZOLE 500 mg/NS 100 ML IV SCH ×2 (08:50→21:22)
[2018-12-07] MEDS: LEVOTHYROXINE SODIUM 0.1 MG VIAL IVP SCH (08:51)
[2018-12-07] MEDS: COLISTIMETHATE SODIUM 75 MG in NS 50 ML IV SCH ×2 (09:41→21:23)
--- NOTE | 2018-12-07 10:00 | NUR ---
NURSING. TURNED AND REPOSITIONED PATIENT Q2H, MODERATE AMOUNT OF BILE COLOR DRAINAGE SQUEEZED OUT FROM THE SIDE OF HER MOUTH WHILE SUCTIONING, GENTLE ORAL CARE DONE. CLEAN SHEETS PROVIDED. HEAD OF BED ELEVATED AT ALL TIMES AT 35-40 DEGREE ANGLE TO PREVENT ASPIRATION.
--- NOTE | 2018-12-07 11:22 | NUR ---
BT INITIATION: Consent signed per sister Ana agreeing to administration of blood. Blood has been typed and crossmatched. Blood sent from blood bank. Information on unit of blood checked against patient wristband at bedside by two nurses. All information matches. Patient or responsible green party informed of potential complications associated with blood transfusion. Informed of possible transfusion reaction symptoms. Aware of need to notify nurse at once of itching, shortness of breath, flushing, feeling of impending doom, or other symptoms not previously present. Vital signs taken within 5 minutes prior to initiation of transfusion. RN will remain with patient for first 15 minutes of transfusion at which time vital signs will be re-assessed.
--- NOTE | 2018-12-07 13:06 | NUR ---
FAMILY. ONE OF PT'S SISTERS CAME IN TO VISIT, JOÃO, UPDATE GIVEN ON HER STATUS.
--- NOTE | 2018-12-07 14:30 | NUR ---
B.T. TRANSFUSION COMPLETED, AFEBRILE, NO ADVERSE REACTION NOTED AFTER TRANSFUSION. PT'S SISTER SPEAKING TO HER, GIVING A BIG SMILE, FAMILY HELPED IN TURNING PATIENT TO HER SIDE.
--- NOTE | 2018-12-07 15:22 | NUR ---
TRANSFUSION. HUNG 2ND UNIT PACKED RBC, VITAL SIGNS PRIOR TO TRANSFUSION AND AFTER 15 MINUTES OF TRANSFUSION TAKEN AND RECORDED.
--- NOTE | 2018-12-07 17:05 | NUR ---
Nutrition Follow Up RD reviewed pt's current EMR including diet Hx, physician notes, nursing notes, pertinent labs/m,eds/procedures, care trends and care activity. Current parental nutrition: PPN D20%, AA8.5% at 42ml/hr with IL 20% at 20ml/hr via peripheral line Provides 994kcal/day, 43gPro/day, 1248ml free water/day. GIR: 1.25g CCHO/kg/min Meets: 59% of lower end of est. caloric needs and 61% of lower end of est. protein needs Subjective information: Pt w/ vent resting in bed, PPN observed running at bedside. Anthropometrics verified. No family at bedside. Estimated Energy Expenditure (kcals/day) 3495-6211 kcal/day (30-35 kcal/kg CBW for wound healing) Estimated Protein Required (g/day) 70-84 gm/day (1.25-1.5 gm/kg CBW for wound healing) Estimated Fluid Required (l/day) 1.7-2 L/day (1 ml/kcal/day for wound healing) Problem/Etiology/Signs/Symptoms Increased nutritional needs related to metabolic demands as evidenced by estimated nutritional requirements for wound healing. *ongoing Expected Outcomes/Goals - Monitor tolerance of nutrition support w/ goal of pt meeting at least 50% of estimated nutritional needs, labs trending WNL, normal GI function, and skin integrity/wt maintenance Dietitian Recommendations * Recommend continuing PPN D20%, AA8.5% at 42 ml/hr, IL20% at 10 ml/hr via peripheral line Follow Up High Risk: F/U in 2-3days LT, RD
--- NOTE | 2018-12-07 17:12 | NUR ---
Dietitian Recommendations * Recommend continuing PPN D20%, AA8.5% at 42 ml/hr, IL20% at 10 ml/hr via peripheral line Please see Nutrition Follow Up for further details. LT, RD
--- NOTE | 2018-12-07 17:50 | NUR ---
B.T. TRANSFUSION COMPLETED WITHOUT ADVERSE REACTION. AFEBRILE, PT COMFORTABLE.
[2018-12-07] MEDS: FAT EMULSIONS 250 ML IV SCH (17:52)
[2018-12-07] MEDS ORDERED: TPN PERIPHERAL IV SCH ×10 (18:00)
[2018-12-07] MEDS ORDERED: POTASSIUM CHLORIDE IV SCH ×10 (18:00)
[2018-12-07] MEDS ORDERED: [UNRECOGNIZED DRUG - OTHER] IV SCH ×10 (18:00)
[2018-12-07] MEDS ORDERED: MAGNESIUM SULFATE IV SCH ×10 (18:00)
[2018-12-07 20:16] LABS: BASOPHILS % (AUTO) 0.1 % (0.0-2.0); HEMATOCRIT 25.7 % (36-48); HEMOGLOBIN 8.7 g/dL (12.0-16.0); LYMPHOCYTES # (AUTO) 2.9 K/uL (1.0-5.5); LYMPHOCYTES % (AUTO) 16.8 % (20.5-51.5); MEAN CORPUSCULAR HEMOGLOBIN 30 pg (27-31); MEAN CORPUSCULAR HGB CONC 34 % (32-36); MONOCYTES # (AUTO) 2.2 K/uL (0.0-1.0); MONOCYTES % (AUTO) 13.2 % (1.7-9.3); NEUTROPHILS # (AUTO) 11.9 K/uL (1.8-7.7); NEUTROPHILS % (AUTO) 69.9 % (40.0-70.0); PLATELET COUNT (AUTO) 196 K/uL (130-430); RED BLOOD CELL COUNT(AUTO) 2.88 MIL/uL (4.2-6.2); RED CELL DISTRIBUTION WIDTH 15.5 % (9.0-15.0)
[2018-12-07 20:20] LABS: MEAN CORPUSCULAR VOLUME 89 fL (79.0-98.0)
[2018-12-07] MEDS: D5LR 1,000 ML IV SCH (21:32)
--- NOTE | 2018-12-07 21:45 | NUR ---
BSG BLOOD SUGAR GLUCOSE 176 mg dl , two units Regular insulin administer per sliding scale , patient awake .
[2018-12-08] VITALS (31 sets, daily range): BP systolic 124–181
--- NOTE | 2018-12-08 | NUR ---
VANCOMYCIN 1000 MG IVPB administer as ordered no adverse Reaction noted skin Rash free dry also warm .
--- NOTE | 2018-12-08 00:50 | NUR ---
TRACH SUCTION UP RIGHT POSITION MINIMAL VENTILATOR ALARMING suction semi - thick sputum gag & cough Reflex noted chest movement shallow also symmetrical tolerated .
--- NOTE | 2018-12-08 00:55 | NUR ---
COLISTIN 75 MG IVPB administer as ordered no adverse Reaction noted skin dry warm / .
[2018-12-08] MEDS: LEVALBUTEROL HCL 0.63 MG/3 ML VIAL.NEB INH SCH ×4 (01:17→19:43)
--- NOTE | 2018-12-08 04:04 | NUR ---
ABDOMINAL BINDER APPLIED INPLACE PATIENT TOLERATING .
--- NOTE | 2018-12-08 04:05 | NUR ---
CHG bed bath implemented patient tolerated / .
[2018-12-08] MEDS: VANCOMYCIN HCL 1,000 MG in NS 250 ML IV SCH ×2 (06:19→15:11)
[2018-12-08] MEDS: PIPERACILLIN/TAZO 3.375/DEX-IS 50 ML IV SCH ×3 (06:19→18:29)
[2018-12-08] MEDS: LANSOPRAZOLE 30 MG CAPSULE.DR GT SCH (06:19)
[2018-12-08 06:36] LABS: EOSINOPHILS % (AUTO) 0.2 % (0.0-4.0); HEMATOCRIT 23.6 % (36-48); HEMOGLOBIN 8.1 g/dL (12.0-16.0); LYMPHOCYTES # (AUTO) 1.9 K/uL (1.0-5.5); LYMPHOCYTES % (AUTO) 13.4 % (20.5-51.5); MEAN CORPUSCULAR HEMOGLOBIN 30 pg (27-31); MEAN CORPUSCULAR HGB CONC 34 % (32-36); MEAN CORPUSCULAR VOLUME 88 fL (79.0-98.0); MONOCYTES # (AUTO) 1.1 K/uL (0.0-1.0); MONOCYTES % (AUTO) 7.8 % (1.7-9.3); NEUTROPHILS # (AUTO) 11.1 K/uL (1.8-7.7); NEUTROPHILS % (AUTO) 78.6 % (40.0-70.0); PLATELET COUNT (AUTO) 225 K/uL (130-430); RED BLOOD CELL COUNT(AUTO) 2.67 MIL/uL (4.2-6.2); RED CELL DISTRIBUTION WIDTH 15.9 % (9.0-15.0); WHITE BLOOD COUNT (AUTO) 14.1 K/uL (4.8-10.8)
[2018-12-08 07:07] LABS: ALBUMIN 1.7 g/dL (3.4-4.8); CALCIUM 7.5 mg/dL (8.4-11.0); CREATININE 0.59 mg/dL (0.55-1.30); PHOSPHORUS 1.3 mg/dL (2.7-4.5); TOTAL BILIRUBIN 0.8 mg/dL (0.0-1.0)
[2018-12-08 07:20] LABS: POTASSIUM 2.9 mmol/L (3.5-5.1)
[2018-12-08 07:21] LABS: TOTAL IRON BIND. CAPACITY 129 ug/dL (250-450)
--- NOTE | 2018-12-08 07:30 | NUR ---
Received pt alert, oriented and able to make needs known. VSS. ST on monitor, rate 125. Pt has green emesis all over her gown and bed. Pt states she has been throwing up. Mouth suctioned. Denies pain. #7 portex trach to vent and comfortable on AC 14/450/40%/p5. No secretions from trach suctioned at this time. Pt remains NPO. ABd tender with abd binder in place. Dressing clean and intact underneath. Jtube port clamped. Left upper arm PICC line in place with TPN at 43cc/hr and lipids at 10 cc/hr and IVF at 60 cc/hr. Extremties edematous. Campbell in place with maira urine in bag. Pt has SCD's in place. Isolation maintained for EXTENSION EDUCATOR/MDRO. Sputum and urine. Will continue to monitor.
[2018-12-08] MEDS: metroNIDAZOLE 500 mg/NS 100 ML IV SCH (08:39)
[2018-12-08] MEDS: LEVOTHYROXINE SODIUM 0.1 MG VIAL IVP SCH (08:39)
[2018-12-08] MEDS: ASCORBIC ACID 500 MG TABLET GT SCH ×2 (09:00→21:00)
[2018-12-08] MEDS: CYANOCOBALAMIN 1000 mCg TABLET GT SCH (09:00)
[2018-12-08] MEDS: LACTOBACILLUS RHAMNOSUS GG 1 CAP CAPSULE GT SCH ×2 (09:00→21:00)
[2018-12-08] MEDS: BACLOFEN 10 MG TABLET GT SCH ×2 (09:00→21:00)
--- NOTE | 2018-12-08 09:01 | NUR ---
Dr. Parks in to see pt.
[2018-12-08] MEDS ORDERED: K PHOS 30 MM in NS 250 ML IV ONE ×2 (10:00→16:45)
[2018-12-08] MEDS ORDERED: POTASSIUM CHLORIDE 40 MEQ in NS 250 ML IV SCH (10:00)
[2018-12-08] MEDS ORDERED: ONDANSETRON HCL 4 MG/2 ML VIAL IVP ONE (10:15)
--- NOTE | 2018-12-08 10:20 | NUR ---
Spoke with Dr. Yeager and informed him of patients vomiting green bile. Orders left.
[2018-12-08] MEDS: COLISTIMETHATE SODIUM 75 MG in NS 50 ML IV SCH ×2 (10:36→23:15)
--- NOTE | 2018-12-08 10:50 | NUR ---
J tube balloon deflated by [address] Yeager. Pt continues to vomit in larger amounts all over trach dressing and gown. Pt is unable to call for help when she vomits. HOB up.
--- NOTE | 2018-12-08 12:31 | NUR ---
Spoke with Dr. Yeager regarding continuous vomiting. Orders left for NGT and KUB.
--- NOTE | 2018-12-08 12:55 | NUR ---
NG inserted and return of 1000cc of green drainage returned. NG left to LIS. Abd less distended afterward. Xray here for KUB.
--- NOTE | 2018-12-08 14:00 | NUR ---
No further vomiting after NG tube placed. HOB up.
[2018-12-08] MEDS: D5LR 1,000 ML IV SCH (15:48)
--- NOTE | 2018-12-08 15:50 | NUR ---
Dr. Yeager in to see pt. Orders left.
[2018-12-08] MEDS ORDERED: POTASSIUM CHLORIDE 40 MEQ in NS 250 ML IV ONE (16:00)
[2018-12-08] MEDS ORDERED: NAPH,MB-DB/K PH,MBDB 250 MG TAB JT ONE (17:00)
[2018-12-08 17:39] LABS: HEMATOCRIT 24.6 % (36-48); HEMOGLOBIN 8.2 g/dL (12.0-16.0)
--- NOTE | 2018-12-08 17:40 | NUR ---
Dr. Barcenas in to see pt. Orders left.
[2018-12-08] MEDS ORDERED: ERGOCALCIFEROL 8000 UNITS/ML ORAL SOLUTION, 60 ML BOTTLE GT ONE (18:00)
[2018-12-08] MEDS ORDERED: EPOETIN ALFA 2,000 UNITS/ML VIAL SUBCUT ONE (18:00)
[2018-12-08] MEDS: METOCLOPRAMIDE HCL 10 MG/2 ML VIAL IVP SCH ×2 (18:30→22:37)
--- NOTE | 2018-12-08 18:30 | NUR ---
Pt refused epogen and reglan and daughter could not tell me why. She helped talk to the pt.
[2018-12-08] MEDS: FAT EMULSIONS 250 ML IV SCH (18:34)
[2018-12-08] MEDS ORDERED: METOCLOPRAMIDE HCL 10 MG/2 ML VIAL ONE (18:40)
--- NOTE | 2018-12-08 19:20 | NUR ---
Report given to RN to assume care. Pt remains in ST and VSS. Family still at bedside. No further vomiting since NG placed. Small amount of drainage since placement. Addendum: 12/09/18 at 1125 by Gina Spaulding RN Jevity 1.2 infusing at 10 cc/hr via gastrostomy port of the J tube. Reproted to oncoming RN that pt is to be fed through this port and not the NG tube. The NG tube needs to be to LIS.
--- NOTE | 2018-12-08 20:00 | NUR ---
ASSESSMENT Pt Alert, pt able to respond to simple yes or no questions by nodding head. Pt trach to vent, tolerating current vent settings. Right nare with NGT to low suction, green drainage noted in tubes. Abdomen dressing dry with small amount of old drainage noted on dressing. J-Tube clamped. Abdomen distended soft abdominal binder in use. Left upper arm with Mid line PICC, dressing intact no redness or swelling noted at site. Right wrist 22ga, no redness or swelling noted @ site. Campbell cath in use draining cloudy dark maira urine. BM loose green. Low air loss mattress in use.
--- NOTE | 2018-12-08 20:10 | NUR ---
AT 1915 P.M, RECEIVED NURSING REPORT FROM DAY SHIFT MYESHA Foote, PATIENT IS ALERT, ABLE TO ANSWER SIMPLE QUESTION, AT 1945 P.M, VOMITING SUDDNEY, GIVE STOP FEEDING AND CHECK NG-TUBE , IS NO RESUIDUAL , HAD FEW BILE, REPOSITION HOB TO 60 DEGREES, AND REPORTED TO Dr. MEDELLIN, ORDERED STOP FEEDING, GIVE ZOFRAN 4 MG IVP EVERY 4 HOURS NEED, AND CLOSE MONITOR, THE DAUGHTER AT BEDSIDE, WAS GIVE EXPLAINED, THE FAMILY STAY WITH PATIENT AT BEDSIDE
--- NOTE | 2018-12-08 20:20 | NUR ---
GIVE COMPLETE NURSING REPORT TO BRADY Foote
[2018-12-08] MEDS: NAPH,MB-DB/K PH,MBDB 250 MG TAB JT SCH (21:00)
[2018-12-08] MEDS ORDERED: POTASSIUM CHLORIDE IV SCH ×11 (21:00)
[2018-12-08] MEDS ORDERED: [UNRECOGNIZED DRUG - OTHER] IV SCH ×11 (21:00)
[2018-12-08] MEDS ORDERED: MAGNESIUM SULFATE IV SCH ×11 (21:00)
[2018-12-08] MEDS ORDERED: TPN PERIPHERAL IV SCH ×11 (21:00)
--- NOTE | 2018-12-08 23:00 | NUR ---
REGLAN Pt refused to take Reglan, after giving Pt and family member education regarding reason for receiving medication.
[2018-12-08] MEDS: LORazepam 2 MG/ML VIAL IVP PRN (23:14)
[2018-12-09] VITALS (32 sets, daily range): BP systolic 119–194
[2018-12-09] MEDS: metroNIDAZOLE 500 mg/NS 100 ML IV SCH ×3 (00:50→20:54)
[2018-12-09] MEDS: MORPHINE 2 MG/ML INJ. SYRINGE IVP PRN (01:01)
[2018-12-09] MEDS: LEVALBUTEROL HCL 0.63 MG/3 ML VIAL.NEB INH SCH ×4 (01:03→19:36)
[2018-12-09] MEDS: VANCOMYCIN HCL 1,000 MG in NS 250 ML IV SCH ×2 (02:08→13:57)
[2018-12-09] MEDS: PIPERACILLIN/TAZO 3.375/DEX-IS 50 ML IV SCH ×4 (04:44→18:17)
[2018-12-09] MEDS: METOCLOPRAMIDE HCL 10 MG/2 ML VIAL IVP SCH ×3 (04:51→18:17)
[2018-12-09] MEDS: LANSOPRAZOLE 30 MG CAPSULE.DR GT SCH (05:37)
--- NOTE | 2018-12-09 06:00 | NUR ---
ASSESSMENT Pt alert/oriented to self and place. No c/o abdominal incisional pain.
--- NOTE | 2018-12-09 06:05 | NUR ---
DRESSINGS Pt's wound dressing changed and pictures taken.
[2018-12-09 06:15] LABS: BASOPHILS % (AUTO) 0.1 % (0.0-2.0); EOSINOPHILS # (AUTO) 0.1 K/uL (0.0-0.4); EOSINOPHILS % (AUTO) 0.4 % (0.0-4.0); LYMPHOCYTES # (AUTO) 2.7 K/uL (1.0-5.5); LYMPHOCYTES % (AUTO) 21.6 % (20.5-51.5); MEAN CORPUSCULAR HEMOGLOBIN 30 pg (27-31); MEAN CORPUSCULAR HGB CONC 34 % (32-36); MEAN CORPUSCULAR VOLUME 90 fL (79.0-98.0); MONOCYTES % (AUTO) 7.7 % (1.7-9.3); NEUTROPHILS # (AUTO) 8.7 K/uL (1.8-7.7); PLATELET COUNT (AUTO) 239 K/uL (130-430); RED BLOOD CELL COUNT(AUTO) 2.27 MIL/uL (4.2-6.2); RED CELL DISTRIBUTION WIDTH 16.2 % (9.0-15.0); WHITE BLOOD COUNT (AUTO) 12.4 K/uL (4.8-10.8)
[2018-12-09 06:32] LABS: HEMATOCRIT 20.5 % (36-48); HEMOGLOBIN 6.8 g/dL (12.0-16.0)
[2018-12-09 07:42] LABS: CALCIUM 7.8 mg/dL (8.4-11.0); CREATININE 0.58 mg/dL (0.55-1.30); POTASSIUM 3.9 mmol/L (3.5-5.1); TOTAL BILIRUBIN 0.6 mg/dL (0.0-1.0)
[2018-12-09 07:43] LABS: ALBUMIN 1.7 g/dL (3.4-4.8); PHOSPHORUS 1.7 mg/dL (2.7-4.5)
[2018-12-09 07:53] LABS: NEUTROPHILS % (AUTO) 70.2 % (40.0-70.0)
--- NOTE | 2018-12-09 08:00 | NUR ---
AM ASSESSMENT. PT ALERT, AFEBRILE, GENERALIZED EDEMA, RIGHT SIDE BASE OF NECK WITH SOME REDNESS, TRACH TO VENT, ORAL CARE DONE, ABDOMEN DISTENDED, NGT TO LOW INTERMITTENT SUCTION, JT/GT CLAMPED, DRESSING TO ABDOMEN WITH LIGHT BLOOD TINGED DRAINAGE, LOCKWOOD CATHETER DRAINING WELL. REPOSITIONED PT GENTLY, PILLOW PLACED UNDER ARMS AND LEGS.
[2018-12-09 08:57] LABS: PROTHROMBIN TIME 10.2 SECS (9.5-12.5)
[2018-12-09] MEDS: LEVOTHYROXINE SODIUM 0.1 MG VIAL IVP SCH (08:58)
[2018-12-09] MEDS: NAPH,MB-DB/K PH,MBDB 250 MG TAB JT SCH ×3 (09:00→18:17)
[2018-12-09] MEDS: LACTOBACILLUS RHAMNOSUS GG 1 CAP CAPSULE GT SCH ×2 (09:00→20:53)
[2018-12-09] MEDS: CYANOCOBALAMIN 1000 mCg TABLET GT SCH (09:00)
[2018-12-09] MEDS: ASCORBIC ACID 500 MG TABLET GT SCH ×2 (09:00→20:53)
[2018-12-09] MEDS: BACLOFEN 10 MG TABLET GT SCH ×2 (09:00→20:53)
[2018-12-09] MEDS: ERGOCALCIFEROL 8000 UNITS/ML ORAL SOLUTION, 60 ML BOTTLE GT SCH (11:03)
[2018-12-09] MEDS: COLISTIMETHATE SODIUM 75 MG in NS 50 ML IV SCH ×2 (11:05→20:53)
[2018-12-09] MEDS: D5LR 1,000 ML IV SCH (11:07)
--- NOTE | 2018-12-09 13:10 | NUR ---
SURGEON. DR FLEMING AT BEDSIDE. ABDOMINAL DRESSINGS WERE REMOVED. INCISION CLEAN, DON INTACT, LIGHT BLEEDING AROUND NEW JT/GT SITE. GAUZE DRESSINGS PLACED OVER INCISION AND RIGHT ABD, BINDER APPLIED TO ABDOMEN.
--- NOTE | 2018-12-09 13:25 | NUR ---
BT INITIATION: Consent signed per family and pt agreeing to administration of blood. Blood has been typed and crossmatched. Blood sent from blood bank. Information on unit of blood checked against patient wristband at bedside by two nurses. All information matches. Patient or responsible republican informed of potential complications associated with blood transfusion. Informed of possible transfusion reaction symptoms. Aware of need to notify nurse at once of itching, shortness of breath, flushing, feeling of impending doom, or other symptoms not previously present. Vital signs taken within 5 minutes prior to initiation of transfusion. RN will remain with patient for first 15 minutes of transfusion at which time vital signs will be re-assessed.
--- NOTE | 2018-12-09 13:35 | NUR ---
XRAY. MO ORDERED BY DR FLEMING AND HE WAITED TO VIEW THE FILM.
[2018-12-09] MEDS: LORazepam 2 MG/ML VIAL IVP PRN (13:57)
--- NOTE | 2018-12-09 13:57 | NUR ---
ANXIETY. PT GRIMACING, ASSESSED FOR PAIN, MAKING EYE CONTACT ONLY, CUSTOMER SERVICE RECEPTIONIST SINUS TACHY, ATIVAN 1 MG IVP GIVEN FOR AGITATION.
--- NOTE | 2018-12-09 15:15 | NUR ---
Nutrition F/U RD reviewed pt's current EMR including diet Hx, physician notes, nursing notes, pertinent labs/meds/procedures, care trends and care activity. Current Nutrition Support: D20% AA 8.5% at 42ml/hr, IL20% at 5ml/hr via Peripheral line + Vital AF 1.2 at 10ml/hr via JT x 0 days Subjective information: Pt seen in bed, TPN infusing at time of visit. No EN infusing but w/ active EN support order. Per RN, they turned off EN support 2 hrs after it was turned on. Previously on [place], RD s/w Dr. Yeager regarding rec for Vital AF 1.2. agreed. RD s/w Kevin pharmD earlier today [id number] post rec. Kevin made aware of possible changes d/t EN regimen in addition to TPN support. PharmD was also made aware that TPN will be tapered down once EN regimen is being tolerated 75%. Estimated Energy Expenditure (kcals/day) 1381 kcal/day (REE PSU 2003b for critical illness on vent)-re-calculated for Vent settings and Temperature Estimated Protein Required (g/day) 70-84 gm/day (1.25-1.5 gm/kg CBW for wound healing) Estimated Fluid Required (l/day) 1.7-2 L/day (1 ml/kcal/day for wound healing) Problem/Etiology/Signs/Symptoms Increased nutritional needs related to metabolic demands as evidenced by estimated nutritional requirements for wound healing. *ongoing Inadequate nutrition support r/t current TPN and EN regimen AEB nutrient intake <75% of estimated calorie and protein needs. (*new) Expected Outcomes/Goals - Monitor tolerance of nutrition support w/ goal of pt meeting at least 75% of estimated nutritional needs, labs trending WNL, normal GI function, and skin integrity/wt maintenance Dietitian Recommendations * Recommend PPN D20%, AA8.5% at 60 ml/hr(goal rate), IL20% at 5 ml/hr via peripheral line. * Recommend continuing Vital AF 1.2 at 10ml/hr via JT. Combined, EN and PPN regimen will provide: 1263 kcal, 79 gm protein and 1800ml free water daily and GIR 2.57 gm CHO/kg/min. Which meets: 91% of estimated calorie needs and 94% of upper end of estimated protein needs. * PPN infusion rate to be adjusted once pt is tolerating EN regimen at least 75% of estimated needs. Follow Up High Risk: F/U in 2-3days LUPIS SCHUMACHER
--- NOTE | 2018-12-09 15:20 | NUR ---
LOC. PT COMFORTABLE AT THIS HOUR. EYES CLOSED.
--- NOTE | 2018-12-09 15:23 | NUR ---
Dietitian Recommendations * Recommend PPN D20%, AA8.5% at 60 ml/hr(goal rate), IL20% at 5 ml/hr via peripheral line. * Recommend continuing Vital AF 1.2 at 10ml/hr via JT. Combined, EN and PPN regimen will provide: 1263 kcal, 79 gm protein and 1800ml free water daily and GIR 2.57 gm CHO/kg/min. Which meets: 91% of estimated calorie needs and 94% of upper end of estimated protein needs. * PPN infusion rate to be adjusted once pt is tolerating EN regimen at least 75% of estimated needs. Please see nutrition F/U note for details LUPIS SCHUMACHER
--- NOTE | 2018-12-09 16:15 | NUR ---
B.T. TRANSFUSION COMPLETED WITHOUT COMPLICATIONS. CONTINUE TO MONITOR PT. TURNED PT Q2H.
[2018-12-09] MEDS ORDERED: COMMUNICATION ORDER XX ONE (17:00)
[2018-12-09] MEDS: FAT EMULSIONS 250 ML IV SCH (18:18)
--- NOTE | 2018-12-09 19:30 | NUR ---
1 LARGE GREENISH GELATINOUS STOOL DEFECATED. CLEANED. COMPLETE LINEN CHANGE. MARIA INES-CARE, LOCKWOOD CARE, BACK CARE DONE. Z-GUARD APPLIED TO GROIN AND PERINEUM. COMPLETE LINEN CHANGE. DOES NOT ASSIST WITH TURNING. BON PROC WELL.
[2018-12-09 19:58] LABS: BASOPHILS % (AUTO) 0.3 % (0.0-2.0); EOSINOPHILS # (AUTO) 0.1 K/uL (0.0-0.4); EOSINOPHILS % (AUTO) 0.4 % (0.0-4.0); HEMATOCRIT 27.9 % (36-48); HEMOGLOBIN 9.5 g/dL (12.0-16.0); LYMPHOCYTES # (AUTO) 2.2 K/uL (1.0-5.5); LYMPHOCYTES % (AUTO) 15.8 % (20.5-51.5); MEAN CORPUSCULAR HEMOGLOBIN 31 pg (27-31); MEAN CORPUSCULAR HGB CONC 34 % (32-36); MEAN CORPUSCULAR VOLUME 91 fL (79.0-98.0); MONOCYTES # (AUTO) 0.9 K/uL (0.0-1.0); MONOCYTES % (AUTO) 6.5 % (1.7-9.3); NEUTROPHILS # (AUTO) 10.7 K/uL (1.8-7.7); PLATELET COUNT (AUTO) 264 K/uL (130-430); RED BLOOD CELL COUNT(AUTO) 3.05 MIL/uL (4.2-6.2); RED CELL DISTRIBUTION WIDTH 16.1 % (9.0-15.0); WHITE BLOOD COUNT (AUTO) 13.9 K/uL (4.8-10.8)
--- NOTE | 2018-12-09 20:00 | NUR ---
TRACH TO VENT. GRIMACES AT TIMES. LET'S HER NEEDS TO BE KNOWN TO DAUGHTER, DAUGHTER INTERPRETING. ORAL CARE GIVEN. SUCTIONED TRACHEALLY WITH MOD AMOUNT OF THICK GUTIERREZ COLORED MUCUS OBTAINED. J TUBE FEEDING WITH VITAL AF 1.2 INFUSING AT 10CC/HR. NGT TO LIS WITH GREENISH BROWN SECRETIONS DRAINING. LEFT UPPER ARM MIDLINE DRSG D/I. LOCKWOOD CATH PATENT DRAINING CLEAR GABE URINE TO GRAVITY. SURYA SCD'S IN PLACE. EXTREMITIES PARALYZED. SINUS TACHYCARDIA. GT FLUSHED WITH 30CC H2O. CONTACT ISOLATION OBSERVED.
[2018-12-09] MEDS: DILTIAZEM HCL 30 MG TABLET GT SCH (20:53)
[2018-12-09] MEDS ORDERED: TPN PERIPHERAL IV SCH ×11 (21:00)
[2018-12-09] MEDS ORDERED: [UNRECOGNIZED DRUG - OTHER] IV SCH ×11 (21:00)
[2018-12-09] MEDS ORDERED: SODIUM ACETATE IV SCH ×11 (21:00)
[2018-12-09] MEDS ORDERED: SODIUM CHLORIDE IV SCH ×11 (21:00)
--- NOTE | 2018-12-09 21:00 | NUR ---
DR FLEMING HERE, SEEN PT. TALKED TO DAUGHTERS. QUESTIONS ANSWERED.
--- NOTE | 2018-12-09 22:00 | NUR ---
SUCTIONED. TURNED. HS CARE. ACCU-CHEK 172, 2 UNITS REGULAR INSULIN SQ GIVEN PER SLIDING SCALE COV.
[2018-12-09] MEDS: INSULIN REGULAR, HUMAN 100 UNITS/ML, 10 ML VIAL (humuLIN R) SUBCUT PRN (22:07)
[2018-12-10] VITALS (27 sets, daily range): BP systolic 107–198
--- NOTE | 2018-12-10 | NUR ---
DAUGHTERS LEFT FOR HOME EARLIER. DOZES ON AND OFF. 0 DISTRESS. SUCTIONED. ORAL CARE GIVEN. TURNED. GT FLUSHED WITH 30CC H2O. NGT TO LIS WITH INCREASED OUTPUT.
[2018-12-10] MEDS: METOCLOPRAMIDE HCL 10 MG/2 ML VIAL IVP SCH ×4 (00:07→19:02)
[2018-12-10] MEDS: PIPERACILLIN/TAZO 3.375/DEX-IS 50 ML IV SCH ×4 (00:07→19:02)
[2018-12-10] MEDS: NAPH,MB-DB/K PH,MBDB 250 MG TAB JT SCH ×4 (00:07→18:00)
[2018-12-10] MEDS: D5LR 1,000 ML IV SCH ×2 (00:55→16:29)
[2018-12-10] MEDS: LEVALBUTEROL HCL 0.63 MG/3 ML VIAL.NEB INH SCH ×4 (00:59→19:52)
[2018-12-10] MEDS: VANCOMYCIN HCL 1,000 MG in NS 250 ML IV SCH ×2 (01:13→14:09)
--- NOTE | 2018-12-10 02:00 | NUR ---
ASLEEP. SUCTIONED. TURNED.
--- NOTE | 2018-12-10 04:00 | NUR ---
ACCU-CHEK 124, NO INSULIN DUE PER SLIDING SCALE COV. 1 MODERATE WATERY GREEN SOOL DEFECATED, CLEANED. MARIA INES-CARE DONE. LOCKWOOD CARE, BACK CARE DONE. Z-GUARD APPLIED, SKIN CARE RENDERED. LEFT WRIST DRESSING RIGHT THIGH DRESSING, ABDOMINAL DRESSING AND SACRAL DRESSING CHANGED. PARTIAL LINEN CHANGE. DOES NOT ASSIST WITH TURNING. TOLERATED PROC WELL. GT FLUSHED WITH 30CC H2O.
[2018-12-10] MEDS: INSULIN REGULAR, HUMAN 100 UNITS/ML, 10 ML VIAL (humuLIN R) SUBCUT PRN (04:01)
[2018-12-10 05:52] LABS: BASOPHILS % (AUTO) 0.2 % (0.0-2.0); EOSINOPHILS # (AUTO) 0.1 K/uL (0.0-0.4); EOSINOPHILS % (AUTO) 0.6 % (0.0-4.0); HEMATOCRIT 25.6 % (36-48); HEMOGLOBIN 8.5 g/dL (12.0-16.0); LYMPHOCYTES # (AUTO) 2.1 K/uL (1.0-5.5); LYMPHOCYTES % (AUTO) 17.6 % (20.5-51.5); MEAN CORPUSCULAR HEMOGLOBIN 30 pg (27-31); MEAN CORPUSCULAR HGB CONC 33 % (32-36); MEAN CORPUSCULAR VOLUME 92 fL (79.0-98.0); MONOCYTES % (AUTO) 7.9 % (1.7-9.3); NEUTROPHILS # (AUTO) 8.9 K/uL (1.8-7.7); NEUTROPHILS % (AUTO) 73.7 % (40.0-70.0); PLATELET COUNT (AUTO) 241 K/uL (130-430); RED CELL DISTRIBUTION WIDTH 15.8 % (9.0-15.0); WHITE BLOOD COUNT (AUTO) 12.1 K/uL (4.8-10.8)
--- NOTE | 2018-12-10 06:00 | NUR ---
SLEPT FOR LONG PERIODS OF TIME. SUCTIONED AND TURNED Q2 HRS AND PRN. UO GOOD. NGT PATENT. REMAINS IN GUARDED CONDITION.
[2018-12-10] MEDS: LANSOPRAZOLE 30 MG CAPSULE.DR GT SCH (06:15)
[2018-12-10 06:21] LABS: CREATININE 0.91 mg/dL (0.55-1.30); PHOSPHORUS 2.6 mg/dL (2.7-4.5); POTASSIUM 3.3 mmol/L (3.5-5.1)
[2018-12-10] MEDS ORDERED: LANSOPRAZOLE 30 MG CAPSULE.DR ONE (06:24)
--- NOTE | 2018-12-10 07:26 | NUR ---
Opening Note: Received plan of care from endorsing nurse Ronal RN via sbar. Completed patient round. All safety measures checked.
[2018-12-10] MEDS: BACLOFEN 10 MG TABLET GT SCH ×2 (09:57→22:31)
[2018-12-10] MEDS: LACTOBACILLUS RHAMNOSUS GG 1 CAP CAPSULE GT SCH ×2 (09:57→22:30)
[2018-12-10] MEDS: ASCORBIC ACID 500 MG TABLET GT SCH ×2 (09:57→22:31)
[2018-12-10] MEDS: DILTIAZEM HCL 30 MG TABLET GT SCH ×3 (09:57→22:32)
[2018-12-10] MEDS: CYANOCOBALAMIN 1000 mCg TABLET GT SCH (09:57)
[2018-12-10] MEDS: LEVOTHYROXINE SODIUM 0.1 MG VIAL IVP SCH (09:59)
[2018-12-10] MEDS: ERGOCALCIFEROL 8000 UNITS/ML ORAL SOLUTION, 60 ML BOTTLE GT SCH (09:59)
[2018-12-10] MEDS: COLISTIMETHATE SODIUM 75 MG in NS 50 ML IV SCH ×2 (10:00→22:28)
--- NOTE | 2018-12-10 10:55 | NUR ---
Critical Value Received call from RT [place] who advised that patient Bicarb is 17.9 and base excess is -7. Called Dr. Robertson and left message with exchange.
--- NOTE | 2018-12-10 12:28 | NUR ---
Received call from Dr. Robertson regarding Critical Values. No new orders.
[2018-12-10] MEDS ORDERED: EPOETIN ALFA 4,000 UNITS/ML VIAL SUBCUT ONE (15:45)
[2018-12-10] MEDS ORDERED: PHYTONADIONE Non-Formulary 5 MG TABLET GT ONE (15:45)
[2018-12-10] MEDS ORDERED: K PHOS 15 MM in NS 250 ML IV ONE (16:00)
[2018-12-10] MEDS ORDERED: PHYTONADIONE (Vitamin K) Oral Solution GT ONE (16:15)
[2018-12-10 18:15] LABS: BASOPHILS # (AUTO) 0.1 K/uL (0.0-0.2); BASOPHILS % (AUTO) 0.5 % (0.0-2.0); EOSINOPHILS % (AUTO) 0.3 % (0.0-4.0); HEMATOCRIT 29.4 % (36-48); HEMOGLOBIN 9.5 g/dL (12.0-16.0); LYMPHOCYTES # (AUTO) 2.8 K/uL (1.0-5.5); LYMPHOCYTES % (AUTO) 19.4 % (20.5-51.5); MEAN CORPUSCULAR HEMOGLOBIN 30 pg (27-31); MEAN CORPUSCULAR HGB CONC 33 % (32-36); MEAN CORPUSCULAR VOLUME 93 fL (79.0-98.0); MONOCYTES # (AUTO) 1.1 K/uL (0.0-1.0); MONOCYTES % (AUTO) 7.3 % (1.7-9.3); NEUTROPHILS # (AUTO) 10.6 K/uL (1.8-7.7); NEUTROPHILS % (AUTO) 72.5 % (40.0-70.0); PLATELET COUNT (AUTO) 272 K/uL (130-430); RED BLOOD CELL COUNT(AUTO) 3.17 MIL/uL (4.2-6.2); RED CELL DISTRIBUTION WIDTH 16.4 % (9.0-15.0); WHITE BLOOD COUNT (AUTO) 14.6 K/uL (4.8-10.8)
--- NOTE | 2018-12-10 18:49 | NUR ---
Transfer made to Tele Room 101A. Patient was accompanied by RN and RT. Report given at bedside to receiving RN. Patient belongings were taken by family. Patient did not have any complications or complaints.
--- NOTE | 2018-12-10 18:50 | NUR ---
ADMISSION NOTE Received patient from ICU .Patient is awake and alert. Does not appear to be in distress. Contact isolation observed. J-tube intact and inplace. NGT in place. Midline to left upper arm intact and patent. Patient had bowel movement upon arrival, good pericare rendered. Call light within the reach. Will endorse to next shift.
[2018-12-10] MEDS: FAT EMULSIONS 250 ML IV SCH (18:59)
[2018-12-10] MEDS ORDERED: SODIUM CHLORIDE IV SCH ×11 (21:00)
[2018-12-10] MEDS ORDERED: SODIUM ACETATE IV SCH ×11 (21:00)
[2018-12-10] MEDS ORDERED: TPN PERIPHERAL IV SCH ×11 (21:00)
[2018-12-10] MEDS ORDERED: [UNRECOGNIZED DRUG - OTHER] IV SCH ×11 (21:00)
--- NOTE | 2018-12-10 21:33 | NUR ---
Rounds: Patient is resting in bed, tolerating trach to vent. IV fluids infusing as ordered. Tubefeeding in place. Will continue monitoring.
[2018-12-11] MEDS: METOCLOPRAMIDE HCL 10 MG/2 ML VIAL IVP SCH ×5 (00:20→23:14)
[2018-12-11] MEDS: PIPERACILLIN/TAZO 3.375/DEX-IS 50 ML IV SCH ×4 (00:20→17:27)
[2018-12-11] MEDS: NAPH,MB-DB/K PH,MBDB 250 MG TAB JT SCH ×4 (00:21→23:14)
[2018-12-11 00:29] VITALS: BP_SYST 104; BP_SYST 140
[2018-12-11] MEDS: LEVALBUTEROL HCL 0.63 MG/3 ML VIAL.NEB INH SCH ×4 (01:15→19:52)
[2018-12-11] MEDS: VANCOMYCIN HCL 1,000 MG in NS 250 ML IV SCH (02:52)
[2018-12-11] MEDS: DILTIAZEM HCL 30 MG TABLET GT SCH ×3 (04:49→17:00)
--- NOTE | 2018-12-11 05:45 | NUR ---
Midline dressing change: Patient's midline was inserted on 12/04/18, dressing has not been changed yet. Performed midline dressing, sterile technique observed. Patient tolerated well. Call light is with patient. Will continue to monitor.
[2018-12-11] MEDS: LANSOPRAZOLE 30 MG CAPSULE.DR GT SCH (06:33)
[2018-12-11 06:35] LABS: INR 1.1 (0.8-1.2); PROTHROMBIN TIME 10.7 SECS (9.5-12.5)
--- NOTE | 2018-12-11 06:45 | NUR ---
Closing note: Patient is resting in bed, no distress. IV fluids infusing as ordered. Tubefeeding in place. NGT to LIS, 700 ML green/brown output during this shift. Campbell draining yellow urine to gravity. Trach to vent, tolerating current settings. All needs met. Safety, fall precautions in place. Will endorse to daysalbina RN.
[2018-12-11 06:49] LABS: ALBUMIN 1.7 g/dL (3.4-4.8); CALCIUM 8.1 mg/dL (8.4-11.0); CREATININE 1.01 mg/dL (0.55-1.30); PHOSPHORUS 4.2 mg/dL (2.7-4.5); POTASSIUM 3.5 mmol/L (3.5-5.1); TOTAL BILIRUBIN 1.6 mg/dL (0.0-1.0)
[2018-12-11 07:02] LABS: BASOPHILS % (AUTO) 0.3 % (0.0-2.0); EOSINOPHILS # (AUTO) 0.1 K/uL (0.0-0.4); EOSINOPHILS % (AUTO) 0.7 % (0.0-4.0); HEMATOCRIT 26.6 % (36-48); HEMOGLOBIN 8.8 g/dL (12.0-16.0); LYMPHOCYTES # (AUTO) 1.9 K/uL (1.0-5.5); LYMPHOCYTES % (AUTO) 15.2 % (20.5-51.5); MEAN CORPUSCULAR HEMOGLOBIN 31 pg (27-31); MEAN CORPUSCULAR HGB CONC 33 % (32-36); MEAN CORPUSCULAR VOLUME 93 fL (79.0-98.0); MONOCYTES # (AUTO) 0.7 K/uL (0.0-1.0); MONOCYTES % (AUTO) 5.8 % (1.7-9.3); NEUTROPHILS # (AUTO) 9.8 K/uL (1.8-7.7); PLATELET COUNT (AUTO) 283 K/uL (130-430); RED BLOOD CELL COUNT(AUTO) 2.86 MIL/uL (4.2-6.2); RED CELL DISTRIBUTION WIDTH 16.3 % (9.0-15.0); WHITE BLOOD COUNT (AUTO) 12.6 K/uL (4.8-10.8)
[2018-12-11 07:30] VITALS: BP_SYST 114
--- NOTE | 2018-12-11 07:55 | NUR ---
am notes received pt in bed. a/xox1. viatls stable not in acute distres. continue on vent with trach tolerating well. j tube intact. g tube feeding continue vital af 1.2 10ml/hr tolerating well.. LYRIC midline intact. dressing clean dry and intact. tpn at 50 and lipid at 10 ml/he infusing well. ivf infusing well. hob elevated. tsai cath intact.draining yellow color urine .contact isolations in place. reposition wilh pillow. ngt in place. connected to LIS. safety precautions in place. no s/s of distress. noted. will continue to monitor
[2018-12-11 09:26] VITALS: BP_SYST 126
[2018-12-11] MEDS: ERGOCALCIFEROL 8000 UNITS/ML ORAL SOLUTION, 60 ML BOTTLE GT SCH (09:43)
[2018-12-11] MEDS: LACTOBACILLUS RHAMNOSUS GG 1 CAP CAPSULE GT SCH ×2 (09:43→21:17)
[2018-12-11] MEDS: BACLOFEN 10 MG TABLET GT SCH ×2 (09:43→21:16)
[2018-12-11] MEDS: COLISTIMETHATE SODIUM 75 MG in NS 50 ML IV SCH ×2 (09:44→21:17)
[2018-12-11] MEDS: CYANOCOBALAMIN 1000 mCg TABLET GT SCH (09:44)
[2018-12-11] MEDS: ASCORBIC ACID 500 MG TABLET GT SCH ×2 (09:44→21:17)
[2018-12-11] MEDS: LEVOTHYROXINE SODIUM 0.1 MG VIAL IVP SCH (09:44)
[2018-12-11] MEDS: INSULIN REGULAR, HUMAN 100 UNITS/ML, 10 ML VIAL (humuLIN R) SUBCUT PRN (10:19)
--- NOTE | 2018-12-11 10:30 | NUR ---
meds Patient is resting in bed, tolerating trach to vent. IV fluids infusing as ordered. Tube feeding in place. due meds given as ordered repositioned with pillow. .Will continue monitoring.
[2018-12-11 11:26] VITALS: BP_SYST 107
--- NOTE | 2018-12-11 12:30 | NUR ---
ROUNDS Patient is resting in bed, tolerating trach to vent. IV fluids infusing as ordered. Tube feeding in place. .repositioned with pillow. .Will continue monitoring.
--- NOTE | 2018-12-11 14:00 | NUR ---
BLEEDING FRESH RED COLOR BLEEDING NOTICED IN ABD DRESSING. PT IS BLEEDING FROM ABD SUTURES SITE . DRESSING CHENGED. PAGED DR FLEMING TO NOTIFY. DR PADGETT HERE SEEN PT. VITALS STABLE. BP 107/53. HR 119 O2 SAT 100%/ CONTINUE ON VENT TOLERATING WELL
--- NOTE | 2018-12-11 14:04 | NUR ---
PAGED PAGED MIGUEL ÁNGEL FUENTES AT [phone] SPOKE WITH JANEEN.
--- NOTE | 2018-12-11 14:55 | NUR ---
DR FLEMING CALLED BACK DR FLEMING CALLED BACK INFORMED ABOUT THAT PT IS BLEEDING FROM ABD SURGERY SITE.DRESSSING REINFORCED. PHONE GOT DISCONNECTED. PAGED DR FLEMING BACK. WAITING FOR TARA BACK
[2018-12-11 15:46] VITALS: BP_SYST 126
--- NOTE | 2018-12-11 16:00 | NUR ---
DC Planning: Transfer to [facility] pending : per dr. Yeager's note: POD 5 status post exploratory laparotomy, jejunostomy tube placement, partial small bowel resection >> Patient oozing blood from midline incision. Hemoglobin level increased today. Awaiting FFP transfusion.
--- NOTE | 2018-12-11 16:54 | NUR ---
Nutrition F/U RD reviewed pt's current EMR including diet Hx, physician notes, nursing notes, pertinent labs/meds/procedures, care trends, and care activity. Current Nutrition Support: PPN D20%, AA 8.5% at 50 ml/hr, IL20% at 5 ml/hr via peripheral line + Vital AF 1.2 at 10ml/hr via JT x2 days Subjective information: Pt seen in bed, TPN and JT feeding infusing at time of visit. Per EMR, pt had been vomiting 2 days ago, and PPN was initiated. 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 RN reported that pt may be bleeding from the abd suture site, so call was made to surgeon to assess. Dual nutrition support w/ PPN and EN continues appropriate. Plans for pt to meet goal rate for PPN support starting tonight. Per past Nutrition F/U note, pharmD was also made aware that TPN will be tapered down once EN regimen is being tolerated 75% (12/09/18). Estimated Energy Expenditure (kcals/day) 1381 kcal/day (REE PSU 2003b for critical illness on vent)-re-calculated for Vent settings and Temperature Estimated Protein Required (g/day) 70-84 gm/day (1.25-1.5 gm/kg CBW for wound healing) Estimated Fluid Required (l/day) 1.7-2 L/day (1 ml/kcal/day for wound healing) Problem/Etiology/Signs/Symptoms Increased nutritional needs related to metabolic demands as evidenced by estimated nutritional requirements for wound healing. *ongoing Inadequate nutrition support r/t current TPN and EN regimen AEB nutrient intake <75% of estimated calorie and protein needs. (*new) Expected Outcomes/Goals - Monitor tolerance of nutrition support w/ goal of pt meeting at least 75% of estimated nutritional needs, labs trending WNL, normal GI function, and skin integrity/wt maintenance Dietitian Recommendations * Recommend PPN D20%, AA8.5% at 60 ml/hr(goal rate), IL20% at 5 ml/hr via peripheral line * Recommend continuing Vital AF 1.2 at 10ml/hr via JT Combined, PPN and EN regimen will provide: 1263 kcal/day, 79 gm protein/day, 1800 ml free water/day, and GIR 2.57 gm CHO/kg/min Meets: 91% of estimated caloric needs and 94% of upper end of estimated protein needs * PPN infusion rate to be adjusted once pt is tolerating EN regimen at least 75% of estimated needs. Follow Up High Risk: F/U in 2-3 days
[2018-12-11 16:57] LABS: BASOPHILS % (AUTO) 0.2 % (0.0-2.0); EOSINOPHILS # (AUTO) 0.1 K/uL (0.0-0.4); EOSINOPHILS % (AUTO) 0.8 % (0.0-4.0); HEMATOCRIT 28.7 % (36-48); HEMOGLOBIN 9.5 g/dL (12.0-16.0); LYMPHOCYTES # (AUTO) 1.3 K/uL (1.0-5.5); LYMPHOCYTES % (AUTO) 11.4 % (20.5-51.5); MEAN CORPUSCULAR HEMOGLOBIN 31 pg (27-31); MEAN CORPUSCULAR HGB CONC 33 % (32-36); MEAN CORPUSCULAR VOLUME 92 fL (79.0-98.0); MONOCYTES # (AUTO) 0.7 K/uL (0.0-1.0); NEUTROPHILS # (AUTO) 8.9 K/uL (1.8-7.7); NEUTROPHILS % (AUTO) 81.6 % (40.0-70.0); PLATELET COUNT (AUTO) 292 K/uL (130-430); RED BLOOD CELL COUNT(AUTO) 3.12 MIL/uL (4.2-6.2); RED CELL DISTRIBUTION WIDTH 15.8 % (9.0-15.0); WHITE BLOOD COUNT (AUTO) 10.9 K/uL (4.8-10.8)
--- NOTE | 2018-12-11 17:02 | NUR ---
Dietitian Recommendations * Recommend PPN D20%, AA8.5% at 60 ml/hr(goal rate), IL20% at 5 ml/hr via peripheral line * Recommend continuing Vital AF 1.2 at 10ml/hr via JT Combined, PPN and EN regimen will provide: 1263 kcal/day, 79 gm protein/day, 1800 ml free water/day, and GIR 2.57 gm CHO/kg/min Meets: 91% of estimated caloric needs and 94% of upper end of estimated protein needs * PPN infusion rate to be adjusted once pt is tolerating EN regimen at least 75% of estimated needs. LP, RD Please refer to Nutrition F/U for details.
[2018-12-11 17:08] LABS: CALCIUM 8.1 mg/dL (8.4-11.0); CREATININE 1.02 mg/dL (0.55-1.30); POTASSIUM 3.6 mmol/L (3.5-5.1)
--- NOTE | 2018-12-11 17:30 | NUR ---
PAGED PAGED JOSEF GREENE AT [phone] SPOKE WITH OSITO.
--- NOTE | 2018-12-11 17:39 | NUR ---
paged called dr carrasquillo and notified that pt is still bleeding from abd incision suture site. dr Yeager hs been paged multiple time. new order received from dr carrasquillo. carried out
--- NOTE | 2018-12-11 18:50 | NUR ---
CLOSING NOTES PT STABLE NOT IN ACUTE DISTRESS. SEEN BY DR FELIX. MIDLINE ABD DRESSING CHANGED BBY DR FLEMING. NOT IN ACUTE DISTRESS. G TUBE FEEDING CONTINUE. REPOSTIONED WITH PILLOW. KEPT COMFORTABLE. CONTINUE ON VENT WITH TRACH. TPN AND LIPID/ IVF INFUSING WELL ORDERED. WILL ENDORSE TO NIGHT NURSE
--- NOTE | 2018-12-11 19:20 | NUR ---
OPENING NOTES RECEIVED PATIENT IN BED AWAKE. TRACH TO VENT WITH CURRENT SETTINGS TOLERATED. TPN AND IVF INFUSING ORDERED. ABDOMINAL DRESSING DRY AND INTACT WITH BINDER IN PLACED. FAMILY AT BEDSIDE. BED IN LOWEST LOCKED POSITION WITH ALARM ON.
[2018-12-11] MEDS ORDERED: SODIUM ACETATE IV SCH ×11 (21:00)
[2018-12-11] MEDS ORDERED: SODIUM CHLORIDE IV SCH ×11 (21:00)
[2018-12-11] MEDS ORDERED: [UNRECOGNIZED DRUG - OTHER] IV SCH ×11 (21:00)
[2018-12-11] MEDS ORDERED: TPN PERIPHERAL IV SCH ×11 (21:00)
[2018-12-11 21:10] VITALS: BP_SYST 98
[2018-12-11] MEDS: FAT EMULSIONS 250 ML IV SCH (21:19)
--- NOTE | 2018-12-11 21:22 | NUR ---
MED PASS PATIENT DUE MEDICATIONS GIVEN. JT FEEDING TOLERATED. NGT DISCONNECTED TO LIS TO LET DRAIN BY GRAVITY ORDERED. VITAL SIGNS STABLE.
[2018-12-11] MEDS: D5LR 1,000 ML IV SCH (21:45)
--- NOTE | 2018-12-11 22:45 | NUR ---
FFP FFP TRANSFUSION 1 UNIT STARTED ORDERED. VITAL SIGNS STABLE. VERIFIED FFP UNIT WITH ANOTHER RN AT BEDSIDE. ALL DATA VERIFIED AND MATCHED.
[2018-12-12 00:42] VITALS: BP_SYST 136
--- NOTE | 2018-12-12 01:00 | NUR ---
TRANSFUSION FFP TRANSFUSION COMPLETED AND TOLERATED. VITAL SIGNS STABLE.
[2018-12-12] MEDS: PIPERACILLIN/TAZO 3.375/DEX-IS 50 ML IV SCH ×2 (01:01→06:28)
[2018-12-12] MEDS: LEVALBUTEROL HCL 0.63 MG/3 ML VIAL.NEB INH SCH ×4 (01:20→20:20)
[2018-12-12] MEDS: DILTIAZEM HCL 30 MG TABLET GT SCH ×4 (02:22→21:20)
--- NOTE | 2018-12-12 04:15 | NUR ---
ABDOMINAL DRESSING ABDOMINAL DRESSING SATURATED WITH BLOOD. COMPLETE DRESSING CHANGED. PRESSURE DRESSING APPLIED COVERED WITH ABDOMINAL PADS AND ABDOMINAL BINDER. WILL CONTINUE TO MONITOR FOR FURTHER BLEEDING.
--- NOTE | 2018-12-12 04:30 | NUR ---
WOUND CARE/ AM CARE WEEKLY WOUND PICTURES DONE. AM CARE DONE PATIENT HAD LOOSE BM. ALL LINENS CHANGED. WOUND CARE DONE ORDERED.
[2018-12-12 06:16] LABS: BASOPHILS # (AUTO) 0.1 K/uL (0.0-0.2); BASOPHILS % (AUTO) 0.5 % (0.0-2.0); EOSINOPHILS # (AUTO) 0.1 K/uL (0.0-0.4); EOSINOPHILS % (AUTO) 1.3 % (0.0-4.0); HEMATOCRIT 26.4 % (36-48); HEMOGLOBIN 8.9 g/dL (12.0-16.0); LYMPHOCYTES # (AUTO) 1.5 K/uL (1.0-5.5); LYMPHOCYTES % (AUTO) 14.6 % (20.5-51.5); MEAN CORPUSCULAR HEMOGLOBIN 31 pg (27-31); MEAN CORPUSCULAR HGB CONC 34 % (32-36); MEAN CORPUSCULAR VOLUME 92 fL (79.0-98.0); MONOCYTES # (AUTO) 0.6 K/uL (0.0-1.0); MONOCYTES % (AUTO) 5.6 % (1.7-9.3); NEUTROPHILS # (AUTO) 8.2 K/uL (1.8-7.7); PLATELET COUNT (AUTO) 300 K/uL (130-430); RED BLOOD CELL COUNT(AUTO) 2.86 MIL/uL (4.2-6.2); RED CELL DISTRIBUTION WIDTH 15.8 % (9.0-15.0); WHITE BLOOD COUNT (AUTO) 10.5 K/uL (4.8-10.8)
[2018-12-12 06:28] LABS: ALBUMIN 1.6 g/dL (3.4-4.8); CREATININE 0.99 mg/dL (0.55-1.30); PHOSPHORUS 3.6 mg/dL (2.7-4.5); POTASSIUM 3.7 mmol/L (3.5-5.1); TOTAL BILIRUBIN 1.6 mg/dL (0.0-1.0)
[2018-12-12] MEDS: NAPH,MB-DB/K PH,MBDB 250 MG TAB JT SCH ×3 (06:28→17:57)
[2018-12-12] MEDS: LANSOPRAZOLE 30 MG CAPSULE.DR GT SCH (06:28)
[2018-12-12] MEDS: METOCLOPRAMIDE HCL 10 MG/2 ML VIAL IVP SCH (06:28)
[2018-12-12 06:45] LABS: CALCIUM 8.1 mg/dL (8.4-11.0)
--- NOTE | 2018-12-12 06:47 | NUR ---
CLOSING NOTES CURRENT VENT SETTINGS TOLERATED. TPN/LIPIDS/IVF INFUSING ORDERED. MIDLINE DRESSING DRY AND INTACT. ABDOMINAL DRESSING DRY AT THIS TIME. PATIENT NEEDS ATTENDED.
--- NOTE | 2018-12-12 07:30 | NUR ---
Cardio Patient is tachycardic , blood pressure within normal limits , no sign of acute distress , temp. 99.5'F , TYLENOL via GTUBE given flush with H2O ,oral care given , easily patient bleeds in the mouth unable to see where is the main bleeding , suction oral gently keep moisten will monitor.
[2018-12-12] MEDS: ACETAMINOPHEN 650 MG/20.3 ML UDC GT PRN (07:37)
--- NOTE | 2018-12-12 08:20 | NUR ---
Skin care,comfort,GI Patient had a loose stool yellow color no foul odor, perineal care given , buttocks area dressing dry/clean , skin cream barrier appled to perineal area no redness,trace generalized edema, abdominal incision dressing dry.clean secured by abdominal binder, bowel sound is active,NGT to gravity yellow to greenish color, feeding tube at 230 ml/hour tolerating well , aspiration precaution, will monitor.
[2018-12-12 08:29] VITALS: BP_SYST 144
[2018-12-12] MEDS: ASCORBIC ACID 500 MG TABLET GT SCH ×2 (08:32→21:20)
[2018-12-12] MEDS: CYANOCOBALAMIN 1000 mCg TABLET GT SCH (08:32)
[2018-12-12] MEDS: LACTOBACILLUS RHAMNOSUS GG 1 CAP CAPSULE GT SCH ×2 (08:32→21:20)
[2018-12-12] MEDS: BACLOFEN 10 MG TABLET GT SCH ×2 (08:32→21:20)
[2018-12-12] MEDS: LEVOTHYROXINE SODIUM 0.1 MG VIAL IVP SCH (08:32)
[2018-12-12] MEDS: COLISTIMETHATE SODIUM 75 MG in NS 50 ML IV SCH ×2 (08:53→20:48)
[2018-12-12] MEDS: ERGOCALCIFEROL 8000 UNITS/ML ORAL SOLUTION, 60 ML BOTTLE GT SCH (09:09)
--- NOTE | 2018-12-12 09:10 | NUR ---
Cardio heart rate is stable to 110 /min will monitor;Dr. Robertson informed regarding patient progress.
[2018-12-12 13:02] VITALS: BP_SYST 109
[2018-12-12] MEDS ORDERED: D5W 1,000 ML IV PRN (14:15)
[2018-12-12] MEDS ORDERED: GLUCOSE 15 GM GEL (in 37.5 GM TUBE) PO PRN (14:15)
[2018-12-12] MEDS ORDERED: DEXTROSE 50%-WATER 50 ML DISP.SYRIN IVP PRN (14:15)
--- NOTE | 2018-12-12 14:30 | NUR ---
Wound care completed by wound care nurse, abdominal incision no active bleeding with jon 16 count no redness no drainage dry dressing applied secured with abdominal binder , had a bowel movement repositioning perineal care given skin cream barrier applied, repositioned, NGT on gravity graining yellow to greenish output
--- NOTE | 2018-12-12 14:30 | NUR ---
WOUND RE-EVALUATION: Late note for 1430 secondary to patient care. Patient was awake, alert, oriented, nonverbal (secondary to tracheostomy), but communicates by mouthing words) and received in a Alfredito Bed with an Isoflex JOCELIN mattress with low air loss therapy initiated. Patient is unable to turn in bed independently. Chad Score is a 12. Microbiology: Blood culture results 2 negative. Urine culture results positive for Klebsiella pneumoniae (ESBL). MRSA screen results negative. Endotracheal Sputum culture results positive for Serratia marcescens, and Burkholderia cepacia (CLERK STENOGRAPHER). Intrinsic factors that delay wound healing: Chronic Respiratory Failure, Anemia of Chronic Illness, Severe Protein Malnutrition, Hypoalbuminemia. Extrinsic factors that delay wound healing: Immobility. Skin assessment: 1. Left Buttock: Reopened scar tissue from a wound of prior unknown etiology, present on admission. Site has resolved. Site has 100% pink scar tissue. No odor, no drainage. Periwound intact. Surrounding tissue has scar tissue and dark discolored skin. Recommend: Cleanse involved area with normal Saline. Pat dry. Apply Hydraguard barrier cream to involved area, buttocks, and Sacral areas. Cover with Sacral foam dressing. Perform site care daily, and as needed for dressing soiling or dislodgment. 2. 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 Status post exploratory laparotomy with lysis of adhesions, partial small bowel resection, resection of Jejunocutaneous fistula, and jejunostomy tube placement by Dr. Yeager on 12/06/18. Surgical incision is approximated, with 16 jon. No odor, no drainage. Dried red blood on dressing. Recommend: Cleanse involved area with normal Saline. Pat dry. Apply SurePrep to salome-wound. Apply pressure dressing: Cover site with 4x4 gauze, then ABD Pad. Secure with paper tape. Perform site care as needed for dressing soiling or dislodgment. 3. Bilateral Heels: Blanchable erythema, present on admission. Recommend continue: Elevate, offload and float bilateral heels with one pillow lengthwise under each extremity at all times. 4. Philtrum, Bilateral Angles of the Mouth, and Bilateral Upper Lip Areas: Moisture associated erythema and dry skin, present on admission. Recommend: Has resolved. Continue to monitor the Philtrum, Bilateral Angles of the Mouth, and Bilateral Upper Lip Areas q shift. Recommend continue: Recommend reposition patient side to side only every 2 hours with pillow support. Elevate, offload and float bilateral heels with one pillow lengthwise under each extremity at all times. Offload pressure areas with pillows for pressure re-distribution. Perform skin care and monitor skin integrity Q shift. Use Hydraguard barrier cream on moisture susceptible areas QID and PRN for soiling. Maintain patient on a low air-loss mattress
--- NOTE | 2018-12-12 14:57 | NUR ---
DC Planning: Per dr. Barcenas: changing dcp to [facility] and cancelled LTAC. Stated he spoke with pt and pt refused LTAC , only wanting to go back to [facility]. -- Mony solerp made aware and to notify [facility] for returning pt possible tomorrow.
[2018-12-12 16:58] VITALS: BP_SYST 110
--- NOTE | 2018-12-12 18:00 | NUR ---
NGT to gravity 400 ml no nausea no vomiting , abdominal dressing dry/clean no active bleeding, oral care given,no bleeding , repositioned ,needs attended.
[2018-12-12] MEDS: SODIUM CHLORIDE IV SCH ×11 (20:50)
[2018-12-12] MEDS: SODIUM ACETATE IV SCH ×11 (20:50)
[2018-12-12] MEDS: TPN PERIPHERAL IV SCH ×11 (20:50)
[2018-12-12] MEDS: [UNRECOGNIZED DRUG - OTHER] IV SCH ×11 (20:50)
[2018-12-12] MEDS: FAT EMULSIONS 250 ML IV SCH (20:51)
--- NOTE | 2018-12-12 21:45 | NUR ---
MR. FLEMING MADE ROUNDS WITH ORDERS.
--- NOTE | 2018-12-12 22:00 | NUR ---
clamped ngt per DR. Yeager during rounds.
[2018-12-13 00:12] VITALS: BP_SYST 122
[2018-12-13] MEDS: LEVALBUTEROL HCL 0.63 MG/3 ML VIAL.NEB INH SCH ×4 (02:37→20:02)
--- NOTE | 2018-12-13 03:00 | NUR ---
UNCLAMPED NGT DUE TO MOVING HEAD SIDE TO SIDE FOR I HOUR .OBTAINED 200ML DARK GREENISH GASTRIC SECRETIONS.
[2018-12-13] MEDS: NAPH,MB-DB/K PH,MBDB 250 MG TAB JT SCH ×3 (03:41→17:38)
[2018-12-13] MEDS: DILTIAZEM HCL 30 MG TABLET GT SCH ×4 (03:46→22:02)
[2018-12-13] MEDS: ACETAMINOPHEN 650 MG/20.3 ML UDC GT PRN (03:48)
[2018-12-13 03:50] VITALS: BP_SYST 112
--- NOTE | 2018-12-13 04:10 | NUR ---
CLAMPED NGT THIS TIME.
[2018-12-13] MEDS ORDERED: VANCOMYCIN HCL 1,250 MG in NS 250 ML IV SCH (06:00)
[2018-12-13 06:19] LABS: BASOPHILS % (AUTO) 0.4 % (0.0-2.0); EOSINOPHILS # (AUTO) 0.1 K/uL (0.0-0.4); EOSINOPHILS % (AUTO) 1.1 % (0.0-4.0); HEMATOCRIT 27.1 % (36-48); HEMOGLOBIN 8.8 g/dL (12.0-16.0); LYMPHOCYTES # (AUTO) 2.1 K/uL (1.0-5.5); LYMPHOCYTES % (AUTO) 18.1 % (20.5-51.5); MEAN CORPUSCULAR HEMOGLOBIN 30 pg (27-31); MEAN CORPUSCULAR HGB CONC 33 % (32-36); MEAN CORPUSCULAR VOLUME 93 fL (79.0-98.0); MONOCYTES # (AUTO) 0.7 K/uL (0.0-1.0); MONOCYTES % (AUTO) 6.3 % (1.7-9.3); NEUTROPHILS # (AUTO) 8.6 K/uL (1.8-7.7); NEUTROPHILS % (AUTO) 74.1 % (40.0-70.0); PLATELET COUNT (AUTO) 330 K/uL (130-430); RED BLOOD CELL COUNT(AUTO) 2.91 MIL/uL (4.2-6.2); RED CELL DISTRIBUTION WIDTH 15.9 % (9.0-15.0); WHITE BLOOD COUNT (AUTO) 11.7 K/uL (4.8-10.8)
[2018-12-13 06:34] LABS: ALBUMIN 1.7 g/dL (3.4-4.8); CALCIUM 8.3 mg/dL (8.4-11.0); CREATININE 0.98 mg/dL (0.55-1.30); PHOSPHORUS 3.9 mg/dL (2.7-4.5); POTASSIUM 3.7 mmol/L (3.5-5.1); TOTAL BILIRUBIN 1.5 mg/dL (0.0-1.0)
[2018-12-13 08:03] VITALS: BP_SYST 126
--- NOTE | 2018-12-13 08:06 | NUR ---
AM NOTES- In bed, awake and smiles. Denies any pain or discomfort. Tolerating feeding so far. On tpn and lipids. Abdominal Dressing dry and intact. NGT clamped, no signs of vomiting noted at this time. Repositioned for comfort. Oral care aand sunctioning done. Maintain on contact isolation. Safety precaution observed. Will continue to monitor.
[2018-12-13] MEDS: COLISTIMETHATE SODIUM 75 MG in NS 50 ML IV SCH ×2 (08:50→22:03)
[2018-12-13] MEDS: CYANOCOBALAMIN 1000 mCg TABLET GT SCH (08:50)
[2018-12-13] MEDS: LACTOBACILLUS RHAMNOSUS GG 1 CAP CAPSULE GT SCH ×2 (08:50→22:03)
[2018-12-13] MEDS: ERGOCALCIFEROL 8000 UNITS/ML ORAL SOLUTION, 60 ML BOTTLE GT SCH (08:50)
[2018-12-13] MEDS: BACLOFEN 10 MG TABLET GT SCH ×2 (08:50→21:43)
[2018-12-13] MEDS: ASCORBIC ACID 500 MG TABLET GT SCH ×2 (08:50→21:43)
[2018-12-13] MEDS: LEVOTHYROXINE SODIUM 0.1 MG VIAL IVP SCH (08:56)
[2018-12-13] MEDS: LANSOPRAZOLE 30 MG CAPSULE.DR GT SCH (09:53)
--- NOTE | 2018-12-13 10:08 | NUR ---
Notes- Turn and repositioned. No signs of vomiting noted. keep ngt clamped. blood sugar is 122. will continue to monitor.
[2018-12-13 10:40] LABS: FREE T4 (FREE THYROXINE) 1.6 ng/dl (0.8-1.5); THYROID STIMULATING HORMONE 17.86 uIu/mL (0.36-3.74)
[2018-12-13 12:00] VITALS: BP_SYST 125
--- NOTE | 2018-12-13 14:03 | NUR ---
Notes- In bed, awake. No signs of vomiting noted. Pt also shake her head when asked. NGT keep clamp. Repositioned for comfort. Will continue to monitor.
--- NOTE | 2018-12-13 14:59 | NUR ---
DC Planning: Met with dr Barcenas at bedside: he is unable to dc pt today , the surgeon does not clear pt for dc. In addition, dr. Barcenas will discontinue PPN today and will dc the pt tomorrow. The md aware, the pt is tolerating JT feeding and there is no bleeding at the JT site so far.
--- NOTE | 2018-12-13 15:07 | NUR ---
NOTES-while trying to give medications via G tube. Blood was noted on the dressing. Removed dressing and bleeding is noted in the middle of incision site. applied pressure and re dressed incision ,NGT unclamped at this time and had 250cc drain so far. Called and spoke to Dr. Barcenas and made aware. order 1 unit of FFP.
--- NOTE | 2018-12-13 16:22 | NUR ---
Paged Dr. Yeager Re: bleeding on the surgical site.
[2018-12-13 16:41] VITALS: BP_SYST 152
--- NOTE | 2018-12-13 17:37 | NUR ---
Notes- Spoke to Dr. Yeager and made aware of Bleeding. Md ordered KUB.
--- NOTE | 2018-12-13 18:10 | NUR ---
KUB done at bedside.
--- NOTE | 2018-12-13 18:30 | NUR ---
FFP started at this time.
--- NOTE | 2018-12-13 18:48 | NUR ---
Notes- In bed, no acute distress noted. Still noted some bleeding on the dressing. Repositioned for comfort. Patient tolerated feeding the whole shift. Feeding stop at this time. NGT clamped. No vomiting noted. Will endorse
[2018-12-13 20:00] VITALS: BP_SYST 112; BP_SYST 121
--- NOTE | 2018-12-13 20:00 | NUR ---
INITIAL NOTES AT INITIAL ASSESSMENT, PATIENT IS RESTING IN BED, STABLE, NO SIGNS OF RESPIRATORY DISTRESS. PATIENT HAS NO PAIN PER FLACC SCALE, SHE SHAKES HER HEAD "NO" WHEN ASKED IF SHE FEELS ANY PAIN. BED IS LOCKED, ALARMED, AND AT THE LOWEST LEVEL. FALL, SAFETY, RESPIRATORY, ASPIRATION, AND ISOLATION PRECAUTIONS WILL BE TAKEN THROUGHOUT THE SHIFT. PATIENT WILL BE TURNED [id number] THROUGHOUT THE SHIFT.
[2018-12-13] MEDS: MORPHINE 2 MG/ML INJ. SYRINGE IVP PRN (21:45)
--- NOTE | 2018-12-13 22:00 | NUR ---
ORAL CARE NOTE ORAL CARE PROVIDED AT THIS TIME, PATIENT TOLERATED WELL. G TUBE FEEDING IS RUNNING PER ORDERS NOW. BLOOD SUGAR CHECK AT THIS TIME REQUIRES NO INSULIN COVERAGE PER SSI ORDERED BY MD. SCHEDULED NIGHT TIME MEDICATIONS ARE GIVEN AT THIS TIME. AT THIS TIME, SHE IS STABLE, NO SIGNS OF RESPIRATORY DISTRESS. SHE IS REPOSITIONED FOR COMFORT. BED IS LOCKED, ALARMED, AND AT THE LOWEST LEVEL.
[2018-12-13] MEDS: FAT EMULSIONS 250 ML IV SCH (22:06)
[2018-12-13] MEDS: SODIUM CHLORIDE IV SCH ×11 (22:06)
[2018-12-13] MEDS: SODIUM ACETATE IV SCH ×11 (22:06)
[2018-12-13] MEDS: [UNRECOGNIZED DRUG - OTHER] IV SCH ×11 (22:06)
[2018-12-13] MEDS: TPN PERIPHERAL IV SCH ×11 (22:06)
--- NOTE | 2018-12-14 | NUR ---
NOTE PATIENT IS SLEEPING, STABLE, NO SIGNS OF RESPIRATORY DISTRESS. BED IS LOCKED, ALARMED, AND AT THE LOWEST LEVEL.
[2018-12-14 00:08] VITALS: BP_SYST 118
[2018-12-14] MEDS: NAPH,MB-DB/K PH,MBDB 250 MG TAB JT SCH ×5 (01:15→22:53)
[2018-12-14] MEDS: LEVALBUTEROL HCL 0.63 MG/3 ML VIAL.NEB INH SCH ×4 (01:29→19:42)
--- NOTE | 2018-12-14 02:00 | NUR ---
ORAL CARE NOTE ORAL CARE PROVIDED AT THIS TIME, PATIENT TOLERATED WELL. PATIENT IS RESTING IN BED, STABLE, NO SIGNS OF RESPIRATORY DISTRESS. SHE IS REPOSITIONED FOR COMFORT. BED IS LOCKED, ALARMED, AND AT THE LOWEST LEVEL.
--- NOTE | 2018-12-14 04:00 | NUR ---
ORAL CARE NOTE ORAL CARE PROVIDED AT THIS TIME, PATIENT TOLERATED WELL. BLOOD SUGAR CHECK AT THIS TIME REQUIRES NO INSULIN COVERAGE PER SSI ORDERED BY MD. PATIENT IS RESTING IN BED, STABLE, NO SIGNS OF RESPIRATORY DISTRESS. SHE IS REPOSITIONED FOR COMFORT. BED IS LOCKED, ALARMED, AND AT THE LOWEST LEVEL.
[2018-12-14] MEDS: DILTIAZEM HCL 30 MG TABLET GT SCH ×4 (04:27→21:57)
--- NOTE | 2018-12-14 05:00 | NUR ---
WOUND CARE NOTE WOUND CARE PERFORMED AT THIS TIME. PATIENT TOLERATED WELL. SHE IS REPOSITIONED FOR COMFORT. CALL LIGHT PLACED WITHIN REACH. BED IS LOCKED, ALARMED, AND AT THE LOWEST LEVEL.
--- NOTE | 2018-12-14 06:00 | NUR ---
CLOSING NOTE AT THIS TIME, PATIENT IS STABLE, NO SIGNS OF RESPIRATORY DISTRESS. BED IS LOCKED, ALARMED, AND AT THE LOWEST LEVEL. FALL, SAFETY, RESPIRATORY, ASPIRATION, AND ISOLATION PRECAUTIONS HAVE BEEN TAKEN THROUGHOUT THE SHIFT. WILL CONTINUE TO MONITOR UNTIL SHIFT REPORT IS GIVEN AT BEDSIDE TO AM NURSE. PATIENT HAS BEEN TURNED [id number] THROUGHOUT THE SHIFT. Addendum: 12/15/18 at 0510 by Madisyn Wallace RN PATIENT REQUIRED WOUND CARE MULTIPLE TIMES DURING THE SHIFT DUE TO HER SATURATING THROUGH HER DRESSING
--- NOTE | 2018-12-14 06:30 | NUR ---
NGT D/C NGT HAS BEEN NOTED TO BEEN DISLODGED ACCIDENTALLY. DR. MEDELLIN HAS BEEN PAGED AND GAVE ORDERS TO D/C NGT. PATIENT HAS HAD NO EPISODES OF VOMITING THROUGHOUT THE SHIFT. WILL CONTINUE TO MONITOR PATIENT CLOSELY FOR INDICATIONS THAT SHE NEEDS NGT PLACEMENT.
[2018-12-14] MEDS: LANSOPRAZOLE 30 MG CAPSULE.DR GT SCH (06:53)
[2018-12-14] MEDS: ONDANSETRON HCL 4 MG/2 ML VIAL IVP PRN (06:53)
[2018-12-14 07:12] LABS: BASOPHILS % (AUTO) 0.2 % (0.0-2.0); EOSINOPHILS # (AUTO) 0.1 K/uL (0.0-0.4); HEMATOCRIT 27.2 % (36-48); HEMOGLOBIN 8.8 g/dL (12.0-16.0); LYMPHOCYTES # (AUTO) 1.8 K/uL (1.0-5.5); LYMPHOCYTES % (AUTO) 14.8 % (20.5-51.5); MEAN CORPUSCULAR HEMOGLOBIN 30 pg (27-31); MEAN CORPUSCULAR HGB CONC 32 % (32-36); MEAN CORPUSCULAR VOLUME 93 fL (79.0-98.0); MONOCYTES # (AUTO) 0.7 K/uL (0.0-1.0); MONOCYTES % (AUTO) 5.5 % (1.7-9.3); NEUTROPHILS # (AUTO) 9.7 K/uL (1.8-7.7); NEUTROPHILS % (AUTO) 78.5 % (40.0-70.0); PLATELET COUNT (AUTO) 376 K/uL (130-430); RED BLOOD CELL COUNT(AUTO) 2.92 MIL/uL (4.2-6.2); RED CELL DISTRIBUTION WIDTH 16.2 % (9.0-15.0); WHITE BLOOD COUNT (AUTO) 12.3 K/uL (4.8-10.8)
[2018-12-14 07:13] LABS: ALBUMIN 1.9 g/dL (3.4-4.8); CALCIUM 8.5 mg/dL (8.4-11.0); CREATININE 0.9 mg/dL (0.55-1.30); PHOSPHORUS 3.9 mg/dL (2.7-4.5); POTASSIUM 4.4 mmol/L (3.5-5.1); TOTAL BILIRUBIN 1.4 mg/dL (0.0-1.0)
--- NOTE | 2018-12-14 07:20 | NUR ---
Initial rounds Bedside endorsement , patient awake smile if approach non verbal due to tracheostomy,no sign of acute respiratory distress abdominal dressing changed with night nurse abdominal pads was soak with blood , cleanse with saline pat dry abdominal incision with jon no redness lower incision spot for bleeding but when change thers no active bleeding covered with dry gauze , jejunostomy site dry/clean no redness with sutures dry/clean dry dressing applied , secured by abdominal binder , perineal care given , will monitor.
[2018-12-14 07:38] VITALS: BP_SYST 132
[2018-12-14] MEDS: ASCORBIC ACID 500 MG TABLET GT SCH ×2 (08:42→21:50)
[2018-12-14] MEDS: LEVOTHYROXINE SODIUM 0.1 MG VIAL IVP SCH (08:42)
[2018-12-14] MEDS: LACTOBACILLUS RHAMNOSUS GG 1 CAP CAPSULE GT SCH ×2 (08:42→21:50)
[2018-12-14] MEDS: CYANOCOBALAMIN 1000 mCg TABLET GT SCH (08:43)
[2018-12-14] MEDS: BACLOFEN 10 MG TABLET GT SCH ×2 (08:43→21:50)
[2018-12-14] MEDS: ERGOCALCIFEROL 8000 UNITS/ML ORAL SOLUTION, 60 ML BOTTLE GT SCH (08:43)
--- NOTE | 2018-12-14 10:17 | NUR ---
Abdominal dressing is dry/clean , oral care given gently no bleeding,repositioned patient according to her comfort, no sign of acute discomfort.
--- NOTE | 2018-12-14 12:00 | NUR ---
ASSUMED CARE/FROM CHELO MOYER INITIAL RN NOTES , RECEIVED PATIENT IN BED NON VERBAL OPENS EYES SPONTANEOUSLY, WITH TRACT VENT CONNECTED TO , WITH MIDLINE TO LYRIC LIPID@5 CC/HR/TPN@60 CC/HR INFUSING ,GTUBE AND J.TUBE IS INTACT AND FUNCTIONING, WILL CONT WITH PLAN OF CARE ABDOMINAL DRESSING AT THIS TIEM INTACT WITH CONT TO MONITOR ANY SIGN OF BLEEDING , LOCKWOOD CATH INTACT NO HEMATURIA NOTED. WILL CONT TO MONITOR PATIENT CLOSELY, SUCTIONING DONE PRN.
[2018-12-14 13:01] VITALS: BP_SYST 115
--- NOTE | 2018-12-14 13:15 | NUR ---
Seen and examined by Dr. MEDELLIN AND Medical Reception ,Increased feeding to 40 ml/hour, TPN Titrated to 50 ml/hour will monitor.
--- NOTE | 2018-12-14 13:51 | NUR ---
ROUNDS PATIENT STILL ASLEEP AT THIS TIME, CONT PLAN OF CARE
--- NOTE | 2018-12-14 14:58 | NUR ---
Nutrition F/U RD reviewed pt's current EMR including diet Hx, physician notes, nursing notes, pertinent labs/meds/procedures, care trends, and care activity. Current Nutrition Support: PPN D20%, AA 8.5% at 60.607 ml/hr, IL20% at 5 ml/hr via peripheral line + Vital AF 1.2 at 50 ml/hr (goal rate) via JT x2 days Subjective information: Pt seen in bed, PPN w/ lipids and JT feeding infusing at time of visit. Pt is POD 8 s/p exploratory laparotomy, lysis of adhesions, partial small bowel resection, resection of the jejunocutaneous fistula, jejunostomy tube placement 12/06/18. RN stated pt has been tolerating TF well -- TF was infusing at 30 ml/hr -- RD notified RN of pt's TF goal rate of 50 ml/hr. RD also spoke w/ Dr. Barcenas at nursing station regarding rec for tapering pt off of PPN support -- physician agreed and pt now has orders to taper down PPN support. RN aware. NEW Estimated Energy Expenditure (kcals/day) 7557-2219 kcal/day (30-35 kcal/kg CBW for chronic vent) Estimated Protein Required (g/day) 70-84 gm/day (1.25-1.5 gm/kg CBW for wound healing) Estimated Fluid Required (l/day) 1.7-2 L/day (1 ml/kcal/day for wound healing) Problem/Etiology/Signs/Symptoms Increased nutritional needs related to metabolic demands as evidenced by estimated nutritional requirements for wound healing. *ongoing Inadequate nutrition support r/t current TPN and EN regimen AEB nutrient intake <75% of estimated calorie and protein needs. *met Expected Outcomes/Goals - Monitor tolerance of nutrition support w/ goal of pt meeting at least 75% of estimated nutritional needs, labs trending WNL, normal GI function, and skin integrity/wt maintenance Dietitian Recommendations * Recommend tapering off PPN support * Recommend Vital AF 1.2 at 50 ml/hr (goal rate), Free Water Flush: 200 ml Q4h via JT Provides: 1440 kcal/day, 90 gm protein/day, and 1773 ml free water/day Meets: 86% of lower end of estimated caloric needs and 107% of upper end of estimated protein needs Follow Up High Risk: F/U in 2-3 days
--- NOTE | 2018-12-14 15:04 | NUR ---
Dietitian Recommendations * Recommend tapering off PPN support * Recommend Vital AF 1.2 at 50 ml/hr (goal rate), Free Water Flush: 200 ml Q4h via JT Provides: 1440 kcal/day, 90 gm protein/day, and 1773 ml free water/day Meets: 86% of lower end of estimated caloric needs and 107% of upper end of estimated protein needs LP, RD Please refer to Nutrition F/U for details.
[2018-12-14] MEDS: MORPHINE 2 MG/ML INJ. SYRINGE IVP PRN ×2 (15:44→22:19)
--- NOTE | 2018-12-14 16:00 | NUR ---
MORPHINE PATIENT IN BED ABLE TO SMILES BACK AND NODS FOR SIMPLE NEEDS NODS AND SHES IN PAIN WILL GIVE MORPHINE PATIENT LIPID /TPN TAPERING DOWN TILL IT CONSUMES. PATIENT HAD SOFT TO LOOSE BM, PATIENT LOCKWOOD CATH WITH DARK YELLOW OUTPUT NO HEMATURIA NOTED, CONT WITH GTUBE FEEDING AND NO SIGN OF ASPIRATION. WILL CONT PLAN OF CARE AND LABS IN AM, CONT WITH TRACH AND CONNECTED TO O2 , STILL CONT WITH CLOSE MONITORING
[2018-12-14 17:04] VITALS: BP_SYST 127
--- NOTE | 2018-12-14 18:01 | NUR ---
END RN NOTES PATIENT INTERMITTENTLY SLEEPING BUT EASILY AWAKEN WHEN NAME IS CALLED, NO FACIAL GRIMACE . WILL CONT PLAN OF CARE AND CONT ON PAIN MGT AND WILL TAPER TPN/ LIPID TILL CONSUMED AND GTUBE WILL BE UP TO 50 CC FOR MAINTENANCE, REPOSITIONED AND TURNED TO SIDES, SAFETY ENSURED AND KEEP SELF RESTED IN BED.
[2018-12-14 20:00] VITALS: BP_SYST 126
--- NOTE | 2018-12-14 20:00 | NUR ---
INITIAL NOTES AT INITIAL ASSESSMENT, PATIENT IS RESTING IN BED, STABLE, NO SIGNS OF RESPIRATORY DISTRESS. PATIENT HAS NO PAIN PER FLACC SCALE, SHE SHAKES HER HEAD "NO" WHEN ASKED IF SHE FEELS ANY PAIN. PLAN OF CARE FOR THE EVENING IS COMMUNICATED WITH THE PATIENT. BED IS LOCKED, ALARMED, AND AT THE LOWEST LEVEL. FALL, SAFETY, RESPIRATORY, ASPIRATION, AND ISOLATION PRECAUTIONS WILL BE TAKEN THROUGHOUT THE SHIFT. PATIENT WILL BE TURNED [id number] THROUGHOUT THE SHIFT.
--- NOTE | 2018-12-14 22:00 | NUR ---
NOTE BLOOD SUGAR CHECK AT THIS TIME REQUIRES NO INSULIN COVERAGE PER SSI ORDERED BY MD. ORAL CARE PROVIDED AT THIS TIME, PATIENT TOLERATED WELL. SCHEDULED NIGHT TIME MEDICATIONS ARE GIVEN AT THIS TIME. AT THIS TIME, SHE IS STABLE, NO SIGNS OF RESPIRATORY DISTRESS. SHE IS REPOSITIONED FOR COMFORT. BED IS LOCKED, ALARMED, AND AT THE LOWEST LEVEL.
[2018-12-14 23:08] VITALS: BP_SYST 104
--- NOTE | 2018-12-15 | NUR ---
NOTE PATIENT IS SLEEPING, STABLE, NO SIGNS OF RESPIRATORY DISTRESS. BED IS LOCKED, ALARMED, AND AT THE LOWEST LEVEL.
[2018-12-15] MEDS: LEVALBUTEROL HCL 0.63 MG/3 ML VIAL.NEB INH SCH ×2 (01:59→07:26)
--- NOTE | 2018-12-15 02:00 | NUR ---
NOTE PATIENT IS SLEEPING, STABLE, NO SIGNS OF RESPIRATORY DISTRESS. BED IS LOCKED, ALARMED, AND AT THE LOWEST LEVEL.
[2018-12-15] MEDS: DILTIAZEM HCL 30 MG TABLET GT SCH ×3 (03:52→15:01)
[2018-12-15] MEDS: MORPHINE 2 MG/ML INJ. SYRINGE IVP PRN ×2 (04:13→11:29)
--- NOTE | 2018-12-15 05:10 | NUR ---
NOTE PATIENT IS SLEEPING, STABLE, NO SIGNS OF RESPIRATORY DISTRESS. BED IS LOCKED, ALARMED, AND AT THE LOWEST LEVEL.
--- NOTE | 2018-12-15 06:02 | NUR ---
CLOSING NOTE PATIENT'S WOUND HAD ONLY SCANT DRAINAGE NOTED ONCE THROUGHOUT THE SHIFT. AT THIS TIME, PATIENT IS STABLE, NO SIGNS OF RESPIRATORY DISTRESS. BED IS LOCKED, ALARMED, AND AT THE LOWEST LEVEL. FALL, SAFETY, RESPIRATORY, ASPIRATION, AND ISOLATION PRECAUTIONS HAVE BEEN TAKEN THROUGHOUT THE SHIFT. WILL CONTINUE TO MONITOR UNTIL SHIFT REPORT IS GIVEN AT BEDSIDE TO AM NURSE. PATIENT HAS BEEN TURNED [id number] THROUGHOUT THE SHIFT.
[2018-12-15] MEDS: LANSOPRAZOLE 30 MG CAPSULE.DR GT SCH (06:34)
[2018-12-15] MEDS: NAPH,MB-DB/K PH,MBDB 250 MG TAB JT SCH ×3 (06:36→17:21)
--- NOTE | 2018-12-15 08:20 | NUR ---
Perineal/oral care given ,Patient repositioned by staff every 2 hours with pillow support.
[2018-12-15 08:28] LABS: BASOPHILS % (AUTO) 0.3 % (0.0-2.0); EOSINOPHILS # (AUTO) 0.1 K/uL (0.0-0.4); HEMATOCRIT 27.5 % (36-48); HEMOGLOBIN 9.1 g/dL (12.0-16.0); LYMPHOCYTES % (AUTO) 14.8 % (20.5-51.5); MEAN CORPUSCULAR HEMOGLOBIN 31 pg (27-31); MEAN CORPUSCULAR HGB CONC 33 % (32-36); MEAN CORPUSCULAR VOLUME 93 fL (79.0-98.0); MONOCYTES # (AUTO) 0.8 K/uL (0.0-1.0); MONOCYTES % (AUTO) 5.7 % (1.7-9.3); NEUTROPHILS # (AUTO) 10.5 K/uL (1.8-7.7); NEUTROPHILS % (AUTO) 78.2 % (40.0-70.0); PLATELET COUNT (AUTO) 396 K/uL (130-430); RED BLOOD CELL COUNT(AUTO) 2.96 MIL/uL (4.2-6.2); RED CELL DISTRIBUTION WIDTH 15.9 % (9.0-15.0); WHITE BLOOD COUNT (AUTO) 13.4 K/uL (4.8-10.8)
[2018-12-15 08:48] VITALS: BP_SYST 118
[2018-12-15] MEDS: LACTOBACILLUS RHAMNOSUS GG 1 CAP CAPSULE GT SCH (08:56)
[2018-12-15] MEDS: BACLOFEN 10 MG TABLET GT SCH (08:56)
[2018-12-15] MEDS: LEVOTHYROXINE SODIUM 0.1 MG VIAL IVP SCH (08:56)
[2018-12-15] MEDS: ERGOCALCIFEROL 8000 UNITS/ML ORAL SOLUTION, 60 ML BOTTLE GT SCH (08:57)
[2018-12-15] MEDS: CYANOCOBALAMIN 1000 mCg TABLET GT SCH (08:57)
[2018-12-15] MEDS: ASCORBIC ACID 500 MG TABLET GT SCH (08:57)
[2018-12-15 08:59] LABS: CALCIUM 8.8 mg/dL (8.4-11.0); CREATININE 0.88 mg/dL (0.55-1.30); PHOSPHORUS 4.2 mg/dL (2.7-4.5); POTASSIUM 4.5 mmol/L (3.5-5.1)
--- NOTE | 2018-12-15 11:20 | NUR ---
GI/PAIN Complaining of abdominal cramping, abdominal dressing dry/intact no active bleeding , bowel sounds active ,medicated , will monitor.
[2018-12-15] MEDS: ONDANSETRON HCL 4 MG/2 ML VIAL IVP PRN (11:29)
[2018-12-15] MEDS ORDERED: FUROSEMIDE 20 MG/2 ML VIAL IVP ONE (11:45)
[2018-12-15 12:50] VITALS: BP_SYST 102
--- NOTE | 2018-12-15 13:00 | NUR ---
Patient watching TV abdominal discomfort is better , lung sound with fine crackles , edema ,seen and examined by the film historian with n. o carried out., will monitor.
--- NOTE | 2018-12-15 14:42 | NUR ---
Paged Dr. Barcenas for patient on/off abdominal cramping.
--- NOTE | 2018-12-15 14:45 | NUR ---
Dr. FLEMING informed regarding abdominal discomfort, progress of patient, will see the patient.
[2018-12-15] MEDS ORDERED: ACETAMINOPHEN WITH CODEINE 12.5 ML UDC GT PRN (15:00)
[2018-12-15] MEDS ORDERED: DILTIAZEM HCL 30 MG TABLET PO ONE (15:15)
[2018-12-15 17:00] VITALS: BP_SYST 102
--- NOTE | 2018-12-15 17:00 | NUR ---
Skin care/comfort Complete TSB done , abdominal incision and sacral area photo was taken , wound care completed , Jejunostomy tube flush with water for patency kept secured, trache care was done by RT and suctioning .
[2018-12-15 17:25] VITALS: BP_SYST 119
--- NOTE | 2018-12-15 17:45 | NUR ---
Report given to Rodolfo Mendoza RN [facility] Vat Worker Rosario with all the information, nut picker timer 7 pm , sister was informed Ana Jacobs,.
--- NOTE | 2018-12-15 18:40 | NUR ---
Patient had big bowel movement semi formed stool yellow to green color, perineal care given, kept with diaper., endorsed patient to [facility] Medic 1 with all the information.
--- NOTE | 2018-12-15 18:50 | NUR ---
Discharged to [facility] VIA ambulance with stable vitals sign.
[2018-12-15] MEDS ORDERED: DILTIAZEM HCL 30 MG TABLET GT SCH (21:00)
== END 2018-12-15 18:50 | DRG 853 ==
LOC: SED 13:52 → STU 16:41 → SIC 12-06 18:06 → STU 12-10 18:13
PROVIDERS: ADMIT Internal Medicine; ATTEND Internal Medicine
PROC: 5A1955Z Respiratory Ventilation, Greater than 96 Consecutive Hours (ICD-10-PCS; principal; 2018-12-03)
PROC: 0DJDXZZ Inspection of Lower Intestinal Tract, External Approach (ICD-10-PCS; 2018-12-03)
PROC: 05HY33Z Insertion of Infusion Device into Upper Vein, Percutaneous Approach (ICD-10-PCS; 2018-12-04)
PROC: 0DBA0ZZ Excision of Jejunum, Open Approach (ICD-10-PCS; 2018-12-06)
PROC: 0DHA3UZ Insertion of Feeding Device into Jejunum, Percutaneous Approach (ICD-10-PCS; 2018-12-06)
PROC: 30233N1 Transfusion of Nonautologous Red Blood Cells into Peripheral Vein, Percutaneous Approach (ICD-10-PCS; 2018-12-07)
PROC: 3E0336Z Introduction of Nutritional Substance into Peripheral Vein, Percutaneous Approach (ICD-10-PCS; 2018-12-10)
PROC: 30233K1 Transfusion of Nonautologous Frozen Plasma into Peripheral Vein, Percutaneous Approach (ICD-10-PCS; 2018-12-11)
DX: A41.9 Sepsis, unspecified organism (principal); E43 Unspecified severe protein-calorie malnutrition; J69.0 Pneumonitis due to inhalation of food and vomit; G82.50 Quadriplegia, unspecified; K94.13 Enterostomy malfunction; N39.0 Urinary tract infection, site not specified; J96.10 Chronic respiratory failure, unspecified whether with hypoxia or hypercapnia; G12.21 Amyotrophic lateral sclerosis; G93.40 Encephalopathy, unspecified; Z99.11 Dependence on respirator [ventilator] status; L03.311 Cellulitis of abdominal wall; E87.1 Hypo-osmolality and hyponatremia; L03.114 Cellulitis of left upper limb; D62 Acute posthemorrhagic anemia; K56.7 Ileus, unspecified; K21.9 Gastro-esophageal reflux disease without esophagitis; B96.1 Klebsiella pneumoniae [K. pneumoniae] as the cause of diseases classified elsewhere; E03.9 Hypothyroidism, unspecified; I10 Essential (primary) hypertension; Z16.12 Extended spectrum beta lactamase (ESBL) resistance; D63.8 Anemia in other chronic diseases classified elsewhere; J47.9 Bronchiectasis, uncomplicated; I80.8 Phlebitis and thrombophlebitis of other sites; R13.10 Dysphagia, unspecified; Y95 Nosocomial condition; E11.9 Type 2 diabetes mellitus without complications; E83.39 Other disorders of phosphorus metabolism; E87.6 Hypokalemia; Y83.3 Surgical operation with formation of external stoma as the cause of abnormal reaction of the patient, or of later complication, without mention of misadventure at the time of the procedure; Z86.73 Personal history of transient ischemic attack (TIA), and cerebral infarction without residual deficits; Z68.21 Body mass index [BMI] 21.0-21.9, adult; Z87.440 Personal history of urinary (tract) infections; Z88.6 Allergy status to analgesic agent; Z91.09 Other allergy status, other than to drugs and biological substances; Z79.890 Hormone replacement therapy; Z79.899 Other long term (current) drug therapy; Y92.89 Other specified places as the place of occurrence of the external cause; Z87.01 Personal history of pneumonia (recurrent); Z90.49 Acquired absence of other specified parts of digestive tract
CPT/HCPCS: 36415; 36600; 71045; 74018; 80048; 80053; 80061; 80202-TC; 81000-TC; 82803-TC; 82962; 83540-TC; 83550-TC; 83605; 83735-TC; 83880; 84100-TC; 84439; 84443-TC; 84478-TC; 84484; 85018-TC; 85025; 85610-TC; 85730-TC; 86886; 86900; 86901; 86920; 87040-TC; 87070-TC; 87081; 87086; 87186-TC; 87205-TC; 88304; 93005; 93971; 94002; 94003; 94640; 94760; 96365; 96366; 96367; 99285; C9290; G0378; J0692; J0770; J0885; J1100; J1650; J1815; J1885; J1940; J2060; J2250; J2270; J2405; J2543; J2704; J2765; J3010; J3370; J3430; J3475; J3480; J3490; J7040; J7042; J7050; J7060; J7120; J7131; J7614; P9021; P9059

== ENCOUNTER 2019-01-21 13:46 | Emergency (ER) | payer OTHER, MEDICAID ==
[~2019-01-21] VITALS: Ht 162.6 cm; Wt 74.8 kg
[2019-01-21 13:50] VITALS: BP_SYST 107
[2019-01-21] MEDS ORDERED: GASTROGRAFIN 120 ML ONE (14:35)
[2019-01-21 15:34] VITALS: BP_SYST 158
== END 2019-01-21 15:34 | disposition home or self-care (01) ==
LOC: SED 13:46
DX: K94.13 Enterostomy malfunction (principal); G12.21 Amyotrophic lateral sclerosis; K21.9 Gastro-esophageal reflux disease without esophagitis; E07.89 Other specified disorders of thyroid; J96.90 Respiratory failure, unspecified, unspecified whether with hypoxia or hypercapnia; J44.9 Chronic obstructive pulmonary disease, unspecified; R13.10 Dysphagia, unspecified; Z99.11 Dependence on respirator [ventilator] status
CPT/HCPCS: 74240; 99283; Q9963

== ENCOUNTER 2019-02-02 23:00 | Emergency (ER) | payer OTHER, MEDICAID ==
[~2019-02-02] VITALS: Ht 160 cm; Wt 63.5 kg
[2019-02-02 23:05] VITALS: BP_SYST 117
[2019-02-03 09:45] VITALS: BP_SYST 134
== END 2019-02-03 09:45 | disposition home or self-care (01) ==
LOC: SED 23:00
DX: K94.23 Gastrostomy malfunction (principal); J44.9 Chronic obstructive pulmonary disease, unspecified; K21.9 Gastro-esophageal reflux disease without esophagitis; Z88.5 Allergy status to narcotic agent; Z88.8 Allergy status to other drugs, medicaments and biological substances; Z79.899 Other long term (current) drug therapy
CPT/HCPCS: 94002; 99284

== ENCOUNTER 2019-02-03 18:17 | Emergency (ER) | payer OTHER, MEDICAID ==
[~2019-02-03] VITALS: Ht 157.5 cm; Wt 63.5 kg
[2019-02-03 18:22] VITALS: BP_SYST 127
[2019-02-03] MEDS ORDERED: GASTROGRAFIN 120 ML ONE (19:24)
[2019-02-03 19:45] LABS: CALCIUM 9.5 mg/dL (8.4-11.0); CREATININE 0.5 mg/dL (0.55-1.30)
[2019-02-03 19:50] LABS: ALBUMIN 3.2 g/dL (3.4-4.8); TOTAL BILIRUBIN 0.6 mg/dL (0.0-1.0)
[2019-02-03 20:01] LABS: BASOPHILS # (AUTO) 0.1 K/uL (0.0-0.2); BASOPHILS % (AUTO) 0.8 % (0.0-2.0); EOSINOPHILS # (AUTO) 0.2 K/uL (0.0-0.4); EOSINOPHILS % (AUTO) 1.4 % (0.0-4.0); HEMATOCRIT 35.8 % (36-48); HEMOGLOBIN 12.1 g/dL (12.0-16.0); LYMPHOCYTES # (AUTO) 3.4 K/uL (1.0-5.5); LYMPHOCYTES % (AUTO) 30.2 % (20.5-51.5); MEAN CORPUSCULAR HEMOGLOBIN 30 pg (27-31); MEAN CORPUSCULAR HGB CONC 34 % (32-36); MEAN CORPUSCULAR VOLUME 90 fL (79.0-98.0); MONOCYTES # (AUTO) 0.7 K/uL (0.0-1.0); MONOCYTES % (AUTO) 6.5 % (1.7-9.3); NEUTROPHILS # (AUTO) 6.9 K/uL (1.8-7.7); NEUTROPHILS % (AUTO) 61.1 % (40.0-70.0); PLATELET COUNT (AUTO) 280 K/uL (130-430); RED BLOOD CELL COUNT(AUTO) 3.98 MIL/uL (4.2-6.2); RED CELL DISTRIBUTION WIDTH 15.2 % (9.0-15.0); WHITE BLOOD COUNT (AUTO) 11.2 K/uL (4.8-10.8)
[2019-02-03 23:54] VITALS: BP_SYST 136
== END 2019-02-03 23:54 | disposition home or self-care (01) ==
LOC: SED 18:17
DX: K94.23 Gastrostomy malfunction (principal); J44.9 Chronic obstructive pulmonary disease, unspecified; K21.9 Gastro-esophageal reflux disease without esophagitis; Z88.5 Allergy status to narcotic agent; Z88.8 Allergy status to other drugs, medicaments and biological substances; Z79.899 Other long term (current) drug therapy
CPT/HCPCS: 36415; 43762; 74240; 80053; 85025; 87070; 87205; 99284; Q9963; 87186-TC

== ENCOUNTER 2019-02-13 13:38 | Emergency (ER) | payer OTHER, MEDICAID ==
[~2019-02-13] VITALS: Ht 172.7 cm; Wt 90.7 kg
[2019-02-13 13:38] VITALS: BP_SYST 126
--- NOTE | 2019-02-13 13:38 | NUR ---
Patient triaged and placed on ambulance gurney. VSS and patient appears in no acute distress at this time. Accompanied by EMS, awaiting available bed, and MD notified of need for MSE.
--- NOTE | 2019-02-13 13:40 | NUR ---
Patient is awake, alert, nonverbal. Patient arrived from [facility] via ALS for G-tube replacement. G-tube was dislodged this morning.
--- NOTE | 2019-02-13 13:41 | NUR ---
ER Dr. Graves at bedside examining patient.
--- NOTE | 2019-02-13 13:42 | NUR ---
Dr. Graves at bedside to perform G-tube change.
[2019-02-13] MEDS ORDERED: DIATR MEGLU/DIATRIZ SOD 30 ML SOLUTION PO ONE (14:13)
--- NOTE | 2019-02-13 14:16 | NUR ---
Patient given written and verbal discharge instructions and verbalizes understanding. ER MD discussed with patient the results and treatment provided. Patient in stable condition. ID arm band removed. Patient educated on pain management and to follow up with PMD. Pain Scale 0/10. Opportunity for questions provided and answered. Medication side effect fact sheet provided.
[2019-02-13 14:18] VITALS: BP_SYST 128
== END 2019-02-13 14:16 | disposition home or self-care (01) ==
LOC: SED 13:38
DX: K94.29 Other complications of gastrostomy (principal); J44.9 Chronic obstructive pulmonary disease, unspecified; I10 Essential (primary) hypertension; K21.9 Gastro-esophageal reflux disease without esophagitis; Z88.5 Allergy status to narcotic agent; Z88.8 Allergy status to other drugs, medicaments and biological substances; Z79.899 Other long term (current) drug therapy
CPT/HCPCS: 43762; 74240; 99284; Q9964

== ENCOUNTER 2019-02-14 14:54 | Inpatient (IN) | payer OTHER, MEDICAID ==
[~2019-02-14] VITALS: Ht 160 cm; Wt 65.8 kg
[2019-02-14 14:54] VITALS: BP_SYST 117
[2019-02-14] MEDS ORDERED: NACL 0.9% 1,000 ML IV ONE ×2 (15:48→19:15)
[2019-02-14] MEDS ORDERED: MORPHINE 4 MG/ML INJ. SYRINGE IVP ONE (16:00)
[2019-02-14 16:24] LABS: BASOPHILS % (AUTO) 0.2 % (0.0-2.0); EOSINOPHILS % (AUTO) 0.1 % (0.0-4.0); HEMATOCRIT 35.8 % (36-48); HEMOGLOBIN 12.3 g/dL (12.0-16.0); LYMPHOCYTES # (AUTO) 2.8 K/uL (1.0-5.5); LYMPHOCYTES % (AUTO) 13.5 % (20.5-51.5); MEAN CORPUSCULAR HEMOGLOBIN 31 pg (27-31); MEAN CORPUSCULAR HGB CONC 35 % (32-36); MEAN CORPUSCULAR VOLUME 90 fL (79.0-98.0); MONOCYTES # (AUTO) 1.1 K/uL (0.0-1.0); MONOCYTES % (AUTO) 5.2 % (1.7-9.3); NEUTROPHILS # (AUTO) 16.9 K/uL (1.8-7.7); PLATELET COUNT (AUTO) 396 K/uL (130-430); RED CELL DISTRIBUTION WIDTH 14.6 % (9.0-15.0); WHITE BLOOD COUNT (AUTO) 20.8 K/uL (4.8-10.8)
[2019-02-14 17:40] LABS: BLOOD, URINE NEGATIVE (NEGATIVE); CLARITY/URINE CLEAR (CLEAR); GLUCOSE,URINE NEGATIVE (NEGATIVE); KETONES,URINE TRACE (NEGATIVE); LEUKOCYTE ESTERASE ,URINE NEGATIVE (NEGATIVE); NITRITE, URINE NEGATIVE (NEGATIVE); PROTEIN URINE 2+ (NEGATIVE); UROBILINOGEN,URINE 0.2 (0.2-1.0)
[2019-02-14 17:42] LABS: CALCIUM 9.3 mg/dL (8.4-11.0); CREATININE 0.71 mg/dL (0.55-1.30); POTASSIUM 4.9 mmol/L (3.5-5.1)
[2019-02-14 17:44] LABS: ALBUMIN 3.8 g/dL (3.4-4.8); TOTAL BILIRUBIN 0.8 mg/dL (0.0-1.0)
[2019-02-14 17:57] LABS: BILIRUBIN,URINE NEGATIVE (NEGATIVE); COLOR,URINE AMBER (YELLOW)
[2019-02-14 17:59] LABS: BACTERIA,URINE FEW /HPF (None Seen); MUCUS,URINE 1+ /LPF (None Seen); RBC,URINE 0-3 /HPF (0-3)
[2019-02-14] MEDS ORDERED: MEROPENEM 1 GM IVPB PREMIX 50 ML IV ONE (18:15)
[2019-02-14] MEDS ORDERED: VANCOMYCIN HCL 1,000 MG in NS 250 ML IV ONE (18:15)
[2019-02-14] MEDS ORDERED: D5LR 1,000 ML IV ONE (18:30)
[2019-02-14] MEDS ORDERED: PIPERACILLIN/TAZO 3.375 GM in NS 50 ML IV ONE (18:30)
[2019-02-14] MEDS ORDERED: VANCOMYCIN HCL 1000 MG/VIAL IV ONE (18:42)
[2019-02-14] MEDS ORDERED: MEROPENEM 500 MG VIAL IV ONE (19:00)
[2019-02-14 19:20] VITALS: BP_SYST 130
[2019-02-14 19:30] VITALS: BP_SYST 139
[2019-02-14] MEDS ORDERED: HYDROmorphone 1 MG INJ. 1 MG/ML AMPUL IVP PRN ×2 (21:00)
[2019-02-14] MEDS ORDERED: DIPHENHYDRAMINE INJ 50 MG/ML VIAL IVP PRN (21:00)
[2019-02-14] MEDS ORDERED: PIPERACILLIN/TAZOBACTAM 3.375 GM/VIAL (ZOSYN) IV ONE (21:01)
[2019-02-14] MEDS ORDERED: IPRATROPIUM/ALBUTEROL SULFATE 3 ML AMPUL.NEB (DUONEB) INH PRN (21:15)
[2019-02-14] MEDS: CARVEDILOL 3.125 MG TABLET (COREG) GT SCH (22:24)
[2019-02-14] MEDS: PANTOPRAZOLE SODIUM 40 MG/VIAL (PROTONIX) IVP SCH (22:59)
[2019-02-14] MEDS ORDERED: IPRATROPIUM/ALBUTEROL SULFATE 3 ML AMPUL.NEB (DUONEB) INH SCH (23:00)
[2019-02-14] MEDS: DILTIAZEM HCL 30 MG TABLET GT SCH (23:53)
[2019-02-14] MEDS: BACLOFEN 10 MG TABLET GT SCH (23:53)
[2019-02-14] MEDS: ASCORBIC ACID 500 MG TABLET GT SCH (23:53)
[2019-02-15] MEDS ORDERED: DILTIAZEM HCL 30 MG TABLET GT SCH
[2019-02-15] MEDS: LEVALBUTEROL HCL 0.63 MG/3 ML VIAL.NEB INH SCH ×4 (00:19→20:06)
[2019-02-15] MEDS: ONDANSETRON HCL 4 MG/2 ML VIAL IVP PRN ×2 (05:35→10:34)
[2019-02-15 06:08] VITALS: BP_SYST 128
[2019-02-15 08:00] VITALS: BP_SYST 121
[2019-02-15] MEDS: PANTOPRAZOLE SODIUM 40 MG/VIAL (PROTONIX) IVP SCH ×2 (09:12→21:16)
[2019-02-15] MEDS: MULTIVITAMINS TAB 1 TABLET GT SCH (09:13)
[2019-02-15] MEDS: DILTIAZEM HCL 30 MG TABLET GT SCH ×2 (09:13→21:18)
[2019-02-15] MEDS: LEVOTHYROXINE SODIUM 0.125 MG TABLET GT SCH (09:13)
[2019-02-15] MEDS: BACLOFEN 10 MG TABLET GT SCH ×2 (09:13→21:17)
[2019-02-15] MEDS: ASCORBIC ACID 500 MG TABLET GT SCH ×2 (09:13→21:17)
[2019-02-15] MEDS: CARVEDILOL 3.125 MG TABLET (COREG) GT SCH ×2 (09:14→21:18)
[2019-02-15] MEDS: LACTOBACILLUS RHAMNOSUS GG 1 CAP CAPSULE GT SCH ×3 (09:14→21:16)
[2019-02-15 09:57] LABS: BASOPHILS % (AUTO) 0.1 % (0.0-2.0); HEMATOCRIT 29.5 % (36-48); HEMOGLOBIN 10.1 g/dL (12.0-16.0); LYMPHOCYTES # (AUTO) 2.3 K/uL (1.0-5.5); LYMPHOCYTES % (AUTO) 12.7 % (20.5-51.5); MEAN CORPUSCULAR HEMOGLOBIN 31 pg (27-31); MEAN CORPUSCULAR HGB CONC 34 % (32-36); MEAN CORPUSCULAR VOLUME 90 fL (79.0-98.0); MONOCYTES # (AUTO) 0.8 K/uL (0.0-1.0); MONOCYTES % (AUTO) 4.3 % (1.7-9.3); NEUTROPHILS # (AUTO) 14.9 K/uL (1.8-7.7); NEUTROPHILS % (AUTO) 82.9 % (40.0-70.0); PLATELET COUNT (AUTO) 281 K/uL (130-430); RED BLOOD CELL COUNT(AUTO) 3.27 MIL/uL (4.2-6.2); RED CELL DISTRIBUTION WIDTH 14.6 % (9.0-15.0)
[2019-02-15 10:11] LABS: INR 1.1 (0.8-1.2); PROTHROMBIN TIME 10.8 SECS (9.5-12.5)
[2019-02-15 10:24] LABS: ALBUMIN 2.5 g/dL (3.4-4.8); CALCIUM 8.6 mg/dL (8.4-11.0); CREATININE 0.59 mg/dL (0.55-1.30); FREE T4 (FREE THYROXINE) 2.1 ng/dl (0.8-1.5); POTASSIUM 3.7 mmol/L (3.5-5.1); TOTAL BILIRUBIN 0.7 mg/dL (0.0-1.0)
[2019-02-15 12:00] VITALS: BP_SYST 103
[2019-02-15] MEDS ORDERED: ACETYLCYSTEINE 20% 4 ML VIAL (RT) INH ONE (12:30)
[2019-02-15] MEDS: D5/0.45 NS 1,000 ML IV SCH (13:10)
[2019-02-15] MEDS: MEROPENEM 1 GM in NS 100 ML IV SCH ×2 (14:46→21:35)
[2019-02-15 16:12] VITALS: BP_SYST 103
[2019-02-15] MEDS: HIBICLENS TP SCH (18:00)
[2019-02-15] MEDS ORDERED: GASTROGRAFIN 120 ML ONE (19:56)
[2019-02-15] MEDS ORDERED: VANCOMYCIN HCL 1,000 MG in NS 250 ML IV SCH (20:00)
[2019-02-15] MEDS: ACETYLCYSTEINE 20% 4 ML VIAL (RT) INH SCH (20:37)
[2019-02-16 00:08] VITALS: BP_SYST 114
[2019-02-16] MEDS: D5/0.45 NS 1,000 ML IV SCH ×2 (00:48→13:43)
[2019-02-16] MEDS: MEROPENEM 1 GM in NS 100 ML IV SCH ×3 (05:05→21:20)
[2019-02-16 07:26] LABS: HEMATOCRIT 28.2 % (36-48); HEMOGLOBIN 9.6 g/dL (12.0-16.0); LYMPHOCYTES # (AUTO) 1.6 K/uL (1.0-5.5); LYMPHOCYTES % (AUTO) 13.6 % (20.5-51.5); MEAN CORPUSCULAR HEMOGLOBIN 31 pg (27-31); MEAN CORPUSCULAR HGB CONC 34 % (32-36); MEAN CORPUSCULAR VOLUME 91 fL (79.0-98.0); MONOCYTES # (AUTO) 0.5 K/uL (0.0-1.0); NEUTROPHILS # (AUTO) 9.7 K/uL (1.8-7.7); NEUTROPHILS % (AUTO) 82.4 % (40.0-70.0); PLATELET COUNT (AUTO) 249 K/uL (130-430); RED BLOOD CELL COUNT(AUTO) 3.11 MIL/uL (4.2-6.2); RED CELL DISTRIBUTION WIDTH 14.8 % (9.0-15.0); WHITE BLOOD COUNT (AUTO) 11.8 K/uL (4.8-10.8)
[2019-02-16 07:30] LABS: INR 1.1 (0.8-1.2); PROTHROMBIN TIME 10.6 SECS (9.5-12.5)
[2019-02-16] MEDS: LEVALBUTEROL HCL 0.63 MG/3 ML VIAL.NEB INH SCH ×4 (07:30→19:57)
[2019-02-16] MEDS: ACETYLCYSTEINE 20% 4 ML VIAL (RT) INH SCH ×4 (07:30→19:58)
[2019-02-16 07:48] LABS: ALBUMIN 2.3 g/dL (3.4-4.8); CALCIUM 8.5 mg/dL (8.4-11.0); CREATININE 0.51 mg/dL (0.55-1.30); TOTAL BILIRUBIN 0.8 mg/dL (0.0-1.0)
[2019-02-16 07:52] LABS: POTASSIUM 2.8 mmol/L (3.5-5.1)
[2019-02-16 08:00] VITALS: BP_SYST 99
[2019-02-16] MEDS ORDERED: POTASSIUM CHLORIDE 40 MEQ in NS 250 ML IV ONE (08:15)
[2019-02-16] MEDS: LEVOTHYROXINE SODIUM 0.125 MG TABLET GT SCH (09:20)
[2019-02-16] MEDS: MULTIVITAMINS TAB 1 TABLET GT SCH (09:20)
[2019-02-16] MEDS: BACLOFEN 10 MG TABLET GT SCH ×2 (09:20→21:20)
[2019-02-16] MEDS: LACTOBACILLUS RHAMNOSUS GG 1 CAP CAPSULE GT SCH ×3 (09:21→21:20)
[2019-02-16] MEDS: ASCORBIC ACID 500 MG TABLET GT SCH ×2 (09:21→21:20)
[2019-02-16] MEDS: PANTOPRAZOLE SODIUM 40 MG/VIAL (PROTONIX) IVP SCH ×2 (09:21→21:22)
[2019-02-16] MEDS: CARVEDILOL 3.125 MG TABLET (COREG) GT SCH ×2 (09:21→21:21)
[2019-02-16] MEDS: DILTIAZEM HCL 30 MG TABLET GT SCH ×2 (09:25→21:21)
[2019-02-16 09:45] VITALS: BP_SYST 130
[2019-02-16] MEDS: ONDANSETRON HCL 4 MG/2 ML VIAL IVP PRN (12:35)
[2019-02-16 13:00] VITALS: BP_SYST 104
[2019-02-16 17:06] VITALS: BP_SYST 138
[2019-02-16] MEDS: HIBICLENS TP SCH (18:00)
[2019-02-16] MEDS: METOCLOPRAMIDE HCL 10 MG/2 ML VIAL IVP SCH (23:59)
[2019-02-17 00:06] VITALS: BP_SYST 136
[2019-02-17] MEDS: LEVALBUTEROL HCL 0.63 MG/3 ML VIAL.NEB INH SCH ×4 (00:57→19:38)
[2019-02-17] MEDS: D5/0.45 NS 1,000 ML IV SCH ×3 (05:12→20:46)
[2019-02-17] MEDS: MEROPENEM 1 GM in NS 100 ML IV SCH (05:13)
[2019-02-17] MEDS: ACETAMINOPHEN 650 MG/20.3 ML UDC GT PRN (05:17)
[2019-02-17] MEDS: METOCLOPRAMIDE HCL 10 MG/2 ML VIAL IVP SCH ×4 (06:04→23:46)
[2019-02-17 07:07] LABS: HEMATOCRIT 29.2 % (36-48); HEMOGLOBIN 9.9 g/dL (12.0-16.0); LYMPHOCYTES # (AUTO) 1.6 K/uL (1.0-5.5); LYMPHOCYTES % (AUTO) 11.7 % (20.5-51.5); MEAN CORPUSCULAR HEMOGLOBIN 31 pg (27-31); MEAN CORPUSCULAR HGB CONC 34 % (32-36); MEAN CORPUSCULAR VOLUME 90 fL (79.0-98.0); MONOCYTES # (AUTO) 0.6 K/uL (0.0-1.0); MONOCYTES % (AUTO) 4.5 % (1.7-9.3); NEUTROPHILS # (AUTO) 11.4 K/uL (1.8-7.7); NEUTROPHILS % (AUTO) 83.8 % (40.0-70.0); PLATELET COUNT (AUTO) 262 K/uL (130-430); RED BLOOD CELL COUNT(AUTO) 3.23 MIL/uL (4.2-6.2); WHITE BLOOD COUNT (AUTO) 13.6 K/uL (4.8-10.8)
[2019-02-17 07:48] LABS: ALBUMIN 2.1 g/dL (3.4-4.8); CALCIUM 8.7 mg/dL (8.4-11.0); CREATININE 0.56 mg/dL (0.55-1.30); PHOSPHORUS 1.1 mg/dL (2.7-4.5)
[2019-02-17 07:50] LABS: POTASSIUM 2.5 mmol/L (3.5-5.1)
[2019-02-17] MEDS: ACETYLCYSTEINE 20% 4 ML VIAL (RT) INH SCH ×4 (07:55→19:38)
[2019-02-17 08:00] VITALS: BP_SYST 106
[2019-02-17] MEDS ORDERED: POTASSIUM CHLORIDE 40 MEQ in NS 250 ML IV ONE (08:45)
[2019-02-17] MEDS: LEVOTHYROXINE SODIUM 0.125 MG TABLET GT SCH (09:45)
[2019-02-17] MEDS: PANTOPRAZOLE SODIUM 40 MG/VIAL (PROTONIX) IVP SCH ×2 (09:45→20:46)
[2019-02-17] MEDS: LACTOBACILLUS RHAMNOSUS GG 1 CAP CAPSULE GT SCH ×3 (09:45→20:48)
[2019-02-17] MEDS: ASCORBIC ACID 500 MG TABLET GT SCH ×2 (09:46→20:48)
[2019-02-17] MEDS: BACLOFEN 10 MG TABLET GT SCH ×2 (09:46→20:48)
[2019-02-17] MEDS: MULTIVITAMINS TAB 1 TABLET GT SCH (09:46)
[2019-02-17] MEDS: CARVEDILOL 3.125 MG TABLET (COREG) GT SCH ×2 (09:49→20:48)
[2019-02-17] MEDS: DILTIAZEM HCL 30 MG TABLET GT SCH ×2 (09:49→20:47)
[2019-02-17] MEDS ORDERED: K PHOS 15 MM in NS 250 ML IV ONE (10:30)
[2019-02-17 10:32] VITALS: BP_SYST 106
[2019-02-17 12:26] VITALS: BP_SYST 100
[2019-02-17] MEDS: ONDANSETRON HCL 4 MG/2 ML VIAL IVP PRN ×2 (14:54→20:48)
[2019-02-17 16:07] VITALS: BP_SYST 106
[2019-02-17] MEDS ORDERED: POTASSIUM CHLORIDE 20 MEQ/PKT PACKET PO ONE (16:15)
[2019-02-17] MEDS ORDERED: POTASSIUM CHLORIDE 20 MEQ/PKT PACKET GT ONE (16:15)
[2019-02-17 20:00] VITALS: BP_SYST 141
[2019-02-17] MEDS: POTASSIUM CHLORIDE 20 MEQ/PKT PACKET GT SCH (20:48)
[2019-02-17] MEDS: metroNIDAZOLE 500 mg/NS 100 ML IV SCH (20:50)
[2019-02-17] MEDS: CEFEPIME 1 GM in D5W 50 ML IV SCH (20:50)
[2019-02-18 00:22] VITALS: BP_SYST 151
[2019-02-18 00:45] LABS: BILIRUBIN,URINE NEGATIVE (NEGATIVE); CLARITY/URINE CLEAR (CLEAR); COLOR,URINE YELLOW (YELLOW); GLUCOSE,URINE NEGATIVE (NEGATIVE); KETONES,URINE NEGATIVE (NEGATIVE); LEUKOCYTE ESTERASE ,URINE NEGATIVE (NEGATIVE); NITRITE, URINE NEGATIVE (NEGATIVE); PH,URINE 6.5 (5.0-8.0); PROTEIN URINE 1+ (NEGATIVE); UROBILINOGEN,URINE 0.2 (0.2-1.0)
[2019-02-18] MEDS: LEVALBUTEROL HCL 0.63 MG/3 ML VIAL.NEB INH SCH ×4 (00:47→19:53)
[2019-02-18 00:53] LABS: BLOOD, URINE TRACE (NEGATIVE)
[2019-02-18 01:19] LABS: BACTERIA,URINE FEW /HPF (None Seen); WBC,URINE 0-3 /HPF (0-3)
[2019-02-18] MEDS: ONDANSETRON HCL 4 MG/2 ML VIAL IVP PRN (02:13)
[2019-02-18] MEDS: METOCLOPRAMIDE HCL 10 MG/2 ML VIAL IVP SCH ×3 (05:39→17:40)
[2019-02-18 07:34] LABS: BASOPHILS % (AUTO) 0.1 % (0.0-2.0); EOSINOPHILS % (AUTO) 0.1 % (0.0-4.0); HEMATOCRIT 30.6 % (36-48); HEMOGLOBIN 10.5 g/dL (12.0-16.0); MEAN CORPUSCULAR HEMOGLOBIN 31 pg (27-31); MEAN CORPUSCULAR HGB CONC 34 % (32-36); MEAN CORPUSCULAR VOLUME 91 fL (79.0-98.0); MONOCYTES # (AUTO) 0.6 K/uL (0.0-1.0); MONOCYTES % (AUTO) 5.1 % (1.7-9.3); NEUTROPHILS # (AUTO) 8.3 K/uL (1.8-7.7); NEUTROPHILS % (AUTO) 76.7 % (40.0-70.0); PLATELET COUNT (AUTO) 307 K/uL (130-430); RED BLOOD CELL COUNT(AUTO) 3.37 MIL/uL (4.2-6.2); RED CELL DISTRIBUTION WIDTH 14.9 % (9.0-15.0); WHITE BLOOD COUNT (AUTO) 10.9 K/uL (4.8-10.8)
[2019-02-18 07:40] LABS: CALCIUM 8.8 mg/dL (8.4-11.0); CREATININE 0.48 mg/dL (0.55-1.30); POTASSIUM 3.6 mmol/L (3.5-5.1)
[2019-02-18] MEDS: ACETYLCYSTEINE 20% 4 ML VIAL (RT) INH SCH ×4 (07:52→19:54)
[2019-02-18 08:00] VITALS: BP_SYST 125
[2019-02-18] MEDS: LEVOTHYROXINE SODIUM 0.125 MG TABLET GT SCH (11:19)
[2019-02-18] MEDS: BACLOFEN 10 MG TABLET GT SCH ×2 (11:20→21:49)
[2019-02-18] MEDS: ASCORBIC ACID 500 MG TABLET GT SCH ×2 (11:20→21:48)
[2019-02-18] MEDS: POTASSIUM CHLORIDE 20 MEQ/PKT PACKET GT SCH ×2 (11:20→21:50)
[2019-02-18] MEDS: MULTIVITAMINS TAB 1 TABLET GT SCH (11:20)
[2019-02-18] MEDS: LACTOBACILLUS RHAMNOSUS GG 1 CAP CAPSULE GT SCH ×3 (11:20→21:49)
[2019-02-18] MEDS: PANTOPRAZOLE SODIUM 40 MG/VIAL (PROTONIX) IVP SCH ×2 (11:21→22:01)
[2019-02-18] MEDS: CARVEDILOL 3.125 MG TABLET (COREG) GT SCH ×2 (11:21→21:50)
[2019-02-18] MEDS: CEFEPIME 1 GM in D5W 50 ML IV SCH ×2 (11:22→21:48)
[2019-02-18] MEDS: metroNIDAZOLE 500 mg/NS 100 ML IV SCH ×2 (11:23→22:20)
[2019-02-18] MEDS: DILTIAZEM HCL 30 MG TABLET GT SCH ×2 (11:23→21:49)
[2019-02-18 11:57] VITALS: BP_SYST 145
[2019-02-18] MEDS ORDERED: DEXTROSE 50% JECT 50 ML DISP.SYRIN IVP PRN (13:00)
[2019-02-18] MEDS ORDERED: *TPN PER PHARMACY XX PRN (13:00)
[2019-02-18 16:53] VITALS: BP_SYST 132
[2019-02-18] MEDS: D5/0.45 NS 1,000 ML IV SCH (17:36)
[2019-02-18 20:00] VITALS: BP_SYST 108
[2019-02-18] MEDS ORDERED: TPN PERIPHERAL 0.0001 ML, SODIUM ACETATE 40 MEQ, POTASSIUM CHLORIDE 20 MEQ, K PHOS 12 M... IV SCH ×18 (21:00)
[2019-02-18] MEDS: INSULIN REGULAR, HUMAN 100 UNITS/ML, 10 ML VIAL (humuLIN R) SUBCUT PRN (22:24)
[2019-02-19] VITALS: BP_SYST 105
[2019-02-19] MEDS: METOCLOPRAMIDE HCL 10 MG/2 ML VIAL IVP SCH ×4 (00:47→17:22)
[2019-02-19] MEDS: LEVALBUTEROL HCL 0.63 MG/3 ML VIAL.NEB INH SCH ×4 (01:12→19:42)
[2019-02-19 07:31] LABS: ALBUMIN 1.6 g/dL (3.4-4.8); CREATININE 0.48 mg/dL (0.55-1.30); PHOSPHORUS 1.4 mg/dL (2.7-4.5); POTASSIUM 3.2 mmol/L (3.5-5.1); TOTAL BILIRUBIN 1.1 mg/dL (0.0-1.0)
[2019-02-19] MEDS: ACETYLCYSTEINE 20% 4 ML VIAL (RT) INH SCH ×4 (07:36→19:43)
[2019-02-19] MEDS: MULTIVITAMINS TAB 1 TABLET GT SCH (08:53)
[2019-02-19] MEDS: LACTOBACILLUS RHAMNOSUS GG 1 CAP CAPSULE GT SCH ×3 (08:53→20:48)
[2019-02-19] MEDS: CEFEPIME 1 GM in D5W 50 ML IV SCH ×2 (08:53→20:50)
[2019-02-19] MEDS: POTASSIUM CHLORIDE 20 MEQ/PKT PACKET GT SCH ×2 (08:53→20:49)
[2019-02-19] MEDS: BACLOFEN 10 MG TABLET GT SCH ×2 (08:53→20:49)
[2019-02-19] MEDS: LEVOTHYROXINE SODIUM 0.125 MG TABLET GT SCH (08:53)
[2019-02-19] MEDS: ASCORBIC ACID 500 MG TABLET GT SCH ×2 (08:53→20:49)
[2019-02-19] MEDS: CARVEDILOL 3.125 MG TABLET (COREG) GT SCH ×2 (08:54→20:49)
[2019-02-19] MEDS: DILTIAZEM HCL 30 MG TABLET GT SCH ×2 (08:54→20:49)
[2019-02-19] MEDS: metroNIDAZOLE 500 mg/NS 100 ML IV SCH (08:55)
[2019-02-19] MEDS: D5/0.45 NS 1,000 ML IV SCH (08:58)
[2019-02-19] MEDS: PANTOPRAZOLE SODIUM 40 MG/VIAL (PROTONIX) IVP SCH ×2 (08:58→20:49)
[2019-02-19] MEDS ORDERED: POTASSIUM CHLORIDE 40 MEQ in NS 250 ML IV ONE (11:00)
[2019-02-19 11:02] LABS: INR 1.1 (0.8-1.2); PROTHROMBIN TIME 11.5 SECS (9.5-12.5)
[2019-02-19 12:30] VITALS: BP_SYST 138
[2019-02-19] MEDS: INSULIN REGULAR, HUMAN 100 UNITS/ML, 10 ML VIAL (humuLIN R) SUBCUT PRN ×2 (13:30→21:13)
[2019-02-19 16:06] VITALS: BP_SYST 107
[2019-02-19] MEDS: HIBICLENS TP SCH (17:21)
[2019-02-19 20:00] VITALS: BP_SYST 123
[2019-02-19] MEDS ORDERED: TPN PERIPHERAL IV SCH ×9 (21:00)
[2019-02-19] MEDS ORDERED: POTASSIUM CHLORIDE IV SCH ×9 (21:00)
[2019-02-19] MEDS ORDERED: SODIUM ACETATE IV SCH ×9 (21:00)
[2019-02-19] MEDS ORDERED: [UNRECOGNIZED DRUG - OTHER] IV SCH ×9 (21:00)
[2019-02-20 00:55] VITALS: BP_SYST 111
[2019-02-20] MEDS: LEVALBUTEROL HCL 0.63 MG/3 ML VIAL.NEB INH SCH (01:48)
[2019-02-20] MEDS: METOCLOPRAMIDE HCL 10 MG/2 ML VIAL IVP SCH ×4 (05:07→18:00)
[2019-02-20] MEDS: INSULIN REGULAR, HUMAN 100 UNITS/ML, 10 ML VIAL (humuLIN R) SUBCUT PRN (05:13)
[2019-02-20] MEDS: MULTIVITAMINS TAB 1 TABLET GT SCH (09:00)
[2019-02-20] MEDS: LEVOTHYROXINE SODIUM 0.125 MG TABLET GT SCH (09:00)
[2019-02-20] MEDS: POTASSIUM CHLORIDE 20 MEQ/PKT PACKET GT SCH ×2 (09:00→21:00)
[2019-02-20] MEDS: ASCORBIC ACID 500 MG TABLET GT SCH ×2 (09:00→21:00)
[2019-02-20] MEDS: PANTOPRAZOLE SODIUM 40 MG/VIAL (PROTONIX) IVP SCH ×2 (09:00→21:00)
[2019-02-20] MEDS: DILTIAZEM HCL 30 MG TABLET GT SCH ×2 (09:00→21:00)
[2019-02-20] MEDS: CEFEPIME 1 GM in D5W 50 ML IV SCH ×2 (09:00→21:00)
[2019-02-20] MEDS: BACLOFEN 10 MG TABLET GT SCH ×2 (09:00→21:00)
[2019-02-20] MEDS: CARVEDILOL 3.125 MG TABLET (COREG) GT SCH ×2 (09:00→21:00)
[2019-02-20] MEDS: LACTOBACILLUS RHAMNOSUS GG 1 CAP CAPSULE GT SCH ×3 (09:00→21:00)
[2019-02-20] MEDS: ACETYLCYSTEINE 20% 4 ML VIAL (RT) INH SCH ×3 (11:00→19:00)
[2019-02-20] MEDS ORDERED: MAGNESIUM SULFATE 50 ML IV SCH (17:50)
[2019-02-20] MEDS: HIBICLENS TP SCH (18:00)
[2019-02-21] MEDS ORDERED: DILTIAZEM HCL 60 MG TABLET ONE (00:41)
[2019-02-21] MEDS ORDERED: NOREPINEPHRINE BITARTRATE 4 MG in D5W 246 ML IV PRN (01:30)
[2019-02-21] MEDS: METOCLOPRAMIDE HCL 10 MG/2 ML VIAL IVP SCH ×4 (06:00→18:00)
[2019-02-21] MEDS: ACETYLCYSTEINE 20% 4 ML VIAL (RT) INH SCH ×4 (07:00→19:00)
[2019-02-21] MEDS ORDERED: NACL 0.9% 1,000 ML IV SCH (08:30)
[2019-02-21] MEDS: ASCORBIC ACID 500 MG TABLET GT SCH ×2 (09:00→21:00)
[2019-02-21] MEDS: PANTOPRAZOLE SODIUM 40 MG/VIAL (PROTONIX) IVP SCH ×2 (09:00→21:00)
[2019-02-21] MEDS: CEFEPIME 1 GM in D5W 50 ML IV SCH ×2 (09:00→21:00)
[2019-02-21] MEDS: POTASSIUM CHLORIDE 20 MEQ/PKT PACKET GT SCH ×2 (09:00→21:00)
[2019-02-21] MEDS: LACTOBACILLUS RHAMNOSUS GG 1 CAP CAPSULE GT SCH ×3 (09:00→21:00)
[2019-02-21] MEDS: BACLOFEN 10 MG TABLET GT SCH ×2 (09:00→21:00)
[2019-02-21] MEDS: LEVOTHYROXINE SODIUM 0.125 MG TABLET GT SCH (09:00)
[2019-02-21] MEDS: MULTIVITAMINS TAB 1 TABLET GT SCH (09:00)
[2019-02-21] MEDS: DILTIAZEM HCL 30 MG TABLET GT SCH ×2 (09:00→21:00)
[2019-02-21] MEDS: CARVEDILOL 3.125 MG TABLET (COREG) GT SCH ×2 (09:00→21:00)
[2019-02-21] MEDS: HYDROCORTISONE SOD SUCC 100 MG/2 ML VIAL IVP SCH ×2 (13:45→21:45)
[2019-02-21] MEDS: metroNIDAZOLE 500 mg/NS 100 ML PREMIX IV SCH (17:00)
[2019-02-21] MEDS ORDERED: VANCOMYCIN HCL 1,000 MG in NS 250 ML IV ONE (17:00)
[2019-02-21] MEDS: HIBICLENS TP SCH (18:00)
[2019-02-21 19:00] VITALS: BP_SYST 91; BP_SYST 98
[2019-02-21 20:00] VITALS: BP_SYST 118
[2019-02-21 21:00] VITALS: BP_SYST 90
[2019-02-21 22:00] VITALS: BP_SYST 97
[2019-02-21 23:00] VITALS: BP_SYST 114
[2019-02-21 23:29] VITALS: BP_SYST 112
[2019-02-22] VITALS (31 sets, daily range): BP systolic 93–123
[2019-02-22] MEDS: LEVALBUTEROL HCL 0.63 MG/3 ML VIAL.NEB INH SCH ×3 (02:07→19:51)
[2019-02-22] MEDS: metroNIDAZOLE 500 mg/NS 100 ML PREMIX IV SCH ×2 (05:00→17:59)
[2019-02-22] MEDS: HYDROCORTISONE SOD SUCC 100 MG/2 ML VIAL IVP SCH ×3 (05:45→22:03)
[2019-02-22] MEDS: METOCLOPRAMIDE HCL 10 MG/2 ML VIAL IVP SCH ×4 (06:00→17:59)
[2019-02-22 06:30] LABS: HEMOGLOBIN 8.6 g/dL (12.0-16.0); LYMPHOCYTES # (AUTO) 1.2 K/uL (1.0-5.5); LYMPHOCYTES % (AUTO) 7.1 % (20.5-51.5); MEAN CORPUSCULAR HEMOGLOBIN 29 pg (27-31); MEAN CORPUSCULAR HGB CONC 32 % (32-36); MEAN CORPUSCULAR VOLUME 92 fL (79.0-98.0); MONOCYTES # (AUTO) 0.5 K/uL (0.0-1.0); MONOCYTES % (AUTO) 3.1 % (1.7-9.3); NEUTROPHILS # (AUTO) 15.6 K/uL (1.8-7.7); NEUTROPHILS % (AUTO) 89.8 % (40.0-70.0); PLATELET COUNT (AUTO) 287 K/uL (130-430); RED BLOOD CELL COUNT(AUTO) 2.93 MIL/uL (4.2-6.2); RED CELL DISTRIBUTION WIDTH 15.7 % (9.0-15.0); WHITE BLOOD COUNT (AUTO) 17.3 K/uL (4.8-10.8)
[2019-02-22 06:42] LABS: ALBUMIN 1.4 g/dL (3.4-4.8); CALCIUM 7.9 mg/dL (8.4-11.0); CREATININE 0.4 mg/dL (0.55-1.30); POTASSIUM 4.3 mmol/L (3.5-5.1); TOTAL BILIRUBIN 0.5 mg/dL (0.0-1.0)
[2019-02-22] MEDS: ACETYLCYSTEINE 20% 4 ML VIAL (RT) INH SCH ×3 (07:00→19:52)
[2019-02-22] MEDS: LACTOBACILLUS RHAMNOSUS GG 1 CAP CAPSULE GT SCH ×3 (11:06→21:12)
[2019-02-22] MEDS: MULTIVITAMINS TAB 1 TABLET GT SCH (11:06)
[2019-02-22] MEDS: PANTOPRAZOLE SODIUM 40 MG/VIAL (PROTONIX) IVP SCH ×2 (11:06→21:13)
[2019-02-22] MEDS: DILTIAZEM HCL 30 MG TABLET GT SCH ×2 (11:08→21:00)
[2019-02-22] MEDS: BACLOFEN 10 MG TABLET GT SCH ×2 (11:08→21:11)
[2019-02-22] MEDS: ASCORBIC ACID 500 MG TABLET GT SCH ×2 (11:09→21:11)
[2019-02-22] MEDS: LEVOTHYROXINE SODIUM 0.125 MG TABLET GT SCH (11:14)
[2019-02-22] MEDS: POTASSIUM CHLORIDE 20 MEQ/PKT PACKET GT SCH ×2 (11:14→21:10)
[2019-02-22] MEDS: CARVEDILOL 3.125 MG TABLET (COREG) GT SCH ×2 (11:15→21:10)
[2019-02-22] MEDS: CEFEPIME 1 GM in D5W 50 ML IV SCH ×2 (11:26→21:14)
[2019-02-22] MEDS: D5/0.45 NS 1,000 ML IV SCH (11:26)
[2019-02-22] MEDS: ONDANSETRON HCL 4 MG/2 ML VIAL IVP PRN (12:15)
[2019-02-22] MEDS: HIBICLENS TP SCH (17:59)
[2019-02-23] VITALS (27 sets, daily range): BP systolic 80–116
[2019-02-23] MEDS: LEVALBUTEROL HCL 0.63 MG/3 ML VIAL.NEB INH SCH ×4 (00:55→19:41)
[2019-02-23] MEDS: METOCLOPRAMIDE HCL 10 MG/2 ML VIAL IVP SCH ×4 (01:00→18:33)
[2019-02-23] MEDS: metroNIDAZOLE 500 mg/NS 100 ML PREMIX IV SCH ×2 (05:20→18:33)
[2019-02-23] MEDS: HYDROCORTISONE SOD SUCC 100 MG/2 ML VIAL IVP SCH ×3 (05:33→20:59)
[2019-02-23] MEDS: DILTIAZEM HCL 30 MG TABLET GT SCH ×2 (09:00→20:53)
[2019-02-23] MEDS: PANTOPRAZOLE SODIUM 40 MG/VIAL (PROTONIX) IVP SCH ×2 (09:46→20:55)
[2019-02-23] MEDS: POTASSIUM CHLORIDE 20 MEQ/PKT PACKET GT SCH ×2 (09:47→20:54)
[2019-02-23] MEDS: CARVEDILOL 3.125 MG TABLET (COREG) GT SCH ×2 (09:50→20:53)
[2019-02-23] MEDS: LACTOBACILLUS RHAMNOSUS GG 1 CAP CAPSULE GT SCH ×3 (09:51→20:54)
[2019-02-23] MEDS: ASCORBIC ACID 500 MG TABLET GT SCH ×2 (09:51→20:55)
[2019-02-23] MEDS: LEVOTHYROXINE SODIUM 0.125 MG TABLET GT SCH (09:51)
[2019-02-23] MEDS: MULTIVITAMINS TAB 1 TABLET GT SCH (09:51)
[2019-02-23] MEDS: BACLOFEN 10 MG TABLET GT SCH ×2 (09:51→20:59)
[2019-02-23] MEDS: D5/0.45 NS 1,000 ML IV SCH (09:52)
[2019-02-23] MEDS: CEFEPIME 1 GM in D5W 50 ML IV SCH ×2 (09:52→20:55)
[2019-02-23] MEDS: ACETYLCYSTEINE 20% 4 ML VIAL (RT) INH SCH ×3 (12:10→19:42)
[2019-02-23] MEDS: HIBICLENS TP SCH (18:34)
[2019-02-24] VITALS (23 sets, daily range): BP systolic 88–125
[2019-02-24] MEDS: METOCLOPRAMIDE HCL 10 MG/2 ML VIAL IVP SCH ×4 (00:21→17:02)
[2019-02-24] MEDS: LEVALBUTEROL HCL 0.63 MG/3 ML VIAL.NEB INH SCH ×4 (01:17→19:51)
[2019-02-24] MEDS: D5/0.45 NS 1,000 ML IV SCH ×2 (03:15→09:23)
[2019-02-24] MEDS: metroNIDAZOLE 500 mg/NS 100 ML PREMIX IV SCH ×2 (05:24→16:35)
[2019-02-24] MEDS: HYDROCORTISONE SOD SUCC 100 MG/2 ML VIAL IVP SCH ×2 (05:24→21:41)
[2019-02-24 05:57] LABS: BASOPHILS % (AUTO) 0.1 % (0.0-2.0); HEMATOCRIT 26.1 % (36-48); HEMOGLOBIN 8.4 g/dL (12.0-16.0); LYMPHOCYTES # (AUTO) 1.6 K/uL (1.0-5.5); LYMPHOCYTES % (AUTO) 10.2 % (20.5-51.5); MEAN CORPUSCULAR HEMOGLOBIN 30 pg (27-31); MEAN CORPUSCULAR HGB CONC 32 % (32-36); MEAN CORPUSCULAR VOLUME 93 fL (79.0-98.0); MONOCYTES # (AUTO) 0.5 K/uL (0.0-1.0); MONOCYTES % (AUTO) 3.1 % (1.7-9.3); NEUTROPHILS # (AUTO) 13.7 K/uL (1.8-7.7); NEUTROPHILS % (AUTO) 86.6 % (40.0-70.0); PLATELET COUNT (AUTO) 382 K/uL (130-430); RED BLOOD CELL COUNT(AUTO) 2.81 MIL/uL (4.2-6.2); RED CELL DISTRIBUTION WIDTH 15.6 % (9.0-15.0); WHITE BLOOD COUNT (AUTO) 15.8 K/uL (4.8-10.8)
[2019-02-24 06:10] LABS: ALBUMIN 1.5 g/dL (3.4-4.8); CALCIUM 7.8 mg/dL (8.4-11.0); CREATININE 0.39 mg/dL (0.55-1.30); PHOSPHORUS 3.5 mg/dL (2.7-4.5); POTASSIUM 4.1 mmol/L (3.5-5.1); TOTAL BILIRUBIN 0.4 mg/dL (0.0-1.0)
[2019-02-24] MEDS: ACETYLCYSTEINE 20% 4 ML VIAL (RT) INH SCH ×4 (07:22→19:51)
[2019-02-24] MEDS: LACTOBACILLUS RHAMNOSUS GG 1 CAP CAPSULE GT SCH ×3 (09:23→21:40)
[2019-02-24] MEDS: POTASSIUM CHLORIDE 20 MEQ/PKT PACKET GT SCH ×2 (09:25→21:49)
[2019-02-24] MEDS: PANTOPRAZOLE SODIUM 40 MG/VIAL (PROTONIX) IVP SCH ×2 (09:25→21:48)
[2019-02-24] MEDS: LEVOTHYROXINE SODIUM 0.125 MG TABLET GT SCH (09:25)
[2019-02-24] MEDS: DILTIAZEM HCL 30 MG TABLET GT SCH ×2 (09:25→21:49)
[2019-02-24] MEDS: ASCORBIC ACID 500 MG TABLET GT SCH ×2 (09:25→21:40)
[2019-02-24] MEDS: MULTIVITAMINS TAB 1 TABLET GT SCH (09:25)
[2019-02-24] MEDS: CARVEDILOL 3.125 MG TABLET (COREG) GT SCH ×2 (09:26→21:48)
[2019-02-24] MEDS: BACLOFEN 10 MG TABLET GT SCH ×2 (09:26→21:40)
[2019-02-24] MEDS: ACETAMINOPHEN 650 MG/20.3 ML UDC GT PRN ×2 (15:26→16:33)
[2019-02-24] MEDS ORDERED: EPOETIN ALFA 4,000 UNITS/ML VIAL SUBCUT ONE (16:00)
[2019-02-24] MEDS: HIBICLENS TP SCH (18:00)
[2019-02-24] MEDS ORDERED: MENTHOL/ZINC OXIDE 113 GM OINT. TP PRN (18:00)
[2019-02-25] MEDS: LEVALBUTEROL HCL 0.63 MG/3 ML VIAL.NEB INH SCH ×4 (00:09→19:57)
[2019-02-25 00:23] VITALS: BP_SYST 109
[2019-02-25] MEDS: METOCLOPRAMIDE HCL 10 MG/2 ML VIAL IVP SCH ×4 (00:34→18:30)
[2019-02-25] MEDS: metroNIDAZOLE 500 mg/NS 100 ML PREMIX IV SCH (05:16)
[2019-02-25] MEDS: ACETYLCYSTEINE 20% 4 ML VIAL (RT) INH SCH ×4 (07:19→19:57)
[2019-02-25 07:20] LABS: EOSINOPHILS % (AUTO) 0.2 % (0.0-4.0); HEMATOCRIT 28.2 % (36-48); HEMOGLOBIN 8.9 g/dL (12.0-16.0); LYMPHOCYTES % (AUTO) 15.6 % (20.5-51.5); MEAN CORPUSCULAR HEMOGLOBIN 29 pg (27-31); MEAN CORPUSCULAR HGB CONC 32 % (32-36); MEAN CORPUSCULAR VOLUME 93 fL (79.0-98.0); MONOCYTES # (AUTO) 0.4 K/uL (0.0-1.0); MONOCYTES % (AUTO) 2.8 % (1.7-9.3); NEUTROPHILS # (AUTO) 10.4 K/uL (1.8-7.7); NEUTROPHILS % (AUTO) 81.4 % (40.0-70.0); PLATELET COUNT (AUTO) 399 K/uL (130-430); RED BLOOD CELL COUNT(AUTO) 3.02 MIL/uL (4.2-6.2); RED CELL DISTRIBUTION WIDTH 15.1 % (9.0-15.0); WHITE BLOOD COUNT (AUTO) 12.8 K/uL (4.8-10.8)
[2019-02-25 07:38] LABS: ALBUMIN 1.5 g/dL (3.4-4.8); CALCIUM 7.7 mg/dL (8.4-11.0); CREATININE 0.29 mg/dL (0.55-1.30); POTASSIUM 3.9 mmol/L (3.5-5.1); TOTAL BILIRUBIN 0.3 mg/dL (0.0-1.0)
[2019-02-25 08:05] VITALS: BP_SYST 129
[2019-02-25] MEDS: DILTIAZEM HCL 30 MG TABLET GT SCH (09:02)
[2019-02-25] MEDS: BACLOFEN 10 MG TABLET GT SCH (09:02)
[2019-02-25] MEDS: MULTIVITAMINS TAB 1 TABLET GT SCH (09:03)
[2019-02-25] MEDS: CARVEDILOL 3.125 MG TABLET (COREG) GT SCH (09:03)
[2019-02-25] MEDS: ASCORBIC ACID 500 MG TABLET GT SCH (09:03)
[2019-02-25] MEDS: LEVOTHYROXINE SODIUM 0.125 MG TABLET GT SCH (09:03)
[2019-02-25] MEDS: LACTOBACILLUS RHAMNOSUS GG 1 CAP CAPSULE GT SCH ×2 (09:03→14:16)
[2019-02-25] MEDS: POTASSIUM CHLORIDE 20 MEQ/PKT PACKET GT SCH (09:03)
[2019-02-25] MEDS: HYDROCORTISONE SOD SUCC 100 MG/2 ML VIAL IVP SCH (09:04)
[2019-02-25] MEDS: PANTOPRAZOLE SODIUM 40 MG/VIAL (PROTONIX) IVP SCH (09:04)
[2019-02-25 11:33] VITALS: BP_SYST 117
[2019-02-25] MEDS ORDERED: ACETYLCYSTEINE 20% 4 ML VIAL (RT) INH SCH (12:14)
[2019-02-25] MEDS ORDERED: CEFEPIME 1 GM in D5W 50 ML IV ONE (13:45)
[2019-02-25] MEDS ORDERED: metroNIDAZOLE 250 mg/NS 50 ML IV SCH (14:00)
[2019-02-25 15:39] VITALS: BP_SYST 114
[2019-02-25] MEDS: HIBICLENS TP SCH (18:00)
[2019-02-25 18:39] VITALS: BP_SYST 114
[2019-02-25 20:00] VITALS: BP_SYST 138
[2019-02-25] MEDS ORDERED: CEFEPIME 1 GM in D5W 50 ML IV SCH (21:00)
[2019-03-03 17:22] LABS: HEMATOCRIT 28.8 % (36-48); HEMOGLOBIN 9.2 g/dL (12.0-16.0); MEAN CORPUSCULAR HEMOGLOBIN 30 pg (27-31); MEAN CORPUSCULAR HGB CONC 32 % (32-36); MEAN CORPUSCULAR VOLUME 93 fL (79.0-98.0); PLATELET COUNT (AUTO) 286 K/uL (130-430); RED BLOOD CELL COUNT(AUTO) 3.11 MIL/uL (4.2-6.2); RED CELL DISTRIBUTION WIDTH 15.4 % (9.0-15.0); WHITE BLOOD COUNT (AUTO) 17.8 K/uL (4.8-10.8)
[2019-03-03 17:23] LABS: BASOPHILS # (AUTO) 0.1 K/uL (0.0-0.2); BASOPHILS % (AUTO) 0.4 % (0.0-2.0); EOSINOPHILS % (AUTO) 0.2 % (0.0-4.0); LYMPHOCYTES # (AUTO) 2.2 K/uL (1.0-5.5); LYMPHOCYTES % (AUTO) 12.5 % (20.5-51.5); MONOCYTES # (AUTO) 0.7 K/uL (0.0-1.0); MONOCYTES % (AUTO) 3.8 % (1.7-9.3); NEUTROPHILS # (AUTO) 14.8 K/uL (1.8-7.7); NEUTROPHILS % (AUTO) 83.1 % (40.0-70.0)
[2019-03-03 17:25] LABS: ANION GAP 6 (5-15); CALCIUM 8.4 mg/dL (8.4-11.0); CHLORIDE 106 mmol/L (98-107); CREATININE 0.42 mg/dL (0.55-1.30); GFR AFRICAN AMERICAN 199 mL/min (>90); GLUCOSE 155 mg/dL (70-99); SODIUM SERUM 137 mmol/L (136-145); UREA NITROGEN, BLOOD 19 mg/dL (8-21)
[2019-03-03 17:26] LABS: ALANINE AMINOTRANSFERASE 27 U/L (12-78); ALBUMIN 1.5 g/dL (3.4-4.8); ASPARTATE AMINOTRANSFERASE 28 U/L (10-37); TOTAL BILIRUBIN 0.7 mg/dL (0.0-1.0)
== END 2019-02-25 20:30 | DRG 870 ==
LOC: SED 14:54 → STU 18:19 → SIC 02-21 01:30 → STU 02-24 17:56
PROVIDERS: ADMIT Internal Medicine; ATTEND Internal Medicine
PROC: 5A1955Z Respiratory Ventilation, Greater than 96 Consecutive Hours (ICD-10-PCS; principal; 2019-02-14)
PROC: 3E0336Z Introduction of Nutritional Substance into Peripheral Vein, Percutaneous Approach (ICD-10-PCS; 2019-02-18)
PROC: 02HV33Z Insertion of Infusion Device into Superior Vena Cava, Percutaneous Approach (ICD-10-PCS; 2019-02-19)
PROC: B548ZZA Ultrasonography of Superior Vena Cava, Guidance (ICD-10-PCS; 2019-02-19)
DX: A41.9 Sepsis, unspecified organism (principal); E43 Unspecified severe protein-calorie malnutrition; G82.50 Quadriplegia, unspecified; J96.20 Acute and chronic respiratory failure, unspecified whether with hypoxia or hypercapnia; R65.21 Severe sepsis with septic shock; J15.6 Pneumonia due to other Gram-negative bacteria; K56.7 Ileus, unspecified; G12.21 Amyotrophic lateral sclerosis; Z16.24 Resistance to multiple antibiotics; Z99.11 Dependence on respirator [ventilator] status; J44.0 Chronic obstructive pulmonary disease with (acute) lower respiratory infection; E87.1 Hypo-osmolality and hyponatremia; E86.0 Dehydration; R74.0 Nonspecific elevation of levels of transaminase and lactic acid dehydrogenase [LDH]; R16.2 Hepatomegaly with splenomegaly, not elsewhere classified; K21.9 Gastro-esophageal reflux disease without esophagitis; Y83.3 Surgical operation with formation of external stoma as the cause of abnormal reaction of the patient, or of later complication, without mention of misadventure at the time of the procedure; I48.0 Paroxysmal atrial fibrillation; D63.8 Anemia in other chronic diseases classified elsewhere; I10 Essential (primary) hypertension; R13.10 Dysphagia, unspecified; E03.9 Hypothyroidism, unspecified; N20.0 Calculus of kidney; Y95 Nosocomial condition; Z87.01 Personal history of pneumonia (recurrent); Z90.49 Acquired absence of other specified parts of digestive tract; Z93.0 Tracheostomy status; Z68.25 Body mass index [BMI] 25.0-25.9, adult; Z88.6 Allergy status to analgesic agent; Z91.041 Radiographic dye allergy status; Z79.899 Other long term (current) drug therapy; Z87.440 Personal history of urinary (tract) infections; Z22.322 Carrier or suspected carrier of Methicillin resistant Staphylococcus aureus; Y92.89 Other specified places as the place of occurrence of the external cause
CPT/HCPCS: 36415; 71045; 74240-TC; 74250-TC; 80048; 80053; 81000-TC; 82962; 83605; 83690-TC; 83735-TC; 83880; 84100-TC; 84439; 84484; 85025; 85610-TC; 85730-TC; 87040-TC; 87070-TC; 87081; 87186-TC; 87205-TC; 93306; 94002; 94003; 94640; 94760; 96365; 96366; 96368; 96375; 99291; C1751; C1769; C9113; G0378; J0692; J0885; J1720; J1815; J2185; J2270; J2405; J2543; J2765; J3370; J3475; J3480; J3490; J7030; J7042; J7050; J7060; J7120; J7608; J7614; Q9963; Q9964

== ENCOUNTER 2019-04-05 16:18 | Inpatient (IN) | payer OTHER, MEDICAID ==
[~2019-04-05] VITALS: Ht 160 cm; Wt 59.9 kg
[2019-04-05] MEDS ORDERED: NACL 0.9% 1,000 ML IV ONE (16:26)
[2019-04-05] MEDS ORDERED: NS 1000 ML IV.SOLN IV ONE (16:30)
[2019-04-05] MEDS ORDERED: ONDANSETRON HCL 4 MG/2 ML VIAL IVP ONE (16:30)
[2019-04-05] MEDS ORDERED: MORPHINE 2 MG/ML INJ. SYRINGE IVP ONE (16:30)
[2019-04-05 16:35] VITALS: BP_SYST 175
--- NOTE | 2019-04-05 16:42 | NUR ---
PATIENT PRESENTS TO THE ER VIA [facility]SPORT WITH VENTILATOR AT AC 14, VT 450, FIO2 40 AND PEEP 5 FOR A DISFUNCTIONAL J-TUBE; NO TRAUMA, NO OTHER REMARKABLE S/S; PATIENT TO ER #5 AT 1630, ERMD EVALUATION AT 1630
--- NOTE | 2019-04-05 17:04 | NUR ---
PATIENT IS ON AUTOMOBILE TECHNICIAN WITH SAO2
[2019-04-05 17:45] LABS: BASOPHILS % (AUTO) 0.1 % (0.0-2.0); EOSINOPHILS # (AUTO) 0.2 K/uL (0.0-0.4); EOSINOPHILS % (AUTO) 1.6 % (0.0-4.0); HEMATOCRIT 27.7 % (36-48); HEMOGLOBIN 9.2 g/dL (12.0-16.0); LYMPHOCYTES # (AUTO) 3.2 K/uL (1.0-5.5); MEAN CORPUSCULAR HEMOGLOBIN 31 pg (27-31); MEAN CORPUSCULAR HGB CONC 33 % (32-36); MEAN CORPUSCULAR VOLUME 92 fL (79.0-98.0); MONOCYTES # (AUTO) 0.6 K/uL (0.0-1.0); MONOCYTES % (AUTO) 6.3 % (1.7-9.3); NEUTROPHILS # (AUTO) 5.7 K/uL (1.8-7.7); PLATELET COUNT (AUTO) 256 K/uL (130-430); RED BLOOD CELL COUNT(AUTO) 3.02 MIL/uL (4.2-6.2); RED CELL DISTRIBUTION WIDTH 14.5 % (9.0-15.0); WHITE BLOOD COUNT (AUTO) 9.7 K/uL (4.8-10.8)
[2019-04-05 18:01] LABS: CALCIUM 8.7 mg/dL (8.4-11.0); CHLORIDE 97 mmol/L (98-107); CREATININE 0.39 mg/dL (0.55-1.30); GLUCOSE 99 mg/dL (70-99); POTASSIUM 4.1 mmol/L (3.5-5.1); SODIUM SERUM 134 mmol/L (136-145); UREA NITROGEN, BLOOD 15 mg/dL (8-21)
[2019-04-05 18:03] LABS: PROTHROMBIN TIME 9.9 SECS (9.5-12.5)
[2019-04-05 18:07] LABS: ALANINE AMINOTRANSFERASE 56 U/L (12-78); ALBUMIN 2.3 g/dL (3.4-4.8); AMYLASE 58 U/L (0-100); ASPARTATE AMINOTRANSFERASE 54 U/L (10-37); LIPASE 171 U/L (73-393); TOTAL BILIRUBIN 0.4 mg/dL (0.0-1.0)
--- NOTE | 2019-04-05 18:12 | NUR ---
REASSESSMENT; PATIENT REMAINS SEDATE AND PAIN FREE; DISPOSITION PENDING; UNCHANGED
[2019-04-05 18:14] LABS: GFR AFRICAN AMERICAN 216 mL/min (>90)
[2019-04-05 18:16] LABS: ANION GAP < 3 (5-15)
[2019-04-05] MEDS ORDERED: PIPERACILLIN/TAZO 3.375 GM in NS 50 ML IV ONE (18:45)
--- NOTE | 2019-04-05 19:40 | NUR ---
CONSULT CALLED FOR DR. GUILLAUME RELATED TO GT MALFUNCTION. SPOKE WITH BAKARI AT ANSWERING SERVICE
--- NOTE | 2019-04-05 20:30 | NUR ---
Called [facility] for bed, however, no staffing available. Pt will be a tele hold till further notice. Will cont. to monitor pt.
[2019-04-05] MEDS ORDERED: PIPERACILLIN/TAZOBACTAM 3.375 GM/VIAL (ZOSYN) IV ONE ×2 (20:40)
[2019-04-05] MEDS: D5LR 1,000 ML IV SCH (20:50)
[2019-04-05] MEDS ORDERED: DILTIAZEM HCL 25 MG/5 ML VIAL IVP PRN (22:15)
[2019-04-05] MEDS ORDERED: ONDANSETRON HCL 4 MG/2 ML VIAL IVP PRN (22:15)
[2019-04-05] MEDS ORDERED: LEVALBUTEROL HCL 0.63 MG/3 ML VIAL.NEB INH PRN (22:15)
[2019-04-05] MEDS ORDERED: ACETAMINOPHEN 650 MG/20.3 ML UDC GT PRN (22:15)
--- NOTE | 2019-04-05 22:28 | NUR ---
Dr. Barcenas at bedside.
[2019-04-05] MEDS ORDERED: PANTOPRAZOLE SODIUM 40 MG/VIAL (PROTONIX) IVP SCH (22:30)
[2019-04-05] MEDS: CEFEPIME 1 GM in D5W 50 ML IV SCH (22:35)
[2019-04-05] MEDS ORDERED: CEFEPIME 1 GM/VIAL (MAXIPIME) ONE ×2 (22:46)
[2019-04-05] MEDS ORDERED: VANCOMYCIN HCL 750 MG in NS 250 ML IV SCH (23:00)
--- NOTE | 2019-04-05 23:00 | NUR ---
Pt resting comfortably in bed, no signs of acute distress. Will cont .to monitor.
[2019-04-05] MEDS ORDERED: VANCOMYCIN HCL 500 MG/VIAL IV ONE ×2 (23:54→23:56)
--- NOTE | 2019-04-06 00:30 | NUR ---
RT at bedside.
[2019-04-06] MEDS: LEVALBUTEROL HCL 0.63 MG/3 ML VIAL.NEB INH SCH ×4 (01:25→19:42)
--- NOTE | 2019-04-06 02:41 | NUR ---
Pt sleeping comfortably in bed. no signs of acute distress. Will cont. to monitor.
--- NOTE | 2019-04-06 03:05 | NUR ---
Pt sleeping ,no signs of acute distress. Will cont. to monitor.
--- NOTE | 2019-04-06 03:10 | NUR ---
Medication reconciliation completed with information provided by patient. Any prior medication reconciliation on file was reviewed and corrected.
--- NOTE | 2019-04-06 04:00 | NUR ---
Pt resting comfortably in bed, no signs of acute distress. Will cont. to monitor.
--- NOTE | 2019-04-06 05:00 | NUR ---
Pt resting comfortably in bed, no signs of acute distress. Will cont. to monitor.
--- NOTE | 2019-04-06 06:00 | NUR ---
Pt resting comfortably in bed, no signs of acute distress. Will cont. to monitor.
[2019-04-06] MEDS ORDERED: LEVOTHYROXINE SODIUM 0.125 MG TABLET GT SCH (07:00)
--- NOTE | 2019-04-06 07:21 | NUR ---
Pt went to Ct scan with RT and CHELO Long. Tolerated well. Pt on cardiac care unit nurse.
--- NOTE | 2019-04-06 07:29 | NUR ---
ADMISSION NOTE Received patient from ER via gurney, received report from ER/ RN. Patient admitted with diagnosis of PNEUMONIA/GTUBE MALFUNCTION
--- NOTE | 2019-04-06 07:36 | NUR ---
3 consults called: for Dr. Robertson, respiratory failure for Dr. Fontenot, HCAP Dr. Buchanan (Dr. Lionel Meyer director of player personnel), GT malfunction all ordered by Dr. Barcenas Spoke with with Soraya at exchange for all three consults.
--- NOTE | 2019-04-06 07:40 | NUR ---
Patient will be admitted to care of . Admitted to Tele unit. Will go to room 119B. Belongings list completed. Complete and up to date summary report printed. SBAR report given to CHELO Alicea at bedside with opportunity for questions.
[2019-04-06 07:52] VITALS: BP_SYST 156
[2019-04-06 08:00] VITALS: BP_SYST 156
--- NOTE | 2019-04-06 08:00 | NUR ---
INITIAL NOTE PT AWAKE, NO ACUTE DISTRESS NOTED. PT IS VENT DEPENDENT. PT RECEIVING SUCTIONING AT BEDSIDE. IVF INFUSING WELL. ISOLATION PRECAUTIONS IN PLACE. CALL LIGHT WITHIN REACH, BED IN LOW AND LOCKED POSITION WITH BED ALARM ON.
[2019-04-06] MEDS: DILTIAZEM HCL 30 MG TABLET GT SCH ×2 (08:13→21:00)
[2019-04-06] MEDS: POTASSIUM CHLORIDE 20 MEQ/PKT PACKET GT SCH (08:14)
[2019-04-06] MEDS: D5LR 1,000 ML IV SCH ×2 (08:14→11:50)
[2019-04-06] MEDS: BACLOFEN 10 MG TABLET GT SCH ×2 (08:14→21:00)
[2019-04-06] MEDS: MULTIVIT-MINERALS/FERROUS GLUC 15 ML UDC GT SCH (08:14)
[2019-04-06] MEDS: LACTOBACILLUS RHAMNOSUS GG 1 CAP CAPSULE GT SCH ×3 (08:14→21:00)
[2019-04-06] MEDS: PANTOPRAZOLE SODIUM 40 MG/VIAL (PROTONIX) IVP SCH ×2 (08:14→22:06)
[2019-04-06] MEDS: CEFEPIME 1 GM in D5W 50 ML IV SCH ×2 (08:15→22:06)
[2019-04-06] MEDS: MORPHINE 2 MG/ML INJ. SYRINGE IVP PRN ×2 (08:31→19:31)
[2019-04-06 08:36] LABS: BILIRUBIN,URINE NEGATIVE (NEGATIVE); BLOOD, URINE NEGATIVE (NEGATIVE); CLARITY/URINE CLEAR (CLEAR); COLOR,URINE YELLOW (YELLOW); GLUCOSE,URINE NEGATIVE (NEGATIVE); KETONES,URINE NEGATIVE (NEGATIVE); LEUKOCYTE ESTERASE ,URINE NEGATIVE (NEGATIVE); NITRITE, URINE NEGATIVE (NEGATIVE); PROTEIN URINE NEGATIVE (NEGATIVE); UROBILINOGEN,URINE 0.2 (0.2-1.0)
--- NOTE | 2019-04-06 08:41 | NUR ---
MORNING MEDICATION/PAIN MEDICATION FLUSHED G-TUBE WITH WITH 30CC OF WATER. PT TOLERATED WELL. WHEN MEDICATION WAS ADMINISTERED THROUGH G-TUBE. PT GRIMACED IN PAIN. OFFERED PT PAIN MEDICATIONS, PT NODDED IN RESPONSE. PT NON VERBAL BUT ABLE TO COMMUNICATE BY NODDING YES OR NO. EDUCATED PT ON USES AND SIDE EFFECTS OF MORPHINE, PT VERBALIZED UNDERSTANDING. PRN MORPHINE ADMINISTERED. WILL CONTINUE TO MONITOR.
[2019-04-06] MEDS ORDERED: OMEPRAZOLE Non-Formulary 20 MG CAPSULE.DR GT SCH (09:00)
[2019-04-06 09:15] LABS: BASOPHILS % (AUTO) 0.1 % (0.0-2.0); EOSINOPHILS # (AUTO) 0.2 K/uL (0.0-0.4); EOSINOPHILS % (AUTO) 1.7 % (0.0-4.0); HEMATOCRIT 29.4 % (36-48); HEMOGLOBIN 9.5 g/dL (12.0-16.0); LYMPHOCYTES # (AUTO) 4.8 K/uL (1.0-5.5); MEAN CORPUSCULAR HEMOGLOBIN 30 pg (27-31); MEAN CORPUSCULAR HGB CONC 32 % (32-36); MEAN CORPUSCULAR VOLUME 93 fL (79.0-98.0); MONOCYTES # (AUTO) 0.8 K/uL (0.0-1.0); MONOCYTES % (AUTO) 7.6 % (1.7-9.3); NEUTROPHILS # (AUTO) 5.3 K/uL (1.8-7.7); NEUTROPHILS % (AUTO) 47.6 % (40.0-70.0); PLATELET COUNT (AUTO) 253 K/uL (130-430); RED BLOOD CELL COUNT(AUTO) 3.17 MIL/uL (4.2-6.2); RED CELL DISTRIBUTION WIDTH 14.7 % (9.0-15.0); WHITE BLOOD COUNT (AUTO) 11.1 K/uL (4.8-10.8)
[2019-04-06 09:38] LABS: CALCIUM 8.8 mg/dL (8.4-11.0); CREATININE 0.41 mg/dL (0.55-1.30); FREE T4 (FREE THYROXINE) 1.6 ng/dl (0.8-1.5); PHOSPHORUS 3.7 mg/dL (2.7-4.5); POTASSIUM 3.7 mmol/L (3.5-5.1); THYROID STIMULATING HORMONE 10.36 uIu/mL (0.36-3.74)
[2019-04-06 09:50] LABS: TOTAL IRON BIND. CAPACITY 193 ug/dL (250-450)
[2019-04-06] MEDS ORDERED: LEVOTHYROXINE SODIUM 0.1 MG VIAL IVP ONE (10:15)
--- NOTE | 2019-04-06 10:30 | NUR ---
DR. MEDELLIN SPOKE W/ MD AT NURSES STATION, INFORMED MD THAT PT EXPERIENCED PAIN WHEN ADMINISTERING MEDICATIONS THROUGH G-TUBE. MD TO HOLD ALL MEDICATIONS THROUGH G-TUBE UNTIL CONSULTED BY GI FOR POSSIBLE REPLACEMENT OF G-TUBE. VERIFIED ODER WITH READ BACK.
--- NOTE | 2019-04-06 10:40 | NUR ---
RN ROUNDS PT RESTING, NO ACUTE DISTRESS NOTED, PAIN CONTROLLED AT THIS TIME. WILL CONTINUE TO MONITOR.
[2019-04-06] MEDS ORDERED: EPOETIN ALFA 4,000 UNITS/ML VIAL SUBCUT ONE (11:00)
[2019-04-06 11:43] VITALS: BP_SYST 156
--- NOTE | 2019-04-06 11:52 | NUR ---
SUCTIONING ORAL AND TRACH SUCTIONING. CLEAR AND WHITE SECRETIONS. PT TOLERATED WELL.
[2019-04-06] MEDS: VANCOMYCIN HCL 1,250 MG in NS 250 ML IV SCH (12:05)
[2019-04-06 12:30] VITALS: BP_SYST 123
--- NOTE | 2019-04-06 13:59 | NUR ---
RN ROUNDS PT RESTING, NO ACUTE DISTRESS NOTED, BREATHING EVEN UNLABORED. PAIN CONTROLLED AT THIS TIME.
--- NOTE | 2019-04-06 14:40 | NUR ---
DR LAVON CASTILLO AT BEDSIDE EXAMINING PT. INFORMED MD THAT PT EXPERIENCED PAIN AND DISCOMFORT WHEN PUSHING HER MORNING MEDICATIONS THROUGH J-TUBE. MD TO ORDER STOOL SOFTNER FOR PT TO HAVE A BOWEL MOVEMENT. POSSIBLE BOWEL SERIES TO BE DONE TOMORROW. VERIFIED WITH READ BACK.
[2019-04-06] MEDS: MICAFUNGIN SODIUM 100 MG in NS 100 ML IV SCH (14:53)
--- NOTE | 2019-04-06 15:00 | NUR ---
DR. DOLL AT BEDSIDE/RN ROUNDS DEFLATED JTUBE BALLOON. PT TO REMAIN NPO, INCLUDING MEDICATIONS. PT EXPRESSED RELIEF OF PAIN AFTER DEFLATION OF BALLOON. REDRESSED JTUBE. PT INCONTINENT OF URINE. CHANGED PT AND LINENS, PT TOLERATED. WELL.
--- NOTE | 2019-04-06 17:00 | NUR ---
RN ROUNDS RT AT BEDSIDE SUCTIONING PT. PT TOLERATED WELL. REPOSITIONED FOR COMFORT.
[2019-04-06 17:21] VITALS: BP_SYST 141
[2019-04-06] MEDS ORDERED: HIBICLENS TP SCH (18:00)
--- NOTE | 2019-04-06 18:39 | NUR ---
CLOSING NOTE PT AWAKE, NO ACUTE DISTRESS NOTED. PT IS VENT DEPENDENT. PT RECEIVING SUCTIONING AT BEDSIDE. IVF INFUSING WELL. ISOLATION PRECAUTIONS IN PLACE. CALL LIGHT WITHIN REACH, BED IN LOW AND LOCKED POSITION WITH BED ALARM ON. FAMILY AT BEDSIDE. ALL NEEDS MET THROUGHOUT SHIFT. WILL CONTINUE TO MONITOR UNTIL PT CARE IS ENDORSED TO PRESSURE DISPATCHER RN.
--- NOTE | 2019-04-06 19:15 | NUR ---
initial notes: pt is on bed awake, alert. no verbal. pt move her head to say yes or no. on mech. vent. tv-450,fio2-40%, peep -5, portex 7, pt has ivf running to left hand gauge 24-intact and patent. pt is paralyzed on all extremities. pt has gtube clamped-dressing is clean dry and intact. according to am rn-do not use gtube per md order. pt has scd, but refused to wear it. isolation for hx of mdro of sputum. family at bedside. needs attended. call light in reach. side rails up. low bed position and lock. will monitor.
[2019-04-06 19:27] VITALS: BP_SYST 134
--- NOTE | 2019-04-06 20:00 | NUR ---
pt complain of pain, vital sign are with in normal limit. explained pain medication side effects. pt agree. needs attended.will monitor.
--- NOTE | 2019-04-06 22:00 | NUR ---
pt is awake, alert, watching tv. no pain. no distress. stable. maintained on isolation. needs attended. will monitor.
--- NOTE | 2019-04-06 23:47 | NUR ---
ASSUMPTION OF CARE BEDSIDE REPORT RECEIVED FROM CHELO REYNOLDS. AT THIS TIME, PATIENT IS RESTING IN BED, STABLE, NO SIGNS OF RESPIRATORY DISTRESS. PATIENT VERBALIZES SHOWS NO PAIN PER FLACC SCALE AT THIS TIME. PLAN OF CARE FOR THE EVENING IS COMMUNICATED WITH THE PATIENT. BED IS LOCKED, ALARMED, AND AT THE LOWEST LEVEL. FALL, SAFETY, RESPIRATORY, ASPIRATION, AND ISOLATION PRECAUTIONS WILL BE IN PLACE THROUGHOUT THE SHIFT.
--- NOTE | 2019-04-06 23:47 | NUR ---
transfer of care: pt is awake, alert, watching tv. no pain. no distress. stable. maintained on isolation. bedside report given to david kitchen.
[2019-04-07] MEDS: LEVALBUTEROL HCL 0.63 MG/3 ML VIAL.NEB INH SCH ×4 (00:35→19:45)
[2019-04-07] MEDS: D5LR 1,000 ML IV SCH ×4 (00:45→21:59)
--- NOTE | 2019-04-07 01:30 | NUR ---
NOTE PATIENT IS SLEEPING, STABLE, NO SIGNS OF RESPIRATORY DISTRESS. BED IS LOCKED, ALARMED, AND AT THE LOWEST LEVEL.
--- NOTE | 2019-04-07 03:30 | NUR ---
NOTE PATIENT IS SLEEPING, STABLE, NO SIGNS OF RESPIRATORY DISTRESS. BED IS LOCKED, ALARMED, AND AT THE LOWEST LEVEL.
[2019-04-07 04:34] VITALS: BP_SYST 138
--- NOTE | 2019-04-07 05:00 | NUR ---
HYGIENE CARE HYGIENE CARE PERFORMED AT THIS TIME, PATIENT TOLERATED WELL. SHE IS REPOSITIONED FOR COMFORT. SHE IS STABLE, NO SIGNS OF RESPIRATORY DISTRESS. BED IS LOCKED, ALARMED, AND AT THE LOWEST LEVEL.
--- NOTE | 2019-04-07 06:30 | NUR ---
CLOSING NOTE PATIENT SLEPT WELL THROUGHOUT THE SHIFT. AT THIS TIME, SHE IS STABLE, NO SIGNS OF RESPIRATORY DISTRESS. CALL LIGHT IS WITHIN REACH. FALL,SAFETY, ASPIRATION, RESPIRATORY, AND ISOLATION PRECAUTIONS HAVE BEEN TAKEN THROUGHOUT THE SHIFT. WILL CONTINUE TO MONITOR UNTIL SHIFT REPORT IS GIVEN AT BEDSIDE TO AM NURSE.
--- NOTE | 2019-04-07 06:50 | NUR ---
Nutrition Update Chad Scale 14 noted. Pt admitted for Pneumonia, GT Malfunction Diet: NPO BMI: 23.4 kg/m2 RD to follow per nutrition care standards.
--- NOTE | 2019-04-07 08:30 | NUR ---
AM rounds: Alert, able to make needs known, Vent dependent via trach size7 portex. Vent settings: TV 450- AC14 - FiO2 40% Peep 5. IV is infiltrated, started gauge 22 on the left thumb, secured with tegaderm. GT is clamped, area is tender, no active drainage noted. On contact isolation for history of Urine MDRO E. Coli, Pseudomonas Aeroginusa as of 02/15/2019. 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 Call light within reach.
[2019-04-07 08:38] VITALS: BP_SYST 145
[2019-04-07] MEDS: CEFEPIME 1 GM in D5W 50 ML IV SCH ×2 (08:38→22:46)
[2019-04-07] MEDS: PANTOPRAZOLE SODIUM 40 MG/VIAL (PROTONIX) IVP SCH ×2 (08:38→21:59)
[2019-04-07 08:41] LABS: CALCIUM 8.4 mg/dL (8.4-11.0); CREATININE 0.42 mg/dL (0.55-1.30); POTASSIUM 3.3 mmol/L (3.5-5.1)
[2019-04-07 08:47] LABS: BASOPHILS % (AUTO) 0.3 % (0.0-2.0); EOSINOPHILS # (AUTO) 0.1 K/uL (0.0-0.4); HEMATOCRIT 29.5 % (36-48); HEMOGLOBIN 9.7 g/dL (12.0-16.0); LYMPHOCYTES # (AUTO) 2.5 K/uL (1.0-5.5); LYMPHOCYTES % (AUTO) 33.4 % (20.5-51.5); MEAN CORPUSCULAR HEMOGLOBIN 30 pg (27-31); MEAN CORPUSCULAR HGB CONC 33 % (32-36); MEAN CORPUSCULAR VOLUME 92 fL (79.0-98.0); MONOCYTES # (AUTO) 0.4 K/uL (0.0-1.0); NEUTROPHILS # (AUTO) 4.3 K/uL (1.8-7.7); NEUTROPHILS % (AUTO) 58.3 % (40.0-70.0); PLATELET COUNT (AUTO) 273 K/uL (130-430); RED BLOOD CELL COUNT(AUTO) 3.22 MIL/uL (4.2-6.2); RED CELL DISTRIBUTION WIDTH 14.3 % (9.0-15.0); WHITE BLOOD COUNT (AUTO) 7.4 K/uL (4.8-10.8)
[2019-04-07] MEDS: DILTIAZEM HCL 30 MG TABLET GT SCH ×2 (09:00→21:00)
[2019-04-07] MEDS: BACLOFEN 10 MG TABLET GT SCH ×2 (09:00→21:00)
[2019-04-07] MEDS: POTASSIUM CHLORIDE 20 MEQ/PKT PACKET GT SCH (09:00)
[2019-04-07] MEDS: MULTIVIT-MINERALS/FERROUS GLUC 15 ML UDC GT SCH (09:00)
[2019-04-07] MEDS: LACTOBACILLUS RHAMNOSUS GG 1 CAP CAPSULE GT SCH ×3 (09:00→21:00)
[2019-04-07] MEDS: VANCOMYCIN HCL 1,250 MG in NS 250 ML IV SCH (11:22)
[2019-04-07] MEDS ORDERED: GASTROGRAFIN 120 ML ONE (11:38)
[2019-04-07] MEDS: MORPHINE 2 MG/ML INJ. SYRINGE IVP PRN ×2 (12:21→19:57)
[2019-04-07] MEDS: LEVOTHYROXINE SODIUM 0.1 MG VIAL IVP SCH (12:22)
[2019-04-07 12:39] VITALS: BP_SYST 128
--- NOTE | 2019-04-07 12:40 | NUR ---
Dietitian Recommendations *Consider PPN in 48 hrs if EN support is not medically appropriate. *Once JT is in place, consider Osmolite 1.5 at initial rate of 20ml/hr. Please see nutritional assessment ENDY, RD
--- NOTE | 2019-04-07 13:00 | NUR ---
WOUND EVALUATION: Late note for 1300 secondary to patient care. Wound Consult received from Dr. Barcenas. Thank you, Dr. Barcenas, for the consult. Patient was awake, alert, oriented, nonverbal (secondary to tracheostomy, but communicates by mouthing words) and received in a Alfredito Bed with an Isoflex JOCELIN mattress with low air loss therapy initiated. Patient is unable to turn in bed independently. Chad Score is a 14. 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 Recent Labs: WBC 7.4, RBC 3.22, hemoglobin 9.7, hematocrit 29.5, sodium 132, potassium 3.3, BUN 5, creatinine 0.42, GFR 164, glucose 102, TIBC 193, albumin 2.3, PTT 25.7. Microbiology: Blood culture results 2 in progress. MRSA screen results in progress. Endotracheal sputum culture results in progress. Intrinsic factors that delay wound healing: Chronic Respiratory Failure, Anemia of Chronic Illness, Severe Protein Malnutrition, Hypoalbuminemia. Extrinsic factors that delay wound healing: Immobility. Skin assessment: 1. Left Buttock, inferior to Coccyx: Linear area of reopened scar tissue from a wound of prior unknown etiology. Wound bed has 100% pink tissue. No odor, no drainage. Periwound intact. Surrounding tissue has scar tissue and blanchable red erythema from IAD. Measures 1.7 cm x 0.3 cm. 2. Right Buttock, inferior to Coccyx: Linear area of reopened scar tissue from a wound of prior unknown etiology. Wound bed has 100% pink tissue. No odor, no drainage. Periwound intact. Surrounding tissue has scar tissue and blanchable red erythema from IAD. Measures 0.8 cm x 0.2 cm. Recommend: Cleanse involved area with normal Saline. Pat dry. Apply Calmoseptine cream to involved area. Cover with Sacral foam dressing. Perform site care daily, and as needed for dressing soiling or dislodgment. 3. Bilateral Heels: Blanchable erythema, present on admission. Recommend: Elevate, offload and float bilateral heels with one pillow lengthwise under each extremity at all times. Recommend: Recommend reposition patient side to side only every 2 hours with pillow support. Elevate, offload and float bilateral heels with one pillow lengthwise under each extremity at all times. Offload pressure areas with pillows for pressure re-distribution. Perform skin care and monitor skin integrity Q shift. Use Calmoseptine cream on moisture susceptible areas QID and PRN for soiling. Maintain patient on a low air-loss mattress.
--- NOTE | 2019-04-07 13:00 | NUR ---
Wound care rounds: Seen by Wound care nurse Gelacio for sacral IAD, as well as reopened wounds.
[2019-04-07] MEDS: MICAFUNGIN SODIUM 100 MG in NS 100 ML IV SCH (14:32)
[2019-04-07 16:49] VITALS: BP_SYST 133
--- NOTE | 2019-04-07 16:52 | NUR ---
J TUBE OUT: Informed Dr. Barcenas that J tube was found out. He spoke informed Dr. Beard, wants to do a new PEG .
[2019-04-07] MEDS ORDERED: POTASSIUM CHLORIDE 40 MEQ, LIDOCAINE JECT 2% PF 100 MG 50 MG in NS 250 ML IV ONE (17:00)
--- NOTE | 2019-04-07 18:18 | NUR ---
END OF SHIFT: Needs assisted. No change in assessment.
--- NOTE | 2019-04-07 19:20 | NUR ---
INITIAL NOTES PATIENT IS STABLE AND LAYING IN BED. FAMILY IS BY BED SIDE. NO S/S OF RESPIRATORY DISTRESS NOTED. PATIENT UNSUCCESSFULLY DEMONSTRATES USAGE OF CALL LIGHT AT THIS TIME. WILL CONTINUE TO MONITOR FREQUENTLY. PLAN OF CARE DISCUSSED WITH PATIENT AT THIS TIME. BED IS LOCKED, ALARMED, AND AT THE LOWEST POSITION. FALL, SAFETY, ASPIRATION, RESPIRATORY, AND CONTACT PRECAUTIONS WILL BE PLACE THROUGHOUT THE SHIFT. Addendum: 04/08/19 at 0540 by Klaudia Rodrigez RN PATIENT REFUSED SCDS AT THIS TIME. WILL CONTINUE TO EDUCATE.
[2019-04-07 19:30] VITALS: BP_SYST 136
--- NOTE | 2019-04-07 20:00 | NUR ---
PT REFUSED TO BE TURNED. PT REFUSED TO BE TURNED DESPITE EDUCATIONAL EFFORTS, WILL CONTINUE TO EDUCATE.
--- NOTE | 2019-04-07 21:20 | NUR ---
ROUNDING PATIENT IS LAYING IN BED AND STABLE. PATIENT IS WATCHING TV AND CHANNEL WAS CHANGED PER PATIENT REQUEST. NO S/S OF RESPIRATORY DISTRESS NOTED. CALL LIGHT IN REACH. BED IS LOCKED, ALARMED, AND AT THE LOWEST POSITION. WILL CONTINUE TO MONITOR.
--- NOTE | 2019-04-07 22:00 | NUR ---
PT REFUSED TO BE TURNED. PT REFUSED TO BE TURNED DESPITE EDUCATIONAL EFFORTS, WILL CONTINUE TO EDUCATE.
--- NOTE | 2019-04-07 23:20 | NUR ---
ROUNDING PATIENT IS SLEEPING IN BED AND STABLE. NO S/S OF RESPIRATORY DISTRESS NOTED. CALL LIGHT IN REACH. BED IS LOCKED, ALARMED, AND AT THE LOWEST POSITION. WILL CONTINUE TO MONITOR.
--- NOTE | 2019-04-08 | NUR ---
PT REFUSED TO BE TURNED. PT REFUSED TO BE TURNED DESPITE EDUCATIONAL EFFORTS, WILL CONTINUE TO EDUCATE.
[2019-04-08 00:30] VITALS: BP_SYST 136
[2019-04-08] MEDS: LEVALBUTEROL HCL 0.63 MG/3 ML VIAL.NEB INH SCH ×4 (00:50→19:39)
--- NOTE | 2019-04-08 01:20 | NUR ---
ROUNDING PATIENT IS SLEEPING IN BED. NO S/S OF RESPIRATORY DISTRESS NOTED. CALL LIGHT IN REACH. BED IS LOCKED, ALARMED, AND AT THE LOWEST POSITION. WILL CONTINUE TO MONITOR.
--- NOTE | 2019-04-08 04:00 | NUR ---
WOUND CARE DONE/PT REFUSED TO BE TURNED. WOUND CARE DONE AT THIS TIME. PICTURE TAKEN. PATIENT REPOSITION FOR COMFORT. PT REFUSED TO BE TURNED DESPITE EDUCATIONAL EFFORTS, WILL CONTINUE TO EDUCATE.
[2019-04-08] MEDS: D5LR 1,000 ML IV SCH (05:48)
--- NOTE | 2019-04-08 06:00 | NUR ---
CLOSING NOTES. PATIENT REFUSED TO BE TURN AT THIS TIME, DESPITE EDUCATIONAL EFFORT. WILL CONTINUE TO EDUCATE UNTIL REPORT IS GIVEN TO AM NURSE BY BEDSIDE. FALL, SAFETY, ASPIRATION, CONTACT, AND RESPIRATORY PRECAUTIONS HAS BEEN PLACE THROUGHOUT THE SHIFT. BED IS LOCKED, ALARMED, AND AT THE LOWEST POSITION. WILL CONTINUE TO MONITOR UNTIL REPORT IS GIVEN TO AM NURSE BY BEDSIDE.
[2019-04-08 06:37] LABS: CALCIUM 8.4 mg/dL (8.4-11.0); CREATININE 0.35 mg/dL (0.55-1.30); POTASSIUM 3.1 mmol/L (3.5-5.1)
[2019-04-08 06:43] LABS: BASOPHILS % (AUTO) 0.2 % (0.0-2.0); EOSINOPHILS # (AUTO) 0.1 K/uL (0.0-0.4); EOSINOPHILS % (AUTO) 1.2 % (0.0-4.0); HEMATOCRIT 26.2 % (36-48); HEMOGLOBIN 8.6 g/dL (12.0-16.0); LYMPHOCYTES # (AUTO) 2.5 K/uL (1.0-5.5); LYMPHOCYTES % (AUTO) 31.5 % (20.5-51.5); MEAN CORPUSCULAR HEMOGLOBIN 30 pg (27-31); MEAN CORPUSCULAR HGB CONC 33 % (32-36); MEAN CORPUSCULAR VOLUME 92 fL (79.0-98.0); MONOCYTES # (AUTO) 0.5 K/uL (0.0-1.0); MONOCYTES % (AUTO) 5.9 % (1.7-9.3); NEUTROPHILS # (AUTO) 4.9 K/uL (1.8-7.7); NEUTROPHILS % (AUTO) 61.2 % (40.0-70.0); PLATELET COUNT (AUTO) 252 K/uL (130-430); RED BLOOD CELL COUNT(AUTO) 2.86 MIL/uL (4.2-6.2); RED CELL DISTRIBUTION WIDTH 14.5 % (9.0-15.0)
[2019-04-08] MEDS ORDERED: SIMETHICONE 40 MG/0.6 ML ML ONE (07:45)
[2019-04-08] MEDS: PANTOPRAZOLE SODIUM 40 MG/VIAL (PROTONIX) IVP SCH ×2 (08:18→20:22)
[2019-04-08] MEDS: CEFEPIME 1 GM in D5W 50 ML IV SCH ×2 (08:19→20:22)
[2019-04-08] MEDS: LEVOTHYROXINE SODIUM 0.1 MG VIAL IVP SCH (08:19)
[2019-04-08 08:28] VITALS: BP_SYST 114
--- NOTE | 2019-04-08 08:30 | NUR ---
AM rounds: Alert, able to make needs known, Vent dependent via trach size7 portex. Vent settings: TV 450- AC14 - FiO2 40% Peep 5. IV is infiltrated, started gauge 22 on the left wrist secured with tegaderm. Old JT site is covered with foam dressing . On contact isolation for history of Urine MDRO E. Coli, Pseudomonas Aeroginusa as of 02/15/2019. On air mattress for low marta score. . Call light within reach.
[2019-04-08] MEDS: DILTIAZEM HCL 30 MG TABLET GT SCH (09:00)
[2019-04-08] MEDS: POTASSIUM CHLORIDE 20 MEQ/PKT PACKET GT SCH (09:00)
[2019-04-08] MEDS: LACTOBACILLUS RHAMNOSUS GG 1 CAP CAPSULE GT SCH ×3 (09:00→23:55)
[2019-04-08] MEDS: BACLOFEN 10 MG TABLET GT SCH ×2 (09:00→23:57)
[2019-04-08] MEDS: MULTIVIT-MINERALS/FERROUS GLUC 15 ML UDC GT SCH (09:00)
[2019-04-08] MEDS: MEPERIDINE HCL/PF 100 MG/ML AMP ONE ×3 (10:05→10:11)
[2019-04-08] MEDS: MIDAZOLAM HCL 5 MG/5 ML VIAL ONE ×4 (10:05→10:13)
[2019-04-08] MEDS ORDERED: MENTHOL/ZINC OXIDE 113 GM OINT. TP PRN (10:45)
--- NOTE | 2019-04-08 10:55 | NUR ---
PEG placement: Procedure is completed at the bedside. PEG tube is secured with dry sterile dressing with tape. Will apply binder as ordered
[2019-04-08] MEDS: VANCOMYCIN HCL 1,250 MG in NS 250 ML IV SCH (11:44)
[2019-04-08] MEDS ORDERED: POTASSIUM CHLORIDE 40 MEQ, LIDOCAINE JECT 2% PF 100 MG 50 MG in NS 250 ML IV ONE (11:45)
[2019-04-08] MEDS ORDERED: EPOETIN ALFA 3,000 UNITS/ML VIAL SUBCUT ONE (11:45)
--- NOTE | 2019-04-08 12:00 | NUR ---
MD rounds: Seen by Dr. Barcenas. New orders noted.
[2019-04-08 12:01] VITALS: BP_SYST 139
[2019-04-08] MEDS: MICAFUNGIN SODIUM 100 MG in NS 100 ML IV SCH (14:17)
[2019-04-08] MEDS: KCL 20 mEq in D5NS 1000 mL 1,000 ML IV SCH ×3 (15:29→22:45)
--- NOTE | 2019-04-08 15:30 | NUR ---
Rounds.: Patient is asleep. No signs of distress noted.
[2019-04-08 16:00] VITALS: BP_SYST 144
--- NOTE | 2019-04-08 18:19 | NUR ---
End of shift: Needs attended. No change in assessment. Family at the bedside.
--- NOTE | 2019-04-08 19:10 | NUR ---
INITIAL NOTES PATIENT IS LAYING IN BED AND STABLE. NO S/S OF RESPIRATORY DISTRESS NOTED. PATIENT UNSUCCESSFULLY DEMONSTRATES USAGE OF CALL LIGHT AT THIS TIME. WILL CONTINUE TO MONITOR FREQUENTLY. FALL, SAFETY, ASPIRATION, RESPIRATORY, AND ASPIRATION PRECAUTIONS WILL BE IN PLACE THROUGHOUT THE SHIFT. FAMILY IS BY BEDSIDE. PLAN OF CARE DISCUSSED WITH FAMILY AND PATIENT AT THIS TIME. WILL CONTINUE TO MONITOR FREQUENTLY.
[2019-04-08 19:20] VITALS: BP_SYST 139
[2019-04-08] MEDS: MORPHINE 2 MG/ML INJ. SYRINGE IVP PRN (19:20)
--- NOTE | 2019-04-08 19:58 | NUR ---
EDUCATED FAMILY AND PATIENT ON TURNING EDUCATED FAMILY AND PATIENT ON TURNING. PATIENT REFUSED TO BE TURN, DESPITE EDUCATIONAL EFFORTS. EDUCATED FAMILY ABOUT TURNING AT THIS TIME. FAMILY REQUESTED PATIENT TO BE TURNED IN THE MORNING. Addendum: 04/08/19 at 1958 by Klaudia Rodrigez RN WILL CONTINUE TO EDUCATE THROUGHOUT THE SHIFT.
--- NOTE | 2019-04-08 22:00 | NUR ---
CLEANED, SUCTIONED, AND EDUCATION PATIENT WAS CHANGED AT THIS TIME. LINENS WERE CHANGED. PATIENT REPOSITION FOR COMFORT. PATIENT EDUCATE ON TURNING AND REFUSED TO BE TURNED. WILL CONTINUE TO EDUCATE THROUGHOUT THE SHIFT. PATIENT WAS SUCTIONED AT THIS TIME. PATIENT TOLERATED WELL. PATIENT IS STABLE. NO S/S OF RESPIRATORY DISTRESS NOTED. CALL LIGHT IN REACH. BED IS LOCKED, ALARMED, AND AT THE LOWEST POSITION. WILL CONTINUE TO MONITOR.
--- NOTE | 2019-04-08 23:30 | NUR ---
TUBE FEEDING START PER MD ORDER. TUBE FEEDING WAS STARTED. PATIENT IS TOLERATING IT WELL. PATIENT IS STABLE. NO S/S OF RESPIRATORY DISTRESS NOTED. CALL LIGHT IN REACH. BED IS LOCKED, ALARMED, AND AT THE LOWEST POSITION. WILL CONTINUE TO MONITOR.
[2019-04-09] VITALS (7 sets, daily range): BP systolic 110–150
--- NOTE | 2019-04-09 | NUR ---
EDUCATION ON TURNING PATIENT REFUSED TO BE TURNED DESPITE EDUCATIONAL EFFORTS. WILL CONTINUE TO EDUCATE. PATIENT IS OTHERWISE STABLE. NO S/S OF RESPIRATORY DISTRESS NOTED. CALL LIGHT IN REACH. BED IS LOCKED, ALARMED, AND AT THE LOWEST POSITION. WILL CONTINUE TO MONITOR. Addendum: 04/09/19 at 0018 by Klaudia Rodrigez RN MEDICATION WERE GIVEN AT THIS TIME DUE TO ACCESS OF SITE
[2019-04-09] MEDS: LEVALBUTEROL HCL 0.63 MG/3 ML VIAL.NEB INH SCH ×4 (00:17→19:16)
--- NOTE | 2019-04-09 01:00 | NUR ---
WOUND CARE WOUND CARE PERFORMED AT THIS TIME. PATIENT IS REPOSITION FOR COMFORT. PATIENT REFUSED TO BE TURNED DESPITE EDUCATIONAL EFFORTS WILL CONTINUE TO MONITOR. PATIENT IS STABLE AND SHOWS NO S/S OF RESPIRATORY DISTRESS NOTED. CALL LIGHT IN REACH. BED IS LOCKED, ALARMED, AND AT THE LOWEST POSITION. WILL CONTINUE TO MONITOR.
--- NOTE | 2019-04-09 03:30 | NUR ---
WOUND CARE WOUND CARE ON SACRAL AREA DONE AT THIS TIME. REPOSITION FOR COMFORT. PATIENT REFUSED TURNING DESPITE EDUCATIONAL EFFORTS, WILL CONTINUE TO EDUCATE. PATIENT IS OTHERWISE STABLE. NO S/S OF RESPIRATORY DISTRESS. CALL LIGHT IN REACH. BED IS LOCKED, ALARMED, AND AT THE LOWEST POSITION. WILL CONTINUE TOMORROW.
--- NOTE | 2019-04-09 05:10 | NUR ---
TUBE FEEDING RESIDUAL/FREE FLUSH TUBE FEEDING RESIDUAL WAS 20CC. FLUSHED 100 PER MDS. ORDER. PATIENT TOLERATING IT WELL. NO S/S OF RESPIRATORY DISTRESS NOTED. CALL LIGHT IN REACH. BED IS LOCKED, ALARMED, AND AT THE LOWEST POSITION. WILL CONTINUE TO MONITOR.
[2019-04-09 06:16] LABS: BASOPHILS % (AUTO) 0.2 % (0.0-2.0); EOSINOPHILS # (AUTO) 0.1 K/uL (0.0-0.4); EOSINOPHILS % (AUTO) 1.5 % (0.0-4.0); HEMATOCRIT 28.7 % (36-48); HEMOGLOBIN 9.4 g/dL (12.0-16.0); LYMPHOCYTES # (AUTO) 2.5 K/uL (1.0-5.5); LYMPHOCYTES % (AUTO) 26.5 % (20.5-51.5); MEAN CORPUSCULAR HEMOGLOBIN 30 pg (27-31); MEAN CORPUSCULAR HGB CONC 33 % (32-36); MEAN CORPUSCULAR VOLUME 92 fL (79.0-98.0); MONOCYTES # (AUTO) 0.5 K/uL (0.0-1.0); MONOCYTES % (AUTO) 5.5 % (1.7-9.3); NEUTROPHILS # (AUTO) 6.2 K/uL (1.8-7.7); NEUTROPHILS % (AUTO) 66.3 % (40.0-70.0); PLATELET COUNT (AUTO) 263 K/uL (130-430); RED BLOOD CELL COUNT(AUTO) 3.12 MIL/uL (4.2-6.2); RED CELL DISTRIBUTION WIDTH 14.2 % (9.0-15.0); WHITE BLOOD COUNT (AUTO) 9.4 K/uL (4.8-10.8)
[2019-04-09 06:18] LABS: CALCIUM 7.8 mg/dL (8.4-11.0); CREATININE 0.42 mg/dL (0.55-1.30); POTASSIUM 3.7 mmol/L (3.5-5.1)
--- NOTE | 2019-04-09 06:33 | NUR ---
CLOSING NOTES PATIENT IS LAYING IN BED AND WATCHING TV. PATIENT IS STABLE. NO S/S OF RESPIRATORY DISTRESS NOTED. CALL LIGHT IN REACH. BED IS LOCKED, ALARMED, AND AT THE LOWEST POSITION. FALL, ASPIRATION, RESPIRATORY, SAFETY, AND CONTACT PRECAUTIONS HAS BEEN PLACE THROUGHOUT THE SHIFT. WILL CONTINUE TO MONITOR UNTIL REPORT IS GIVEN TO AM NURSE BY BEDSIDE.
[2019-04-09] MEDS: KCL 20 mEq in D5NS 1000 mL 1,000 ML IV SCH (06:59)
--- NOTE | 2019-04-09 08:00 | NUR ---
ASSUMPTION OF CARE: RECEIVED PT A/A/OX 2-3, NON-VERBAL, ABLE TO COMMUNICATE WITH HEAD NODDING, DX: INADEQUATE VENTILATION, R/T PNEUMONIA. BREATH SOUNDS ARE CLEAR, BREATHING WITH MECHANICAL ASSISTANCE, VENT SETTINGS ARE AC=14, LH=961, FIO2=40% AND PEEP=5, SATURATING 100%, AFEBRILE, VS WNL, NO PAIN, NO DISTRESS NOTED, PARALYSIS IN ALL EXTREMITIES, PULSES PALPABLE, SKIN INTACT, WARM, DRY, TO TOUCH, IV SITE INTACT, PATENT, NO REDNESS OR SWELLING, RESTING ON AIR MATTRESS IN POSITION OF COMFORT, WILL CONT' TO MONITOR AND ASSESS.
[2019-04-09] MEDS: CEFEPIME 1 GM in D5W 50 ML IV SCH ×2 (08:30→21:19)
[2019-04-09] MEDS: POTASSIUM CHLORIDE 20 MEQ/PKT PACKET GT SCH (08:30)
[2019-04-09] MEDS: LEVOTHYROXINE SODIUM 0.1 MG VIAL IVP SCH (08:30)
[2019-04-09] MEDS: DILTIAZEM HCL 30 MG TABLET GT SCH ×3 (08:31→21:19)
[2019-04-09] MEDS: PANTOPRAZOLE SODIUM 40 MG/VIAL (PROTONIX) IVP SCH ×2 (08:31→21:19)
[2019-04-09] MEDS: LACTOBACILLUS RHAMNOSUS GG 1 CAP CAPSULE GT SCH ×3 (08:31→21:19)
[2019-04-09] MEDS: BACLOFEN 10 MG TABLET GT SCH ×2 (08:31→21:19)
[2019-04-09] MEDS: MULTIVIT-MINERALS/FERROUS GLUC 15 ML UDC GT SCH (08:39)
--- NOTE | 2019-04-09 09:00 | NUR ---
ACCOUNTANT CONTROLLER: MORNING MEDS GIVEN, PER ORDERED BY Robbi, TOLERATED WELL, WILL CONT' TO MONITOR AND ASSESS.
--- NOTE | 2019-04-09 11:10 | NUR ---
VISIT: AT BEDSIDE FOR ASSESSMENT OF PT, WILL CONT' TO MONITOR AND ASSESS.
[2019-04-09] MEDS ORDERED: NACL 0.9% 1,000 ML IV SCH (11:30)
--- NOTE | 2019-04-09 13:00 | NUR ---
NURSES NOTES: PT RESTING IN POSITION OF COMFORT, NO SIGNIFICANT CHANGES NOTED, CALL LIGHT WITHIN REACH, WILL CONT WITH POC.
--- NOTE | 2019-04-09 14:57 | NUR ---
Discharge Planning: DCP faxed [facility] (f [phone] p [phone]) DCP to follow up Addendum: 04/09/19 at 1658 by Mony Gregory DP DCP arrange transportation with [facility] ([phone]) 9:30pm P/U, to [facility] ( [phone] p [phone]) Rm 44B per Pablo Addendum: 04/09/19 at 1659 by Mony Gregory DP Patient packet taken to nurse station
--- NOTE | 2019-04-09 17:35 | NUR ---
NOTIFICATION OF FAMILY: SPOKE WITH SISTER TO THE PT, RONY REID, VIA TELEPHONE AND WAS TOLD OF PLAN TO DISCHARGE BACK TO [facility], VERBALIZES UNDERSTANDING, AND WILL VISIT SISTER TOMORROW.
--- NOTE | 2019-04-09 17:50 | NUR ---
ENDORSEMENT: CALL AND GAVE REPORT TO NURSE RAMEZ WHITNEY, PT WILL GO TO ROOM 44B, FAMILY MEMBER CALLED AND INFORMED OF DISCHARGE, WILL CONT' TO MONITOR AND ASSESS.
--- NOTE | 2019-04-09 19:30 | NUR ---
INITIAL NOTES Received handoff report from offgoing nurse at the bedside. Patient is awake and alert, resting comfortably in bed. Daughter Kayla Kang is at the bedside. No SOB, no acute distress, no signs of pain or facial grimacing noted. IVF infusing per MD order. GTUBE feeding infusing per MD order. Tolerating trach to vent settings. Bed is locked, in the lowest position, 2x side rails up, bed alarm is on. Call light is within reach. Encouraged patient and daughter to call for assistance. Will continue to monitor closely.
--- NOTE | 2019-04-09 20:30 | NUR ---
Provided patient with incontinence care and wound care. Patient is now clean and dry, resting comfortably in bed. No SOB, no acute distress, no signs of pain or facial grimacing noted. Provided oral care and suctioning as needed.
[2019-04-09] MEDS ORDERED: COLISTIMETHATE SODIUM 150 MG VIAL INH SCH (21:00)
--- NOTE | 2019-04-09 21:37 | NUR ---
NOTIFIED BY BUSINESS EDUCATION TEACHER THAT THE SOFTWARE WRITER TIME FROM [facility] WILL BE DELAYED TO 12:30AM. NOTIFIED NEXT OF KIN ASHVIN REID (SISTER) AND MADE PATIENT AWARE OF SITUATION.
--- NOTE | 2019-04-09 22:30 | NUR ---
Notified Sale[facility] regarding delayed transport from [facility] at 12:30AM.
--- NOTE | 2019-04-10 00:30 | NUR ---
Patient discharged with [facility]. Patient will be going with trach, vent, gtube, and IV site. Hospital ID band removed and replaced with white paper band. All needs have been met at this time.
[2019-04-10 00:40] VITALS: BP_SYST 140
== END 2019-04-10 00:31 | DRG 207 ==
LOC: SED 16:18 → STU 18:56
PROVIDERS: ADMIT Internal Medicine; ATTEND Internal Medicine
PROC: 5A1955Z Respiratory Ventilation, Greater than 96 Consecutive Hours (ICD-10-PCS; principal; 2019-04-05)
PROC: 0DH63UZ Insertion of Feeding Device into Stomach, Percutaneous Approach (ICD-10-PCS; 2019-04-08)
DX: J15.6 Pneumonia due to other Gram-negative bacteria (principal); E43 Unspecified severe protein-calorie malnutrition; K94.23 Gastrostomy malfunction; J96.10 Chronic respiratory failure, unspecified whether with hypoxia or hypercapnia; Z99.11 Dependence on respirator [ventilator] status; E87.1 Hypo-osmolality and hyponatremia; J44.0 Chronic obstructive pulmonary disease with (acute) lower respiratory infection; G12.21 Amyotrophic lateral sclerosis; N39.0 Urinary tract infection, site not specified; L03.311 Cellulitis of abdominal wall; K94.22 Gastrostomy infection; K94.13 Enterostomy malfunction; J15.9 Unspecified bacterial pneumonia; I10 Essential (primary) hypertension; I27.21 Secondary pulmonary arterial hypertension; E11.9 Type 2 diabetes mellitus without complications; K21.9 Gastro-esophageal reflux disease without esophagitis; Y83.3 Surgical operation with formation of external stoma as the cause of abnormal reaction of the patient, or of later complication, without mention of misadventure at the time of the procedure; E86.0 Dehydration; D63.8 Anemia in other chronic diseases classified elsewhere; I48.0 Paroxysmal atrial fibrillation; R16.2 Hepatomegaly with splenomegaly, not elsewhere classified; Y95 Nosocomial condition; E03.9 Hypothyroidism, unspecified; E87.6 Hypokalemia; Z86.73 Personal history of transient ischemic attack (TIA), and cerebral infarction without residual deficits; Z88.8 Allergy status to other drugs, medicaments and biological substances; Z91.041 Radiographic dye allergy status; Z79.899 Other long term (current) drug therapy; Y92.89 Other specified places as the place of occurrence of the external cause; Z90.49 Acquired absence of other specified parts of digestive tract
CPT/HCPCS: 36415; 43246; 71045; 74240-TC; 80048; 80053; 80202-TC; 81003; 82150-TC; 82550-TC; 83540-TC; 83550-TC; 83605; 83690-TC; 83735-TC; 83880; 84100-TC; 84439; 84443-TC; 84484; 85025; 85610-TC; 85730-TC; 87040-TC; 87070-TC; 87081; 87186-TC; 87205-TC; 94002; 94003; 94640; 94760; 96361; 96365; 96375; 99285; C9113; G0378; J0692; J0770; J0885; J2175; J2248; J2250; J2270; J2405; J2543; J3370; J3480; J7030; J7050; J7060; J7120; J7614; Q9963

== ENCOUNTER 2019-09-18 10:14 | Outpatient (CLI) | payer OTHER, MEDICAID | END 2019-09-18 20:51 | disposition home or self-care (01) | LOC: SCT 10:14 | DX: J90 Pleural effusion, not elsewhere classified (principal); R91.8 Other nonspecific abnormal finding of lung field; J92.9 Pleural plaque without asbestos; I51.7 Cardiomegaly; R16.1 Splenomegaly, not elsewhere classified; R16.0 Hepatomegaly, not elsewhere classified; K76.0 Fatty (change of) liver, not elsewhere classified; N20.0 Calculus of kidney | CPT/HCPCS: 71250-TC ==

== ENCOUNTER 2020-01-22 17:53 | Inpatient (IN) | payer OTHER, MEDICAID, SELFPAY ==
[~2020-01-22] VITALS: Ht 160 cm; Wt 59.9 kg
[~2020-01-22 17:53] MED LIST changes: +CAR30 GT; +CEFE1PIG3 IV; +COLL100 GT; -COR3.125 GT; -DOCU-144 GT; -OMEP20CA11 GT; +OMEP20CA15 GT; +VIS50 GT; +VITD2000 GT
[2020-01-22 18:00] VITALS: BP_SYST 122
[2020-01-22] MEDS ORDERED: cefTRIAXone 1 GM IVPB PREMIX 50 ML IV ONE (18:00)
--- NOTE | 2020-01-22 18:00 | NUR ---
Patient to ER bed 8 to gown for evaluation. Side rails up. Report given to CARROL WHITNEY .
--- NOTE | 2020-01-22 18:01 | NUR ---
Patient to ER bed 8 to gown for evaluation. Side rails up. Report given to Sheldon WHITNEY.
--- NOTE | 2020-01-22 18:02 | NUR ---
Patient presented to ER C/O Dyspnea. Patient BIB ACLS A&Ox4 non verbal, trach, vent dependent, saturation 95%, g-tube. sent by [facility] for desaturations 1415.Per EMS PT Desat to 89%, increased Oxygen to 6LPM. Vent settings AC TV450 P5 R20. Patient placed on gambling monitor and pulse-ox monitor. EKG completed at BS
[2020-01-22 18:48] LABS: BASOPHILS % (AUTO) 0.2 % (0.0-2.0); EOSINOPHILS % (AUTO) 0.1 % (0.0-4.0); HEMATOCRIT 29.2 % (36-48); HEMOGLOBIN 9.7 g/dL (12.0-16.0); LYMPHOCYTES # (AUTO) 1.4 K/uL (1.0-5.5); LYMPHOCYTES % (AUTO) 9.1 % (20.5-51.5); MEAN CORPUSCULAR HEMOGLOBIN 31 pg (27-31); MEAN CORPUSCULAR HGB CONC 33 % (32-36); MEAN CORPUSCULAR VOLUME 93 fL (79.0-98.0); MONOCYTES # (AUTO) 0.6 K/uL (0.0-1.0); MONOCYTES % (AUTO) 3.9 % (1.7-9.3); NEUTROPHILS # (AUTO) 13.6 K/uL (1.8-7.7); NEUTROPHILS % (AUTO) 86.7 % (40.0-70.0); PLATELET COUNT (AUTO) 473 K/uL (130-430); RED BLOOD CELL COUNT(AUTO) 3.15 MIL/uL (4.2-6.2); RED CELL DISTRIBUTION WIDTH 15.3 % (9.0-15.0); WHITE BLOOD COUNT (AUTO) 15.7 K/uL (4.8-10.8)
[2020-01-22 18:55] LABS: CALCIUM 9.2 mg/dL (8.4-11.0); CREATININE 0.49 mg/dL (0.55-1.30); POTASSIUM 4.3 mmol/L (3.5-5.1)
[2020-01-22] MEDS ORDERED: FER300L PO (19:01)
--- NOTE | 2020-01-22 19:01 | NUR ---
Medication reconciliation completed with information provided by referring facility. Any prior medication reconciliation on file was reviewed and corrected.
[2020-01-22 19:02] LABS: ALBUMIN 1.4 g/dL (3.4-4.8); TOTAL BILIRUBIN 0.5 mg/dL (0.0-1.0)
[2020-01-22 20:00] VITALS: BP_SYST 143
[2020-01-22] MEDS ORDERED: VANCOMYCIN HCL 1,250 MG in NS 250 ML IV SCH (20:00)
[2020-01-22 20:07] LABS: BILIRUBIN,URINE NEGATIVE (NEGATIVE); BLOOD, URINE 1+ (NEGATIVE); CLARITY/URINE SL CLOUDY (CLEAR); COLOR,URINE YELLOW (YELLOW); GLUCOSE,URINE NEGATIVE (NEGATIVE); KETONES,URINE NEGATIVE (NEGATIVE); LEUKOCYTE ESTERASE ,URINE NEGATIVE (NEGATIVE); NITRITE, URINE NEGATIVE (NEGATIVE); PROTEIN URINE TRACE (NEGATIVE)
--- NOTE | 2020-01-22 20:10 | NUR ---
VSS no s/s of acute distress, Remaining on Vent thru trach (Portex 7) AC 20, 450, peep 5, at 45% Fio2
[2020-01-22 20:18] LABS: BACTERIA,URINE MODERATE /HPF (None Seen); MUCUS,URINE None Seen /LPF (None Seen); RBC,URINE 0-3 /HPF (0-3); WBC,URINE 0-3 /HPF (0-3)
[2020-01-22] MEDS ORDERED: levalbuterol HCL 0.63 MG/3 ML VIAL.NEB INH PRN (21:15)
[2020-01-22] MEDS ORDERED: ACETAMINOPHEN 650 MG/20.3 ML UDC GT PRN (21:15)
--- NOTE | 2020-01-22 21:35 | NUR ---
Transfer to Tele via ACLS protocol. Licensed nurse present. IV present no signs or symptoms of infiltration.
--- NOTE | 2020-01-22 21:35 | NUR ---
Patient will be admitted to care of Dr. Barcenas. Admitted to Tele unit. Will go to room 124. Belongings list completed. Complete and up to date summary report printed. SBAR report to be given at bedside with opportunity for questions.
--- NOTE | 2020-01-22 21:46 | NUR ---
ADMIT NOTE Received pt from ER to the floor with a diagnosis of ventilator associated pna. Admission process initiated. patient oriented to pain management, safety and call light-pt is quadriplegia.
[2020-01-22] MEDS ORDERED: DEXAMETHASONE SOD PHOSPHATE 10 MG/ML VIAL IVP ONE (22:00)
--- NOTE | 2020-01-22 22:00 | NUR ---
Initial RN notes Pt awake, alert, non-verbal. Pt has a trache Portex #7 on Mechanical vent settings AC 20, FIO2 45%, TV 450, Peep 5. Pt able to nod or shake head to communicate. IV antibiotic Vancomycin administered at ordered rate L. FA 20G good blood return. Allergy band placed. GT placement checked, no residual noted. GT feeding Vital 1.2 started at 50ml/hr and water flush given as ordered. HOB maintained elevated. Chai arms and heels floated on pillows. Call light within reach. Bed low, locked, siderails up x3, alarm on. Chai SCDs place. Droplet isolation maintained. To monitor.
--- NOTE | 2020-01-22 22:45 | NUR ---
Oral care/Pericare Oral care and suction provided. Pt desats to 86%. Pt back to 96-100% on FiO2 45%. Pt incontinent of BM/urine. Pericare provided. Photo taken of sacral scar/discoloration, no open wound or drainage noted. To monitor.
[2020-01-22 23:12] VITALS: BP_SYST 143
[2020-01-23] MEDS ORDERED: DILTIAZEM HCL 30 MG TABLET GT SCH
[2020-01-23] MEDS: PIPERACILLIN/TAZO 3.375/DEX-IS 50 ML IV SCH ×2 (00:25→06:22)
[2020-01-23 00:30] VITALS: BP_SYST 147
[2020-01-23] MEDS: DILTIAZEM HCL 30 MG TABLET GT SCH ×5 (00:30→23:35)
[2020-01-23] MEDS ORDERED: DEXAMETHASONE SOD PHOSPHATE 4 MG/ML VIAL ONE ×2 (00:44)
--- NOTE | 2020-01-23 01:00 | NUR ---
Pt desated to 72% and BP decreased from 147/67 to 82/48 after oral care and trache suctioned on FIO2 45%. Paged RT and RT increased O2 to 100% and did deep suction. Pt BP back up to 142/65 HR 130 O2 sat 100%. Cardizem via GT was given. HOB maintained elevated. RT to titrate O2. Will continue to closely monitor pt.
--- NOTE | 2020-01-23 04:30 | NUR ---
Rounds Pt asleep, no s/s distress noted. Mechanical vent on FiO2 70% satting at 100%. GT feeding running at 50ml/hr, no residual noted. HOB maintained elevated. IV L. FA 20 clear and patent. Pt incontinent of urine. Pericare provided, Z guard applied. Will continue to monitor.
--- NOTE | 2020-01-23 04:43 | NUR ---
CONSULT REASON FOR CONSULT: SEPSIS PERSON I SPOKE WITH: MATIAS CONSULTING PHYSICIAN: DR. FERMIN PRODUCT MARKETING DIRECTOR PHONE NUMBER: [phone] ORDERING PHYSICIAN: DR MEDELLIN
--- NOTE | 2020-01-23 05:35 | NUR ---
Oral care/suction RT suctioned pt with dark thick red secretions. O2 FIO2 60%, saturation 98-100%. HOB maintained elevated. To monitor.
[2020-01-23] MEDS: levalbuterol HCL 0.63 MG/3 ML VIAL.NEB INH SCH ×3 (06:00→20:57)
--- NOTE | 2020-01-23 06:40 | NUR ---
Closing notes Pt awake, alert, watching TV, no s/s distress noted. Mech vent dependent FiO2 60% satting at 98-100%. IV antibiotic Zosyn infusing at ordered rate L. FA 20G no s/s infiltration. GT feeding Vital 1.2 running at 50ml/hr, no residual noted. water flushes given as ordered. All needs met throughout the night. Call light within reach. Bed low, locked, siderails up x3, alarm on. Droplet isolation for Covid-PUI maintained. To endorse to AM nurse.
[2020-01-23 07:33] LABS: INR 1.1 (0.8-1.2); PROTHROMBIN TIME 10.9 SECS (9.5-12.5)
[2020-01-23 07:40] LABS: EOSINOPHILS % (AUTO) 0.1 % (0.0-4.0); HEMOGLOBIN 9.4 g/dL (12.0-16.0); LYMPHOCYTES # (AUTO) 0.7 K/uL (1.0-5.5); LYMPHOCYTES % (AUTO) 3.9 % (20.5-51.5); MEAN CORPUSCULAR HEMOGLOBIN 30 pg (27-31); MEAN CORPUSCULAR HGB CONC 32 % (32-36); MEAN CORPUSCULAR VOLUME 95 fL (79.0-98.0); MONOCYTES # (AUTO) 0.3 K/uL (0.0-1.0); MONOCYTES % (AUTO) 1.5 % (1.7-9.3); NEUTROPHILS # (AUTO) 17.8 K/uL (1.8-7.7); NEUTROPHILS % (AUTO) 94.5 % (40.0-70.0); PLATELET COUNT (AUTO) 423 K/uL (130-430); RED BLOOD CELL COUNT(AUTO) 3.15 MIL/uL (4.2-6.2); RED CELL DISTRIBUTION WIDTH 15.2 % (9.0-15.0); WHITE BLOOD COUNT (AUTO) 18.9 K/uL (4.8-10.8)
[2020-01-23 07:54] LABS: ALBUMIN 1.3 g/dL (3.4-4.8); CALCIUM 9.1 mg/dL (8.4-11.0); CREATININE 0.54 mg/dL (0.55-1.30); FREE T4 (FREE THYROXINE) 1.5 ng/dl (0.8-1.5); PHOSPHORUS 4.4 mg/dL (2.7-4.5); THYROID STIMULATING HORMONE 0.96 uIu/mL (0.36-3.74); TOTAL BILIRUBIN 0.7 mg/dL (0.0-1.0)
[2020-01-23 08:45] VITALS: BP_SYST 119
[2020-01-23] MEDS ORDERED: NON-FORMULARY MEDICATION (Multivitamin with Minerals (Hair, Skin and Nails) 1 EACH) GT SCH (09:00)
[2020-01-23] MEDS ORDERED: POTASSIUM CHLORIDE 40 MEQ GT SCH (09:00)
[2020-01-23] MEDS ORDERED: [UNRECOGNIZED DRUG - OTHER] GT SCH (09:00)
[2020-01-23] MEDS: FERROUS SULFATE 300 MG/5 ML UDC GT SCH ×2 (09:04→22:29)
[2020-01-23] MEDS: DOCUSATE SODIUM 100 MG/10 ML UDC GT SCH (09:04)
[2020-01-23] MEDS: BACLOFEN 10 MG TABLET GT SCH ×2 (09:04→22:26)
[2020-01-23] MEDS: LACTOBACILLUS RHAMNOSUS GG 1 CAP CAPSULE GT SCH ×3 (09:04→22:26)
[2020-01-23] MEDS: ASCORBIC ACID 500 MG TABLET GT SCH ×2 (09:05→22:26)
[2020-01-23] MEDS: MULTIVITS,CA,MINERALS/IRON/FA 1 TABLET GT SCH (09:05)
[2020-01-23] MEDS: POTASSIUM CHLORIDE 20 MEQ/PKT PACKET GT SCH (09:05)
[2020-01-23] MEDS: LEVOTHYROXINE SODIUM 0.125 MG TABLET GT SCH (09:05)
[2020-01-23] MEDS: CHOLECALCIFEROL (VITAMIN D3) 2,000 UNIT TABLET GT SCH (09:05)
--- NOTE | 2020-01-23 09:05 | NUR ---
Routine Patient resting comfortably in bed with no respiratory distress noted. Scheduled medications given per order. Patient stable at this time.
--- NOTE | 2020-01-23 09:07 | NUR ---
Nutrition Update Chad Scale 11 noted. Pt admitted for ventilator-associated pneumonia. Diet: Vital HP at 50 ml/hr, Bam BID, Free Water Flush: 100 Q6h via GT BMI: 23.4 kg/m2 RD to follow per nutrition care standards.
--- NOTE | 2020-01-23 10:25 | NUR ---
Routine Patient resting comfortably in bed with no respiratory distress noted; repositioned. Patient stable at this time.
[2020-01-23 10:39] LABS: TOTAL IRON BIND. CAPACITY 100 ug/dL (250-450)
[2020-01-23 12:10] VITALS: BP_SYST 123
--- NOTE | 2020-01-23 12:12 | NUR ---
Routine Scheduled medication given via G-tube. Patient resting comfortably in bed with no distress noted. Patient stable. Patient repositioned.
--- NOTE | 2020-01-23 13:30 | NUR ---
WOUND EVALUATION: Late note for 1330 secondary to patient care. Wound Consult received from Dr. Barcenas. Thank you, Dr. Barcenas, for the consult. Patient was awake, alert, oriented, nonverbal (secondary to tracheostomy, but communicates by mouthing words) and received in a Alfredito Bed with an Isoflex JOCELIN mattress with low air loss therapy initiated. Patient is unable to turn in bed independently, and her head is turned to the right (it appears that she is unable to turn her head - Dr. Barcenas came in and was informed). Chad Score is a 13. 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 Recent Labs: WBC 18.9, RBC 3.15, hemoglobin 9.4, hematocrit 30.0, BUN 27, creatinine 0.54, GFR 122, glucose 211, magnesium 2.2, iron 17, TIBC 100, AST 59, alkaline phosphatase 479, serum total protein 8.5, albumin 1.3. Microbiology: Blood culture results x2 in progress. Endotracheal sputum culture results in progress. Urine culture results in progress. MRSA screen results in progress. Intrinsic factors that delay wound healing: Chronic Respiratory Failure, Anemia of Chronic Illness, Severe Protein Malnutrition, Hypoalbuminemia, Hyperglycemia. Extrinsic factors that delay wound healing: Immobility. Skin assessment: 1. Left Buttock: Linear area of reopened scar tissue from a wound of prior unknown etiology. Wound bed has 100% pink tissue. No odor, no drainage. Periwound intact. Surrounding tissue has scar tissue, blanchable red erythema from IAD, and scattered non-intact skin areas. Measures 4.5 cm x 2.0 cm. 2. Right Buttock, inferior to Coccyx: Linear area of reopened scar tissue from a wound of prior unknown etiology. Wound bed has 100% pink tissue. No odor, no drainage. Periwound intact. Surrounding tissue has scar tissue, blanchable red erythema from IAD, and scattered non-intact skin areas. Measures 2.2 cm x 2.5 cm. Recommend: Cleanse involved areas with normal Saline. Pat dry. Apply Calmoseptine cream to involved areas. Cover sites 1 and 2 with foam dressings. Perform site care daily, and as needed for dressing soiling or dislodgment. Apply Calmoseptine cream to erythematous, scar tissue, and scattered non-intact skin areas 4 times daily and as needed for soiling. 3. Inguinal/Perineal areas: Dark red erythema from IAD, present on admission. Recommend: Cleanse involved areas with mild soap and water. Pat dry. Apply antifungal powder to involved areas. Dust off excess powder. Apply Interdry AG cloth inside inguinal fold areas. Change Interdry Ag cloth every 5 days, and as needed for soiling. 4. Bilateral Heels: Blanchable erythema, present on admission. Recommend: Elevate, offload and float bilateral heels with one pillow lengthwise under each extremity at all times. Recommend: Recommend reposition patient side to side only every 2 hours with pillow support. Elevate, offload and float bilateral heels with one pillow lengthwise under each extremity at all times. Offload pressure areas with pillows for pressure re-distribution. Perform skin care and monitor skin integrity Q shift. Use Calmoseptine cream on moisture susceptible areas QID and PRN for soiling. Maintain patient on a low air-loss mattress.
--- NOTE | 2020-01-23 13:45 | NUR ---
Routine Patient resting comfortably in bed with BERNARDO Brizuela at bedside for wound care consult. No respiratory distress noted at this time.
--- NOTE | 2020-01-23 14:05 | NUR ---
Routine Schedule IV abx given per order. Patient stable at this time.
[2020-01-23] MEDS: MEROPENEM 500 MG IVPB PREMIX 50 ML IV SCH ×2 (14:10→22:30)
[2020-01-23 16:50] VITALS: BP_SYST 112
--- NOTE | 2020-01-23 17:10 | NUR ---
Routine Scheduled medications given per order. Patient resting comfortably in bed with no respiratory distress noted.
[2020-01-23] MEDS: EPOETIN ALFA 4,000 UNITS/ML VIAL SUBCUT SCH (17:11)
[2020-01-23] MEDS ORDERED: HIBICLENS TP SCH (18:00)
--- NOTE | 2020-01-23 18:15 | NUR ---
Routine Patient resting comfortably in bed with no respiratory distress noted. Patient stable throughout shift.
--- NOTE | 2020-01-23 19:30 | NUR ---
OPENING NOTES: Received report from dayshift nurse, pt is laying in bed alert to name. She is on vent with FIO2 60%, AC 20, PEEP 5. and TV 450, tolerating well. IV noted on LFA, with dry dressing. Patient is on tele monitor. Ensured all safety precautions. Bed is locked, in the lowest position with alarm on. Call light within reach.
[2020-01-23 20:00] VITALS: BP_SYST 118
[2020-01-23] MEDS: NYSTATIN 15 GM TOPICAL POWDER TP SCH (21:00)
--- NOTE | 2020-01-23 22:05 | NUR ---
MEDICATION ADMINISTRATION: Patient is laying in bed and is alert to name. She is non verbal but is able to understand and responds to commands by nodding head. She is not exhibiting any s/s of distress or discomfort and is tolerating vent settings well. Residual was check and is at 2 mL. I administered medications as ordered by physician via G Tube, pt tolerated well. Current tube feeding was complete and was replaced. Patient is on Jevity 1.2 at 50 mL's and appears to be tolerating it well. Will continue to monitor patient.
[2020-01-24] VITALS (7 sets, daily range): BP systolic 106–129
--- NOTE | 2020-01-24 | NUR ---
RN ROUNDS: Patient is resting in bed and appears to be agitated, asked patient if she wanted to be suctioned and she nodded yes. there was evidence of brown tinged mucus with suction. Patient's O2 saturation was between 95 and 96%, I contact RT. Patient appeared to be doing better after RT worked on patient. We also cleansed patient at this time, she had a large loose bowel movement. Will continue to monitor patient. Addendum: 01/25/20 at 0450 by Lina Quevedo RN ADDENDUM TO DATE FOR THIS NOTE. DATE IS 01/25/20 @ 0000
--- NOTE | 2020-01-24 | NUR ---
RN ROUNDS: Patient is laying in bed and appears to be asleep. She is not exhibiting any s/s of distress or discomfort. Will continue to monitor patient. Bed is in the lowest position with alarm on, call light within reach.
--- NOTE | 2020-01-24 00:15 | NUR ---
STRAIGHT CATH ORDER: Per anthony Pollack to perform straight cath to collect urine specimen that was previously ordered.
--- NOTE | 2020-01-24 01:05 | NUR ---
STRAIGHT CATH: Patient is resting in bed and is alert. I explained to patient that I needed to collect a urine specimen for urinalysis and educated her about the procedure, she nodded her head yes when asked if she understood. Per orders of Dr. Barcenas straight cath was performed using sterile technique. 60 mL's of urine was collected and sent to lab for testing. Patient tolerated the procedure well.
[2020-01-24 02:25] LABS: BILIRUBIN,URINE NEGATIVE (NEGATIVE); BLOOD, URINE 3+ (NEGATIVE); CLARITY/URINE CLEAR (CLEAR); COLOR,URINE YELLOW (YELLOW); GLUCOSE,URINE NEGATIVE (NEGATIVE); KETONES,URINE NEGATIVE (NEGATIVE); LEUKOCYTE ESTERASE ,URINE NEGATIVE (NEGATIVE); NITRITE, URINE NEGATIVE (NEGATIVE); PROTEIN URINE 1+ (NEGATIVE)
[2020-01-24 02:32] LABS: BACTERIA,URINE FEW /HPF (None Seen); RBC,URINE >100 /HPF (0-3); WBC,URINE 0-3 /HPF (0-3)
[2020-01-24 02:33] LABS: HYALINE CASTS, URINE 0-10 /LPF (None Seen)
--- NOTE | 2020-01-24 03:00 | NUR ---
RN ROUNDS: Patient is laying in bed and appears to be asleep. She is not exhibiting any s/s of distress or discomfort. Will continue to monitor.
--- NOTE | 2020-01-24 05:00 | NUR ---
RN ROUNDS: Patient is laying in bed with no s/s of distress or discomfort. She is tolerating vent settings and tube feeding well. Bed is in the lowest position with alarm on. Will continue to monitor.
[2020-01-24] MEDS: MEROPENEM 500 MG IVPB PREMIX 50 ML IV SCH ×3 (05:43→22:02)
[2020-01-24] MEDS: DILTIAZEM HCL 30 MG TABLET GT SCH ×4 (05:43→23:56)
[2020-01-24 06:48] LABS: BASOPHILS % (AUTO) 0.2 % (0.0-2.0); HEMATOCRIT 28.3 % (36-48); LYMPHOCYTES # (AUTO) 1.7 K/uL (1.0-5.5); LYMPHOCYTES % (AUTO) 10.1 % (20.5-51.5); MEAN CORPUSCULAR HEMOGLOBIN 30 pg (27-31); MEAN CORPUSCULAR HGB CONC 32 % (32-36); MEAN CORPUSCULAR VOLUME 95 fL (79.0-98.0); MONOCYTES # (AUTO) 0.6 K/uL (0.0-1.0); MONOCYTES % (AUTO) 3.3 % (1.7-9.3); NEUTROPHILS # (AUTO) 14.3 K/uL (1.8-7.7); NEUTROPHILS % (AUTO) 86.4 % (40.0-70.0); PLATELET COUNT (AUTO) 413 K/uL (130-430); RED CELL DISTRIBUTION WIDTH 15.3 % (9.0-15.0); WHITE BLOOD COUNT (AUTO) 16.5 K/uL (4.8-10.8)
--- NOTE | 2020-01-24 07:04 | NUR ---
CLOSING NOTES: Patient is laying in bed alert to name. She continues on vent settings with FIO2 60%, AC 20, PEEP 5. and TV 450, tolerating well. IV noted on LFA, patent and intact. Tube feeding, Jevity 1.2 at 50 mL tolerating well. Patient is on tele monitor. All needs were met throughout shift. Ensured all safety precautions. Bed is locked, in the lowest position with alarm on. Call light within reach. Will endorse to dayshift nurse.
[2020-01-24 07:18] LABS: CALCIUM 9.4 mg/dL (8.4-11.0); CREATININE 0.44 mg/dL (0.55-1.30); POTASSIUM 4.1 mmol/L (3.5-5.1)
[2020-01-24] MEDS: levalbuterol HCL 0.63 MG/3 ML VIAL.NEB INH SCH ×3 (07:23→18:00)
[2020-01-24] MEDS: LACTOBACILLUS RHAMNOSUS GG 1 CAP CAPSULE GT SCH ×3 (08:23→22:02)
[2020-01-24] MEDS: MULTIVITS,CA,MINERALS/IRON/FA 1 TABLET GT SCH (08:23)
[2020-01-24] MEDS: CHOLECALCIFEROL (VITAMIN D3) 2,000 UNIT TABLET GT SCH (08:23)
[2020-01-24] MEDS: ASCORBIC ACID 500 MG TABLET GT SCH ×2 (08:23→22:02)
[2020-01-24] MEDS: BACLOFEN 10 MG TABLET GT SCH ×2 (08:23→22:02)
[2020-01-24] MEDS: POTASSIUM CHLORIDE 20 MEQ/PKT PACKET GT SCH (08:23)
[2020-01-24] MEDS: LEVOTHYROXINE SODIUM 0.125 MG TABLET GT SCH (08:23)
[2020-01-24] MEDS: FERROUS SULFATE 300 MG/5 ML UDC GT SCH ×2 (08:24→22:02)
[2020-01-24] MEDS: DOCUSATE SODIUM 100 MG/10 ML UDC GT SCH (08:24)
[2020-01-24] MEDS: NYSTATIN 15 GM TOPICAL POWDER TP SCH ×2 (09:31→22:03)
[2020-01-24 10:11] LABS: FOLATE (FOLIC ACID) 16.7 ng/mL (>3.0)
[2020-01-24] MEDS ORDERED: DEXAMETHASONE SOD PHOSPHATE 4 MG/ML VIAL IVP ONE (12:00)
[2020-01-24] MEDS ORDERED: MUPIROCIN 2% TOPICAL OINTMENT 22 GM NS ONE (12:00)
--- NOTE | 2020-01-24 12:30 | NUR ---
Perineal care given , redness sacral area bilateral groin kept dry /clean skin cream barrier applied, oral care given Patient repositioned by staff every 2 hours with pillow support., HOB kept semi fowlers .
--- NOTE | 2020-01-24 15:15 | NUR ---
CARDIO/RESPIRATORY Patient was tachycardic, oxygen saturation 93 to 92 % with FIO2 45%, warm and flush color , no fever , called RT reassessment done suctioned secretion , trache care given , Tylenol via gtube given will monitor.
[2020-01-24] MEDS: ACETAMINOPHEN 650 MG/20.3 ML UDC GT PRN (15:33)
--- NOTE | 2020-01-24 17:15 | NUR ---
Patient oxygen saturation 95% with fio2 45% , afebrile , HR 116/min , paged Dr. Corley . Addendum: 01/24/20 at 1721 by Priscilla Marsh RN Dr. CORLEY naturopath called back and informed regarding FI02 adjustment 45% and oxygen saturation 95%, will monitor.
--- NOTE | 2020-01-24 17:48 | NUR ---
Dietitian Recommendations * Recommend Vital HP at 55 ml/hr, Bam BID, Free Water Flush: 100 ml Q6h via GT Provides: 1480 kcal/day, 121 gm protein/day, and 1803 ml free water/day Meets: 82% of lower end of estimated caloric needs and 101% of upper end of estimated protein needs LP, RD Please refer to Nutrition Assessment for details. Addendum: 01/24/20 at [address] Amended: Links added.
--- NOTE | 2020-01-24 19:30 | NUR ---
OPENING NOTES: Received report from dayshift nurse. Patient is laying in bed alert to name. She is n vent settings with FIO2 45%, AC 20, PEEP 5. and TV 450, tolerating well. IV noted on LFA, patent and intact. Tube feeding, Jevity 1.2 at 50 mL noted. Patient is on tele monitor. Ensured all safety precautions. Bed is locked, in the lowest position with alarm on. Call light within reach.
--- NOTE | 2020-01-24 22:00 | NUR ---
MEDICATION ADMINISTRATION: Patient is laying in bed, in stable condition. Vital signs are within normal limits. Checked residual prior to administering medications and obtained 1 mL. Medications were administered as ordered by MD. I educated patient about Merrem and it's potential side effects, she nodded yes when asked if she understood. Ensured bed at 30 degrees, locked, with alarm on. Call light within reach.
[2020-01-24] MEDS: MUPIROCIN 2% TOPICAL OINTMENT 22 GM NS SCH (22:03)
[2020-01-25] VITALS (16 sets, daily range): BP systolic 100–152
--- NOTE | 2020-01-25 | NUR ---
RN ROUNDS: Patient is resting in bed and appears to be agitated, asked patient if she wanted to be suctioned and she nodded yes. there was evidence of brown tinged mucus with suction. Patient's O2 saturation was between 95 and 96%, I contact RT. Patient appeared to be doing better after RT worked on patient. We also cleansed patient at this time, she had a large loose bowel movement. Will continue to monitor patient.
--- NOTE | 2020-01-25 02:00 | NUR ---
RN ROUNDS: Patient is resting in bed and appears to be asleep. She is in stable condition. Will continue to monitor patient. Bed is in the lowest position with alarm on, call light within reach.
--- NOTE | 2020-01-25 04:00 | NUR ---
RN ROUNDS: Patient is resting in bed and is not exhibiting any s/s of distress or discomfort. Will continue to monitor patient.
[2020-01-25] MEDS: MEROPENEM 500 MG IVPB PREMIX 50 ML IV SCH ×3 (06:10→21:33)
[2020-01-25] MEDS: DILTIAZEM HCL 30 MG TABLET GT SCH ×4 (06:21→23:27)
[2020-01-25 06:59] LABS: BASOPHILS % (AUTO) 0.2 % (0.0-2.0); EOSINOPHILS % (AUTO) 0.1 % (0.0-4.0); HEMATOCRIT 29.9 % (36-48); HEMOGLOBIN 9.7 g/dL (12.0-16.0); LYMPHOCYTES % (AUTO) 10.3 % (20.5-51.5); MEAN CORPUSCULAR HEMOGLOBIN 30 pg (27-31); MEAN CORPUSCULAR HGB CONC 33 % (32-36); MEAN CORPUSCULAR VOLUME 93 fL (79.0-98.0); MONOCYTES # (AUTO) 0.5 K/uL (0.0-1.0); MONOCYTES % (AUTO) 2.8 % (1.7-9.3); NEUTROPHILS # (AUTO) 16.9 K/uL (1.8-7.7); NEUTROPHILS % (AUTO) 86.6 % (40.0-70.0); PLATELET COUNT (AUTO) 438 K/uL (130-430); WHITE BLOOD COUNT (AUTO) 19.5 K/uL (4.8-10.8)
[2020-01-25 07:16] LABS: CALCIUM 9.4 mg/dL (8.4-11.0); CREATININE 0.39 mg/dL (0.55-1.30); POTASSIUM 3.9 mmol/L (3.5-5.1)
--- NOTE | 2020-01-25 07:33 | NUR ---
CLOSING NOTES: Patient is laying in bed alert to name. She continues on vent settings with FIO2 45%, AC 20, PEEP 5. and TV 450, tolerating well. IV noted on LFA, patent and intact. Tube feeding, Jevity 1.2 at 50 mL tolerating well. Patient is on tele monitor. All needs were met throughout shift. Ensured all safety precautions. Bed is locked, in the lowest position with alarm on. Call light within reach. Will endorse to dayshift nurse.
[2020-01-25] MEDS: levalbuterol HCL 0.63 MG/3 ML VIAL.NEB INH SCH ×4 (07:50→19:17)
[2020-01-25] MEDS: FERROUS SULFATE 300 MG/5 ML UDC GT SCH ×2 (08:27→21:32)
[2020-01-25] MEDS: POTASSIUM CHLORIDE 20 MEQ/PKT PACKET GT SCH (08:28)
[2020-01-25] MEDS: NYSTATIN 15 GM TOPICAL POWDER TP SCH ×2 (08:28→21:33)
[2020-01-25] MEDS: LACTOBACILLUS RHAMNOSUS GG 1 CAP CAPSULE GT SCH ×3 (08:28→21:32)
[2020-01-25] MEDS: CHOLECALCIFEROL (VITAMIN D3) 2,000 UNIT TABLET GT SCH (08:28)
[2020-01-25] MEDS: LEVOTHYROXINE SODIUM 0.125 MG TABLET GT SCH (08:28)
[2020-01-25] MEDS: BACLOFEN 10 MG TABLET GT SCH ×2 (08:28→21:32)
[2020-01-25] MEDS: ASCORBIC ACID 500 MG TABLET GT SCH ×2 (08:28→21:32)
[2020-01-25] MEDS: MULTIVITS,CA,MINERALS/IRON/FA 1 TABLET GT SCH (08:28)
[2020-01-25] MEDS: MUPIROCIN 2% TOPICAL OINTMENT 22 GM NS SCH ×2 (08:29→21:33)
[2020-01-25] MEDS: DOCUSATE SODIUM 100 MG/10 ML UDC GT SCH (08:29)
--- NOTE | 2020-01-25 09:30 | NUR ---
SKIN CARE COMFORT Complete TSB done with loose bowel movement perineal care given kept dry clean denuded perianal area including sacral area , skin cream barrier applied , oral care given suctioned secretion, Patient repositioned by staff every 2 hours with pillow support., HOB kept semi fowlers, seen and examined by Dr. Barcenas.
[2020-01-25] MEDS: ACETAMINOPHEN 650 MG/20.3 ML UDC GT PRN (10:34)
--- NOTE | 2020-01-25 12:43 | NUR ---
Paged BARNEY Ramos for verification of order patient has allergy to iodine.
[2020-01-25 13:07] LABS: INR 1.1 (0.8-1.2); PROTHROMBIN TIME 11.1 SECS (9.5-12.5)
--- NOTE | 2020-01-25 14:30 | NUR ---
TO Radiology department for CT SCAN of the chest ,HHN and suctioned , patient oxygen saturation is 90 % after CT scan repositioned, RT reassessment done, will monitor. Addendum: 01/25/20 at 1518 by Priscilla Marsh RN Ej Jewell FI02 increase 60% oxygen saturation 93%
[2020-01-25] MEDS: MENTHOL/ZINC OXIDE 113 GM OINT. TP PRN (14:33)
--- NOTE | 2020-01-25 15:54 | NUR ---
ATTENDING MD DR MEDELLIN WAS CALLED TO INFORM HIM THAT PT WAS ORDERED BY [employer] SURVEYOR DR CORLEY TO TRANSFER TO ICU FOR RESP DISTRESS. SPOKE TO [place]
--- NOTE | 2020-01-25 15:58 | NUR ---
Dr. Barcenas /Dr Jewell informed regarding increase FIO2 60 % with PEEP 7 Oxygen saturation 95%
--- NOTE | 2020-01-25 16:02 | NUR ---
Family member /sister Reynaldo Perez informed regarding patient status and transfer to ICU
--- NOTE | 2020-01-25 17:20 | NUR ---
Assisted in transporting pt. to ICU, no complications, no distress noted during transfer.
--- NOTE | 2020-01-25 17:25 | NUR ---
Transfer to ICU
--- NOTE | 2020-01-25 17:40 | NUR ---
Opening Note patient brought to ICU bed 8 via gurney by RN on algology teacher, respiratory therapist at bedside for transfer for oxygen therapy and ambu bag, received SBAR report from endorsing RN, patient placed on mechanical ventilator, patient placed on ICU algology teacher, no acute distress noted, HOB elevated 30 degrees, tube feeding infusing well, patient denies any pain, patient is able to communicate through nodding head yes or no, assisted patient to turn on TV to requested channel, patient resting in bed, educated patient on use of call light and asked to call for assistance, patient verbalized understanding, call light in reach, bed in low and locked position, bed alarm on.
--- NOTE | 2020-01-25 19:14 | NUR ---
Closing Note bedside SBAR report given to receiving RN, patient resting in bed, tube feeding infusing well, no acute distress noted, patient tolerating mechanical ventilator settings, O2Sat 95%, patient denies any pain, educated patient on use of call light and asked to call for assistance, call light in reach, bed in low and locked position, bed alarm on, care endorsed to night worker RN.
--- NOTE | 2020-01-25 19:20 | NUR ---
Report received from day shift nurse. Pt is awake and non-verbal. No respiratory distress noted. Pt has Tracheostomy and connected to vent with settings of AC 20, TV 450, FIO2 60% and Peep 7. GTF of Vital AF 1.2 is infusing well at 50ml/hr with 0ml residual. HOB is elevated 45 degrees to prevent aspiration. IV site in LFA is without any signs of infiltration.
--- NOTE | 2020-01-25 20:08 | NUR ---
PICC line in (YAKELIN) and okay to use per CXR confirmation and PICC line nurse.
--- NOTE | 2020-01-25 21:33 | NUR ---
Scheduled medications administered. PICC accessed with new IV tubings. Old peripheral line tubings discarded.
--- NOTE | 2020-01-25 22:30 | NUR ---
Pt resting in bed and requiring multiple trach suctioning. GT Feeding is infusing well at 50ml/hr.
[2020-01-26] VITALS (37 sets, daily range): BP systolic 78–149
--- NOTE | 2020-01-26 00:30 | NUR ---
Wound care provided as ordered. Perineal and Inguinal areas were washed with mild soap and water, pat dried and Mycostatin powder applied. Excess powder was dusted off and Interdry AG cloth applied to both inguinal areas. Both buttocks and sacral coccygeal areas were cleansed with normal saline, pat dried, followed by Calmoseptine cream and foam dressings. Both buttocks are reddened with no drainage or odor noted. Sacral coccygeal areas noted with open scar tissue pinkish wounds. No drainage or odor noted.
[2020-01-26] MEDS: levalbuterol HCL 0.63 MG/3 ML VIAL.NEB INH SCH ×4 (01:28→19:35)
--- NOTE | 2020-01-26 02:15 | NUR ---
FIO2 increased to 80% by RT.
--- NOTE | 2020-01-26 03:15 | NUR ---
Paged Dr. Barcenas for HR in the 140's.
--- NOTE | 2020-01-26 03:37 | NUR ---
Paged Dr. Barcenas again for HR in the 140's.
--- NOTE | 2020-01-26 03:39 | NUR ---
Dr. Barcenas called back and new orders received.
[2020-01-26] MEDS ORDERED: DILTIAZEM HCL 25 MG/5 ML VIAL IVP ONE (03:45)
--- NOTE | 2020-01-26 03:54 | NUR ---
Cardizem 10mg given IVP as ordered by Dr. Barcenas.
--- NOTE | 2020-01-26 05:20 | NUR ---
CARDIOLOGY CONSULT : DR GUTIERREZ CALLED . SPOKE WITH JENNY.
[2020-01-26] MEDS: MEROPENEM 500 MG IVPB PREMIX 50 ML IV SCH ×2 (05:23→13:18)
[2020-01-26] MEDS: DILTIAZEM HCL 60 MG TABLET GT SCH ×3 (05:23→18:00)
[2020-01-26 06:49] LABS: CALCIUM 9.8 mg/dL (8.4-11.0); CREATININE 0.46 mg/dL (0.55-1.30); POTASSIUM 4.2 mmol/L (3.5-5.1)
--- NOTE | 2020-01-26 06:53 | NUR ---
Pt remains tachypneic and tachycardic. GTF is infusing well at 50ml/hr. All pt's needs were attended to. Fall, contact isolation and safety precautions are in place. Will endorse to day shift nurse.
--- NOTE | 2020-01-26 07:15 | NUR ---
Report given to day shift nurse.
[2020-01-26 07:30] LABS: HEMATOCRIT 32.3 % (36-48); HEMOGLOBIN 10.3 g/dL (12.0-16.0); MEAN CORPUSCULAR HEMOGLOBIN 30 pg (27-31); MEAN CORPUSCULAR HGB CONC 32 % (32-36); MEAN CORPUSCULAR VOLUME 95 fL (79.0-98.0); PLATELET COUNT (AUTO) 503 K/uL (130-430); RED BLOOD CELL COUNT(AUTO) 3.42 MIL/uL (4.2-6.2); RED CELL DISTRIBUTION WIDTH 15.2 % (9.0-15.0); WHITE BLOOD COUNT (AUTO) 28.4 K/uL (4.8-10.8)
--- NOTE | 2020-01-26 08:00 | NUR ---
AM ASSESSMENT. PT LETHARGIC WHEN APPROACHED, EXTREMITIES FLACCID, TURNED PT TO HER SIDE, INCONTINENT OF BOWEL AND BLADDER, GOOD PERINEAL HYGIENE PROVIDED, FOAM DRESSING TO SACRAL AREA, NYSTATIN POWDER APPLIED TO GROIN/PERINEAL SIDE.
[2020-01-26] MEDS: DOCUSATE SODIUM 100 MG/10 ML UDC GT SCH (09:00)
[2020-01-26] MEDS: MENTHOL/ZINC OXIDE 113 GM OINT. TP PRN (09:03)
[2020-01-26] MEDS: NYSTATIN 15 GM TOPICAL POWDER TP SCH ×2 (09:03→20:58)
[2020-01-26] MEDS: FERROUS SULFATE 300 MG/5 ML UDC GT SCH ×2 (09:03→21:07)
[2020-01-26] MEDS: MUPIROCIN 2% TOPICAL OINTMENT 22 GM NS SCH ×2 (09:04→20:59)
[2020-01-26] MEDS: LEVOTHYROXINE SODIUM 0.125 MG TABLET GT SCH (09:05)
[2020-01-26] MEDS: CHOLECALCIFEROL (VITAMIN D3) 2,000 UNIT TABLET GT SCH (09:05)
[2020-01-26] MEDS: ASCORBIC ACID 500 MG TABLET GT SCH ×2 (09:05→20:57)
[2020-01-26] MEDS: LACTOBACILLUS RHAMNOSUS GG 1 CAP CAPSULE GT SCH ×3 (09:05→20:57)
[2020-01-26] MEDS: BACLOFEN 10 MG TABLET GT SCH ×2 (09:05→20:57)
[2020-01-26] MEDS: POTASSIUM CHLORIDE 20 MEQ/PKT PACKET GT SCH (09:05)
[2020-01-26] MEDS: MULTIVITS,CA,MINERALS/IRON/FA 1 TABLET GT SCH (09:05)
--- NOTE | 2020-01-26 09:35 | NUR ---
HIGH ALERT NOTE: Called Dr. Barcenas back at [phone] identified within the medical roster to verify physician authenticity. Orders received for digoxin 0.5mg IVP once.
[2020-01-26] MEDS ORDERED: DIGOXIN 0.5 MG/2 ML AMP IVP ONE (09:45)
--- NOTE | 2020-01-26 11:20 | NUR ---
INCREASED FIO2 90% DUE TO PT SPO2 88-90%. SPO2 92%, HR 131. WILL CONTINUE TO MONITOR PT.
[2020-01-26 11:40] LABS: BAND % (MANUAL) 34 % (0-6); BASOPHILS % (MANUAL) 0 % (0-2); EOSINOPHILS % (MANUAL) 0 % (0-7); LYMPHOCYTES % (MANUAL) 5 % (20-46); MONOCYTES % (MANUAL) 3 % (0-11)
--- NOTE | 2020-01-26 11:50 | NUR ---
BATH. TEMP 99.9, SPONGE BATH WITH WET TOWEL ALL OVER HER BODY. SKIN CARE DONE TO PERINEAL AREA DUE TO INCONTINENCE.
[2020-01-26] MEDS: MEROPENEM 500 MG in NS 50 ML IV SCH ×2 (13:17→20:56)
[2020-01-26] MEDS ORDERED: FAMOTIDINE PF 20 MG/2 ML VIAL IVP ONE (13:30)
[2020-01-26] MEDS ORDERED: HEPARIN SODIUM,PORCINE 5,000 UNITS/ML VIAL SUBCUT ONE (13:45)
--- NOTE | 2020-01-26 16:00 | NUR ---
INCREASED FIO2 100% DUE TO PT SAT 88-89%.
[2020-01-26] MEDS ORDERED: NACL 0.9% 1,000 ML IV ONE (16:30)
[2020-01-26] MEDS: EPOETIN ALFA 4,000 UNITS/ML VIAL SUBCUT SCH (16:31)
[2020-01-26] MEDS ORDERED: DIGOXIN 0.25 MG TABLET GT ONE (17:30)
[2020-01-26] MEDS ORDERED: FLUCONAZOLE 200 MG TABLET (DIFLUCAN) GT ONE (17:45)
--- NOTE | 2020-01-26 18:20 | NUR ---
LOCKWOOD CATH: # 16 FR Lockwood catheter with cc bulb inserted with use of sterile technique. Bulb inflated with 10 cc sterile water. Immediate return of 20cc urine noted. Bedside drainage bag placed below level of bladder. Pt tolerated procedure .
--- NOTE | 2020-01-26 19:20 | NUR ---
Pt report received. Pt lethargic, not responsive to verbal or tactile stimulation. Vent per Trach (Portex 7) with Vent settings: A/C, 20, 450, 100%, 7. Respirations even, rhonchi BBS, thick brown endotracheal secretions. SPO2 88-90%, B/P 88/48, HR 117. PICC RUE secure and patent. G-tube feedings of Vital A/F infusing at 50 mL/hr, no residual. F/C secure with 50 mL output of dark yellow urine. Generalized 1+ pitting edema.
--- NOTE | 2020-01-26 19:35 | NUR ---
PAGED FOR ORDERS DIALED: [phone] SPOKE TO: AUTOMATED EXCHANGE
--- NOTE | 2020-01-26 19:40 | NUR ---
Dr. Campbell paged to inform of SPO2.
--- NOTE | 2020-01-26 20:02 | NUR ---
Spoke with Dr. Campbell and new orders received and entered: Titrate FiO2 to keep SPO2 > 90%; Titrate PEEP to max of 10; Mucomyst 20% q 6 hrs; CXR in AM at 0900.
[2020-01-26] MEDS: metroNIDAZOLE 500 mg/NS 100 ML IV SCH (20:57)
[2020-01-26] MEDS: HEPARIN SODIUM,PORCINE 5,000 UNITS/ML VIAL SUBCUT SCH (21:02)
[2020-01-26] MEDS ORDERED: NOREPINEPHRINE 4 MG/4 ML VIAL IV ONE (22:28)
[2020-01-26] MEDS: NOREPINEPHRINE BITARTRATE 4 MG in D5W 246 ML IV PRN (22:31)
--- NOTE | 2020-01-26 22:31 | NUR ---
B/P 71/41, HR 116, SPO2 94%. Levophed (4 mg/250 mL NS) started at 0.1 mcg/kg/min. Pt continues to be lethargic. No change in vent settings.
[2020-01-26] MEDS: ACETAMINOPHEN 650 MG/20.3 ML UDC GT PRN (23:25)
[2020-01-27] VITALS (35 sets, daily range): BP systolic 64–115
--- NOTE | 2020-01-27 | NUR ---
Tube feeding residual 210 mL. Tube feeding off.
[2020-01-27] MEDS: DILTIAZEM HCL 60 MG TABLET GT SCH ×3 (00:05→12:00)
--- NOTE | 2020-01-27 01:00 | NUR ---
Residual 100. Vital A/F feedings resumed at 50 mL/hr.
[2020-01-27] MEDS: ACETYLCYSTEINE 20% 4 ML VIAL (RT) INH SCH ×4 (01:35→19:51)
[2020-01-27] MEDS: levalbuterol HCL 0.63 MG/3 ML VIAL.NEB INH SCH ×4 (01:35→19:51)
[2020-01-27 06:06] LABS: HEMATOCRIT 29.5 % (36-48); LYMPHOCYTES # (AUTO) 1.8 K/uL (1.0-5.5); LYMPHOCYTES % (AUTO) 8.7 % (20.5-51.5); MONOCYTES # (AUTO) 0.5 K/uL (0.0-1.0)
[2020-01-27] MEDS: MEROPENEM 500 MG in NS 50 ML IV SCH ×3 (06:13→22:03)
[2020-01-27] MEDS: metroNIDAZOLE 500 mg/NS 100 ML IV SCH ×3 (06:14→22:29)
[2020-01-27 06:18] LABS: BASOPHILS % (AUTO) 0.2 % (0.0-2.0); EOSINOPHILS % (AUTO) 0.2 % (0.0-4.0); HEMOGLOBIN 8.9 g/dL (12.0-16.0); MEAN CORPUSCULAR HEMOGLOBIN 30 pg (27-31); MEAN CORPUSCULAR HGB CONC 30 % (32-36); MONOCYTES % (AUTO) 2.5 % (1.7-9.3); NEUTROPHILS # (AUTO) 18.3 K/uL (1.8-7.7); NEUTROPHILS % (AUTO) 88.4 % (40.0-70.0); PLATELET COUNT (AUTO) 406 K/uL (130-430); RED BLOOD CELL COUNT(AUTO) 2.97 MIL/uL (4.2-6.2); RED CELL DISTRIBUTION WIDTH 16.2 % (9.0-15.0)
[2020-01-27 06:24] LABS: WHITE BLOOD COUNT (AUTO) 20.6 K/uL (4.8-10.8)
[2020-01-27 06:25] LABS: MEAN CORPUSCULAR VOLUME 99 fL (79.0-98.0)
[2020-01-27 06:31] LABS: CALCIUM 9.5 mg/dL (8.4-11.0); CREATININE 0.85 mg/dL (0.55-1.30); PHOSPHORUS 4.7 mg/dL (2.7-4.5); TOTAL BILIRUBIN 1.2 mg/dL (0.0-1.0)
[2020-01-27] MEDS: NOREPINEPHRINE BITARTRATE 4 MG in D5W 246 ML IV PRN ×6 (06:56→22:27)
[2020-01-27] MEDS: ACETAMINOPHEN 650 MG/20.3 ML UDC GT PRN (07:02)
[2020-01-27] MEDS ORDERED: NOREPINEPHRINE 4 MG/4 ML VIAL IV ONE ×2 (07:04→23:37)
--- NOTE | 2020-01-27 07:05 | NUR ---
Dr. Campbell at bedside. RT notified for stat CXR.
--- NOTE | 2020-01-27 07:15 | NUR ---
Radiology at bedside.
--- NOTE | 2020-01-27 07:20 | NUR ---
Pt report given to receiving RN. Pt resting quietly with eyes closed, VSS, NAD. No change in Vent settings. Vital A/F at 50 mL/hr to G-tube, tolerating well. D5 1/2 NS continues to infuse at 50 mL/hr to RUE PICC. F/C patent and secure with total U/O of 570 mL this shift. No further BM noted to chucks, scant amount of brown loose stool to Flexiseal bag. Addendum: 01/27/20 at 0755 by Issac Virgen RN 01/27/2020 at 0755: EIC: Wrong patient.
--- NOTE | 2020-01-27 07:30 | NUR ---
Pt report given to oncoming shift. Pt remains obtunded/lethargic. Frequent endotracheal suctioning of copious amounts of thick yellow phlegm this shift. PICC to RUE secure, Levophed continues to infuse at 0.1 mcg/kg/min. G-tube feedings of Vital A/F continues at 50 mL/hr. Ice packs to axilla, back of neck, and groin in place for low grade temperature. Pt received 2 doses of Tylenol 650 mg per GT this shift. F/C patent with total U/O 570 mL.
--- NOTE | 2020-01-27 07:44 | NUR ---
AM NOTES: RECEIVED PATIENT OBTUNDED. UNRESPONSIVE.QUADRIPLEGIC. CONNECTED TO TRACH VENT,FOW1=694%.SEE [facility] FOR VENT SETTINGS.RIGHT UPPER ARM PICC LINE,NS TO TKO AND LEVOPHED TO 0.1MCG/KG/MIN TITRATE TO BP. LOCKWOOD IN PLACE. TUBE FEEDS ON GOING. BILATERAL SCD'S ON LE.CONTINUE TO MONITOR.
--- NOTE | 2020-01-27 08:00 | NUR ---
RT NOTES no improvement on pt's saturation and peak pressure despite tracheal sxn and hhn tx. PEEP to [address] standing order. saturation 89-90. Dr Campbell aware of pt's noted peak pressure.
[2020-01-27 08:17] LABS: POTASSIUM 5.9 mmol/L (3.5-5.1)
[2020-01-27] MEDS ORDERED: FLUCONAZOLE 200 MG TABLET (DIFLUCAN) GT SCH (09:00)
[2020-01-27] MEDS ORDERED: FAMOTIDINE PF 20 MG/2 ML VIAL IVP SCH (09:00)
[2020-01-27] MEDS ORDERED: DIGOXIN 0.25 MG TABLET GT SCH (09:00)
[2020-01-27] MEDS: POTASSIUM CHLORIDE 20 MEQ/PKT PACKET GT SCH (09:00)
[2020-01-27] MEDS: DOCUSATE SODIUM 100 MG/10 ML UDC GT SCH (09:56)
[2020-01-27] MEDS: FERROUS SULFATE 300 MG/5 ML UDC GT SCH ×2 (09:56→22:02)
[2020-01-27] MEDS: HEPARIN SODIUM,PORCINE 5,000 UNITS/ML VIAL SUBCUT SCH ×2 (09:57→22:07)
[2020-01-27] MEDS: LACTOBACILLUS RHAMNOSUS GG 1 CAP CAPSULE GT SCH ×3 (09:58→22:02)
[2020-01-27] MEDS: BACLOFEN 10 MG TABLET GT SCH ×2 (09:58→22:02)
[2020-01-27] MEDS: CHOLECALCIFEROL (VITAMIN D3) 2,000 UNIT TABLET GT SCH (09:59)
[2020-01-27] MEDS: LEVOTHYROXINE SODIUM 0.125 MG TABLET GT SCH (09:59)
[2020-01-27] MEDS: MULTIVITS,CA,MINERALS/IRON/FA 1 TABLET GT SCH (09:59)
[2020-01-27] MEDS: ASCORBIC ACID 500 MG TABLET GT SCH ×2 (10:00→22:08)
[2020-01-27] MEDS: NYSTATIN 15 GM TOPICAL POWDER TP SCH ×2 (10:01→22:03)
[2020-01-27] MEDS: MUPIROCIN 2% TOPICAL OINTMENT 22 GM NS SCH ×2 (10:02→22:03)
[2020-01-27] MEDS: NACL 0.9% 1,000 ML IV SCH ×3 (11:07→22:30)
--- NOTE | 2020-01-27 12:26 | NUR ---
PULMO PAGE: SPOKE WITH DR MARIA REGARDING O2 SAT LOW WITH VSN8=634%,NO NEW ORDERS MADE.TO UPDATE FAMILY WITH PATIENT CONDITION.
--- NOTE | 2020-01-27 12:26 | NUR ---
DUSTY PAGE: SPOKE WITH DR MARIA AND INFORMED HIM LOW O2 SATURATION,NO NEW ORDERS MADE . Addendum: 01/27/20 at 1855 by Vita Pringle RN DUPLICATE
[2020-01-27] MEDS ORDERED: NS 500 ML IV ONE (14:00)
--- NOTE | 2020-01-27 14:10 | NUR ---
MD CALL BACK: SPOKE WITH DR MEDELLIN AND INFORMED HIM PT'S BP LOW EVEN WITH LEVOPHED TITRATION AND O2 SAT LOW-ZXC3=397%,CALL FAMILY TO SEE PATIENT NOT DOING GOOD AND MD WILL TALK TO THEM WHEN HE COMES IN THE HOSPITAL.
--- NOTE | 2020-01-27 15:05 | NUR ---
Nutrition F/U RD reviewed pt's current EMR record including diet hx, MD notes, RN notes, pertinent labs/meds/procedures, care trends, and care activity Admitting Diagnosis Vent-associated pneumonia Reviewed Pertinent Medical/Surgical Hx Medical Record Patient Other Medical History Comment: PMH: vent-dependent respiratory failure, ALS, quadriplegia, recurrent UTIS, pneumonia, C. diff colitis per physician notes Pt als found w/ sepsis per physician notes SARS-CoV-2 Ag (Rapid) Negative 01/21 SARS-CoV-2 (PCR) Negative 01/21 Subjective Information Per RN note, pt has been tolerating TF well. Noted pt recorded w/ 210 ml residual yesterday night, and TF was hold off for 1 hour and resumed at 01:00 per RN note. Current TF regimen provides 1360 kcal/day, 110 gm protein/day, 1403 ml free water/day, and this meets 76% of lower end of estimated caloric needs and 92% of upper end of estimated protein needs. Concur w/ previous RD's recommendations: increase TF Vital HP goal rate at 55 ml/hr, Bam BID, FWF 100 ml Q6h via GT to better meet pt's needs. Pt w/ diarrhea per MD note, and C.diff results pending noted. Current Diet Order/Nutrition Support Vital HP at 50 ml/hr, Bam BID, Free Water Flush: 100 Q6h via GT x 3 days (reordered per EMR) Pertinent Medications culturelle, synthroid, ferrous sulfate, VIT D3, VIT C, Norepinephrine, Theragran-M, Colace, Pepcid, KCl 20 mEq packet Pertinent Labs WBC 20.6 H, Na 148, K 5.9H, BUN 81H, BG 231H Skin Integrity Comment: Chad scale: 11; Reviewed Supervisor Compounding And Finishing note 01/22. Please refer to [facility] note for details. 2+ edema on Bilateral Hand and 1+ pitting generalized edema per chart snatcher Estimated Energy Expenditure (kcals/day) 5841-9331 kcal/day (30-35 kcal/kg CBW for sepsis, wound healing) Estimated Protein Required (g/day) 90-120 gm/day (1.5-2 gm/kg CBW for sepsis, wound healing) Estimated Fluid Required (l/day) 1.8-2.1 Lday (1 ml/kcal/day for maintenance) Problem/Etiology/Signs/Symptoms Suboptimal EN support related to metabolic demands as evidenced by current TF regimen meets less than 80% of estimated nutritional needs. *ongoing Expected Outcomes/Goals - Monitor tolerance to EN support w/ goal of pt meeting over 80% of estimated nutritional needs, labs trending WNL, normal GI function, and skin integrity/wt maintenance Dietitian Recommendations * Recommend Vital HP at 55 ml/hr, Bam BID, Free Water Flush: 100 ml Q6h via GT Provides: 1480 kcal/day, 121 gm protein/day, and 1803 ml free water/day Meets: 82% of lower end of estimated caloric needs and 101% of upper end of estimated protein needs. Follow Up High Risk: F/U in 2-3days
--- NOTE | 2020-01-27 15:14 | NUR ---
Dietitian Recommendations * Recommend Vital HP at 55 ml/hr, Bam BID, Free Water Flush: 100 ml Q6h via GT Provides: 1480 kcal/day, 121 gm protein/day, and 1803 ml free water/day Meets: 82% of lower end of estimated caloric needs and 101% of upper end of estimated protein needs Please see Nutrition F/U for details. EP,RD
--- NOTE | 2020-01-27 16:59 | NUR ---
FAMILY UPDATE: DR MEDELLIN SPOKE WITH FAMILY HERE AT ICU AND UPDATES GIVEN WITH POOR PROGNOSIS. CONTINUE WITH CURRENT TREATMENT ORDERED.
[2020-01-27] MEDS ORDERED: methylPREDNISolone SOD SUCC/PF 62.5 MG/ML VIAL IVP ONE (17:00)
[2020-01-27] MEDS ORDERED: ALBUMIN HUMAN 25% 200 ML IV ONE (17:00)
[2020-01-27 17:51] LABS: CALCIUM 9.3 mg/dL (8.4-11.0); CREATININE 1.58 mg/dL (0.55-1.30)
[2020-01-27 17:55] LABS: POTASSIUM 6.6 mmol/L (3.5-5.1)
--- NOTE | 2020-01-27 18:30 | NUR ---
HIGH ALERT NOTE: Called Dr. Barcenas back at P#[phone] identified within the medical roster to verify physician authenticity.
--- NOTE | 2020-01-27 18:30 | NUR ---
CRITICAL LAB: SPOKE WITH DR MEDELLIN AND RELAYED POTASSIUM=6.6 ,ELEVATED BUN AND CREATININE,WITH ORDERS FOR NEPHRO CONSULT C/O DR DORMAN. GIVE KAYEXALATE 30GRAMS PER G TUBE ONCE. D50 1 AMP IVP AND REGULAR INSULIN 5 UNITS IVP NOW.
[2020-01-27] MEDS ORDERED: DEXTROSE 50% JECT 50 ML DISP.SYRIN IVP ONE (18:45)
[2020-01-27] MEDS ORDERED: SODIUM POLYSTYRENE SULFONATE 15 GM/60 ML UDBTL PO ONE (18:45)
[2020-01-27] MEDS ORDERED: INSULIN REGULAR, HUMAN 100 UNITS/ML, 10 ML VIAL IVP ONE (18:45)
--- NOTE | 2020-01-27 19:30 | NUR ---
END OF SHIFT: REPORT GIVEN TO NIGHT NURSE MARGOTH.
--- NOTE | 2020-01-27 19:30 | NUR ---
Opening note Received patient and assumed care. Patient in vent to trach with low O2 saturations 65% and FIO2 100%. Levophed drip infusing and titrating per protocol to keep SBP >90. Requires frequent suction. Non responsive to stimuli but resistance noted when attempt to suction orally. will continue to monitor as per unit protocol.
--- NOTE | 2020-01-27 19:48 | NUR ---
PAGEVal YARBROUGH FOR RESULTS DIALED: [phone] SPOKE TO: BLAINE
[2020-01-27] MEDS ORDERED: DEXTROSE 50% JECT 50 ML DISP.SYRIN ONE (21:27)
[2020-01-27] MEDS ORDERED: methylPREDNISolone SOD SUCC/PF 62.5 MG/ML VIAL IVP SCH (22:00)
[2020-01-27] MEDS ORDERED: methylPREDNISolone SOD SUCC/PF 62.5 MG/ML VIAL ONE (22:44)
--- NOTE | 2020-01-27 23:06 | NUR ---
PAGED DR. MEDELLIN FOR ORDERS DIALED: [phone] SPOKE TO: SABRINA
[2020-01-27] MEDS ORDERED: DOPamine PREMIX 250 ML IV PRN (23:15)
[2020-01-28] VITALS (7 sets, daily range): BP systolic 88–116
[2020-01-28] MEDS: NOREPINEPHRINE BITARTRATE 16 MG in NS 234 ML IV PRN ×2 (00:22→03:37)
--- NOTE | 2020-01-28 02:00 | NUR ---
Dopamine started As per MD orders Dopamine was started at 5 mcg/kg/min due to SBP 87 and levophed already to maximum dose.
[2020-01-28] MEDS: ACETYLCYSTEINE 20% 4 ML VIAL (RT) INH SCH (02:02)
[2020-01-28] MEDS: levalbuterol HCL 0.63 MG/3 ML VIAL.NEB INH SCH (02:02)
--- NOTE | 2020-01-28 03:10 | NUR ---
PAGED FOR ORDERS DIALED: [phone] SPOKE TO: TOMY
--- NOTE | 2020-01-28 03:15 | NUR ---
Blood pressure noted to start to deteriorate, trending down until unable to obtain reading. Dopamine increased to 20 mcg/kg/min and levophed at 1 mcg/kg/min. Dr carrasquillo will be contacted for orders. O2 saturations shows patient is hypoxic with O2 saturations of 40%.
--- NOTE | 2020-01-28 03:30 | NUR ---
DR. VIGNESH CASTILLO MADE AWARE OF DIFFICULTY OBTAINING BP. CURRENT BP 116/85 ON MAX DOSAGE OF LEVOPHED AND DOPAMINE. PER MD ADD NEOSYNEPHRINE DRIP. WILL CARRY OUT ORDERED.
[2020-01-28] MEDS ORDERED: NOREPINEPHRINE 4 MG/4 ML VIAL IV ONE (03:43)
[2020-01-28] MEDS ORDERED: PHENYLEPHRINE HCL 50 MG in NS 245 ML IV PRN (03:45)
[2020-01-28] MEDS ORDERED: PHENYLEPHRINE HCL 10 MG/ML VIAL (NEOSYNEPHRINE) ONE (04:43)
--- NOTE | 2020-01-28 04:55 | NUR ---
NOTIFIED OF PT EXPIRATION [phone] -SPOKE TO: MAUREEN MARQUEZ [phone] GABINO NOE DINESH -SPOKE TO: JENNY DAILEY [phone] -SPOKE TO: AUTOMATED EXCHANGE
[2020-01-28] MEDS ORDERED: FLUCONAZOLE 200 MG TABLET (DIFLUCAN) GT SCH (09:00)
--- NOTE | 2020-01-28 09:27 | NUR ---
[employer] Assistant Note: LOCAL AREA NETWORK ADMINISTRATOR met with patient's sister, Ana to provide emotional support and mortuary/bereavement resources. Ana will call SS once everything is arranged. SS will remain available.
== END 2020-01-28 04:46 | disposition expired | DRG 870 ==
LOC: SED 17:53 → STU 19:01 → SIC 01-25 17:14
PROVIDERS: ADMIT Internal Medicine; ATTEND Internal Medicine
PROC: 5A1955Z Respiratory Ventilation, Greater than 96 Consecutive Hours (ICD-10-PCS; principal; 2020-01-22)
PROC: 02HV33Z Insertion of Infusion Device into Superior Vena Cava, Percutaneous Approach (ICD-10-PCS; 2020-01-25)
DX: A41.9 Sepsis, unspecified organism (principal); E43 Unspecified severe protein-calorie malnutrition; G82.50 Quadriplegia, unspecified; J85.0 Gangrene and necrosis of lung; J96.21 Acute and chronic respiratory failure with hypoxia; R65.21 Severe sepsis with septic shock; J15.5 Pneumonia due to Escherichia coli; Z99.11 Dependence on respirator [ventilator] status; G12.21 Amyotrophic lateral sclerosis; J47.0 Bronchiectasis with acute lower respiratory infection; J84.9 Interstitial pulmonary disease, unspecified; N39.0 Urinary tract infection, site not specified; R04.2 Hemoptysis; L03.311 Cellulitis of abdominal wall; D63.8 Anemia in other chronic diseases classified elsewhere; I46.9 Cardiac arrest, cause unspecified; E03.9 Hypothyroidism, unspecified; I27.20 Pulmonary hypertension, unspecified; R13.10 Dysphagia, unspecified; Y95 Nosocomial condition; Z20.828 Contact with and (suspected) exposure to other viral communicable diseases; Z74.01 Bed confinement status; Z88.6 Allergy status to analgesic agent; Z91.041 Radiographic dye allergy status; Z93.0 Tracheostomy status; Z79.899 Other long term (current) drug therapy; Z79.1 Long term (current) use of non-steroidal anti-inflammatories (NSAID); Z68.23 Body mass index [BMI] 23.0-23.9, adult; I95.9 Hypotension, unspecified
CPT/HCPCS: 36415; 36600; 71045; 71250-TC; 76376; 80048; 80053; 81000-TC; 82607; 82746; 82803-TC; 83540-TC; 83550-TC; 83605; 83735-TC; 83880; 84100-TC; 84439; 84443-TC; 84484; 85007; 85025; 85027; 85610-TC; 85730-TC; 87040-TC; 87070-TC; 87081; 87086; 87205-TC; 93005; 94002; 94003; 94640; 94760; 96365; 99285; C1751; G0378; J0696; J0885; J1100; J1160; J1265; J1644; J1815; J2185; J2370; J2543; J2930; J3370; J3490; J7030; J7050; J7060; J7608; J7614; U0003